=== PATIENT | female | born 1970 | race African-American/Black ===

== ENCOUNTER 2017-03-26 14:40 | Emergency (ER) | payer OTHER ==
--- NOTE | 2017-03-26 15:23 | PDOC ---
Medical Decision Making - Medical Decision Making 03/26/17 15:22 Pt brought to ED by [facility] after she had seizure while undergoing EEG across the street. Per protocol, was brought to [facility] despite patient's refusal - she states she has a lawsuit and does not want to be treated here. Upon arrival, pt refused care and began walking away. Discussed at length with patient in ambulance bay that we will evaluate and care for her as needed, but she does not want evaluation or care here despite understanding all levels of risk including increased seizures, brain/nerve damage, . Verbal AMA witnessed by [facility] crew and integrity director Clover Moura. She refused to enter the ED or sign any papers. Dr. Lantigua's office was called and Erma notified. *DC/Admit/Observation/Transfer - Discharge Dispostion Disposition: AGAINST MEDICAL ADVICE
== END 2017-03-26 15:22 | disposition left against medical advice (07) ==
LOC: JER 14:40
DX: Z53.21 Procedure and treatment not carried out due to patient leaving prior to being seen by health care provider (principal)
CPT/HCPCS: 99281-25

== ENCOUNTER 2017-08-11 12:51 | Emergency (ER) | payer OTHER ==
--- NOTE | 2017-08-11 13:12 | PDOC ---
History of Present Illness - General Chief Complaint: Seizure Stated Complaint: CHEST PAIN Time Seen by Provider: 08/11/17 13:10 - History of Present Illness Initial Comments: 08/11/17 13:11 Ms. Mckeon is a 47 yo female with a significant past medical history of seizure disorder on Kepra and Topamax, pseudocseizures, HTN, IBS, HLD, DM, and PTSD who presents to the emergency department with a 2 hour history of " fighting her aura" with chest tightness. The patient denies shortness of breath, headache and dizziness. Denies fever, chills, nausea, vomit, diarrhea and constipation. Denies dysuria, frequency, urgency and hematuria. Allergies: Dilantin Past surgical history: Denies Past History - Past Medical History Allergies/Adverse Reactions: Allergies Allergy/AdvReac Type Severity Reaction Status Date / Time phenytoin sodium AdvReac Verified 08/11/17 13:59 [From Dilantin] phenytoin sodium extended AdvReac Verified 08/11/17 13:59 [From Dilantin] Home Medications: Ambulatory Orders Alprazolam [Xanax] 2 mg PO DAILY 08/11/17 Clonazepam [Klonopin -] 0.5 mg PO BID 08/11/17 Esomeprazole Mag Trihydrate [NexIUM for SUSP] 40 mg PO DAILY 08/11/17 Levetiracetam [Keppra -] 250 mg PO BID 08/11/17 Oxycodone HCl/Acetaminophen [Endocet 5-325 Tablet] 1 each PO PRN 08/11/17 Topiramate [Topiramate ER] 200 mg PO BID 08/11/17 Anemia: No Asthma: No Cancer: No Cardiac Disorders: No CVA: No COPD: No CHF: No Dementia: No Diabetes: Yes GI Disorders: Yes (acid reflux, IBS) Disorders: No HTN: Yes Hypercholesterolemia: Yes Liver Disease: No Psychiatric Problems: (anxeity,PTSD) Seizures: Yes Thyroid Disease: No - Surgical History Abdominal Surgery: No Appendectomy: No Cardiac Surgery: No Cholecystectomy: Yes Lung Surgery: No Neurologic Surgery: No Orthopedic Surgery: No - Immunization History Immunization Up to Date: Yes - Suicide/Smoking/Psychosocial Hx Smoking Status: Yes Smoking History: Current every day smoker Have you smoked in the past 12 months: Yes Number of Cigarettes Smoked Daily: 3 'Breaking Loose' booklet given: 06/30/15 Hx Alcohol Use: No Drug/Substance Use Hx: No Substance Use Type: None Hx Substance Use Treatment: No Review of Systems - Review of Systems Comments:: 08/11/17 13:11 GENERAL/CONSTITUTIONAL: No fever or chills. No weakness. HEAD, EYES, EARS, NOSE AND THROAT: No change in vision. No ear pain or discharge. No sore throat. CARDIOVASCULAR: +Chest tightness for 2 hours, no shortness of breath RESPIRATORY: No cough, wheezing, or hemoptysis. GASTROINTESTINAL: No nausea, vomiting, diarrhea or constipation. GENITOURINARY: No dysuria, frequency, or change in urination. MUSCULOSKELETAL: No joint or muscle swelling or pain. No neck or back pain. SKIN: No rash NEUROLOGIC: +Headache with reported aura, No vertigo, loss of consciousness, or change in strength/sensation. ENDOCRINE: No increased thirst. No abnormal weight change HEMATOLOGIC/LYMPHATIC: No anemia, easy bleeding, or history of blood clots. ALLERGIC/IMMUNOLOGIC: No hives or skin allergy. *Physical Exam - Physical Exam Comments: 08/11/17 13:11 GENERAL: Awake, alert, and fully oriented, in no acute distress HEAD: No signs of trauma, normocephalic, atraumatic EYES: PERRLA, EOMI, sclera anicteric, conjunctiva clear ENT: Auricles normal inspection, hearing grossly normal, nares patent, oropharynx clear without exudates. Moist mucosa NECK: Normal ROM, supple, no lymphadenopathy, JVD, or masses LUNGS: No distress, speaks full sentences, clear to auscultation bilaterally HEART: Regular rate and rhythm, normal S1 and S2, no murmurs, rubs or gallops, peripheral pulses normal and equal bilaterally. ABDOMEN: Soft, nontender, normoactive bowel sounds. No guarding, no rebound. No masses EXTREMITIES: Normal inspection, Normal range of motion, no edema. No clubbing or cyanosis. NEUROLOGICAL: Cranial nerves II through XII grossly intact. Normal speech, normal gait, no focal sensorimotor deficits SKIN: Warm, Dry, normal turgor, no rashes or lesions noted. ED Treatment Course - LABORATORY CBC & Chemistry Diagram: 08/11/17 14:14 08/11/17 14:19 Medical Decision Making - Medical Decision Making 08/11/17 13:45 Patient observed to have rhythmic movements concerning for pseudo-seizure vs. seizure during interview, exacerbated by stress of multiple sticks while attempting to get IV line. 08/11/17 15:19 Patient reports feeling much better after 10mg of reglan and start of IV fluids. 08/11/17 16:41 Attempted to contact pts. Neurologist (Dr. Nannette Sutton) without success. 08/11/17 17:10 Attempted to contact anyone from Dr. Sutton's office or any partners without success. Dr. Blount contacted to discuss case. Advised to have pt ncrease keppra dosing from 250 to 500 BID and follow-up outpatient as needed. Will advise patient to follow-up with [facility] if any future problem contacting [facility]. Discussed all w/ pt and pt verbalized understanding. *DC/Admit/Observation/Transfer Diagnosis at time of Disposition: Pseudoseizures - Discharge Dispostion Disposition: HOME - Referrals Referrals: Nannette Sutton MD [Staff Physician] - Ruben Blount MD [Staff Physician] - - Patient Instructions Printed Discharge Instructions: Migraine -- Adult Additional Instructions: Please follow-up with your Neurologist as discussed. If any problems please reach out to Dr. Blount (information attached).
[2017-08-11 13:59] VITALS: BMI 36.1
[2017-08-11] MEDS ORDERED: SODIUM CHLORIDE 1,000 ML IV STA (14:06)
[2017-08-11] MEDS ORDERED: METOCLOPRAMIDE HCL INJECTION 10 MG/2 ML VIAL IVPUSH ONE (14:06)
--- NOTE | 2017-08-11 14:09 | PDOC ---
Attending Attestation - Resident Resident Name: Jayden Treadwell - ED Attending Attestation I have performed the following: I have examined & evaluated the patient, The case was reviewed & discussed with the resident, I agree w/resident's findings & plan, Exceptions are as noted - HPI HPI: 08/11/17 15:13 47y F hx of sz d/o, (?pseudoseizures), on keppra and topamax, htn, ibs, hl, dm, tpsd presents with sensation of aura without activ seizures, however on presentation the pt had several episodes of what was suspected to be pseudoseizures (upper extreity jerking but pt was albe to speak) vs partial seizures. The pt had an episode of twitching of her L upper lip and she had sonorous breathing. pt also endorsed mild headache and some chest tightness. pt jayna any n/v, focal ewkneass, numbnes/tingling/weakness. no tongue biting or urinary/bowel incontinence - Physicial Exam PE: 08/11/17 15:19 GENERAL: The patient is awake, alert, and fully oriented, Nontoxic - in no acute distress. HEAD: Normocephalic, atraumatic. EYES: extraocular movements intact, sclera anicteric, conjunctiva clear. ENT: Normal voice, Moist mucous membranes. NECK: Normal range of motion, supple LUNGS: Breath sounds equal, clear to auscultation bilaterally. No wheezes, no rhonchi, no rales. HEART: Regular rate and rhythm, normal S1 and S2 without murmur, rub or gallop. ABDOMEN: Soft, nontender, normoactive bowel sounds. No guarding, no rebound. EXTREMITIES: Normal range of motion, no edema. No clubbing or cyanosis. No cords, erythema, or tenderness. NEUROLOGICAL: No facial assymetry, Normal speech, moving all 4 extremities spontaneously and symmetrically PSYCH: Normal mood, normal affect. SKIN: Warm, Dry, normal turgor, - Medical Decision Making 08/11/17 15:20 seizures vs pseudoseizures. will ck labs ativan prn will dw neurology 08/11/17 17:55 resident d/w neurology requested med changes and will have pt fu as outpatient pt currently baseline, agrees with management Case discussed in detail with admitting physician including history, physical exam and ancillary studies. Admitting physician has assumed care for the patient, will follow all pending diagnostics and will complete the evaluation and treatment.
[2017-08-11 14:27] LABS: BASOPHIL 0.8 % (0-2.0); EOSINOPHIL 3.8 % (0-4.5); MCH 27.7 pg (25.7-33.7); MCHC 33.1 g/dl (32.0-36.0); MEAN CELL VOLUME 83.8 fl (80-96); MEAN PLT VOLUME 8.7 fl (7.5-11.1); NEUTROPHILS 43.8 % (42.8-82.8); PLATELET COUNT 253 K/MM3 (134-434); RDW 14.1 % (11.6-15.6); WHITE BLOOD COUNT 7.4 K/mm3 (4.0-10.0)
[2017-08-11] MEDS ORDERED: METOCLOPRAMIDE HCL INJECTION 10 MG/2 ML VIAL ONE (14:48)
[2017-08-11 14:50] LABS: ANION GAP 11 (8-16); BILIRUBIN,TOTAL 0.2 mg/dL (0.2-1.0); CO2 22 mmol/L (21-32); GLUCOSE,RANDOM 86 mg/dL (74-106); SGPT/ALT 23 U/L (12-78); TOT PROT 7.7 g/dl (6.4-8.2)
[2017-08-11 14:51] LABS: ALK PHOS 89 U/L (45-117)
[2017-08-11 14:59] LABS: SGOT/AST 16 U/L (15-37)
[2017-08-11 15:19] VITALS: TEMP 98.2
[2017-08-11 16:33] LABS: CPK 227 IU/L (26-192); TROPONIN I < 0.02 ng/ml (0.00-0.05)
[2017-08-11 17:41] VITALS: BP 142/92; PULSE 99
--- NOTE | 2017-08-12 07:05 | EKG ---
Test Reason : Blood Pressure : / mmHG Vent. Rate : 075 BPM Atrial Rate : 075 BPM P-R Int : 160 ms QRS Dur : 082 ms QT Int : 380 ms P-R-T Axes : 032 -03 041 degrees QTc Int : 424 ms NORMAL SINUS RHYTHM NORMAL ECG WHEN COMPARED WITH ECG OF 23-SEP-2016 16:06, NO SIGNIFICANT CHANGE WAS FOUND Confirmed by TUAN CAMERON MD ([id number]) on 08/12/2017 7:05:36 AM Referred By: Confirmed By:TUAN CAMERON MD
== END 2017-08-11 17:44 | disposition home or self-care (01) ==
LOC: JER 12:51
PROC: 3E033GC Introduction of Other Therapeutic Substance into Peripheral Vein, Percutaneous Approach (ICD-10-PCS; principal; 2017-08-11)
DX: R56.9 Unspecified convulsions (principal); I10 Essential (primary) hypertension; E11.9 Type 2 diabetes mellitus without complications; E78.00 Pure hypercholesterolemia, unspecified; K21.9 Gastro-esophageal reflux disease without esophagitis; F41.9 Anxiety disorder, unspecified; F43.10 Post-traumatic stress disorder, unspecified
CPT/HCPCS: 36415; 80053; 82550; 82553; 84484; 85025; 93005; 93010; 96374; 99284-25

== ENCOUNTER 2017-12-09 14:07 | Inpatient (IN) | payer OTHER ==
--- NOTE | 2017-12-09 14:37 | PDOC ---
History of Present Illness - General History Source: Patient, Family Exam Limitations: No Limitations - History of Present Illness Initial Comments: 12/09/17 16:53 The patient is a 47 year old female with a significant PMH of seizures and pseudoseizures; on keppra and topamax, HTN, HLD, pre-diabetic who presents to the emergency department with seizures today. The patient was seen by neurologist (Dr. Sutton) today and had a witnessed seizure in the office. As per EMS, the patient was given 5 of Versed IM with temporary cessation of seizures and was placed on a non-breather by EMS Her vitals were normal throughout per EMS.. The seizures are described as an aura of facial twitching initially, then became generalized and lasting for approximately 30 seconds. Upon arrival, the patient was somnolent with face twitching. During intial evaluation, the patient became more arousable and able to answer questions. The patient endsorses headache and nausea which she states is typical post-ictal. The patient states she is compliant with meds and has had no recent med changes. The patient denies palpiations, chest pain, shortness of breath, and dizziness. Denies fever, chills, vomit, diarrhea and constipation. Denies dysuria, frequency, urgency and hematuria. Allergies: NKA Past surgical history: None reported Social history: No reported alcohol, drug or cigarete use. PCP: Dr. Galarza <Jewell Fox - Last Filed: 12/09/17 16:54> <Primo Araujo - Last Filed: 12/11/17 11:34> - General Stated Complaint: Seizure Time Seen by Provider: 12/09/17 14:21 Past History <Jewell Fox - Last Filed: 12/09/17 16:54> - Past Medical History Anemia: No Asthma: No Cancer: No Cardiac Disorders: No CVA: No COPD: No CHF: No Dementia: No Diabetes: Yes GI Disorders: Yes (acid reflux, IBS) Disorders: No HTN: Yes Hypercholesterolemia: Yes Liver Disease: No Psychiatric Problems: (anxeity,PTSD) Seizures: Yes Thyroid Disease: No - Surgical History Abdominal Surgery: No Appendectomy: No Cardiac Surgery: No Cholecystectomy: Yes Lung Surgery: No Neurologic Surgery: No Orthopedic Surgery: No - Immunization History Immunization Up to Date: Yes - Suicide/Smoking/Psychosocial Hx Smoking Status: Yes Smoking History: Never smoked Have you smoked in the past 12 months: Yes Number of Cigarettes Smoked Daily: 3 'Breaking Loose' booklet given: 06/30/15 Hx Alcohol Use: No Drug/Substance Use Hx: No Substance Use Type: None Hx Substance Use Treatment: No <Primo Araujo - Last Filed: 12/11/17 11:34> - Past Medical History Allergies/Adverse Reactions: Allergies Allergy/AdvReac Type Severity Reaction Status Date / Time phenytoin sodium AdvReac Verified 08/11/17 13:59 [From Dilantin] phenytoin sodium extended AdvReac Verified 08/11/17 13:59 [From Dilantin] Home Medications: Ambulatory Orders Alprazolam [Xanax] 2 mg PO DAILY 08/11/17 Esomeprazole Mag Trihydrate [NexIUM for SUSP] 40 mg PO DAILY 08/11/17 Oxycodone HCl/Acetaminophen [Endocet 5-325 Tablet] 1 each PO PRN 08/11/17 Topiramate [Topiramate ER] 200 mg PO BID 08/11/17 clonazePAM [Klonopin -] 0.5 mg PO BID 08/11/17 levETIRAcetam [Keppra -] 250 mg PO BID 08/11/17 Review of Systems - Review of Systems Able to Perform ROS?: Yes Comments:: 12/09/17 16:54 CONSTITUTIONAL: No reported: Fever, Chills, Diaphoresis, Generalized Weakness, Malaise, Loss of Appetite HEENT: No reported: Rhinorrhea, Nasal Congestion, Throat Pain, Throat Swelling, Difficulty Swallowing, Mouth Swelling, Ear Pain, Eye Pain, Visual Changes CARDIOVASCULAR: No reported: Chest Pain, Syncope, Palpitations, Irregular Heart Rate, Lightheadedness, Peripheral Edema RESPIRATORY: No reported: Cough, Shortness of Breath, SOB with Exertion, Orthopnea, Wheezing , Stridor, Hemoptysis GASTROINTESTINAL: No reported: Abdominal pain, Abdominal Distension, Vomiting, Diarrhea, Constipation, Melena, Hematochezia Reported: (+) Nausea. GENITOURINARY: No reported: Dysuria, Frequency, Urgency, Hesitancy, Flank Pain, Genital Pain MUSCULOSKELETAL: No reported: Myalgia, Arthralgia, Joint Swelling, Back pain, Neck Pain SKIN: No reported: Rash, Itching, Pallor HEMEATOLOGIC/IMMUNOLOGIC: No reported: Easy Bleeding, Easy Bruising, Lymphadenopathy, Frequent infections ENDOCRINE: No reported: Unexplained Weight Gain, Unexplained Weight Loss, Heat Intolerance , Cold Intolerance NEUROLOGIC: No reported: Focal Weakness, Paresthesias, Vertigo, Lightheadedness, Unsteady Gait, Mental Status Changes, Incontinence Reported:(+) Seizures. (+) Headache. PSYCHIATRIC: No reported: Anxiety, Depression <Jewell Fox - Last Filed: 12/09/17 16:54> *Physical Exam - Vital Signs Last Vital Signs Temp Pulse Resp BP Pulse Ox 80 20 153/98 98 12/09/17 14:15 12/09/17 14:15 12/09/17 14:15 12/09/17 14:15 - Physical Exam Comments: 12/09/17 16:54 GENERAL: The patient is awake, alert, and fully oriented, Nontoxic - in no acute distress. HEAD: Normocephalic, atraumatic. EYES: extraocular movements intact, sclera anicteric, conjunctiva clear. ENT: Normal voice, Moist mucous membranes. NECK: Normal range of motion, supple LUNGS: Breath sounds equal, clear to auscultation bilaterally. No wheezes, no rhonchi, no rales. HEART: Regular rate and rhythm, without murmur, rub or gallop. ABDOMEN: Soft, nontender, normoactive bowel sounds. No guarding, no rebound.No CVA tenderness EXTREMITIES: Normal range of motion, no edema. No clubbing or cyanosis. No cords, erythema, or tenderness. NEUROLOGICAL: No facial assymetry, Normal speech, moving all 4 exterimties spontaenously and symetriclaly PSYCH: Normal mood, normal affect. SKIN: Warm, Dry, normal turgor, <Jewell Fox - Last Filed: 12/09/17 16:54> - Vital Signs Last Vital Signs Temp Pulse Resp BP Pulse Ox 80 20 153/98 98 12/09/17 14:15 12/09/17 14:15 12/09/17 14:15 12/09/17 14:15 <VanPrimo - Last Filed: 12/11/17 11:34> Heart Score/ECG Review - ECG Impressions Comment:: 12/09/17 18:37 Twelve-lead EKG was performed and reviewed by me. There is normal sinus rhythm with a normal rate. Rate of [address] changes suggestive of acute ischemia <Primo Araujo - Last Filed: 12/11/17 11:34> ED Treatment Course - LABORATORY CBC & Chemistry Diagram: 12/09/17 16:22 12/09/17 16:22 - Medications Given in the ED: ED Medications Discontinued Medications Generic Name Dose Route Start Last Admin Trade Name Masood PRN Reason Stop Dose Admin Acetaminophen 1,000 mg 12/09/17 14:38 12/09/17 14:39 Ofirmev Injection - IVPB 12/09/17 14:39 1,000 mg ONCE ONE Administration Lorazepam 2 mg 12/09/17 14:52 12/09/17 15:06 Ativan Injection - IVPUSH 12/09/17 14:53 2 mg ONCE ONE Administration <Jewell Fox - Last Filed: 12/09/17 16:54> - LABORATORY CBC & Chemistry Diagram: 12/11/17 10:30 12/11/17 10:30 <Primo Araujo - Last Filed: 12/11/17 11:34> Medical Decision Making - Medical Decision Making 12/09/17 15:35 Dr. Sutton (neurologist) was paged. <Jewell Fox - Last Filed: 12/09/17 16:54> - Medical Decision Making 12/09/17 14:29 47y F hx of seizures and pseudoseizures on keppra/topamax, htn, hl, dm, hx of head injury presents with witnessed sz while at neurologists office, lasting approx 30 seconds ,was given 5 versed by EMS will pt currently awake, speaking no focal neurolgoci findings will ck labs, ekg will dw neurology A portion of this note was documented by scribe services under my direction. I have reviewed the details of the note, within reason, and agree with the documentation with the following case summary and management plan written by me 12/09/17 14:52 pt with epsidoe of facial twitching heavy breathing course twitching/shaking her sat remianed at 98%on RA, HR was stable will give pt 2mg ativan 12/09/17 15:15 pt seizure like activity resolved shortly after ativan has been at baseline mental status, awake, answering questions, complining of pain in her knee (and feels that is the trigger of her seizures) 12/09/17 15:[address] santiago requests admission he will come see her in 1.5 hrs I spent ~35 minutes of Critical Care time, excluding separately billable procedures, involving high complexity decision making to assess, manipulate and support vital system function(s) to treat single or multiple vital organ system failure and/or to prevent further life threatening deterioration of the patient' s condition. 12/09/17 17:58 case discused with MONUMENT INSTALLER Kiki Cruz will observe in med surg under dr. harrison service. Case discussed in detail with admitting physician including history, physical exam and ancillary studies. Admitting physician has assumed care for the patient, will follow all pending diagnostics and will complete the evaluation and treatment. 0 <Primo Araujo - Last Filed: 12/11/17 11:34> *DC/Admit/Observation/Transfer - Attestations Scribe Attestion: 12/09/17 16:55 Documentation prepared by Jewell Fox, acting as medical assisting program director for Primo Araujo MD. <Jewell Fox - Last Filed: 12/09/17 16:54> - Discharge Dispostion Admit: Yes <Primo Araujo - Last Filed: 12/11/17 11:34> Diagnosis at time of Disposition: Seizure - Discharge Dispostion Condition at time of disposition: Stable
[2017-12-09] MEDS ORDERED: ACETAMINOPHEN 1000 MG/100 ML VIAL (NON FORMULARY) IVPB ONE (14:38)
[2017-12-09] MEDS ORDERED: ACETAMINOPHEN INJECTION 100 ML IVPB ONE (14:44)
[2017-12-09] MEDS ORDERED: LORazepam 2 MG/ML SDV VIAL ONE ×2 (14:53→20:00)
[2017-12-09 16:44] LABS: BASO % 1.1 % (0-2.0); EOS % 4.5 % (0-4.5); HEMATOCRIT 41.7 % (32.4-45.2); HEMOGLOBIN 13.9 GM/dL (10.7-15.3); LYMPH % 46.5 % (8-40); MCH 28.3 pg (25.7-33.7); MCHC 33.3 g/dl (32.0-36.0); MEAN CELL VOLUME 85.2 fl (80-96); MEAN PLT VOLUME 9.1 fl (7.5-11.1); MONO % 3.9 % (3.8-10.2); PLATELET COUNT 210 K/MM3 (134-434); RDW 14.1 % (11.6-15.6); WHITE BLOOD COUNT 6.8 K/mm3 (4.0-10.0)
[2017-12-09 17:12] LABS: ALBUMIN 3.7 g/dl (3.4-5.0); ANION GAP 7 (8-16); BLOOD UREA NITROGEN 11 mg/dL (7-18); CALCIUM 8.5 mg/dL (8.5-10.1); CHLORIDE 109 mmol/L (98-107); CO2 26 mmol/L (21-32); CREATININE 0.9 mg/dL (0.55-1.02); GLUCOSE,RANDOM 125 mg/dL (74-106); POTASSIUM 3.8 mmol/L (3.5-5.1); SGOT/AST 16 U/L (15-37); SGPT/ALT 28 U/L (12-78); SODIUM 142 mmol/L (136-145)
[2017-12-09 17:13] LABS: ALK PHOS 90 U/L (45-117); BILIRUBIN,TOTAL 0.4 mg/dL (0.2-1.0); TOT PROT 6.9 g/dl (6.4-8.2)
[2017-12-09 18:09] LABS: URINE APPEARANCE CLOUDY; URINE BILIRUBIN NEGATIVE (NEGATIVE); URINE BLOOD NEGATIVE (NEGATIVE); URINE COLOR AMBER; URINE GLUCOSE (UA) NEGATIVE (NEGATIVE); URINE KETONE NEGATIVE (NEGATIVE); URINE NITRITE NEGATIVE (NEGATIVE)
--- NOTE | 2017-12-09 18:22 | CON.NEURO ---
Consult Consult Specialty:: NEUROLOGY-IMELDA MCINTOSH Reason for Consultation:: Seizure - History of Present Illness History of Present Illness: The patient is a 47 year old female with a significant PMH of seizures and pseudoseizures, chronic lumbar pain; on keppra 750mg bid and topamax 50mg bid, HTN, HLD, fibromyalgiapre-diabetic who presents to the emergency department with seizures today. The patient was seen by neurologist (Dr. Sutton) today and had a witnessed seizure in the office. As per EMS, the patient was given 5 of Versed IM with temporary cessation of seizures and was placed on a non-breather by EMS Her vitals were normal throughout per EMS.. The seizures are described as an aura of facial twitching initially, then became generalized and lasting for approximately 30 seconds. Upon arrival, the patient was somnolent with face twitching. During intial evaluation, the patient became more arousable and able to answer questions. The patient endsorses headache and nausea which she states is typical post-ictal. The patient states she is compliant with meds and has had no recent med changes. Ms. Mckeon informs me she has had improvement of her back pain that has radiated to both knees x years(L4 distribution)(treated with Percocet 1 tab 3 x /day x 2 years and gabapentin)- a week ago began having intense left knee pain that she says riggers off seizures, she is unable to ambulate due to pain and perceives a "pop" in her knee. Today in my office had 1 GTC(not lear whether true sz. or non-electrical sz), had another one in ER. - Past Medical History ...LMP: 11/18/11 - Alcohol/Substance Use Hx Alcohol Use: No - Smoking History Smoking history: Never smoked Have you smoked in the past 12 months: Yes Aproximately how many cigarettes per day: 3 Home Medications - Allergies Allergies/Adverse Reactions: Allergies Allergy/AdvReac Type Severity Reaction Status Date / Time phenytoin sodium AdvReac Verified 08/11/17 13:59 [From Dilantin] phenytoin sodium extended AdvReac Verified 08/11/17 13:59 [From Dilantin] - Home Medications Home Medications: Ambulatory Orders Alprazolam [Xanax] 2 mg PO DAILY 08/11/17 Esomeprazole Mag Trihydrate [NexIUM for SUSP] 40 mg PO DAILY 08/11/17 Oxycodone HCl/Acetaminophen [Endocet 5-325 Tablet] 1 each PO PRN 08/11/17 Topiramate [Topiramate ER] 200 mg PO BID 08/11/17 clonazePAM [Klonopin -] 0.5 mg PO BID 08/11/17 levETIRAcetam [Keppra -] 250 mg PO BID 08/11/17 Physical Exam-Neuro Vital Signs: Vital Signs Temperature Pulse Rate 80 12/09/17 14:15 Respiratory Rate 20 12/09/17 14:15 Blood Pressure 153/98 12/09/17 14:15 O2 Sat by Pulse Oximetry (%) 98 12/09/17 14:15 Labs: CBC, BMP 12/09/17 16:22 12/09/17 16:22 - Neuro Exam DTR's: 1+ Left Achilles, 1+ Right Achilles, 2+ Left Bicep, 2+ Right Bicep, 2+ Left Tricep, 2+ Right Tricep, 2+ Left Brachioradialis, 2+ Right Brachioradialis Motor Strength: 5/5: Left Arm, Right Arm, Left Leg, Right Leg (left leg strength -limited exam due to intense knee pain) Gait: Deferred (Unable to stand secondary to knee pain) Assessment/Plan Pt. with breakthrough seizure vs non-electrical seizure. What is more prominent is knee pain?? knee pathology vs pain radiating from L4 root to knee- sometimes lumbar root pain can occur in knee only. Plan:Kindly admit patient, she is unable to ambulate Cont Keppra 750mg bid Increase Topamax to 100mg bid Cont Gabapentin at current dose Percocet 1 tab 10 qid Orthopedics consult re: knee pain Neurosurgery consult(Dr. Albrecht, I have already requested him to see patient)- re: opinion whether lumbar mechanical pain is radiating down causing localized knee pain. Thank you, Stephon Sutton MD
[2017-12-09 18:44] LABS: URINE LEUK ESTERASE 3+ (NEGATIVE); URINE PROTEIN 1+ (NEGATIVE)
--- NOTE | 2017-12-09 18:56 | HP ---
CHIEF COMPLAINT: breakthrough seizure PCP: Neurologist: Dr. Sutton HISTORY OF PRESENT ILLNESS: Patient is a 47 year old female with a significant past medical history of seizures and pseudoseizures (on Keppra 750mg BID and Topomax 50mg BID), chronic lumbar pain, hypertension, hyperlipidemia, fibromyalgia and pre-diabetes. She is also a current everyday smoker. She presents to the ED today with a witnessed breakthrough seizure. Patient was reported to be in her neurologist office today and had a witnessed seizure. She was sent to the ED. En route to the hospital she was given Versed. The seizure were initially facial twitching then became generalized and lasting for apx 30 seconds. On arrival to the ED, she also had another seizure episode and was given Ativan IV with good effect. In the ED patient was back to her baseline mentally, reporting she has a minor headache and mild nausea which she states happens after a seizure. Patient states that she has had severe knee pain for a few weeks. The left knee hurts more than the right. and she is unable to ambulate without experiencing severe pain. She also reports back pain that radiates to both knees. She states that when her knee pain becomes severe, it precipitates a seizure. She reports compliance with her home anti-seizure medications. ER course was notable for: (1) leuk ext +3 (2) lactic acid 2.3 (3) ativan 2mg push for seizure (4) left knee pain, xray pending (5) seizures x 2 Recent Travel: PAST MEDICAL HISTORY: PAST SURGICAL HISTORY: Social History: Smoking: current every day smoker Alcohol: denies Drugs: denies Family History: Allergies phenytoin sodium [From Dilantin] Adverse Reaction (Verified 08/11/17 13:59) phenytoin sodium extended [From Dilantin] Adverse Reaction (Verified 08/11/17 13 :59) HOME MEDICATIONS: Home Medications Medication Instructions Recorded Alprazolam [Xanax] 2 mg PO DAILY 08/11/17 Esomeprazole Mag Trihydrate 40 mg PO DAILY 08/11/17 [NexIUM for SUSP] Oxycodone HCl/Acetaminophen 1 each PO PRN 08/11/17 [Endocet 5-325 Tablet] Topiramate [Topiramate ER] 200 mg PO BID 08/11/17 clonazePAM [Klonopin -] 0.5 mg PO BID 08/11/17 levETIRAcetam [Keppra -] 250 mg PO BID 08/11/17 REVIEW OF SYSTEMS CONSTITUTIONAL: Absent: fever, chills, diaphoresis, generalized weakness, malaise, loss of appetite, weight change HEENT: Absent: rhinorrhea, nasal congestion, throat pain, throat swelling, difficulty swallowing, mouth swelling, ear pain, eye pain, visual changes CARDIOVASCULAR: Absent: chest pain, syncope, palpitations, irregular heart rate, lightheadedness , peripheral edema RESPIRATORY: Absent: cough, shortness of breath, dyspnea with exertion, orthopnea, wheezing, stridor, hemoptysis GASTROINTESTINAL: Absent: abdominal pain, abdominal distension, nausea, vomiting, diarrhea, constipation, melena, hematochezia GENITOURINARY: Absent: dysuria, frequency, urgency, hesitancy, hematuria, flank pain, genital pain MUSCULOSKELETAL: Absent: myalgia, arthralgia, joint swelling, back pain, neck pain SKIN: Absent: rash, itching, pallor HEMATOLOGIC/IMMUNOLOGIC: Absent: easy bleeding, easy bruising, lymphadenopathy, frequent infections ENDOCRINE: Absent: unexplained weight gain, unexplained weight loss, heat intolerance, cold intolerance PHYSICAL EXAMINATION Vital Signs - 24 hr 12/09/17 14:15 Pulse Rate 80 Respiratory 20 Rate Blood Pressure 153/98 O2 Sat by Pulse 98 Oximetry (%) GENERAL: Awake, alert, and fully oriented, in no acute distress. HEAD: Normal with no signs of trauma. EYES: Pupils equal, round and reactive to light, extraocular movements intact, sclera anicteric, conjunctiva clear. No lid lag. EARS, NOSE, THROAT: Ears normal, nares patent, oropharynx clear without exudates. Moist mucous membranes. NECK: Normal range of motion, supple without lymphadenopathy, JVD, or masses. LUNGS: Breath sounds equal, clear to auscultation bilaterally. No wheezes, and no crackles. No accessory muscle use. HEART: Regular rate and rhythm, normal S1 and S2 without murmur, rub or gallop. ABDOMEN: Soft, nontender, not distended, normoactive bowel sounds, no guarding, no rebound, no masses. No hepatomegaly or splenomegaly. MUSCULOSKELETAL: Normal range of motion at all joints. No bony deformities or tenderness. No CVA tenderness. LOWER EXTREMITIES: Bilateral knee pain and edema L>R. NEUROLOGICAL: Normal speech. Normal gait. PSYCHIATRIC: Cooperative. Good eye contact. Appropriate mood and affect. SKIN: Warm, dry, normal turgor, no rashes or lesions noted, normal capillary refill. Laboratory Results - last 24 hr 12/09/17 12/09/17 12/09/17 16:22 16:22 16:22 WBC 6.8 RBC 4.90 Hgb 13.9 Hct 41.7 MCV 85.2 MCH 28.3 MCHC 33.3 RDW 14.1 Plt Count 210 MPV 9.1 Neutrophils % 44.0 Lymphocytes % 46.5 H Monocytes % 3.9 Eosinophils % 4.5 Basophils % 1.1 Sodium 142 Potassium 3.8 Chloride 109 H Carbon Dioxide 26 Anion Gap 7 L BUN 11 Creatinine 0.9 Creat Clearance w eGFR > 60 Random Glucose 125 H Lactic Acid 2.3 H* Calcium 8.5 Total Bilirubin 0.4 D AST 16 ALT 28 Alkaline Phosphatase 90 Total Protein 6.9 Albumin 3.7 Urine Color Urine Appearance Urine pH Ur Specific [place] Urine Protein Urine Glucose (UA) Urine Ketones Urine Blood Urine Nitrite Urine Bilirubin Urine Urobilinogen Ur Leukocyte Esterase 12/09/17 17:50 WBC RBC Hgb Hct MCV MCH MCHC RDW Plt Count MPV Neutrophils % Lymphocytes % Monocytes % Eosinophils % Basophils % Sodium Potassium Chloride Carbon Dioxide Anion Gap BUN Creatinine Creat Clearance w eGFR Random Glucose Lactic Acid Calcium Total Bilirubin AST ALT Alkaline Phosphatase Total Protein Albumin Urine Color Cathy Urine Appearance Cloudy Urine pH 5.0 Ur Specific [place] 1.026 Urine Protein 1+ H Urine Glucose (UA) Negative Urine Ketones Negative Urine Blood Negative Urine Nitrite Negative Urine Bilirubin Negative Urine Urobilinogen 2.0 H Ur Leukocyte Esterase 3+ H ASSESSMENT/PLAN: Patient is a 47 year old female with a significant past medical history of seizures and pseudoseizures (on Keppra 750mg BID and Topomax 50mg BID), chronic lumbar pain, hypertension, hyperlipidemia, fibromyalgia and pre-diabetes. She is also a current everyday smoker. She presents to the ED today with a witnessed breakthrough seizure. Patient was reported to be in her neurologist office today and had a witnessed seizure. She was sent to the ED. En route to the hospital she was given Versed. The seizure were initially facial twitching then became generalized and lasting for apx 30 seconds. On arrival to the ED, she also had another seizure episode and was given Ativan IV with good effect. In the ED patient was back to her baseline mentally, reporting she has a minor headache and mild nausea which she states happens after a seizure. Patient states that she has had severe knee pain for a few weeks. The left knee hurts more than the right. and she is unable to ambulate without experiencing severe pain. She also reports back pain that radiates to both knees. She states that when her knee pain becomes severe, it precipitates a seizure. She reports compliance with her home anti-seizure medications. Neurology Breakthrough Seizure Pseudoseizures Pateint reports compliance with home meds Lactic acid elevated after seizure activity On Keppra 750mg BID Topamax increased to 100mg BID as per neurlogist Gabapentin 600mg TID Ativan IV push for any further breakthrough seizures Orthopedics Knee Pain, Left > Right Difficulty with ambulation Back pain>both knees Ortho consult Neurosurgery consult Knee xray pending Neurontin Manage pain with Percocet Physical therapy Endocrine Pre-diabetes HmgA1c in a.m. Cardiology Hypertension, chronic Monitor BP Hyperlipidemia, chronic Lipid panel in a.m. : UTI UA + Leuk est Ceftriaxone pending urine cultures F.E.N. Fluids: Gentle hydration for lactic acidosis Electrolytes: monitor Nutrition: low soium Prophylaxis: DVT: SCDs GI: deferred Disposition: full code Visit type - Emergency Visit Emergency Visit: Yes ED Registration Date: 12/09/17 Care time: The patient presented to the Emergency Department on the above date and was hospitalized for further evaluation of their emergent condition. - New Patient This patient is new to me today: Yes Date on this admission: 12/09/17 - Critical Care Critical Care patient: No
[2017-12-09] MEDS ORDERED: oxyCODONE HCL 5 MG TABLET PO PRN (19:05)
[2017-12-09 19:18] LABS: EPI CELLS MANY /HPF (FEW); URINE HYALINE CAST 54 /lpf; URINE MUCUS RARE
[2017-12-09] MEDS ORDERED: LIDOCAINE 5% TOPICAL PATCH TP ONE (20:00)
[2017-12-09] MEDS: LORazepam 2 MG/ML SDV VIAL IVPUSH PRN (20:10)
[2017-12-09] MEDS: SODIUM CHLORIDE 1,000 ML IV SCH (20:40)
[2017-12-09] MEDS: NICOTINE 21 MG/24 HOURS TOPICAL PATCH TD SCH (20:41)
[2017-12-09] MEDS ORDERED: LIDOCAINE 5% TOPICAL PATCH ONE (21:02)
[2017-12-09] MEDS: oxyCODONE HCL 5 MG TABLET PO PRN (21:12)
[2017-12-09] MEDS ORDERED: oxyCODONE HCL 5 MG TABLET ONE (21:17)
[2017-12-09] MEDS ORDERED: levETIRAcetam 250 MG TABLET (FP) PO SCH (22:00)
[2017-12-09] MEDS: TOPIRAMATE 100 MG TABLET PO SCH (22:03)
[2017-12-09] MEDS: GABAPENTIN 300 MG CAPSULE (FP) PO SCH (22:03)
[2017-12-09] MEDS: LIDOCAINE PATCH REMOVAL MC SCH (22:03)
[2017-12-09] MEDS ORDERED: levETIRAcetam 500 MG TABLET (FP) PO ONE (22:14)
[2017-12-09] MEDS ORDERED: GABAPENTIN 100 MG CAPSULE (FP) ONE (22:14)
[2017-12-09] MEDS ORDERED: TOPIRAMATE 25 MG TABLET (FP) ONE (22:15)
[2017-12-10] MEDS: oxyCODONE HCL 5 MG TABLET PO PRN ×2 (02:19→17:32)
[2017-12-10 03:33] VITALS: BMI 39.6
[2017-12-10] MEDS: GABAPENTIN 300 MG CAPSULE (FP) PO SCH ×3 (05:28→22:41)
[2017-12-10] MEDS: LORazepam 2 MG/ML SDV VIAL IVPUSH PRN ×3 (05:58→19:17)
[2017-12-10 07:37] LABS: BASO % 0.5 % (0-2.0); EOS % 4.3 % (0-4.5); HEMATOCRIT 38.8 % (32.4-45.2); HEMOGLOBIN 12.8 GM/dL (10.7-15.3); LYMPH % 52.4 % (8-40); MCH 27.9 pg (25.7-33.7); MCHC 32.9 g/dl (32.0-36.0); MEAN CELL VOLUME 84.6 fl (80-96); MEAN PLT VOLUME 8.7 fl (7.5-11.1); NEUT % 37.8 % (42.8-82.8); PLATELET COUNT 209 K/MM3 (134-434); RBC 4.59 M/mm3 (3.60-5.2); RDW 13.7 % (11.6-15.6); WHITE BLOOD COUNT 7.4 K/mm3 (4.0-10.0)
[2017-12-10 07:57] LABS: ALBUMIN 3.4 g/dl (3.4-5.0); ANION GAP 4 (8-16); BLOOD UREA NITROGEN 9 mg/dL (7-18); CALCIUM 8.1 mg/dL (8.5-10.1); CHLORIDE 110 mmol/L (98-107); CO2 28 mmol/L (21-32); CREATININE 0.8 mg/dL (0.55-1.02); GLUCOSE,RANDOM 95 mg/dL (74-106); POTASSIUM 4.2 mmol/L (3.5-5.1); SGOT/AST 16 U/L (15-37); SGPT/ALT 25 U/L (12-78); SODIUM 142 mmol/L (136-145)
[2017-12-10 08:03] LABS: ALK PHOS 87 U/L (45-117); BILIRUBIN,TOTAL 0.3 mg/dL (0.2-1.0); CHOLESTEROL 234 mg/dL (50-200); HDL CHOLESTEROL 69 mg/dL (40-60); LDL CHOLESTEROL (ONLY SJRH) 149 mg/dL (5-100); TOT PROT 6.3 g/dl (6.4-8.2); TRIGLYCERIDES 88 mg/dL (35-160)
[2017-12-10] MEDS ORDERED: MORPHINE SULFATE 10 MG/1 ML *VIAL IVPUSH ONE ×3 (08:39→11:00)
--- NOTE | 2017-12-10 08:52 | PN ---
Physical Exam: SUBJECTIVE: Patient seen and examined. Initially pt reported not sleeping well during the night, following eval of L shoulder she started to have exquisite pain and cry. Events: - Following shoulder assessment pt reported having an aura followed by a GTC seizure and right facial twitching and post ictal state - 2mg Ativan IVP given - x2 seizure followed by right facial twitching, NRB mask place, ? pseudoseizure as easily arousable when moved LLE crying with L knee pain. OBJECTIVE: Vital Signs Period Temp Pulse Resp BP Sys/Schmidt Pulse Ox Last 24 Hr 98 F-98.5 F 80-91 18-20 150-169/72-100 98-99 PE - pre seizure Neuro: alert, awake, cn 2-12intact HEENT: mild r eye ptosis Pulm: CTAB CV: s1 s2 rrr no mrg Abd: s nt nd + bs MSK: L knee tenderness or any ROM to palpation no swelling noted, R shoulder pain motor 5/5 pain with abduction Laboratory Results - last 24 hr 12/09/17 12/10/17 12/10/17 17:50 06:00 06:00 WBC 7.4 RBC 4.59 Hgb 12.8 Hct 38.8 MCV 84.6 MCH 27.9 MCHC 32.9 RDW 13.7 Plt Count 209 MPV 8.7 Neutrophils % 37.8 L Lymphocytes % 52.4 H Monocytes % 5.0 Eosinophils % 4.3 Basophils % 0.5 Sodium 142 Potassium 4.2 Chloride 110 H Carbon Dioxide 28 Anion Gap 4 L BUN 9 Creatinine 0.8 Creat Clearance w eGFR > 60 Random Glucose 95 Lactic Acid Calcium 8.1 L Magnesium 2.0 Total Bilirubin 0.3 D AST 16 ALT 25 Alkaline Phosphatase 87 Total Protein 6.3 L Albumin 3.4 Triglycerides 88 Cholesterol 234 H Total LDL Cholesterol 149 H HDL Cholesterol 69 H Urine Color [place]athy Urine Appearance Cloudy Urine pH 5.0 Ur Specific [place] 1.026 Urine Protein 1+ H Urine Glucose (UA) Negative Urine Ketones Negative Urine Blood Negative Urine Nitrite Negative Urine Bilirubin Negative Urine Urobilinogen 2.0 H Ur Leukocyte Esterase 3+ H Urine WBC (Auto) 5 Urine RBC (Auto) 4 Ur Epithelial Cells Many Hyaline Casts 54 Urine Mucus Rare Active Medications Generic Name Dose Route Start Last Admin Trade Name Freq PRN Reason Stop Dose Admin Acetaminophen 325 mg 12/09/17 19:05 Tylenol - PO Q6H PRN PAIN LEVEL 6-10 Alprazolam 2 mg 12/10/17 10:00 Xanax - PO DAILY SINDI Gabapentin 600 mg 12/09/17 22:00 12/10/17 05:28 Neurontin - PO 600 mg TID SINDI Administration Sodium Chloride 1,000 mls @ 75 mls/hr 12/09/17 19:15 12/09/17 20:40 Normal Saline - IV 75 mls/hr ASDIR SINDI Administration CEFTRIAXONE 1 G/50 ML PREMIX 50 mls @ 100 mls/hr 12/10/17 10:00 Ceftriaxone 1 Gm-D5w Bag IVPB DAILY SINDI Levetiracetam 1,000 mg 12/10/17 10:00 Keppra Injection - IVPB BID SINDI Lorazepam 2 mg 12/10/17 08:40 Ativan Injection - IVPUSH Q4H PRN seizures Miscellaneous 1 each 12/09/17 22:00 12/09/17 22:03 Lidoderm Patch Removal MC 1 each DAILY@2200 SINDI Administration Nicotine 21 mg 12/09/17 20:00 12/09/17 20:41 Nicoderm Patch - TD 21 mg DAILY SINDI Administration Oxycodone HCl 10 mg 12/09/17 19:50 12/10/17 02:19 Roxicodone - PO 10 mg Q6H PRN Administration PAIN LEVEL 6-10 Topiramate 100 mg 12/09/17 22:00 12/09/17 22:03 Topamax - PO 100 mg BID SINDI Administration Assessment: 47 year old female with a significant PMH of seizures and pseudoseizures, chronic lumbar pain, HTN, HLD, fibromyalgiapre-diabetic admitted with witnessed seizures. Plan: 1. Seizures - Increase keppra 1000mg BID IV - Topamax 100mg BID - D/w Neuro 2. L knee/ L shoulder pain - Unclear source of pain, ? L knee vs L4 root - L knee xray done, report pending - MRI lumbar spine ordered- d/w neuro and neuro surgery aware - Ortho consulted 3. PTSD - Xanax 2mg daily 4. UTI - Repeat UA - Hold abx at this time, no infectious signs/pt denies dysuria/frequency - Repeat lactic acid level - Continue IVF 5. HTN - Elevated, goal sbp <140 - Start lisinopril 10mg daily 6. HLD - Lipid panel noted - Start lipitor 40mg HS 7. DM II - Hgb a1c pending Visit type - Emergency Visit Emergency Visit: Yes ED Registration Date: 12/09/17 Care time: The patient presented to the Emergency Department on the above date and was hospitalized for further evaluation of their emergent condition. - New Patient This patient is new to me today: Yes Date on this admission: 12/10/17 - Critical Care Critical Care patient: No
--- NOTE | 2017-12-10 08:54 | PN ---
Progress Note, Physician History of Present Illness: The patient is a 47 year old female with a significant PMH of seizures and pseudoseizures, chronic lumbar pain; on keppra 750mg bid and topamax 50mg bid, HTN, HLD, fibromyalgiapre-diabetic who presents to the emergency department with seizures today. The patient was seen by neurologist (Dr. Sutton) today and had a witnessed seizure in the office. As per EMS, the patient was given 5 of Versed IM with temporary cessation of seizures and was placed on a non-breather by EMS Her vitals were normal throughout per EMS.. The seizures are described as an aura of facial twitching initially, then became generalized and lasting for approximately 30 seconds. Upon arrival, the patient was somnolent with face twitching. During intial evaluation, the patient became more arousable and able to answer questions. The patient endsorses headache and nausea which she states is typical post-ictal. The patient states she is compliant with meds and has had no recent med changes. Ms. Mckeon informs me she has had improvement of her back pain that has radiated to both knees x years(L4 distribution)(treated with Percocet 1 tab 3 x /day x 2 years and gabapentin)- a week ago began having intense left knee pain that she says riggers off seizures, she is unable to ambulate due to pain and perceives a "pop" in her knee. Today in my office had 1 GTC(not lear whether true sz. or non-electrical sz), had another one in ER. -This am pt. had 2 seizures, first one preceeded by an "aura' and GTC movementsand right facial twitching. She woke up without confusion. O/E-she is awake, alert, somnolent but easily arousable, not confused with exquisite left knee tenderness. Plan: Hospitalist assistance greatly appreciated Increase Keppra to 1000mg bid, I/V MRI l/s spine Orthopedics consult re:knee pain. - Current Medication List Current Medications: Active Medications Acetaminophen (Tylenol -) 325 mg PO Q6H PRN PRN Reason: PAIN LEVEL 6-10 Alprazolam (Xanax -) 2 mg PO DAILY SINDI Gabapentin (Neurontin -) 600 mg PO TID [facility] Last Admin: 12/10/17 05:28 Dose: 600 mg Sodium Chloride (Normal Saline -) 1,000 mls @ 75 mls/hr IV ASDIR [facility] Last Admin: 12/09/17 20:40 Dose: 75 mls/hr CEFTRIAXONE 1 G/50 ML PREMIX (Ceftriaxone 1 Gm-D5w Bag) 50 mls @ 100 mls/hr IVPB DAILY [facility] Levetiracetam (Keppra -) 750 mg PO BID [facility] Last Admin: 12/09/17 22:03 Dose: 750 mg Lorazepam (Ativan Injection -) 2 mg IVPUSH Q4H PRN PRN Reason: seizures Miscellaneous (Lidoderm Patch Removal) 1 each MC DAILY@2200 [facility] Last Admin: 12/09/17 22:03 Dose: 1 each Nicotine (Nicoderm Patch -) 21 mg TD DAILY [facility] Last Admin: 12/09/17 20:41 Dose: 21 mg Oxycodone HCl (Roxicodone -) 10 mg PO Q6H PRN PRN Reason: PAIN LEVEL 6-10 Last Admin: 12/10/17 02:19 Dose: 10 mg Topiramate (Topamax -) 100 mg PO BID [facility] Last Admin: 12/09/17 22:03 Dose: 100 mg - Objective Vital Signs: Vital Signs Temperature 98.5 F 12/10/17 07:01 Pulse Rate 88 12/10/17 07:47 Respiratory Rate 20 12/10/17 07:47 Blood Pressure 150/100 12/10/17 07:47 O2 Sat by Pulse Oximetry (%) 98 12/10/17 00:20 Labs: CBC, BMP 12/10/17 06:00 12/10/17 06:00
[2017-12-10] MEDS: levETIRAcetam 500 MG/5 ML INJECTION VIAL IVPB SCH ×2 (09:11→22:25)
[2017-12-10] MEDS ORDERED: CEFTRIAXONE 1 G/50 ML PREMIX 50 ML IVPB SCH (10:00)
[2017-12-10] MEDS ORDERED: MORPHINE SULFATE 10 MG/1 ML *VIAL IVPUSH PRN (10:36)
[2017-12-10] MEDS: TOPIRAMATE 100 MG TABLET PO SCH ×2 (10:40→22:38)
[2017-12-10] MEDS: NICOTINE 21 MG/24 HOURS TOPICAL PATCH TD SCH (10:40)
[2017-12-10] MEDS: ALPRAZolam 2 MG TABLET PO SCH (10:42)
[2017-12-10] MEDS: LISINOPRIL 10 MG TABLET (FP) PO SCH (10:49)
--- NOTE | 2017-12-10 11:05 | EKG ---
Test Reason : Blood Pressure : / mmHG Vent. Rate : 083 BPM Atrial Rate : 083 BPM P-R Int : 144 ms QRS Dur : 072 ms QT Int : 394 ms P-R-T Axes : 056 -07 029 degrees QTc Int : 462 ms POOR DATA QUALITY, INTERPRETATION MAY BE ADVERSELY AFFECTED NORMAL SINUS RHYTHM NORMAL ECG WHEN COMPARED WITH ECG OF 11-AUG-2017 13:19, NO SIGNIFICANT CHANGE WAS FOUND Confirmed by SHARITA MCINTOSH, SHEA ([id number]) on 12/10/2017 11:05:37 AM Referred By: Confirmed By:SHEA SHERIFF MD
--- NOTE | 2017-12-10 11:41 | CONSULT ---
Consult - text type - Consultation Consultation Note: NEUROSURGERY CONSULTATION Case discussed with Dr. Sutton. When I visited the patient this morning, she had just had an ictal event and received Ativan and was unable to discuss her case. Will return to see patient and review Lumbar MRI.
[2017-12-10] MEDS: SODIUM CHLORIDE 1,000 ML IV SCH ×2 (12:08→19:17)
[2017-12-10] MEDS ORDERED: PT OWN MED DRAWER 7, Y5N ONE (12:34)
[2017-12-10] MEDS: ACETAMINOPHEN 325 MG TABLET (FP) PO PRN (17:32)
[2017-12-10] MEDS: ATORVASTATIN CA 40 MG TABLET (FP) PO SCH (22:32)
[2017-12-10] MEDS: LIDOCAINE PATCH REMOVAL MC SCH (22:32)
[2017-12-11] MEDS: SODIUM CHLORIDE 1,000 ML IV SCH ×2 (02:51→19:31)
[2017-12-11] MEDS: ACETAMINOPHEN 325 MG TABLET (FP) PO PRN (03:13)
[2017-12-11] MEDS: oxyCODONE HCL 5 MG TABLET PO PRN ×3 (03:14→17:34)
[2017-12-11] MEDS: GABAPENTIN 300 MG CAPSULE (FP) PO SCH ×4 (06:28→21:11)
--- NOTE | 2017-12-11 08:59 | PN ---
Progress Note (short form) - Note Progress Note: Pt. without further seizures. Remains with left knee and left shoulder pain. Neuro exam- without focality Plan: Have requested Dr. Marinelli, orthopedics to consult re; kne/shoulder pain MRI L/S spine reviewed-DJD, left neural foraminal stenosis-await Dr. Albrecht's opinion. Cont AEDs/Percocet
[2017-12-11] MEDS: LORazepam 2 MG/ML SDV VIAL IVPUSH PRN ×2 (10:00→17:53)
[2017-12-11] MEDS ORDERED: Lacosamide 200 MG/20 ML VIAL IVPB ONE (10:10)
[2017-12-11] MEDS: levETIRAcetam 500 MG/5 ML INJECTION VIAL IVPB SCH ×2 (10:12→21:12)
--- NOTE | 2017-12-11 10:14 | PN ---
Progress Note (short form) - Note Progress Note: I came to see the pt for her shoulder and knee s/p multiple seizures. 10 am. She was in the middle of a significant seizure, in fact the code team was at her bedside, running a code. We will follow up to examine her shoulder and her knee, which at this point are much less important. Xrays of the left shoulder and knee were examined, there is no acute renetta pathology. Will follow.
--- NOTE | 2017-12-11 10:15 | RAPID ---
<Rachele Aguilar - Last Filed: 12/11/17 13:01> Physical Examination Vital Signs: Vital Signs Temperature 98.4 F 12/11/17 06:40 Pulse Rate 76 12/11/17 06:40 Respiratory Rate 20 12/11/17 06:40 Blood Pressure 145/72 12/11/17 06:40 O2 Sat by Pulse Oximetry (%) 99 12/10/17 21:00 Constitutional: Yes: Obese, Other (seizing upon entering room, rest of PE performed once seizure finished) Eyes: Yes: Conjunctiva Clear, PERRL HENT: Yes: Atraumatic, Normocephalic Neck: Yes: Supple, Trachea Midline Cardiovascular: Yes: Regular Rate and Rhythm. No: Murmur Respiratory: Yes: CTA Bilaterally. No: Accessory Muscle Use Gastrointestinal: Yes: Soft. No: Tenderness Musculoskeletal: Yes: Other (pt c/o Left shoulder and Left knee pain, no crepitus or deformity palpated). No: Muscle Pain Extremities: Yes: WNL Edema: No Neurological: Yes: Alert, Oriented, Weakness (generalized post-ictal) Labs: CBC, BMP 12/10/17 06:00 12/10/17 06:00 Rapid Response - Rapid Response Assessment: Rapid Response called this morning because pt was actively seizing. Pt had a 3 minute seizure followed by 1 minute of rest, and then another 1 minute seizure. 47F with PMH of seizures, HTN, HLD, fibromyalgia, pre-diabetic admitted for witnessed seizures and Left shoulder/knee pain. Pt c/o pain to Left shoulder and Left knee, which pt reports was present prior to admission and is unchanged in nature at the time. Pt experienced some post-ictal weakness/lethargy. VS: BP 165/78, HR 98 POC 122 morning Keppra given CBC -> wnl CMP -> unremarkable Primary Provider notified. <Millicent Magallanes - Last Filed: 12/13/17 14:56> Physical Examination Vital Signs: Patient was given 2 mg IV ativan with resolution of her seizure like activity. She was awake with no post ictal confusion after the episode. Case was discussed with primary team Pretty Melton NP. Total critical care time spent at bedside 35 min. Labs: CBC, BMP 12/11/17 10:30 12/11/17 10:30
[2017-12-11] MEDS: NICOTINE 21 MG/24 HOURS TOPICAL PATCH TD SCH ×2 (10:41→17:28)
[2017-12-11] MEDS: LISINOPRIL 10 MG TABLET (FP) PO SCH (10:41)
[2017-12-11 10:51] LABS: BASO % 0.8 % (0-2.0); EOS % 4.2 % (0-4.5); HEMOGLOBIN 12.5 GM/dL (10.7-15.3); LYMPH % 46.1 % (8-40); MCH 28.6 pg (25.7-33.7); MCHC 33.8 g/dl (32.0-36.0); MEAN CELL VOLUME 84.6 fl (80-96); MEAN PLT VOLUME 8.4 fl (7.5-11.1); MONO % 5.8 % (3.8-10.2); NEUT % 43.1 % (42.8-82.8); PLATELET COUNT 196 K/MM3 (134-434); RBC 4.37 M/mm3 (3.60-5.2); RDW 13.8 % (11.6-15.6); WHITE BLOOD COUNT 6.8 K/mm3 (4.0-10.0)
[2017-12-11] MEDS: TOPIRAMATE 100 MG TABLET PO SCH (10:55)
[2017-12-11 11:16] LABS: ALBUMIN 3.3 g/dl (3.4-5.0); ALK PHOS 74 U/L (45-117); ANION GAP 6 (8-16); BILIRUBIN,TOTAL 0.3 mg/dL (0.2-1.0); BLOOD UREA NITROGEN 12 mg/dL (7-18); CHLORIDE 111 mmol/L (98-107); CO2 24 mmol/L (21-32); CREATININE 0.8 mg/dL (0.55-1.02); GLUCOSE,RANDOM 87 mg/dL (74-106); POTASSIUM 4.1 mmol/L (3.5-5.1); SGOT/AST 13 U/L (15-37); SODIUM 141 mmol/L (136-145); TOT PROT 6.3 g/dl (6.4-8.2)
[2017-12-11] MEDS: ALPRAZolam 2 MG TABLET PO SCH (11:18)
[2017-12-11 11:23] LABS: SGPT/ALT 23 U/L (12-78)
[2017-12-11] MEDS ORDERED: PT OWN MED DRAWER 7, Y5N ONE ×2 (11:44→16:53)
[2017-12-11] MEDS ORDERED: morphine SULFATE 4 MG/ML VIAL IVPUSH ONE (12:00)
--- NOTE | 2017-12-11 12:33 | PN ---
Physical Exam: SUBJECTIVE: Patient seen and examined. Currently, complains of L shoulder and knee pain requesting pain medication. She says she was washing up and then seized. Events: - x2 seizures this am 3 mins, then 1 min OBJECTIVE: Vital Signs Period Temp Pulse Resp BP Sys/Schmidt Pulse Ox Last 24 Hr 98 F-98.8 F 76-89 18-20 132-145/72-98 96-99 PE Neuro: alert, awake, cn 2-12intact Pulm: CTAB CV: s1 s2 rrr no mrg Abd: s nt nd + bs MSK: L knee tenderness, L shoulder pain Ext: no le edema Laboratory Results - last 24 hr 12/10/17 12/11/17 12/11/17 06:00 10:00 10:30 WBC 6.8 RBC 4.37 Hgb 12.5 Hct 37.0 MCV 84.6 MCH 28.6 MCHC 33.8 RDW 13.8 Plt Count 196 MPV 8.4 Neutrophils % 43.1 Lymphocytes % 46.1 H Monocytes % 5.8 Eosinophils % 4.2 Basophils % 0.8 Sodium Potassium Chloride Carbon Dioxide Anion Gap BUN Creatinine Creat Clearance w eGFR POC Glucometer 122 Random Glucose Hemoglobin A1c % 5.9 Uric Acid Calcium Total Bilirubin AST ALT Alkaline Phosphatase Total Protein Albumin 12/11/17 12/11/17 10:30 10:30 WBC RBC Hgb Hct MCV MCH MCHC RDW Plt Count MPV Neutrophils % Lymphocytes % Monocytes % Eosinophils % Basophils % Sodium 141 Potassium 4.1 Chloride 111 H Carbon Dioxide 24 Anion Gap 6 L BUN 12 Creatinine 0.8 Creat Clearance w eGFR > 60 POC Glucometer Random Glucose 87 Hemoglobin A1c % Uric Acid 4.4 Calcium 8.0 L Total Bilirubin 0.3 AST 13 L ALT 23 Alkaline Phosphatase 74 Total Protein 6.3 L Albumin 3.3 L Active Medications Generic Name Dose Route Start Last Admin Trade Name Freq PRN Reason Stop Dose Admin Acetaminophen 325 mg 12/09/17 19:05 12/11/17 03:13 Tylenol - PO 325 mg Q6H PRN Administration PAIN LEVEL 6-10 Alprazolam 2 mg 12/10/17 10:00 12/11/17 11:18 Xanax - PO Not Given DAILY SINDI Atorvastatin Calcium 40 mg 12/10/17 22:00 12/10/17 22:32 Lipitor - PO 40 mg HS SINDI Administration Gabapentin 600 mg 12/09/17 22:00 12/11/17 06:28 Neurontin - PO 600 mg TID SINDI Administration Sodium Chloride 1,000 mls @ 75 mls/hr 12/09/17 19:15 12/11/17 02:51 Normal Saline - IV 75 mls/hr ASDIR SINDI Administration Lacosamide 100 mg 12/11/17 22:00 Vimpat - PO BID SINDI Levetiracetam 1,000 mg 12/10/17 10:00 12/11/17 10:12 Keppra Injection - IVPB 1,000 mg BID SINDI Administration Lisinopril 10 mg 12/10/17 10:00 12/11/17 10:41 Prinivil PO 10 mg DAILY SINDI Administration Lorazepam 2 mg 12/10/17 08:40 12/11/17 10:00 Ativan Injection - IVPUSH 2 mg Q4H PRN Administration seizures Miscellaneous 1 each 12/09/17 22:00 12/10/17 22:32 Lidoderm Patch Removal MC 1 each DAILY@2200 SINDI Administration Nicotine 21 mg 12/09/17 20:00 12/11/17 10:41 Nicoderm Patch - TD 21 mg DAILY SINDI Administration Oxycodone HCl 10 mg 12/09/17 19:50 12/11/17 11:36 Roxicodone - PO 10 mg Q6H PRN Administration PAIN LEVEL 6-10 Assessment: 47 year old female with a significant PMH of seizures and pseudoseizures, chronic lumbar pain, HTN, HLD, fibromyalgiapre-diabetic admitted with witnessed seizures. Plan: 1. Seizures, persistent - Stop Topamax - Start vimpat, load with 200mg IV x1 now - Keppra 1000mg BID IV - Ativan PRN - D/w Neuro 2. L knee/ L shoulder pain - MRI L spine done, awaiting neurosurg review - Ortho to return to eval pt L shoulder and knee pain 3. PTSD - Xanax 2mg daily 4. UTI - Repeat UA ordered 5. HTN - Improved - Started, and continue Lisinopril 10mg daily - Goal sbp <140 6. HLD - Lipitor 40mg HS Visit type - Emergency Visit Emergency Visit: Yes ED Registration Date: 12/09/17 Care time: The patient presented to the Emergency Department on the above date and was hospitalized for further evaluation of their emergent condition. - New Patient This patient is new to me today: No - Critical Care Critical Care patient: No
[2017-12-11] MEDS ORDERED: levETIRAcetam 500 MG/5 ML INJECTION VIAL IVPB ONE (17:54)
[2017-12-11] MEDS ORDERED: oxyCODONE HCL 5 MG TABLET PO PRN ×2 (18:15→19:30)
--- NOTE | 2017-12-11 18:20 | RAPID ---
Physical Examination Vital Signs: Vital Signs Temperature 97.9 F 12/11/17 17:33 Pulse Rate 80 12/11/17 17:33 Respiratory Rate 18 12/11/17 17:33 Blood Pressure 122/76 12/11/17 17:33 O2 Sat by Pulse Oximetry (%) 96 12/11/17 09:00 Constitutional: Yes: Well Nourished Cardiovascular: Yes: WNL Respiratory: Yes: WNL Gastrointestinal: Yes: WNL Neurological: Yes: Lethargy Labs: CBC, BMP 12/11/17 10:30 12/11/17 10:30 Rapid Response - Rapid Response Assessment: Rapid response called for pt due to seizure-like activity. Pt is a 47F with PMH of seizures, HTN, HLD, fibromyalgia, pre-diabetic admitted for witnessed seizures and left shoulder/knee pain. This is the 2nd rapid response called for this pt today. Vitals at time of this episode was BP of 185/110 (although BP cuff not fitting well), HR of 85, satting 98%. Pt given 2mg ativan, and seizure- like activity which consisted of RUE and RLE jerking stopped after 2 minutes. After episode, pt complaining of pain and wants pain meds. PE: Neuro: lethargic, responsive, cn 2-12 intact Pulm: CTAB, no rales or rhonchi CV: regular rate and rhythm, no murmurs Abd: soft, NT, ND MSK: L knee tenderness, L shoulder pain Ext: no edema in LE Dr. Sutton, neurologist, came to evaluate pt. Assessment: per neurology, episode likely non-electrical seizure Plan: -lisinopril 10 now -30mg IV toradol now -change percocet to 10mg q6h standing -continue to monitor
[2017-12-11] MEDS ORDERED: KETOROLAC TROMETHAMINE 30 MG/1 ML VIAL IVPUSH ONE (18:30)
[2017-12-11] MEDS ORDERED: LISINOPRIL 10 MG TABLET (FP) PO ONE (18:30)
[2017-12-11] MEDS: oxyCODONE HCL 5 MG TABLET PO SCH (20:06)
[2017-12-11] MEDS: LACOSAMIDE 50 MG TABLET PO SCH (21:11)
[2017-12-11] MEDS: ATORVASTATIN CA 40 MG TABLET (FP) PO SCH (21:11)
[2017-12-12] MEDS: oxyCODONE HCL 5 MG TABLET PO SCH ×5 (05:30→23:11)
[2017-12-12] MEDS: GABAPENTIN 300 MG CAPSULE (FP) PO SCH ×3 (06:39→23:10)
[2017-12-12] MEDS: LISINOPRIL 10 MG TABLET (FP) PO SCH (09:01)
[2017-12-12] MEDS: LACOSAMIDE 50 MG TABLET PO SCH ×2 (09:01→23:10)
[2017-12-12] MEDS: ACETAMINOPHEN 325 MG TABLET (FP) PO PRN (09:02)
[2017-12-12] MEDS: ALPRAZolam 2 MG TABLET PO SCH (09:02)
[2017-12-12] MEDS: NICOTINE 21 MG/24 HOURS TOPICAL PATCH TD SCH (09:20)
[2017-12-12] MEDS: levETIRAcetam 500 MG/5 ML INJECTION VIAL IVPB SCH (09:20)
[2017-12-12] MEDS: LORazepam 2 MG/ML SDV VIAL IVPUSH PRN (09:36)
[2017-12-12] MEDS ORDERED: NICOTINE 21 MG/24 HOURS TOPICAL PATCH TD SCH (10:00)
--- NOTE | 2017-12-12 11:08 | PN ---
Physical Exam: SUBJECTIVE: Patient seen and examined. She c/o pain. She overexerted herself this am and had a pseudo seizure, rapid was called. L sided facial twitching on my arrival, resolved in ~1mins, able to converse after. d/w neuro. OBJECTIVE: Vital Signs Period Temp Pulse Resp BP Sys/Schmidt Pulse Ox Last 24 Hr 97.7 F-98.5 F 76-88 18-20 121-158/76-100 96-98 PE Neuro: alert, awake, cn 2-12intact Pulm: CTAB CV: s1 s2 rrr no mrg Abd: s nt nd + bs MSK: L knee tenderness, L shoulder pain Ext: no le edema Laboratory Results - last 24 hr 12/11/17 12/11/17 12/11/17 10:30 10:30 17:54 Sodium 141 Potassium 4.1 Chloride 111 H Carbon Dioxide 24 Anion Gap 6 L BUN 12 Creatinine 0.8 Creat Clearance w eGFR > 60 POC Glucometer 101 Random Glucose 87 Uric Acid 4.4 Calcium 8.0 L Total Bilirubin 0.3 AST 13 L ALT 23 Alkaline Phosphatase 74 Total Protein 6.3 L Albumin 3.3 L Topiramate 12/12/17 12/12/17 08:22 09:39 Sodium Potassium Chloride Carbon Dioxide Anion Gap BUN Creatinine Creat Clearance w eGFR POC Glucometer 155 Random Glucose Uric Acid 4.5 Calcium Total Bilirubin AST ALT Alkaline Phosphatase Total Protein Albumin Topiramate Active Medications Generic Name Dose Route Start Last Admin Trade Name Freq PRN Reason Stop Dose Admin Acetaminophen 325 mg 12/11/17 19:45 12/12/17 09:02 Tylenol - PO 325 mg Q6H PRN Administration PAIN OR FEVER Alprazolam 2 mg 12/10/17 10:00 12/12/17 09:02 Xanax - PO 2 mg DAILY SINDI Administration Atorvastatin Calcium 40 mg 12/10/17 22:00 12/11/17 21:11 Lipitor - PO 40 mg HS SINDI Administration Gabapentin 600 mg 12/09/17 22:00 12/12/17 06:39 Neurontin - PO 600 mg TID SINDI Administration Lacosamide 100 mg 12/11/17 22:00 12/12/17 09:01 Vimpat - PO 100 mg BID SINDI Administration Levetiracetam 1,000 mg 02/16/18 22:00 Keppra - PO BID SINDI Lisinopril 10 mg 12/10/17 10:00 12/12/17 09:01 Prinivil PO 10 mg DAILY SINDI Administration Lorazepam 2 mg 12/10/17 08:40 12/12/17 09:36 Ativan Injection - IVPUSH 2 mg Q4H PRN Administration seizures Nicotine 21 mg 12/11/17 17:00 12/12/17 09:20 Nicoderm Patch - TD 21 mg DAILY SINDI Administration Oxycodone HCl 10 mg 12/11/17 20:00 12/12/17 05:30 Roxicodone - PO 10 mg Q6HPO SINDI Administration Assessment: 47 year old female with a significant PMH of seizures and pseudoseizures, chronic lumbar pain, HTN, HLD, fibromyalgiapre-diabetic admitted with witnessed seizures. Plan: 1. Seizures, persistent vs pseudoseizures - Continue vimpat 100mg BID - Change keppra to PO 1000mg BID - Ativan 2mg PRN - Pain management eval - D/w Neuro 2. L knee/ L shoulder pain - MRI L spine done, per discussion with neuro and neurosurgery unlikely l knee pain coming from L5 area, no intervention at this time - Ortho to return to eval pt L shoulder and knee pain 3. PTSD - Xanax 2mg daily 4. UTI - Repeat UA ordered 5. HTN - Improved - Started, and continue Lisinopril 10mg daily - Goal sbp <140 6. HLD - Lipitor 40mg HS Visit type - Emergency Visit Emergency Visit: Yes ED Registration Date: 12/11/17 Care time: The patient presented to the Emergency Department on the above date and was hospitalized for further evaluation of their emergent condition. - New Patient This patient is new to me today: No - Critical Care Critical Care patient: No
[2017-12-12] MEDS ORDERED: cloNIDine HCL 0.1 MG TABLET PO ONE (13:44)
--- NOTE | 2017-12-12 15:43 | PN ---
Progress Note (short form) - Note Progress Note: Pt seen and examined. She is a 47 year old female with a seizure disorder, who c /o left shoulder and left knee pain for the past 2 weeks. She has had seizures during that time period. No other traumatic event. PE Left knee and shoulder both look good: no swelling, bruising, no deformity , no signs of infection. Both have good ROM throughout, excellent strength, 5/5 with only a little pain. L RTC intact, strong No signs of RTC tear, or meniscus tear. NVI Xrays L shoulder and L knee - no signs of acute trauma, no dislocations, no fractures. Imp Left shoulder and knee pain/strains s/p seizures. No other findings. Plan P.T. for ROM and ambulation, WBAT. Nothing else to do at this time. She does not want a cortisone injection.
--- NOTE | 2017-12-12 19:32 | PN ---
Progress Note (short form) - Note Progress Note: Orthopedics consult appreciated. SPOUTING INSTALLER Geronimo's assistance greatly appreciated. Pt.reports left shoulder pain is improved, knee pain present. She had one non- electrical seizure today. Exam-decreased ROM left knee due to pain. Plan:Pain management consult in am, if does not occur i will arrange it as outpt. on Friday. Will d/c pt. in am D/C meds Percocet , 1 qid Vimpat 100mg bid Klonopin 1mg hs Keppra 1000mg bid Cane to help ambulate Pt. agrees
[2017-12-12] MEDS: levETIRAcetam 500 MG TABLET (FP) PO SCH (23:10)
[2017-12-12] MEDS: ATORVASTATIN CA 40 MG TABLET (FP) PO SCH (23:10)
[2017-12-13] MEDS: oxyCODONE HCL 5 MG TABLET PO SCH ×2 (05:59→12:19)
[2017-12-13] MEDS: GABAPENTIN 300 MG CAPSULE (FP) PO SCH ×2 (05:59→13:30)
[2017-12-13] MEDS: ACETAMINOPHEN 325 MG TABLET (FP) PO PRN (08:15)
[2017-12-13] MEDS ORDERED: levETIRAcetam 250 MG TABLET (FP) PO ONE (09:47)
[2017-12-13] MEDS ORDERED: PT OWN MED DRAWER 7, Y5N ONE (09:48)
[2017-12-13] MEDS: levETIRAcetam 500 MG TABLET (FP) PO SCH (09:49)
[2017-12-13] MEDS: LISINOPRIL 10 MG TABLET (FP) PO SCH (09:50)
[2017-12-13] MEDS: LACOSAMIDE 50 MG TABLET PO SCH (09:50)
[2017-12-13] MEDS: ALPRAZolam 2 MG TABLET PO SCH (09:50)
[2017-12-13] MEDS: NICOTINE 21 MG/24 HOURS TOPICAL PATCH TD SCH (09:51)
--- NOTE | 2017-12-13 12:15 | DS ---
Physical Exam: SUBJECTIVE: Patient seen and examined OBJECTIVE: Vital Signs Period Temp Pulse Resp BP Sys/Schmidt Pulse Ox Last 24 Hr 98.1 F-99.7 F 58-103 20-20 124-152/64-96 97-98 PHYSICAL EXAM GENERAL: The patient is awake, alert, and fully oriented, in no acute distress. HEAD: Normal with no signs of trauma. EYES: PERRL, extraocular movements intact, sclera anicteric, conjunctiva clear. ENT: Ears normal, nares patent, oropharynx clear without exudates, moist mucous membranes. NECK: Trachea midline, full range of motion, supple. LUNGS: Breath sounds equal, clear to auscultation bilaterally, no wheezes, no crackles, no accessory muscle use. HEART: Regular rate and rhythm, S1, S2 without murmur, rub or gallop. ABDOMEN: Soft, nontender, nondistended, normoactive bowel sounds, no guarding, no rebound, no hepatosplenomegaly, no masses. EXTREMITIES: 2+ pulses, warm, well-perfused, no edema. NEUROLOGICAL: Cranial nerves II through XII grossly intact. Normal speech, gait not observed. PSYCH: Normal mood, normal affect. SKIN: Warm, dry, normal turgor, no rashes or lesions noted. LABS HOSPITAL COURSE: Date of Admission:12/11/17 Date of Discharge: 12/13/17 Minutes to complete discharge: 35 Discharge Summary Reason For Visit: Seizure Current Active Problems Seizure (Acute) Condition: Improved - Instructions Diet, Activity, Other Instructions: You should follow up with Dr. Sutton within 1-2 weeks of your discharge. Return to the emergency department for any new or worsening symptoms. Referrals: Polo Snyder MD [Primary Care Provider] - Nannette Sutton MD [Staff Physician] - Disposition: HOME - Home Medications Comprehensive Discharge Medication List: Ambulatory Orders Alprazolam [Xanax] 2 mg PO DAILY 08/11/17 Esomeprazole Mag Trihydrate [Nexium Packets] 40 mg PO DAILY 08/11/17 Oxycodone HCl/Acetaminophen [Endocet 5-325 Tablet] 1 each PO PRN 08/11/17 Topiramate [Topiramate ER] 200 mg PO BID 08/11/17 clonazePAM [Klonopin -] 0.5 mg PO BID 08/11/17 levETIRAcetam [Keppra -] 250 mg PO BID 08/11/17 This patient is new to me today: Yes Date on this admission: 12/13/17 Emergency Visit: Yes ED Registration Date: 12/11/17 Care time: The patient presented to the Emergency Department on the above date and was hospitalized for further evaluation of their emergent condition. Critical Care patient: No - Discharge Referral Referred to [facility] Yes Physician Referral: Polo Hubbard MD ([facility])
[2017-12-13] MEDS ORDERED: oxyCODONE HCL 5 MG TABLET PO PRN (12:16)
[2017-12-13 12:50] VITALS: BP 131/97; PULSE 93; TEMP 98.3
== END 2017-12-13 15:06 | disposition home or self-care (01) | DRG 101 ==
LOC: JER 14:07 → JERBED 17:59 → J8W 23:32 → OBSVTOIN 12-11 14:15
PROVIDERS: ADMIT Internal Medicine; ATTEND Nurse Practitioner Acute Care
DX: G40.89 Other seizures (principal); N39.0 Urinary tract infection, site not specified; E87.2 Acidosis; I10 Essential (primary) hypertension; E78.5 Hyperlipidemia, unspecified; M79.7 Fibromyalgia; R73.03 Prediabetes; M25.512 Pain in left shoulder; M25.562 Pain in left knee; M54.5 Low back pain; F17.200 Nicotine dependence, unspecified, uncomplicated; H02.401 Unspecified ptosis of right eyelid; F43.10 Post-traumatic stress disorder, unspecified
CPT/HCPCS: 36415; 72148-TC; 73030-TC-LT-FY; 73560-TC-LT-FY; 73718-LT; 80053; 80061; 80201; 81003; 81015; 82962; 83036; 83605; 83721; 83735; 84550; 85025; 87086; 93005; 93010; 94660; 97116-GP; 97161-GP; 99283-25; G0378; J0735

== ENCOUNTER 2018-01-22 13:30 | Observation (INO) | payer OTHER ==
--- NOTE | 2018-01-22 14:18 | PDOC ---
History of Present Illness - General Chief Complaint: Blood Pressure Problem Stated Complaint: SENT BY PCP Time Seen by Provider: 01/22/18 13:56 History Source: Patient - History of Present Illness Initial Comments: 01/22/18 14:18 Patient is a 47 year old female with a significant past medical history of seizures and pseudoseizures (on Keppra 750mg BID and Topomax 50mg BID), chronic lumbar pain, hypertension, hyperlipidemia, fibromyalgia and pre-diabetes. She is also a current everyday smoker. She presents to the ED today with 2 days history of nausea, left arm tingling and pain, left leg pain. The left-sided pain started 2 months ago after she fell down while taking a shower. Patient states she has been using percocet and gabapentin for pain. The pain has worsened in the last two days. Patient was sent by Dr. Ahn for observation due to elevated blood pressure. The blood pressure in admission was 183/124, repeat BP was 153/116. Patient reports chills but denies fever. She reports nausea but denies vomiting. Patietn also reports headache located in the temporal region bilaterally. Patient stated she smelled fire and felt an aura. Patient started twitching her left upper lip and trembling while being examined in the ED. Patient went back to her baseline mental status within a minute without any postictal symptoms. Patient denies blurry vision, chest pain, shortness of breath, palpitations, abdominal pain, diarrhea, constipation, dysuria, hematuria. Patient reports left knee pain. Patient reports smoking marijuana 2 days ago. Pmhx: as per HPI Shx: cholecystectomy Fhx: Mother: DM, Heart disease, HTN, uncle with history of seizures Sohx: used to smoke 1 pack per week for 32 years, smokes marijuana (last used 2 days ago) drinks socially Allergy: phenytoin Vitals: Temp: 98.7 F, Pulse: 86, BP: 183/124, repeat BP: 153/116, O2 sat: 99% on room air, BMI: 38 Physical Exam: General: Obese, A%Ox3, in NAD Head: AT/NC ENT: Pupils were dilated and reactive to light, EOMI, no septal deviation in the nares, MMM, no lesions or exudates in the oropharynx Heart: RRR without MRG Lungs: CTA B/L, no wheezes Abdomen: obese, NT/ND, bowel sounds present, no guarding, no rebound tenderness Neuro: no focal deficit, speech normal, gait not observed, CN II-XII grossly intact MSK: Full ROM in upper and lower extremities B/L, reflexes intact Skin: Warm and dry Psych: normal mood and affect Workup: * R/O [place] * CBC, CMP, cardiac profile, BNP * zofran for nausea * IV NS 125 cc * Morphine 4mg IVPush once for pain * Chest xray 01/22/18 14:44 01/22/18 15:25 01/22/18 15:29 Past History - Past Medical History Allergies/Adverse Reactions: Allergies Allergy/AdvReac Type Severity Reaction Status Date / Time phenytoin sodium AdvReac Verified 01/22/18 13:33 [From Dilantin] phenytoin sodium extended AdvReac Verified 01/22/18 13:33 [From Dilantin] Home Medications: Ambulatory Orders Alprazolam [Xanax] 2 mg PO DAILY 08/11/17 Esomeprazole Mag Trihydrate [Nexium Packets] 40 mg PO DAILY 08/11/17 Oxycodone HCl/Acetaminophen [Endocet 5-325 Tablet] 1 each PO PRN 08/11/17 Topiramate [Topiramate ER] 200 mg PO BID 08/11/17 clonazePAM [Klonopin -] 0.5 mg PO BID 08/11/17 levETIRAcetam [Keppra -] 250 mg PO BID 08/11/17 Cane 1 each MC DAILY #1 each 12/13/17 Anemia: No Asthma: No Cancer: No Cardiac Disorders: No CVA: No COPD: No CHF: No Dementia: No Diabetes: Yes GI Disorders: Yes (acid reflux, IBS) Disorders: No HTN: Yes Hypercholesterolemia: Yes Liver Disease: No Psychiatric Problems: (anxeity,PTSD) Seizures: Yes Thyroid Disease: No - Surgical History Abdominal Surgery: No Appendectomy: No Cardiac Surgery: No Cholecystectomy: Yes Lung Surgery: No Neurologic Surgery: No Orthopedic Surgery: No - Immunization History Immunization Up to Date: Yes - Suicide/Smoking/Psychosocial Hx Smoking Status: Yes Smoking History: Current every day smoker Have you smoked in the past 12 months: Yes Number of Cigarettes Smoked Daily: 5 Information on smoking cessation initiated: No 'Breaking Loose' booklet given: 06/30/15 Hx Alcohol Use: No Drug/Substance Use Hx: No Substance Use Type: None Hx Substance Use Treatment: No *Physical Exam - Vital Signs Last Vital Signs Temp Pulse Resp BP Pulse Ox 98.7 F 86 19 183/124 99 01/22/18 13:33 01/22/18 13:33 01/22/18 13:33 01/22/18 13:33 01/22/18 13:33 Heart Score/ECG Review - ECG Intrepretation Comment:: EKG done on 01/22/18 showed normal sinus rhythm, with no specific ST or T wave changes, ventricular rate of 71, QTc 415 ms. 01/22/18 15:20 ED Treatment Course - LABORATORY CBC & Chemistry Diagram: 01/22/18 14:42 01/22/18 14:42 *DC/Admit/Observation/Transfer Diagnosis at time of Disposition: Lower back pain - Discharge Dispostion Admit: Yes - Referrals Referrals: Bailey Ahn MD [Primary Care Provider] - - Patient Instructions - Post Discharge Activity
[2018-01-22] MEDS ORDERED: ASPIRIN 81 MG CHEWABLE TABLETS PO ONE (14:40)
[2018-01-22] MEDS ORDERED: morphine CARPU-JECT 4 MG/1 ML DISP.SYRIN IVPUSH ONE (14:40)
[2018-01-22] MEDS ORDERED: ONDANSETRON 4 MG/2 ML VIAL IVPB ONE (14:43)
[2018-01-22] MEDS ORDERED: SODIUM CHLORIDE 1,000 ML IV SCH (14:45)
--- NOTE | 2018-01-22 14:52 | PDOC ---
Attending Attestation - Resident Resident Name: James Johnson - ED Attending Attestation I have performed the following: I have examined & evaluated the patient, The case was reviewed & discussed with the resident, I agree w/resident's findings & plan, Exceptions are as noted - HPI HPI: 01/22/18 14:46 47y/o F h/o HTN, seizure/pseudosz sent from Dr. Ahn office for admission for further evaluation of L arm pain in setting of elevated BP. - Physicial Exam PE: 01/22/18 14:46 BP 180 systolic at triage, now improved without meds at 150 pseudosz noted in ED lungs clear - Medical Decision Making 01/22/18 14:52 Patient seen and evaluated with the resident. I agree with the overall evaluation, assessment, and management with the following summary of visit: 47y/o F sent by Dr. Ahn for further evaluation/admission for elevated BP and Chest/LUE pain. labs ekg, cxr admit Heart Score/ECG Review #1 ECG reviewed & interpreted by me at: 15:03 General ECG Interpretation: Sinus Rhythm, Normal Rate (71), Normal Intervals ( qtc 415), No acute ischemic changes (TWI I/AVL)
[2018-01-22] MEDS ORDERED: ONDANSETRON 4 MG/2 ML VIAL ONE (14:56)
[2018-01-22] MEDS ORDERED: morphine SULFATE 4 MG/ML VIAL ONE (14:56)
[2018-01-22 14:59] LABS: HEMOGLOBIN 13.3 GM/dL (10.7-15.3)
[2018-01-22 15:10] LABS: BASO % 0.8 % (0-2.0); EOS % 3.1 % (0-4.5); HEMATOCRIT 38.3 % (32.4-45.2); LYMPH % 45.5 % (8-40); MCHC 34.8 g/dl (32.0-36.0); MEAN CELL VOLUME 83.4 fl (80-96); MEAN PLT VOLUME 9.1 fl (7.5-11.1); MONO % 5.8 % (3.8-10.2); NEUT % 44.8 % (42.8-82.8); PLATELET COUNT 189 K/MM3 (134-434); RBC 4.59 M/mm3 (3.60-5.2); RDW 13.7 % (11.6-15.6); WHITE BLOOD COUNT 6.1 K/mm3 (4.0-10.0)
[2018-01-22] MEDS ORDERED: ASPIRIN 81 MG CHEWABLE TABLETS ONE (15:15)
[2018-01-22 15:33] LABS: ALBUMIN 3.6 g/dl (3.4-5.0); ANION GAP 5 (8-16); BLOOD UREA NITROGEN 9 mg/dL (7-18); CALCIUM 8.7 mg/dL (8.5-10.1); CHLORIDE 109 mmol/L (98-107); CHOLESTEROL 238 mg/dL (50-200); CO2 27 mmol/L (21-32); CREATININE 0.8 mg/dL (0.55-1.02); GLUCOSE,RANDOM 94 mg/dL (74-106); LDL CHOLESTEROL (ONLY SJRH) 150 mg/dL (5-100); MAGNESIUM 1.9 mg/dL (1.8-2.4); SGOT/AST 14 U/L (15-37); SGPT/ALT 22 U/L (12-78); SODIUM 141 mmol/L (136-145)
[2018-01-22 15:34] LABS: ALK PHOS 76 U/L (45-117); BILIRUBIN,TOTAL 0.1 mg/dL (0.2-1.0); HDL CHOLESTEROL 76 mg/dL (40-60); N-TERMINAL BNP 48.26 pg/ml (5-125); TOT PROT 6.8 g/dl (6.4-8.2); TRIGLYCERIDES 116 mg/dL (35-160)
[2018-01-22 15:46] LABS: INR 0.85 (0.82-1.09); PROTHROMBIN TIME (PATIENT) 9.6 SEC (9.98-11.88)
--- NOTE | 2018-01-22 18:05 | HP ---
Admitting History and Physical - Primary Care Physician PCP: Bailey Ahn - Admission History of Present Illness: -47 year old female with a significant past medical history of seizures and pseudoseizures (on Keppra 750mg BID and Topomax 50mg BID), chronic lumbar pain, hypertension, hyperlipidemia, fibromyalgia and pre-diabetes. She is also a current everyday smoker. She presents to the ED today with 2 days history of nausea, left arm tingling and pain, left leg pain. The left-sided pain started 2 months ago after she fell down while taking a shower. Patient states she has been using percocet and gabapentin for pain. The pain has worsened in the last two days. Patient was sent by Dr. Ahn for observation due to elevated blood pressure. The blood pressure in admission was 183/124, repeat BP was 153/116. Patient reports chills but denies fever. She reports nausea but denies vomiting. Patietn also reports headache located in the temporal region bilaterally. Patient stated she smelled fire and felt an aura. Patient started twitching her left upper lip and trembling while being examined in the ED. Patient went back to her baseline mental status within a minute without any postictal symptoms. Patient denies blurry vision, chest pain, shortness of breath, palpitations. Patient reports smoking marijuana 2 days ago. 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 Cardiovascular: Yes: HTN, Hyperlipdemia ...LMP: 11/18/11 - Smoking History Smoking history: Current every day smoker Have you smoked in the past 12 months: Yes Aproximately how many cigarettes per day: 5 - Alcohol/Substance Use Hx Alcohol Use: No Home Medications - Allergies Allergies/Adverse Reactions: Allergies Allergy/AdvReac Type Severity Reaction Status Date / Time phenytoin sodium Allergy Verified 01/22/18 18:30 [From Dilantin] phenytoin sodium extended Allergy Verified 01/22/18 18:30 [From Dilantin] - Home Medications Home Medications: Ambulatory Orders Alprazolam [Xanax] 2 mg PO BID 08/11/17 Esomeprazole Mag Trihydrate [Nexium Packets] 40 mg PO DAILY 08/11/17 Oxycodone HCl/Acetaminophen [Endocet 5-325 Tablet] 2 each PO TID 08/11/17 clonazePAM [Klonopin -] 0.5 mg PO PRN 08/11/17 levETIRAcetam [Keppra -] 750 mg PO BID 08/11/17 Lisinopril 10 mg PO DAILY 01/22/18 Mirtazapine [Remeron -] 30 mg PO DAILY 01/22/18 Physical Examination Vital Signs: Vital Signs Temperature 98.7 F 01/22/18 13:33 Pulse Rate 80 01/22/18 14:25 Respiratory Rate 18 01/22/18 14:25 Blood Pressure 180/113 01/22/18 14:25 O2 Sat by Pulse Oximetry (%) 100 01/22/18 14:25 Constitutional: Yes: No Distress HENT: Yes: Atraumatic Neck: Yes: Supple Cardiovascular: Yes: Regular Rate and Rhythm Respiratory: Yes: CTA Bilaterally Gastrointestinal: Yes: Normal Bowel Sounds Extremities: Yes: WNL Neurological: Yes: Alert, Oriented Labs: CBC, BMP 01/22/18 14:42 01/22/18 14:42 Problem List - Problems (1) HTN (hypertension) Assessment/Plan: MONITOR BP ON MEDS CARDIOLOGY CONSULT Code(s): I10 - ESSENTIAL (PRIMARY) HYPERTENSION Qualifiers: Hypertension type: essential hypertension Qualified Code(s): I10 - Essential (primary) hypertension (2) Seizure Assessment/Plan: ON MEDS NEURO CONSULT Code(s): R56.9 - UNSPECIFIED CONVULSIONS Assessment/Plan Laboratory Tests 01/22/18 01/22/18 01/22/18 14:42 14:42 14:42 WBC 6.1 RBC 4.59 Hgb 13.3 Hct 38.3 MCV 83.4 MCH 29.0 MCHC 34.8 RDW 13.7 Plt Count 189 MPV 9.1 Neutrophils % 44.8 Lymphocytes % 45.5 H Monocytes % 5.8 Eosinophils % 3.1 Basophils % 0.8 PT with INR 9.60 L INR 0.85 L Sodium 141 Potassium 4.0 Chloride 109 H Carbon Dioxide 27 Anion Gap 5 L BUN 9 Creatinine 0.8 Creat Clearance w eGFR > 60 Random Glucose 94 Calcium 8.7 Magnesium 1.9 Total Bilirubin 0.1 L D AST 14 L ALT 22 Alkaline Phosphatase 76 Creatine Kinase 218 H Troponin I < 0.02 B-Natriuretic Peptide 48.26 Total Protein 6.8 Albumin 3.6 Triglycerides 116 Cholesterol 238 H Total LDL Cholesterol 150 H HDL Cholesterol 76 H Active Medications Generic Name Dose Route Start Last Admin Trade Name Freq PRN Reason Stop Dose Admin Amlodipine Besylate 5 mg 01/22/18 18:00 Norvasc - PO DAILY SINDI Atorvastatin Calcium 10 mg 01/22/18 22:00 Lipitor - PO HS SINDI Sodium Chloride 1,000 mls @ 125 mls/hr 01/22/18 14:45 01/22/18 15:28 Normal Saline - IV 125 mls/hr ASDIR SINDI Administration Levetiracetam 1,000 mg 01/22/18 22:00 Keppra - PO BID SINDI Lisinopril 10 mg 01/23/18 10:00 Prinivil PO DAILY SINDI
[2018-01-22] MEDS ORDERED: amLODIPine BESYLATE 5 MG TABLET (FP) ONE (18:26)
[2018-01-22] MEDS: amLODIPine BESYLATE 5 MG TABLET (FP) PO SCH (18:26)
[2018-01-22] MEDS: levETIRAcetam 500 MG TABLET (FP) PO SCH (21:18)
[2018-01-22] MEDS ORDERED: ATORVASTATIN CA 10 MG TABLET (FP) PO SCH (22:00)
[2018-01-22] MEDS ORDERED: LACOSAMIDE 50 MG TABLET PO SCH (22:00)
[2018-01-22] MEDS: NICOTINE 21 MG/24 HOURS TOPICAL PATCH TD SCH (22:34)
[2018-01-22] MEDS ORDERED: ALPRAZolam 0.25 MG TABLET PO ONE (23:15)
[2018-01-22] MEDS ORDERED: oxyCODONE HCL 5 MG TABLET PO ONE (23:15)
[2018-01-23 00:41] VITALS: BMI 40.7
--- NOTE | 2018-01-23 08:23 | CON.CARD ---
Consult Consult Specialty:: Cardiology Referred by:: Dr. 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 In ER she had BP of 180/100; was admitted and treated for HTN. She states she went to [facility] last week for HTN and then had several seizures - does not recall details of that admission. She denies chest pain, SOB, palps, edema or syncope. Although the ER documents endorse chest pain she specifically denies having any chest pain at all. Denies prior cardiac history other than chronic HTN for which she was taking Lisinopril. - History Source History Provided By: Patient, Medical Record - Past Medical History HUC OB: Yes: Seizure, Other (Herniated discs) Cardio/Vascular: Yes: HTN, Hyperlipdemia Pulmonary: No: Asthma, Bronchitis, Cancer, COPD, O2 Dependent, Pneumonia, Previously Intubated, Pulmonary Embolus, Pulmonary Fibrosis, Sleep Apnea, Other Gastrointestinal: No: Ascites, Cancer, Constipation, Crohn's Disease, Diverticulitis, Diverticulosis, Esophageal Varices, Gastritis, GERD, GI Bleed, Hemorrhoids, Hiatal Hernia, Inflamatory Bowel Disease, Irritable Bowel Disease, Pancreatitis, Peptic Ulcer Disease, Ulcerative Colitis, Other Hepatobiliary: No: Cirrhosis, Cholelithiasis, Cholecystitis, Choledocholithiasis , Hepatitis A, Hepatitis B, Hepatitis C, Other Renal/: No: Renal Failure, Renal Inusuff, BPH, Cancer, Hematuria, Hemodialysis , Neurogenic Bladder, Renal Calculi, UTI, Other Reproductive: No: Ectopic , Endometriosis, Fibroids, PID, Polycystic Ovary Syndrome, Postmenopausal, Other ...LMP: 11/18/11 ...: No Heme/Onc: No: Anemia, B12 Deficiency, Bleeding Disorder, Cancer, Current Chemotherapy, Current Radiation Therapy, Hemochromatosis, Hypercoaguable State, Myeloproliferative Synd, Sickle Cell Disease, Sickle Cell Trait, Thrombocytopenia, Other Infectious Disease: No: AIDS, C-Diff, Herpes Zoster, HIV, MRSA, STD's, Tuberculosis, VREF, Other Psych: No: Addictions, Anxiety, Bipolar, Depression, Panic, Psychosis, Schizophrenia, Other Musculoskeletal: No: Bursitis, Chronic low back pain, Hemiparesis, Hemiplegia, Osteoarthritis, Paraplegia, Other Rheumatology: No: Fibromyalgia, Gout, Lupus, Rheumatoid Arthritis, Sarcoidosis, Vasculitis, Other ENT: No: Allergic Rhinitis, Sinusitis, Other Endocrine: No: Prince's Disease, Cinthya's Disease, Diabetes Insipidus, Diabetes Mellitus, Hyperparathyroidism, Hyperthyroidism, Hypothyroidism, Osteopenia, SIADH, Other - Past Surgical History Past Surgical History: Yes: Cholecystectomy - Alcohol/Substance Use Hx Alcohol Use: No - Smoking History Smoking history: Current every day smoker Have you smoked in the past 12 months: Yes Aproximately how many cigarettes per day: 4 - Social History Usual Living Arrangement: Alone Occupation: Disabled due to seizures History of Recent Travel: No Home Medications - Allergies Allergies/Adverse Reactions: Allergies Allergy/AdvReac Type Severity Reaction Status Date / Time phenytoin sodium Allergy Verified 01/22/18 18:30 [From Dilantin] phenytoin sodium extended Allergy Verified 01/22/18 18:30 [From Dilantin] - Home Medications Home Medications: Ambulatory Orders Alprazolam [Xanax] 2 mg PO BID 08/11/17 Esomeprazole Mag Trihydrate [Nexium Packets] 40 mg PO DAILY 08/11/17 Oxycodone HCl/Acetaminophen [Endocet 5-325 Tablet] 2 each PO TID 08/11/17 clonazePAM [Klonopin -] 0.5 mg PO PRN 08/11/17 levETIRAcetam [Keppra -] 750 mg PO BID 08/11/17 Lisinopril 10 mg PO DAILY 01/22/18 Mirtazapine [Remeron -] 30 mg PO DAILY 01/22/18 Family Disease History - Family Disease History Family Disease History: CA: Mother (CABG) Review of Systems Findings/Remarks: see HPI - Review of Systems Neck: denies: No Symptoms, Decreased ROM, Lumps, Pain on Movement, Stiffness, Swollen Glands, Tenderness, Other Cardiovascular: denies: No Symptoms, Chest Pain, Edema, Palpitations, Shortness of Breath, Other Gastrointestinal: denies: No Symptoms, Abdominal Pain, Bloating, Constipation, Diarrhea, Dysphagia, Indigestion, Melena, Nausea, Rectal Bleeding, Vomiting, Vomiting Blood, Other Genitourinary: denies: No Symptoms, Burning, Discharge, Dysuria, Flank Pain, Frequency, Hematuria, Incontinence, Lesions, Menses, Pain, Testicular Mass, Testicular Pain, Testicular Swelling, Urgency, Vaginal Bleeding, Other Neurological: reports: Headache, Parasthesia (left arm) - Risk Factors Known Risk Factors: Yes: Hypertension, Smoking Vital Signs: Vital Signs Temperature 98.6 F 01/23/18 06:00 Pulse Rate 74 01/23/18 06:00 Respiratory Rate 18 01/23/18 06:00 Blood Pressure 104/45 01/23/18 06:00 O2 Sat by Pulse Oximetry (%) 96 01/23/18 01:53 Constitutional: Yes: No Distress Eyes: Yes: Conjunctiva Clear Respiratory: Yes: CTA Bilaterally Gastrointestinal: Yes: Soft, Abdomen, Obese (no bruits) Cardiovascular: Yes: Regular Rate and Rhythm JVD: No Carotid Bruit: No PMI: Non-Displaced Heart Sounds: Yes: S1, S2 (RRR, + S4, no murmurs) Edema: No Peripheral Pulses WNL: Yes Peripheral Pulses: 2+ Left Carotid, 2+ Right Carotid, 2+ Left Doralis Pedis, 2+ Right Dorsalis Pedis Neurological: Yes: Alert, Oriented ...Motor Strength: WNL - Other Data Labs, Other Data: CBC, BMP 01/22/18 14:42 01/22/18 14:42 INR, PTT INR 0.85 (0.82-1.09) L 01/22/18 14:42 Troponin, BNP 01/22/18 01/22/18 14:42 21:10 Troponin I < 0.02 < 0.02 B-Natriuretic Peptide 48.26 Troponin, BNP 01/22/18 01/22/18 14:42 21:10 Troponin I < 0.02 < 0.02 B-Natriuretic Peptide 48.26 Laboratory Tests 01/22/18 01/22/18 01/22/18 14:42 14:42 21:10 WBC 6.1 Hgb 13.3 Plt Count 189 Sodium 141 Potassium 4.0 Creatinine 0.8 Creatine Kinase 218 H 178 Troponin I < 0.02 < 0.02 Total LDL Cholesterol 150 H 01/23/18 06:49 WBC Hgb Plt Count Sodium Potassium Creatinine Creatine Kinase Pending Troponin I Pending Total LDL Cholesterol NSR 71bpm, poor R wave progression. No acute ST changes Echo: Pending Imaging - Results Chest X-ray: Report Reviewed, Image Reviewed EKG: Image Reviewed Problem List - Problems (1) HTN (hypertension) Code(s): I10 - ESSENTIAL (PRIMARY) HYPERTENSION Qualifiers: Hypertension type: essential hypertension Qualified Code(s): I10 - Essential (primary) hypertension (2) Chronic low back pain Code(s): M54.5 - LOW BACK PAIN; G89.29 - OTHER CHRONIC PAIN Qualifiers: Back pain laterality: unspecified (3) Headache Code(s): R51 - HEADACHE Qualifiers: Headache type: unspecified (4) Seizure Code(s): R56.9 - UNSPECIFIED CONVULSIONS Assessment/Plan IMP: Chronic uncontrolled HTN, s/p hypertensive urgency 01/22 Seizure disorder REC: 1. Hypertensive urgency: Chronic headaches and left arm tingling in setting of markedly uncontrolled HTN , now improved - Obtain Basic Metablic Panel to assure GFR stable with fluctuating BP -Continue current meds for now -Echo to assess LV fxn, aortic root -Head CT -Telemetry 2. Left arm tingling: -Neuro consult pending -Head CT -Doubt cardiac as enzymes negative and ECG without acute changes 3. Seizure d/o: -as per Neuro Thank you.
[2018-01-23] MEDS ORDERED: oxyCODONE HCL 5 MG TABLET ONE (08:41)
[2018-01-23] MEDS: NICOTINE 21 MG/24 HOURS TOPICAL PATCH TD SCH ×2 (08:45→09:21)
[2018-01-23] MEDS: levETIRAcetam 500 MG TABLET (FP) PO SCH ×2 (08:47→09:20)
[2018-01-23] MEDS ORDERED: levETIRAcetam 500 MG/5 ML INJECTION VIAL IVPB ONE ×2 (08:57→09:07)
[2018-01-23] MEDS ORDERED: LORazepam 2 MG/ML SDV VIAL IVPUSH PRN (09:13)
--- NOTE | 2018-01-23 09:17 | RAPID ---
Physical Examination Vital Signs: Vital Signs Temperature 98.6 F 01/23/18 06:00 Pulse Rate 74 01/23/18 06:00 Respiratory Rate 18 01/23/18 06:00 Blood Pressure 104/45 01/23/18 06:00 O2 Sat by Pulse Oximetry (%) 96 01/23/18 01:53 Findings/Remarks: Rapid response called. Per RN, patient had acute seizure. Patient stated she was having pain and not responding to verbal cues. BP wnl- 120/70 Pulse 72 HENT: Yes: Atraumatic, Normocephalic Cardiovascular: Yes: Regular Rate and Rhythm, S1, S2 Respiratory: Yes: Regular, CTA Bilaterally Gastrointestinal: Yes: Normal Bowel Sounds, Soft Musculoskeletal: Yes: Other (Left shoulder/knee pain) Neurological: Yes: Other (CN intact, A&Ox3, Sensation decreased on left ue and left le (pt states chronic for months), weakness on left ue & le (pt states chronic for months)) Labs: CBC, BMP 01/22/18 14:42 Rapid Response - Rapid Response Assessment: Plan: Keppra 1g IV given Head CT ordered Neuro and PCP notified Continue Telemetry
[2018-01-23] MEDS: LISINOPRIL 10 MG TABLET (FP) PO SCH ×2 (09:21→11:15)
[2018-01-23] MEDS: amLODIPine BESYLATE 5 MG TABLET (FP) PO SCH ×2 (09:21→11:15)
[2018-01-23 09:43] LABS: ANION GAP 6 (8-16); BLOOD UREA NITROGEN 11 mg/dL (7-18); CALCIUM 8.5 mg/dL (8.5-10.1); CHLORIDE 108 mmol/L (98-107); CO2 29 mmol/L (21-32); CREATININE 0.7 mg/dL (0.55-1.02); GLUCOSE,RANDOM 94 mg/dL (74-106); POTASSIUM 4.2 mmol/L (3.5-5.1); SODIUM 143 mmol/L (136-145)
--- NOTE | 2018-01-23 09:58 | EKG ---
Test Reason : Blood Pressure : / mmHG Vent. Rate : 071 BPM Atrial Rate : 071 BPM P-R Int : 188 ms QRS Dur : 074 ms QT Int : 382 ms P-R-T Axes : 052 -07 058 degrees QTc Int : 415 ms POOR DATA QUALITY, INTERPRETATION MAY BE ADVERSELY AFFECTED NORMAL SINUS RHYTHM POOR R WAVE PROGRESSION ABNORMAL ECG WHEN COMPARED WITH ECG OF 09-DEC-2017 16:30, NO SIGNIFICANT CHANGE WAS FOUND Confirmed by IRAIDA PATEL MD ([id number]) on 01/23/2018 9:58:26 AM Referred By: Confirmed By:IRAIDA PATEL MD
--- NOTE | 2018-01-23 10:50 | CON.NEURO ---
Consult Consult Specialty:: NEUROLOGY-IMELDA MCINTOSH - History of Present Illness History of Present Illness: -47 year old female with a significant past medical history of seizures and pseudoseizures (on Keppra 750mg BID and Topomax 50mg BID), chronic lumbar pain, hypertension, hyperlipidemia, fibromyalgia and pre-diabetes. She is also a current everyday smoker. She presents to the ED today with 2 days history of nausea, left arm tingling and pain, left leg pain. The left-sided pain started 2 months ago after she fell down while taking a shower. Patient states she has been using percocet and gabapentin for pain. The pain has worsened in the last two days. Patient was sent by Dr. Ahn for observation due to elevated blood pressure. The blood pressure in admission was 183/124, repeat BP was 153/116. Patient reports chills but denies fever. She reports nausea but denies vomiting. Patietn also reports headache located in the temporal region bilaterally. Patient stated she smelled fire and felt an aura. Patient started twitching her left upper lip and trembling while being examined in the ED. Patient went back to her baseline mental status within a minute without any postictal symptoms. Patient denies blurry vision, chest pain, shortness of breath, palpitations. Patient reports smoking marijuana 2 days ago. -C/O severe left shoulder pain x weeks with reduced ROM, had one partial sz. with secondary gen. today. - Past Medical History REGISTRATION REP: Yes: Seizure, Other (Herniated discs) Cardio/Vascular: Yes: HTN, Hyperlipdemia Pulmonary: No: Asthma, Bronchitis, Cancer, COPD, O2 Dependent, Pneumonia, Previously Intubated, Pulmonary Embolus, Pulmonary Fibrosis, Sleep Apnea, Other Gastrointestinal: No: Ascites, Cancer, Constipation, Crohn's Disease, Diverticulitis, Diverticulosis, Esophageal Varices, Gastritis, GERD, GI Bleed, Hemorrhoids, Hiatal Hernia, Inflamatory Bowel Disease, Irritable Bowel Disease, Pancreatitis, Peptic Ulcer Disease, Ulcerative Colitis, Other Hepatobiliary: No: Cirrhosis, Cholelithiasis, Cholecystitis, Choledocholithiasis , Hepatitis A, Hepatitis B, Hepatitis C, Other Renal/: No: Renal Failure, Renal Inusuff, BPH, Cancer, Hematuria, Hemodialysis , Neurogenic Bladder, Renal Calculi, UTI, Other ...LMP: 11/18/11 ...: No Infectious Disease: No: AIDS, C-Diff, Herpes Zoster, HIV, MRSA, STD's, Tuberculosis, VREF, Other Psych: No: Addictions, Anxiety, Bipolar, Depression, Panic, Psychosis, Schizophrenia, Other Musculoskeletal: No: Bursitis, Chronic low back pain, Hemiparesis, Hemiplegia, Osteoarthritis, Paraplegia, Other Rheumatology: No: Fibromyalgia, Gout, Lupus, Rheumatoid Arthritis, Sarcoidosis, Vasculitis, Other ENT: No: Allergic Rhinitis, Sinusitis, Other Endocrine: No: Prince's Disease, Dublin's Disease, Diabetes Insipidus, Diabetes Mellitus, Hyperparathyroidism, Hyperthyroidism, Hypothyroidism, Osteopenia, SIADH, Other - Past Surgical History Past Surgical History: Yes: Cholecystectomy - Alcohol/Substance Use Hx Alcohol Use: No - Smoking History Smoking history: Current every day smoker Have you smoked in the past 12 months: Yes Aproximately how many cigarettes per day: 4 - Social History Usual Living Arrangement: Alone Occupation: Disabled due to seizures History of Recent Travel: No Home Medications - Allergies Allergies/Adverse Reactions: Allergies Allergy/AdvReac Type Severity Reaction Status Date / Time phenytoin sodium Allergy Verified 01/22/18 18:30 [From Dilantin] phenytoin sodium extended Allergy Verified 01/22/18 18:30 [From Dilantin] - Home Medications Home Medications: Ambulatory Orders Alprazolam [Xanax] 2 mg PO BID 08/11/17 Esomeprazole Mag Trihydrate [Nexium Packets] 40 mg PO DAILY 08/11/17 Oxycodone HCl/Acetaminophen [Endocet 5-325 Tablet] 2 each PO TID 08/11/17 clonazePAM [Klonopin -] 0.5 mg PO PRN 08/11/17 levETIRAcetam [Keppra -] 750 mg PO BID 08/11/17 Lisinopril 10 mg PO DAILY 01/22/18 Mirtazapine [Remeron -] 30 mg PO DAILY 01/22/18 Family Disease History - Family Disease History Family Disease History: CA: Mother (CABG) Physical Exam-Neuro Vital Signs: Vital Signs Temperature 98.6 F 01/23/18 06:00 Pulse Rate 74 01/23/18 06:00 Respiratory Rate 18 01/23/18 06:00 Blood Pressure 104/45 01/23/18 06:00 O2 Sat by Pulse Oximetry (%) 96 01/23/18 01:53 Labs: CBC, BMP 01/22/18 14:42 INR, PTT INR 0.85 (0.82-1.09) L 01/22/18 14:42 - Neuro Exam Level Of Consciousness: Yes: Alert, Oriented to Person, Oriented to Place, Oriented to Time Eyes: Yes: PERRL Speech: WNL Dominant Hand: Right Mini Mental Exam: Normal Motor Strength: 5/5: Left Arm, Right Arm, Left Leg, Right Leg (Decreased ROM due to left shoulder pain left arm) Gait: Deferred Assessment/Plan Pt. has both electrical(partial sz. with secondary gen) and non-electrical seizures. she also has chronic lumbar radicular pain from spondylosdis Suggest; -Cont Keppra at 1000mg bid, Topamax 200mg bid -Percocet 5/325 q shrs(standing dose) for shoulder /back pain Orthopedics consult for shoulder pain, her left knee pain is being addressed as outpt. by pain management.
[2018-01-23] MEDS ORDERED: oxyCODONE HCL 5 MG TABLET PO PRN (11:57)
[2018-01-23 12:14] VITALS: BP 129/90; PULSE 70; TEMP 98.1
--- NOTE | 2018-01-23 16:06 | DS ---
Physical Examination Vital Signs: Vital Signs Temperature 98.1 F 01/23/18 10:00 Pulse Rate 70 01/23/18 10:00 Respiratory Rate 18 01/23/18 10:00 Blood Pressure 129/90 01/23/18 10:00 O2 Sat by Pulse Oximetry (%) 98 01/23/18 10:00 Labs: CBC, BMP 01/22/18 14:42 01/23/18 06:50 Discharge Summary Reason For Visit: BACK PAIN - Instructions Referrals: Bailey Ahn MD [Primary Care Provider] - Disposition: AGAINST MEDICAL ADVICE - Home Medications Comprehensive Discharge Medication List: Ambulatory Orders Alprazolam [Xanax] 2 mg PO BID 08/11/17 Esomeprazole Mag Trihydrate [Nexium Packets] 40 mg PO DAILY 08/11/17 Oxycodone HCl/Acetaminophen [Endocet 5-325 Tablet] 2 each PO TID 08/11/17 clonazePAM [Klonopin -] 0.5 mg PO PRN 08/11/17 levETIRAcetam [Keppra -] 750 mg PO BID 08/11/17 Lisinopril 10 mg PO DAILY 01/22/18 Mirtazapine [Remeron -] 30 mg PO DAILY 01/22/18 AMA
== END 2018-01-23 14:37 | disposition left against medical advice (07) ==
LOC: JER 13:30 → JERBED 17:00 → J4W 20:10
PROVIDERS: ADMIT Internal Medicine; ATTEND Internal Medicine
PROC: 3E033GC Introduction of Other Therapeutic Substance into Peripheral Vein, Percutaneous Approach (ICD-10-PCS; principal; 2018-01-22)
PROC: 3E0337Z Introduction of Electrolytic and Water Balance Substance into Peripheral Vein, Percutaneous Approach (ICD-10-PCS; 2018-01-22)
DX: M54.5 Low back pain (principal); I10 Essential (primary) hypertension; E78.5 Hyperlipidemia, unspecified; G40.89 Other seizures; M79.7 Fibromyalgia; R73.03 Prediabetes; F17.210 Nicotine dependence, cigarettes, uncomplicated; Z88.8 Allergy status to other drugs, medicaments and biological substances; G89.29 Other chronic pain; R51 Headache
CPT/HCPCS: 36415; 70450-TC; 71046-TC-FY; 80048; 80053; 80061; 82550; 82553; 83721; 83735; 83880; 84484; 85025; 85610; 93005; 93010; 93306-TC; 96374; 99285-25; G0378; J7030

== ENCOUNTER 2018-02-05 12:29 | Observation (INO) | payer OTHER ==
--- NOTE | 2018-02-05 12:43 | PDOC ---
History of Present Illness - General Stated Complaint: SEIZURE Time Seen by Provider: 02/05/18 12:35 - History of Present Illness Initial Comments: 02/05/18 12:59 The patient is a 47 year old female with a history of Seizures, HTN, HLD, DM who presents for evaluation following a witnessed seizure. The patient is accompanied by her partner who assists in providing the history. They report that the patient was at a clinic to have her knee tapped for fluid. After the procedure, the patient experienced 2 grand mal seizures typical of her normal seizures. She received 2 doses of 5mg Versed with each seizure breaking as well as 15mg of labetolol prior to her presentation to the ED for evaluation. They report that her presentation is typical of her normal seizures which can be brought on with pain. The patient has been compliant with her keppra that she takes for her seizures. They otherwise denies fevers, chills, SOB, chest pain, nausea, vomiting, abdominal pain, numbness, tingling, weakness, or changes with urination or bowel movements. Past History - Past Medical History Allergies/Adverse Reactions: Allergies Allergy/AdvReac Type Severity Reaction Status Date / Time phenytoin sodium Allergy Verified 02/05/18 13:33 [From Dilantin] phenytoin sodium extended Allergy Verified 02/05/18 13:33 [From Dilantin] Home Medications: Ambulatory Orders Alprazolam [Xanax] 2 mg PO BID 08/11/17 Esomeprazole Mag Trihydrate [Nexium Packets] 40 mg PO DAILY 08/11/17 Oxycodone HCl/Acetaminophen [Endocet 5-325 Tablet] 2 each PO TID 08/11/17 clonazePAM [Klonopin -] 0.5 mg PO PRN 08/11/17 levETIRAcetam [Keppra -] 750 mg PO BID 08/11/17 Lisinopril 10 mg PO DAILY 01/22/18 Mirtazapine [Remeron -] 30 mg PO DAILY 01/22/18 Anemia: No Asthma: No Cancer: No Cardiac Disorders: No CVA: No COPD: No CHF: No Dementia: No Diabetes: Yes GI Disorders: Yes (acid reflux, IBS) Disorders: No HTN: Yes Hypercholesterolemia: Yes Liver Disease: No Psychiatric Problems: (anxeity,PTSD) Seizures: Yes Thyroid Disease: No - Surgical History Abdominal Surgery: No Appendectomy: No Cardiac Surgery: No Cholecystectomy: Yes Lung Surgery: No Neurologic Surgery: No Orthopedic Surgery: No - Immunization History Immunization Up to Date: Yes - Suicide/Smoking/Psychosocial Hx Smoking Status: Yes Smoking History: Current every day smoker Have you smoked in the past 12 months: Yes Number of Cigarettes Smoked Daily: 5 'Breaking Loose' booklet given: 01/22/18 Hx Alcohol Use: No Drug/Substance Use Hx: Yes Substance Use Type: Marijuana Hx Substance Use Treatment: No Review of Systems - Review of Systems Comments:: 02/05/18 13:04 Constitutional: No fevers, chills, fatigue, malaise HEENT: No Rhinorrhea, nasal congestion, visual changes Cardiovascular: No chest pain, syncope, palpitations, lightheadedness Respiratory: No Cough, SOB, Hemoptysis, Gastrointestinal: No Abdominal pain, Nausea, Vomiting, Constipation, Diarrhea, Melena Genitourinary: No Dysuria, Frequency, Urgency, Hesitancy, Hematuria, Flank pain Musculoskeletal: No Myalgia, arthralgia Skin: No rashes, itching, bruising, pallor Neurologic: Seizure. No Headache, Dizziness, Numbness, Weakness, or Tingling Psychiatric: No Hallucinations. No SI or HI *Physical Exam - Physical Exam Comments: 02/05/18 13:05 General Appearance: Nourished. Post-Ictal. No Apparent Distress HEENT: EOMI, KADEN. No Pharyngeal Erythema, Tonsillar Exudate, Tonsillar Erythema Neck: No Cervical Lymphadenopathy Respiratory/Chest: Lungs Clear, Normal Breath Sounds. No Crackles, Rales, Rhonchi, Wheezing Cardiovascular: Regular Rhythm, Regular Rate. No Murmur, Gallops, Rubs Gastrointestinal/Abdominal: Normal Bowel Sounds, Soft. 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 ED Treatment Course - LABORATORY CBC & Chemistry Diagram: 02/05/18 14:10 02/05/18 14:10 Medical Decision Making - Medical Decision Making 02/05/18 13:05 The patient is a 47 year old female with a history of Seizures, HTN, HLD, DM who presents for evaluation following a witnessed seizure. Differential includes but is not limited to: Seizure, Pneumonia, Hypoglycemia, UTI, infectious, metabolic derangement. Given the patient's history, it appears she experienced a normal seizure. BG en rout was 108. We will obtain a cbc, cmp, ua , chest plain film to evaluate for other possible etiologies. We will also discussed the case with the patient's neurologist, Dr. Sutton. We will continue to monitor and reassess in the meantime. 02/05/18 13:16 We discussed the case with Dr. Sutton who states that the patient's presentation appears to be typical of her normal seizures and recommends loading the patient with 500mg PO keppra here in the ED and should her lab results be normal, the patient can follow up on an outpatient basis. We agree with Dr. Sutton and will load the patient with keppra here in the ED. 02/05/18 14:16 The patient experienced a third witness seizure here in the ED with notable facial twitch. Seizure was treated successfully with 2mg of ativan. We believe that the patient requires observation admission given her multiple seizures today for further monitoring. Head CT is negative for acute process. CBC, cmp are unremarkable. 02/05/18 17:04 We discussed the case with Dr. Ahn who accepted the patient for admission. *DC/Admit/Observation/Transfer Diagnosis at time of Disposition: Seizure - Discharge Dispostion Condition at time of disposition: Stable Admit: Yes - Referrals Referrals: Bailey Ahn MD [Primary Care Provider] - - Patient Instructions - Post Discharge Activity
--- NOTE | 2018-02-05 12:46 | PDOC ---
Attending Attestation - HPI HPI: 02/05/18 14:21 The patient is a 47 year old female, with a significant PMH of seizures, hypertension, hyperlipidemia, diabetes mellitus, who presents to the emergency department with, 2 witnessed seizures prior to arrival. The patient states she went to the clinic earlier today to have her knee tapped for fluid and after the procedure she had 2 seizures as witnessed by her partner present at bedside. She reports she received 2 doses of 5 mg Versed and 15 mg of labetalol for her seizures prior to arrival at the ED. As per patients partner, she reports the seizures were typical of her normal seizures. The patient reports she has been complaint with her seizure keppra medication. The patient denies chest pain, shortness of breath, headache and dizziness. Denies fever, chills, nausea, vomit, diarrhea and constipation. Denies dysuria, frequency, urgency and hematuria. Allergies: Multiple allergies. See nursing notes. Documentation prepared by Brian Dan, acting as medical staff coordinator for Remberto Meyers MD. - Physicial Exam PE: 02/05/18 15:50 Vitals: Triage vital signs reviewed General Appearance: No acute distress, well nourished, well developed Head: Atraumatic Eyes: Pupils equal reactive round, extraocular movement intact Ears: TM's normal bilaterally Nose: Nares patent bilaterally; no nasal congestion Throat: Posterior oropharynx without erythema, mucous membranes moist Neck: Supple; No nuchal rigidity Chest Wall: Nontender Cardiac: Regular rate and rhythm, no murmurs, no rubs, no gallops Lungs: Clear to auscultation bilateral, good air movement bilaterally Abdomen: Soft, nondistended, normal bowel sounds, nontender to palpation Rectal: Exam deferred Extremities: Full range of motion to all extremities, no cyanosis, clubbing, or edema Skin: Warm and dry, no rashes or lesions, no rash, no petechiae Neuro: Cranial Nerves 2-12 grossly intact, Strength intact to all extremities, Sensation intact to all extremities Psych: Normal mood, normal affect - Medical Decision Making 02/05/18 14:21 The patient is a 47 year old female, with a significant PMH of seizures, hypertension, hyperlipidemia, diabetes mellitus, who presents to the emergency department with, 2 witnessed seizures prior to arrival. Plan: Labs, Chest X-Ray, EKG, Head CT without contrast. <Brian Dan Filed: 02/05/18 15:50> - Resident Resident Name: Jann Champion - ED Attending Attestation I have performed the following: I have examined & evaluated the patient, The case was reviewed & discussed with the resident, I agree w/resident's findings & plan, Exceptions are as noted - Medical Decision Making Patient had a third seizure here in the emergency department. Case discussed with neurology We will observe in hospital given multiple seizures CAT scan completed Patient to be admitted to for further evaluation <Remberto Meyers - Last Filed: 02/05/18 16:30>
[2018-02-05] MEDS ORDERED: levETIRAcetam 500 MG TABLET (FP) PO ONE ×2 (13:17→13:25)
[2018-02-05] MEDS ORDERED: ACETAMINOPHEN 325 MG TABLET (FP) PO ONE (13:28)
[2018-02-05] MEDS ORDERED: ACETAMINOPHEN 325 MG TABLET (FP) ONE (13:38)
[2018-02-05] MEDS ORDERED: KETOROLAC TROMETHAMINE 60 MG/2 ML VIAL IM ONE (13:48)
[2018-02-05] MEDS ORDERED: KETOROLAC TROMETHAMINE 30 MG/1 ML VIAL IVPUSH ONE (14:13)
[2018-02-05] MEDS ORDERED: SODIUM CHLORIDE 0.9% 1000 ML INFUS.BAG IV ONE (14:13)
[2018-02-05 14:31] LABS: BASO % 0.6 % (0-2.0); EOS % 1.8 % (0-4.5); HEMATOCRIT 40.6 % (32.4-45.2); HEMOGLOBIN 13.6 GM/dL (10.7-15.3); LYMPH % 37.4 % (8-40); MCH 28.2 pg (25.7-33.7); MCHC 33.5 g/dl (32.0-36.0); MEAN CELL VOLUME 84.1 fl (80-96); MEAN PLT VOLUME 8.6 fl (7.5-11.1); MONO % 5.1 % (3.8-10.2); NEUT % 55.1 % (42.8-82.8); PLATELET COUNT 221 K/MM3 (134-434); RBC 4.83 M/mm3 (3.60-5.2); RDW 13.9 % (11.6-15.6); WHITE BLOOD COUNT 5.7 K/mm3 (4.0-10.0)
[2018-02-05] MEDS ORDERED: KETOROLAC TROMETHAMINE 30 MG/1 ML VIAL ONE (14:36)
[2018-02-05 14:55] LABS: ALBUMIN 3.7 g/dl (3.4-5.0); ANION GAP 7 (8-16); BLOOD UREA NITROGEN 10 mg/dL (7-18); CALCIUM 9.2 mg/dL (8.5-10.1); CHLORIDE 107 mmol/L (98-107); CO2 27 mmol/L (21-32); GLUCOSE,RANDOM 108 mg/dL (74-106); POTASSIUM 4.2 mmol/L (3.5-5.1); SODIUM 141 mmol/L (136-145)
[2018-02-05 15:00] LABS: BILIRUBIN,TOTAL 0.2 mg/dL (0.2-1.0); CREATININE 0.8 mg/dL (0.55-1.02); SGOT/AST 15 U/L (15-37); SGPT/ALT 24 U/L (12-78); TOT PROT 6.9 g/dl (6.4-8.2)
[2018-02-05 15:01] LABS: ALK PHOS 76 U/L (45-117)
[2018-02-05] MEDS ORDERED: ACETAMINOPHEN 1000 MG/100 ML VIAL (NON FORMULARY) IVPB ONE (15:55)
[2018-02-05] MEDS ORDERED: ACETAMINOPHEN INJECTION 100 ML IVPB ONE (15:57)
[2018-02-05] MEDS ORDERED: morphine CARPU-JECT 4 MG/1 ML DISP.SYRIN IVPUSH ONE ×2 (16:36→18:59)
[2018-02-05] MEDS ORDERED: morphine SULFATE 4 MG/ML VIAL ONE ×2 (16:38→19:14)
--- NOTE | 2018-02-05 18:12 | HP ---
Admitting History and Physical - Primary Care Physician PCP: Bailey Ahn - Admission History of Present Illness: 47 year old female, with a significant PMH of seizures, hypertension, hyperlipidemia, diabetes mellitus, who presents to the emergency department with , 2 witnessed seizures prior to arrival. The patient states she went to the clinic earlier today to have her knee tapped for fluid and after the procedure she had 2 seizures as witnessed by her partner present at bedside. She reports she received 2 doses of 5 mg Versed and 15 mg of labetalol for her seizures prior to arrival at the ED. As per patients partner, she reports the seizures were typical of her normal seizures. The patient reports she has been complaint with her seizure keppra medication. The patient denies chest pain, shortness of breath, headache and dizziness. Denies fever, chills, nausea, vomit, diarrhea and constipation. Denies dysuria, frequency, urgency and hematuria. 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 Cardiovascular: Yes: HTN, Hyperlipdemia ...LMP: 11/18/11 - Past Surgical History Past Surgical History: Yes: Cholecystectomy - Smoking History Smoking history: Current every day smoker Have you smoked in the past 12 months: Yes Aproximately how many cigarettes per day: 5 - Alcohol/Substance Use Hx Alcohol Use: No - Social History Occupation: Disabled due to seizures History of Recent Travel: No Home Medications - Allergies Allergies/Adverse Reactions: Allergies Allergy/AdvReac Type Severity Reaction Status Date / Time phenytoin sodium Allergy Verified 02/05/18 13:33 [From Dilantin] phenytoin sodium extended Allergy Verified 02/05/18 13:33 [From Dilantin] - Home Medications Home Medications: Ambulatory Orders Alprazolam [Xanax] 2 mg PO BID 08/11/17 Esomeprazole Mag Trihydrate [Nexium Packets] 40 mg PO DAILY 08/11/17 Oxycodone HCl/Acetaminophen [Endocet 5-325 Tablet] 2 each PO TID 08/11/17 clonazePAM [Klonopin -] 0.5 mg PO PRN 08/11/17 levETIRAcetam [Keppra -] 750 mg PO BID 08/11/17 Lisinopril 10 mg PO DAILY 01/22/18 Mirtazapine [Remeron -] 30 mg PO DAILY 01/22/18 Family Disease History - Family Disease History Family Disease History: CA: Mother (CABG) Physical Examination Vital Signs: Vital Signs Temperature 97.4 F L 02/05/18 12:29 Pulse Rate 77 02/05/18 12:29 Respiratory Rate 18 02/05/18 12:29 Blood Pressure 90/77 02/05/18 12:29 O2 Sat by Pulse Oximetry (%) 100 02/05/18 12:29 Constitutional: Yes: No Distress HENT: Yes: Atraumatic Neck: Yes: Supple Cardiovascular: Yes: Regular Rate and Rhythm Respiratory: Yes: CTA Bilaterally Gastrointestinal: Yes: Normal Bowel Sounds Extremities: Yes: WNL Neurological: Yes: Alert, Oriented Labs: CBC, BMP 02/05/18 14:10 02/05/18 14:10 Problem List - Problems (1) Seizure Code(s): R56.9 - UNSPECIFIED CONVULSIONS (2) Chronic low back pain Code(s): M54.5 - LOW BACK PAIN; G89.29 - OTHER CHRONIC PAIN (3) HTN (hypertension) Code(s): I10 - ESSENTIAL (PRIMARY) HYPERTENSION Qualifiers: Assessment/Plan Laboratory Tests 02/05/18 02/05/18 14:10 14:10 WBC 5.7 RBC 4.83 Hgb 13.6 Hct 40.6 MCV 84.1 MCH 28.2 MCHC 33.5 RDW 13.9 Plt Count 221 MPV 8.6 Neutrophils % 55.1 D Lymphocytes % 37.4 Monocytes % 5.1 Eosinophils % 1.8 Basophils % 0.6 Sodium 141 Potassium 4.2 Chloride 107 Carbon Dioxide 27 Anion Gap 7 L BUN 10 Creatinine 0.8 Creat Clearance w eGFR > 60 Random Glucose 108 H Calcium 9.2 Total Bilirubin 0.2 D AST 15 ALT 24 Alkaline Phosphatase 76 Total Protein 6.9 Albumin 3.7
[2018-02-05] MEDS ORDERED: ACETAMINOPHEN 325 MG TABLET (FP) PO PRN (18:20)
[2018-02-05] MEDS ORDERED: MIRTAZAPINE 30 MG TABLET (FP) PO SCH (22:00)
[2018-02-05] MEDS ORDERED: levETIRAcetam 250 MG TABLET (FP) PO SCH (22:00)
[2018-02-05] MEDS: oxyCODONE HCL 5 MG TABLET PO PRN (22:01)
[2018-02-05] MEDS ORDERED: oxyCODONE HCL 5 MG TABLET ONE (22:02)
[2018-02-05] MEDS ORDERED: HEPARIN NA (PORCINE) 5,000 UNITS/ML 1ML VIAL ONE (22:06)
[2018-02-05] MEDS ORDERED: ALPRAZolam 2 MG TABLET ONE (22:06)
[2018-02-05] MEDS: ALPRAZolam 2 MG TABLET PO SCH (22:10)
[2018-02-05] MEDS: HEPARIN NA (PORCINE) 5,000 UNITS/ML 1ML VIAL SQ SCH (22:10)
[2018-02-05 23:57] LABS: URINE APPEARANCE CLOUDY; URINE BILIRUBIN NEGATIVE (<2.0 mg/dL); URINE BLOOD NEGATIVE (NEGATIVE); URINE COLOR DKYELLOW; URINE GLUCOSE (UA) NEGATIVE (NEGATIVE); URINE KETONE TRACE (NEGATIVE); URINE LEUK ESTERASE TRACE (NEGATIVE); URINE NITRITE NEGATIVE (NEGATIVE); URINE PROTEIN 1+ (NEGATIVE); URINE UROBILINOGEN NEGATIVE mg/dL (0.2-1.0)
[2018-02-05 23:59] LABS: EPI CELLS MODERATE /HPF (FEW); URINE BACTERIA MANY /hpf (NONE SEEN); URINE HYALINE CAST 7 /lpf; URINE MUCUS RARE
[2018-02-06 07:03] VITALS: BMI 40.8
--- NOTE | 2018-02-06 08:33 | CON.NEURO ---
Consult - History of Present Illness History of Present Illness: 47 year old female, with a significant PMH of seizures, hypertension, hyperlipidemia, diabetes mellitus, who presents to the emergency department with , 2 witnessed seizures prior to arrival. The patient states she went to the clinic earlier today to have her knee tapped for fluid and after the procedure she had 2 seizures as witnessed by her partner present at bedside. She reports she received 2 doses of 5 mg Versed and 15 mg of labetalol for her seizures prior to arrival at the ED. As per patients partner, she reports the seizures were typical of her normal seizures. The patient reports she has been complaint with her seizure keppra medication. on keppra 750 BID unclear when she had her last sz prior to this. The patient denies chest pain, shortness of breath, headache and dizziness. Denies fever, chills, nausea, vomit, diarrhea and constipation. Denies dysuria, frequency, urgency and hematuria. c/o left shoudler pain CT HD IMPRESSION: Mild volume loss without evidence of acute intracranial pathology. Mild ethmoid chronic sinusitis. 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 Cardio/Vascular: Yes: HTN, Hyperlipdemia ...LMP: 11/18/11 ...: No - Past Surgical History Past Surgical History: Yes: Cholecystectomy - Alcohol/Substance Use Hx Alcohol Use: No - Smoking History Smoking history: Current every day smoker Have you smoked in the past 12 months: Yes Aproximately how many cigarettes per day: 5 - Social History Usual Living Arrangement: Alone Occupation: Disabled due to seizures History of Recent Travel: No Home Medications - Allergies Allergies/Adverse Reactions: Allergies Allergy/AdvReac Type Severity Reaction Status Date / Time phenytoin sodium Allergy Verified 02/05/18 13:33 [From Dilantin] phenytoin sodium extended Allergy Verified 02/05/18 13:33 [From Dilantin] - Home Medications Home Medications: Ambulatory Orders Alprazolam [Xanax] 2 mg PO BID 08/11/17 Esomeprazole Mag Trihydrate [Nexium Packets] 40 mg PO DAILY 08/11/17 Oxycodone HCl/Acetaminophen [Endocet 5-325 Tablet] 2 each PO TID 08/11/17 clonazePAM [Klonopin -] 0.5 mg PO PRN 08/11/17 levETIRAcetam [Keppra -] 750 mg PO BID 08/11/17 Lisinopril 10 mg PO DAILY 01/22/18 Mirtazapine [Remeron -] 30 mg PO DAILY 01/22/18 Family Disease History - Family Disease History Family Disease History: CA: Mother (CABG) Physical Exam-Neuro Vital Signs: Vital Signs Temperature 97.9 F 02/06/18 06:00 Pulse Rate 90 02/06/18 06:00 Respiratory Rate 20 02/06/18 06:00 Blood Pressure 135/76 02/06/18 06:00 O2 Sat by Pulse Oximetry (%) 94 L 02/06/18 00:22 Labs: CBC, BMP 02/05/18 14:10 02/05/18 14:10 - Neuro Exam Level Of Consciousness: Yes: Alert (nonfocal neuro exam, limited ROM left should , rotator cuff appears intact, no focal weakness,) Imaging - Results Cat Scan: Report Reviewed, Image Reviewed Problem List - Problems (1) Shoulder pain, left Code(s): M25.512 - PAIN IN LEFT SHOULDER (2) Seizure Code(s): R56.9 - UNSPECIFIED CONVULSIONS Assessment/Plan 47 year old female, with a significant PMH of seizures, hypertension, hyperlipidemia, diabetes mellitus, who presents to the emergency department with , 2 witnessed seizures prior to arrival. The patient states she went to the clinic earlier today to have her knee tapped for fluid and after the procedure she had 2 seizures as witnessed by her partner present at bedside. She reports she received 2 doses of 5 mg Versed and 15 mg of labetalol for her seizures prior to arrival at the ED. As per patients partner, she reports the seizures were typical of her normal seizures. The patient reports she has been complaint with her seizure keppra medication. on keppra [address] HD IMPRESSION: Mild volume loss without evidence of acute intracranial pathology. Mild ethmoid chronic sinusitis. PLAN : breakthrough seizure inc keppra 1000BID check tox screen will get outpt EEG Juan Francisco Osman and ortho consult Dr Carter
--- NOTE | 2018-02-06 09:23 | EKG ---
Test Reason : Blood Pressure : / mmHG Vent. Rate : 082 BPM Atrial Rate : 082 BPM P-R Int : 182 ms QRS Dur : 086 ms QT Int : 366 ms P-R-T Axes : 056 004 056 degrees QTc Int : 427 ms NORMAL SINUS RHYTHM NONSPECIFIC ST ABNORMALITY WHEN COMPARED WITH ECG OF 22-JAN-2018 15:03, NO SIGNIFICANT CHANGE WAS FOUND Confirmed by IRAIDA PATEL MD ([id number]) on 02/06/2018 9:22:58 AM Referred By: Confirmed By:IRAIDA PATEL MD
[2018-02-06] MEDS: levETIRAcetam 500 MG TABLET (FP) PO SCH ×2 (09:29→21:29)
[2018-02-06] MEDS: HEPARIN NA (PORCINE) 5,000 UNITS/ML 1ML VIAL SQ SCH ×2 (09:29→21:29)
[2018-02-06] MEDS: LISINOPRIL 10 MG TABLET (FP) PO SCH (09:29)
[2018-02-06] MEDS: ALPRAZolam 2 MG TABLET PO SCH ×2 (09:30→21:29)
[2018-02-06] MEDS: oxyCODONE HCL 5 MG TABLET PO PRN ×3 (10:25→23:11)
--- NOTE | 2018-02-06 14:53 | PN ---
Progress Note, Physician - Current Medication List Current Medications: Active Medications Acetaminophen (Tylenol -) 650 mg PO Q6H PRN PRN Reason: PAIN 4-10 Alprazolam (Xanax -) 2 mg PO BID [facility] Last Admin: 02/06/18 09:30 Dose: 2 mg Heparin Sodium (Porcine) (Heparin -) 5,000 unit SQ BID [facility] Last Admin: 02/06/18 09:29 Dose: 5,000 unit Levetiracetam (Keppra -) 1,000 mg PO BID [facility] Last Admin: 02/06/18 09:29 Dose: 1,000 mg Lisinopril (Prinivil) 10 mg PO DAILY [facility] Last Admin: 02/06/18 09:29 Dose: 10 mg Mirtazapine (Remeron -) 30 mg PO [facility] Oxycodone HCl (Roxicodone -) 10 mg PO Q6H PRN PRN Reason: PAIN 4-10 Last Admin: 02/06/18 10:25 Dose: 10 mg - Objective Vital Signs: Vital Signs Temperature 98 F 02/06/18 09:00 Pulse Rate 88 02/06/18 09:00 Respiratory Rate 18 02/06/18 09:00 Blood Pressure 130/70 02/06/18 09:00 O2 Sat by Pulse Oximetry (%) 94 L 02/06/18 00:22 Constitutional: Yes: No Distress HENT: Yes: Atraumatic Neck: Yes: Supple Cardiovascular: Yes: Regular Rate and Rhythm Respiratory: Yes: CTA Bilaterally Gastrointestinal: Yes: Normal Bowel Sounds Extremities: Yes: WNL Neurological: Yes: Alert, Oriented Labs: CBC, BMP 02/05/18 14:10 02/05/18 14:10 Problem List - Problems (1) Seizure Code(s): R56.9 - UNSPECIFIED CONVULSIONS (2) Chronic low back pain Code(s): M54.5 - LOW BACK PAIN; G89.29 - OTHER CHRONIC PAIN (3) HTN (hypertension) Code(s): I10 - ESSENTIAL (PRIMARY) HYPERTENSION Qualifiers:
--- NOTE | 2018-02-06 16:59 | CONSULT ---
Consult - text type - Consultation Consultation Note: FULL CONSULT DICTATED IMP: LEFT SHOULDER PAIN S/P SEIZURE PLAN: NSAIDS, REST, PT AND F/U AN OUTPATIENT
--- NOTE | 2018-02-06 19:41 | CONS ---
ORTHOPEDIC CONSULTATION/[facility] DATE OF CONSULTATION: 02/06/2018 Patient is a 47-year-old black female admitted to the hospital for presumptive seizure. Patient has a long history of seizures and had a seizure yesterday. Currently, she has medically stabilized and is actually being discharged today, but post seizure, patient has been complaining of pain in her left shoulder and would like orthopedic consultation prior to being discharged. Patient denies any prior history of shoulder issues even during previous seizures. Patient states that she had the seizure while in bed and did not fall during or after the seizure. Patient denies any numbness or tingling down the arm, just pain when she moves it. PHYSICAL EXAMINATION: Neurologic: Cranial nerves 2-12 are grossly intact. Neck: Supple C spine. Musculoskeletal: She has a nontender clavicle, AC joint, acromion, bicipital groove. She has significant pain with forward flexion, but can get it up to 170 degrees. Has pain with thumb-down adduction but does have 5/5 strength. She has good strength and external rotation. She can externally rotate it about 50 degrees which is equal to her contralateral side. Her main deficit is on internal rotation, can only get to the lower lumbar region and has significant pain. Full range of motion of elbow, wrist, and fingers. Intact ulnar, medial, and radial sensation and motor, 2+ pulses, brisk capillary refill. X-rays, which I evaluated, taken at [facility], show no fracture, dislocation, lytic or blastic lesions. IMPRESSION: Left shoulder pain status post seizure. No obvious dislocation and rotator cuff appears to be strong. I believe she just strained her shoulder during the seizures. I recommend rest, nonsteroidals, and the patient should follow up and see me in the office in 7-10 days if her symptoms do not improve. We can consider MRI to rule out other pathology inside the left shoulder. IAN SHORT M.D. [id number]
[2018-02-06] MEDS ORDERED: MIRTAZAPINE 15 MG TABLET (FP) PO SCH (22:00)
[2018-02-06 23:02] VITALS: BP 133/88; PULSE 73; TEMP 98.1
[2018-02-07] MEDS: levETIRAcetam 500 MG TABLET (FP) PO SCH (11:10)
[2018-02-07] MEDS: ALPRAZolam 2 MG TABLET PO SCH (11:10)
[2018-02-07] MEDS: LISINOPRIL 10 MG TABLET (FP) PO SCH (11:11)
[2018-02-07] MEDS: HEPARIN NA (PORCINE) 5,000 UNITS/ML 1ML VIAL SQ SCH (11:11)
== END 2018-02-07 11:42 | disposition home or self-care (01) ==
LOC: JER 12:29 → JERBED 15:56 → J4W 02-06 00:07 → J5S 02-06 21:49
PROVIDERS: ADMIT Internal Medicine; ATTEND Internal Medicine
PROC: 3E0333Z Introduction of Anti-inflammatory into Peripheral Vein, Percutaneous Approach (ICD-10-PCS; principal; 2018-02-05)
PROC: 3E033NZ Introduction of Analgesics, Hypnotics, Sedatives into Peripheral Vein, Percutaneous Approach (ICD-10-PCS; 2018-02-05)
PROC: 3E033GC Introduction of Other Therapeutic Substance into Peripheral Vein, Percutaneous Approach (ICD-10-PCS; 2018-02-05)
PROC: 3E0337Z Introduction of Electrolytic and Water Balance Substance into Peripheral Vein, Percutaneous Approach (ICD-10-PCS; 2018-02-05)
DX: G40.89 Other seizures (principal); I10 Essential (primary) hypertension; E78.5 Hyperlipidemia, unspecified; E11.9 Type 2 diabetes mellitus without complications; K21.9 Gastro-esophageal reflux disease without esophagitis; K58.9 Irritable bowel syndrome, unspecified; F41.9 Anxiety disorder, unspecified; F43.10 Post-traumatic stress disorder, unspecified; F17.210 Nicotine dependence, cigarettes, uncomplicated; M54.5 Low back pain; G89.29 Other chronic pain; M25.512 Pain in left shoulder; Z88.8 Allergy status to other drugs, medicaments and biological substances; Z79.899 Other long term (current) drug therapy
CPT/HCPCS: 36415; 70450-TC; 71045-TC-FY; 73030-TC-LT-FY; 80053; 81003; 81015; 85025; 93005; 93010; 99283-25; G0378; J0131; J1644; J7030

== ENCOUNTER 2018-02-10 14:13 | Emergency (ER) | payer OTHER ==
[2018-02-10 14:27] VITALS: BP 164/86; PULSE 86; TEMP 99.1; BMI 103.6
--- NOTE | 2018-02-10 15:50 | PDOC ---
Attending Attestation - Resident Resident Name: YadiraBrody - ED Attending Attestation I have performed the following: I have examined & evaluated the patient, The case was reviewed & discussed with the resident, I agree w/resident's findings & plan - HPI HPI: 02/10/18 15:51 47y/o F h/o seizures and pseudoseizures presents from home after VNS witnessed a seizure. Brought in by EMS, had facial seizure in the ED but is now ambulatory at time of this note - Physicial Exam PE: 02/10/18 16:21 Vital signs within normal limits Alert and oriented, left arm in sling from recently diagnosed soft tissue injury Neurologically nonfocal - Medical Decision Making 02/10/18 16:22 Patient seen and evaluated with the resident. I agree with the overall evaluation, assessment, and management with the following summary of visit: 47-year-old female well known to this institution with history of seizure and pseudoseizure presents with witnessed seizure, had another episode in the ED. I' ve seen this patient several times in the past, her seizure in the ED was typical of her pseudoseizures which included facial twitching and no postictal state. She was answering questions appropriately 1-2 minutes after her seizure, she is now ambulating steadily. No evidence of acute infectious or dehydration process. We'll check electrolytes, give IV fluids Reassess and dispo accordingly 02/10/18 16:49 labs normal, ambulating comfortably and feels well. agrees with d/c plan and f/u with Dr. Sutton. Heart Score/ECG Review #1 ECG reviewed & interpreted by me at: 14:52 General ECG Interpretation: Sinus Rhythm, Normal Rate (83), Normal Intervals ( qtc 425), No acute ischemic changes
[2018-02-10] MEDS ORDERED: morphine CARPU-JECT 8 MG/1 ML DISP.SYRIN IVPUSH ONE (16:05)
[2018-02-10 16:17] LABS: BASO % 1.1 % (0-2.0); EOS % 2.3 % (0-4.5); HEMATOCRIT 40.2 % (32.4-45.2); HEMOGLOBIN 13.9 GM/dL (10.7-15.3); LYMPH % 43.4 % (8-40); MCHC 34.6 g/dl (32.0-36.0); MEAN CELL VOLUME 83.9 fl (80-96); MEAN PLT VOLUME 9.2 fl (7.5-11.1); MONO % 4.5 % (3.8-10.2); NEUT % 48.7 % (42.8-82.8); PLATELET COUNT 226 K/MM3 (134-434); RBC 4.79 M/mm3 (3.60-5.2); RDW 14.1 % (11.6-15.6); WHITE BLOOD COUNT 8.4 K/mm3 (4.0-10.0)
[2018-02-10] MEDS ORDERED: morphine SULFATE 4 MG/ML VIAL ONE (16:31)
--- NOTE | 2018-02-10 16:42 | PDOC ---
History of Present Illness - General Chief Complaint: Seizure Stated Complaint: SEIZURE Time Seen by Provider: 02/10/18 14:58 History Source: Patient - History of Present Illness Initial Comments: 02/10/18 16:37 47F with pmh of seizures and pseudoseizures BIBEMS after seizure was witnessed. HAs facial seizure in the ED but is now ambulatory at time of this note. Complaining of left arm pain from previous visit on 02/05 where she was also seen for breakthrough seizures. Past History - Past Medical History Allergies/Adverse Reactions: Allergies Allergy/AdvReac Type Severity Reaction Status Date / Time phenytoin sodium Allergy Verified 02/10/18 14:42 [From Dilantin] phenytoin sodium extended Allergy Verified 02/10/18 14:42 [From Dilantin] Home Medications: Ambulatory Orders Alprazolam [Xanax] 2 mg PO BID 08/11/17 Esomeprazole Mag Trihydrate [Nexium Packets] 40 mg PO DAILY 08/11/17 Oxycodone HCl/Acetaminophen [Endocet 5-325 Tablet] 2 each PO TID 08/11/17 clonazePAM [Klonopin -] 0.5 mg PO PRN 08/11/17 Lisinopril 10 mg PO DAILY 01/22/18 Mirtazapine [Remeron -] 30 mg PO DAILY 01/22/18 levETIRAcetam [Keppra -] 1,000 mg PO BID #60 tablet 02/06/18 Anemia: No Asthma: No Cancer: No Cardiac Disorders: No CVA: No COPD: No CHF: No Dementia: No Diabetes: Yes GI Disorders: Yes (acid reflux, IBS) Disorders: No HTN: Yes Hypercholesterolemia: Yes Liver Disease: No Psychiatric Problems: (anxeity,PTSD) Seizures: Yes (pseudoseizures) Thyroid Disease: No - Surgical History Abdominal Surgery: No Appendectomy: No Cardiac Surgery: No Cholecystectomy: Yes Lung Surgery: No Neurologic Surgery: No Orthopedic Surgery: No - Immunization History Immunization Up to Date: Yes - Suicide/Smoking/Psychosocial Hx Smoking Status: Yes Smoking History: Current every day smoker Have you smoked in the past 12 months: Yes Number of Cigarettes Smoked Daily: 20 Information on smoking cessation initiated: No 'Breaking Loose' booklet given: 02/06/18 Hx Alcohol Use: No Drug/Substance Use Hx: No Substance Use Type: None Hx Substance Use Treatment: No Review of Systems - Review of Systems Able to Perform ROS?: No (apparently postictal) *Physical Exam - Vital Signs Last Vital Signs Temp Pulse Resp BP Pulse Ox 99.1 F 86 16 164/86 100 02/10/18 14:13 02/10/18 14:13 02/10/18 14:13 02/10/18 14:13 02/10/18 14:13 - Physical Exam General Appearance: Yes: Obese HEENT: positive: EOMI, KADEN, Normal ENT Inspection Respiratory/Chest: positive: Lungs Clear, Normal Breath Sounds. negative: Chest Tender, Respiratory Distress Cardiovascular: positive: Regular Rhythm, Regular Rate, S1, S2 Gastrointestinal/Abdominal: positive: Normal Bowel Sounds, Flat, Soft. negative : Tender Neurologic: positive: Alert, Confused. negative: EOM Palsy, Facial Droop, Disoriented ED Treatment Course - LABORATORY CBC & Chemistry Diagram: 02/10/18 16:07 02/10/18 16:07 - ADDITIONAL ORDERS Additional order review: 02/10/18 16:07 RBC 4.79 MCV 83.9 MCHC 34.6 RDW 14.1 MPV 9.2 Neutrophils % 48.7 Lymphocytes % 43.4 H Monocytes % 4.5 Eosinophils % 2.3 Basophils % 1.1 - Medications Given in the ED: ED Medications Discontinued Medications Generic Name Dose Route Start Last Admin Trade Name Masood PRN Reason Stop Dose Admin Morphine Sulfate 2 mg 02/10/18 16:05 02/10/18 16:33 Morphine Sulfate IVPUSH 02/10/18 16:06 2 mg ONCE ONE Administration Medical Decision Making - Medical Decision Making 02/10/18 16:42 Will draw labs, keppra level give pain meds for arm and reassess 02/10/18 16:43 02/10/18 16:48 Now speaking and ambulating. Probable pseudoseizure. Will discharge *DC/Admit/Observation/Transfer Diagnosis at time of Disposition: Pseudoseizures - Discharge Dispostion Disposition: HOME Condition at time of disposition: Fair Admit: No - Referrals Referrals: Bailey Ahn MD [Primary Care Provider] - - Patient Instructions Printed Discharge Instructions: DI for Psychogenic Nonepileptic Seizures Additional Instructions: Come back to the ER for any new, worsening or concerning symptom. - Post Discharge Activity
[2018-02-10 16:43] LABS: ALBUMIN 3.8 g/dl (3.4-5.0); ANION GAP 6 (8-16); BILIRUBIN,TOTAL 0.2 mg/dL (0.2-1.0); BLOOD UREA NITROGEN 10 mg/dL (7-18); CHLORIDE 103 mmol/L (98-107); CO2 31 mmol/L (21-32); CREATININE 0.8 mg/dL (0.55-1.02); GLUCOSE,RANDOM 88 mg/dL (74-106); POTASSIUM 4.1 mmol/L (3.5-5.1); SGOT/AST 12 U/L (15-37); SGPT/ALT 26 U/L (12-78); SODIUM 140 mmol/L (136-145); TOT PROT 7.1 g/dl (6.4-8.2)
[2018-02-10 16:44] LABS: ALK PHOS 80 U/L (45-117)
--- NOTE | 2018-02-11 11:44 | EKG ---
Test Reason : Blood Pressure : / mmHG Vent. Rate : 083 BPM Atrial Rate : 083 BPM P-R Int : 174 ms QRS Dur : 068 ms QT Int : 362 ms P-R-T Axes : 057 017 039 degrees QTc Int : 425 ms NORMAL SINUS RHYTHM CANNOT RULE OUT ANTERIOR INFARCT , AGE UNDETERMINED ABNORMAL ECG WHEN COMPARED WITH ECG OF 10-FEB-2018 14:49, PREVIOUS ECG HAS UNDETERMINED RHYTHM, NEEDS REVIEW Confirmed by SHARITA MCINTOSH, SHEA ([id number]) on 02/11/2018 11:43:53 AM Referred By: Confirmed By:SHEA SHERIFF MD
== END 2018-02-10 17:28 | disposition home or self-care (01) ==
LOC: JER 14:13
PROC: 3E033NZ Introduction of Analgesics, Hypnotics, Sedatives into Peripheral Vein, Percutaneous Approach (ICD-10-PCS; principal; 2018-02-10)
DX: G40.909 Epilepsy, unspecified, not intractable, without status epilepticus (principal); I10 Essential (primary) hypertension; K21.9 Gastro-esophageal reflux disease without esophagitis; F41.9 Anxiety disorder, unspecified; F43.10 Post-traumatic stress disorder, unspecified; E11.9 Type 2 diabetes mellitus without complications; F17.210 Nicotine dependence, cigarettes, uncomplicated
CPT/HCPCS: 36415; 80053; 85025; 93005; 93010; 96374; 99283-25

== ENCOUNTER 2018-04-10 18:48 | Observation (INO) | payer OTHER ==
[2018-04-10 20:05] VITALS: BP 146/92; PULSE 70; TEMP 99; BMI 36.9
[2018-04-10] MEDS ORDERED: diazePAM CARPU-JECT 10 MG/2 ML DISP.SYRIN IVPUSH ONE (20:09)
[2018-04-10] MEDS ORDERED: SODIUM CHLORIDE 1,000 ML IV STA (20:18)
--- NOTE | 2018-04-10 20:23 | PDOC ---
History of Present Illness - General History Source: Patient Exam Limitations: No Limitations - History of Present Illness Initial Comments: 04/10/18 22:42 The patient is a 48 year old female with a significant PMH of hypertension, hyperlipidemia, diabetes, and seizures who presents to the emergency department via EMS with status epilepticus. Per family, pt began to have her typical seizures around 11am and has not returned to baseline since. Pt complained of headache prior to onset of seizures, which is unusual for her. After 2mg Ativan in the ER, pt is now back at baseline mental status. The patient denies any other symptoms, no recent medication changes. She denies any chest pain, shortness of breath, headache and dizziness. She denies any fever, chills, nausea, vomit, diarrhea, constipation or urinary symptoms. The patient denies any other complaints. Neurologist: Dr. Sutton <Jone Wong - Last Filed: 04/10/18 22:41> <Sally Alex - Last Filed: 04/11/18 01:06> - General Chief Complaint: Seizure Stated Complaint: SEIZURE Past History <Jone Wong - Last Filed: 04/10/18 22:41> - Past Medical History Anemia: No Asthma: No Cancer: No Cardiac Disorders: No CVA: No COPD: No CHF: No Dementia: No Diabetes: Yes GI Disorders: Yes (acid reflux, IBS) Disorders: No HTN: Yes Hypercholesterolemia: Yes Liver Disease: No Psychiatric Problems: (anxeity,PTSD) Seizures: Yes (pseudoseizures) Thyroid Disease: No - Surgical History Abdominal Surgery: No Appendectomy: No Cardiac Surgery: No Cholecystectomy: Yes Lung Surgery: No Neurologic Surgery: No Orthopedic Surgery: No - Immunization History Immunization Up to Date: Yes - Suicide/Smoking/Psychosocial Hx Smoking Status: Yes Smoking History: Current every day smoker Have you smoked in the past 12 months: Yes Number of Cigarettes Smoked Daily: 20 Information on smoking cessation initiated: No 'Breaking Loose' booklet given: 02/06/18 Hx Alcohol Use: No Drug/Substance Use Hx: Yes (marijuana) Substance Use Type: None Hx Substance Use Treatment: No <Sally Alex - Last Filed: 04/11/18 01:06> - Past Medical History Allergies/Adverse Reactions: Allergies Allergy/AdvReac Type Severity Reaction Status Date / Time phenytoin sodium Allergy Verified 02/10/18 14:42 [From Dilantin] phenytoin sodium extended Allergy Verified 02/10/18 14:42 [From Dilantin] Home Medications: Ambulatory Orders clonazePAM [Klonopin -] 0.5 mg PO PRN 08/11/17 Lisinopril 10 mg PO DAILY 01/22/18 Amlodipine Besylate 5 mg PO DAILY 04/10/18 Hydrochlorothiazide [Hctz -] 25 mg PO DAILY 04/10/18 levETIRAcetam [Keppra -] 750 mg PO BID 04/10/18 Review of Systems - Review of Systems Able to Perform ROS?: Yes Comments:: 04/10/18 22:42 See HPI. All other systems reviewed and unremarkable <Jone Wong - Last Filed: 04/10/18 22:41> *Physical Exam - Vital Signs Last Vital Signs Temp Pulse Resp BP Pulse Ox 99 F 70 19 146/92 100 04/10/18 19:00 04/10/18 19:00 04/10/18 19:00 04/10/18 19:00 04/10/18 19:00 - Physical Exam Comments: 04/10/18 22:45 General Physical Exam: NAD EOMI, KADEN MMM, OP WNL NCAT, no midline cervical tenderness RRR, nl s1/s2, no m/r/g CTABL, no w/r/r Soft, NTND No edema, WWP, no rash does not follow commands, intermittent twitching of L side of face without other clonic movements, intermittnet agitation between seizures. A&O x 3 after ativan administration, mood/affect WNL. <Jone Wong - Last Filed: 04/10/18 22:41> - Vital Signs Last Vital Signs Temp Pulse Resp BP Pulse Ox 99 F 70 19 146/92 100 04/10/18 19:00 04/10/18 19:00 04/10/18 19:00 04/10/18 19:00 04/10/18 19:00 <Sally Alex - Last Filed: 04/11/18 01:06> ED Treatment Course - LABORATORY CBC & Chemistry Diagram: 04/10/18 20:47 04/10/18 20:55 - ADDITIONAL ORDERS Additional order review: Laboratory Results 04/10/18 04/10/18 20:55 20:47 PT with INR 10.70 INR 0.95 PTT (Actin FS) 27.0 Sodium 143 Potassium 4.2 Chloride 110 H Carbon Dioxide 28 Anion Gap 5 L BUN 10 Creatinine 0.8 Creat Clearance w eGFR > 60 Random Glucose 89 Calcium 8.5 04/10/18 20:47 RBC 4.54 MCV 84.0 MCHC 33.7 RDW 14.0 MPV 8.9 Neutrophils % 39.6 L Lymphocytes % 50.3 H Monocytes % 6.3 Eosinophils % 3.2 Basophils % 0.6 - Medications Given in the ED: ED Medications Discontinued Medications Generic Name Dose Route Start Last Admin Trade Name Freq PRN Reason Stop Dose Admin Acetaminophen 975 mg 04/10/18 21:39 04/10/18 21:55 Tylenol - PO 04/10/18 21:40 975 mg ONCE ONE Administration Diazepam 10 mg 04/10/18 20:09 04/10/18 20:29 Valium Injection - IVPUSH 04/10/18 20:10 Not Given ONCE ONE Sodium Chloride 1,000 mls @ 1,000 mls/hr 04/10/18 20:18 04/10/18 20:28 Normal Saline - IV 04/10/18 21:17 1,000 mls/hr ASDIR STA Administration Levetiracetam 1,500 mg 04/10/18 20:46 04/10/18 21:20 Keppra Injection - IVPB 04/10/18 20:47 1,500 mg ONCE ONE Administration Lorazepam 2 mg 04/10/18 20:19 04/10/18 20:28 Ativan Injection - IVPUSH 04/10/18 20:20 2 mg ONCE ONE Administration Metoclopramide HCl 10 mg 04/10/18 21:39 04/10/18 21:55 Reglan Injection - IVPUSH 04/10/18 21:40 10 mg ONCE ONE Administration <Jone Wong - Last Filed: 04/10/18 22:41> - LABORATORY CBC & Chemistry Diagram: 04/10/18 20:47 04/10/18 20:55 - RADIOLOGY Radiology Studies Ordered: Category Date Time Status HEAD CT WITHOUT CONTRAST [CT] Stat CT Scan 04/10/18 20:17 Ordered CHEST X-RAY PORTABLE* [RAD] Stat Radiology 04/10/18 20:09 Ordered 04/11/18 00:36 HCT negative for acute intracranial pathology. - Consult/PCP Case discussed with personal care physician: Nannette Sutton (Covering physician for Dr. Sutton) <Sally Alex - Last Filed: 04/11/18 01:06> Medical Decision Making - Critical Care Time Total Critical Care Time (minutes): 60 Critical Care Statement: The care of this patient involved high complexity decision making to prevent further life threatening deterioration of the patient 's condition and/or to evaluate & treat vital organ system(s) failure or risk of failure. - Medical Decision Making 04/10/18 20:21 48yoF hx of seizure d/o 2/2 TBI presnets w/ status epilepticus per partner. Pt woke well this morning, c/o headache around 11am and began having her typical seizures -- L side of face twitching and unconsciousness. In ER, pt is rapidly cycling through these same seizures. Per partner, pt has not returned to baseline mental status since 11am. - labs - ekg - cxr - HCT - cardiac moniotr - ativan - d/w pt's neurologist. 04/10/18 21:26 Pt back to fully aware and A&O x 3 after 2mg Ativan IV. plan for admit and keppra load. <Sally Alex - Last Filed: 04/11/18 01:06> *DC/Admit/Observation/Transfer - Attestations Scribe Attestion: 04/10/18 22:45 Documentation prepared by Jone Wong, acting as medical research assistant for Sally Alex MD. <Jone Wnog - Last Filed: 04/10/18 22:41> - Discharge Dispostion Decision to Admit order: Yes <Sally Alex - Last Filed: 04/11/18 01:06> Diagnosis at time of Disposition: Seizure - Discharge Dispostion Condition at time of disposition: Stable
[2018-04-10] MEDS ORDERED: LORazepam 2 MG/ML SDV VIAL ONE (20:25)
[2018-04-10] MEDS ORDERED: levETIRAcetam 500 MG/5 ML INJECTION VIAL IVPB ONE ×2 (20:46→21:11)
[2018-04-10 21:19] LABS: BASO % 0.6 % (0-2.0); EOS % 3.2 % (0-4.5); HEMATOCRIT 38.2 % (32.4-45.2); HEMOGLOBIN 12.8 GM/dL (10.7-15.3); LYMPH % 50.3 % (8-40); MCH 28.3 pg (25.7-33.7); MCHC 33.7 g/dl (32.0-36.0); MEAN PLT VOLUME 8.9 fl (7.5-11.1); MONO % 6.3 % (3.8-10.2); NEUT % 39.6 % (42.8-82.8); PLATELET COUNT 223 K/MM3 (134-434); RBC 4.54 M/mm3 (3.60-5.2)
[2018-04-10 21:39] LABS: INR 0.95 (0.82-1.09); PROTHROMBIN TIME (PATIENT) 10.7 SEC (9.7-13.0)
[2018-04-10] MEDS ORDERED: METOCLOPRAMIDE HCL INJECTION 10 MG/2 ML VIAL IVPUSH ONE (21:39)
[2018-04-10] MEDS ORDERED: ACETAMINOPHEN 500 MG TABLET (FP) PO ONE (21:39)
[2018-04-10] MEDS ORDERED: METOCLOPRAMIDE HCL INJECTION 10 MG/2 ML VIAL ONE (21:41)
[2018-04-10] MEDS ORDERED: ACETAMINOPHEN 325 MG TABLET (FP) ONE (21:43)
[2018-04-10 21:59] LABS: ANION GAP 5 (8-16); BLOOD UREA NITROGEN 10 mg/dL (7-18); CALCIUM 8.5 mg/dL (8.5-10.1); CHLORIDE 110 mmol/L (98-107); CO2 28 mmol/L (21-32); CREATININE 0.8 mg/dL (0.55-1.02); GLUCOSE,RANDOM 89 mg/dL (74-106); POTASSIUM 4.2 mmol/L (3.5-5.1); SODIUM 143 mmol/L (136-145)
[2018-04-10] MEDS ORDERED: morphine CARPU-JECT 4 MG/1 ML DISP.SYRIN IVPUSH ONE (22:30)
[2018-04-10] MEDS ORDERED: morphine SULFATE 4 MG/ML VIAL ONE (22:38)
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
[2018-04-11] MEDS ORDERED: HEPARIN NA (PORCINE) 5,000 UNITS/ML 1ML VIAL SQ SCH (06:00)
--- NOTE | 2018-04-11 06:48 | PN ---
Teaching Attending Note Name of Resident: Karen Bass ATTENDING PHYSICIAN STATEMENT I saw and evaluated the patient. I reviewed the resident's note and discussed the case with the resident. I agree with the resident's findings and plan as documented. SUBJECTIVE: 48F with episode of seizure OBJECTIVE: CTH negative for acute patholgoy ASSESSMENT AND PLAN: 48F with seizure, planned for Neurology evl and load with Keppra howver patient left AMA
[2018-04-11] MEDS ORDERED: levETIRAcetam 500 MG/5 ML INJECTION VIAL IVPB ONE (10:00)
== END 2018-04-11 02:27 | disposition left against medical advice (07) ==
LOC: JER 18:48 → INTOOBSV 04-11 01:06 → UNDOADMOB 04-11 01:06 → JERBED 04-11 01:06 → UNDOADMIN 04-11 01:10 → JERBED 04-11 01:10
PROVIDERS: ADMIT Internal Medicine; ATTEND Internal Medicine
PROC: 3E033GC Introduction of Other Therapeutic Substance into Peripheral Vein, Percutaneous Approach (ICD-10-PCS; principal; 2018-04-11)
PROC: 3E033NZ Introduction of Analgesics, Hypnotics, Sedatives into Peripheral Vein, Percutaneous Approach (ICD-10-PCS; 2018-04-11)
DX: G40.901 Epilepsy, unspecified, not intractable, with status epilepticus (principal); I10 Essential (primary) hypertension; E78.5 Hyperlipidemia, unspecified; E11.9 Type 2 diabetes mellitus without complications; K21.9 Gastro-esophageal reflux disease without esophagitis; K58.9 Irritable bowel syndrome, unspecified; F17.210 Nicotine dependence, cigarettes, uncomplicated; M54.5 Low back pain; M79.7 Fibromyalgia; Z88.8 Allergy status to other drugs, medicaments and biological substances
CPT/HCPCS: 36415; 70450-TC; 71045-TC-FY; 80048; 85025; 85610; 85730; 96365; 96372; 96375; 99281-25; G0378; J7030

== ENCOUNTER 2018-06-01 15:51 | Emergency (ER) | payer OTHER ==
[2018-06-01 16:14] VITALS: BP 177/102; PULSE 80; TEMP 98; BMI 42.0
--- NOTE | 2018-06-01 16:59 | PDOC ---
History of Present Illness - General Chief Complaint: Seizure Stated Complaint: SEIZURE Time Seen by Provider: 06/01/18 16:10 History Source: Patient Exam Limitations: No Limitations - History of Present Illness Initial Comments: 06/01/18 16:43 Ms. Mckeon is a 48 yo F with a hx of seizures, HTN, HLD, and prediabetes who presents today with seizures. Per her girlfriend, she had 3x seizures today since 2:00pm when she had an aura at her [place] [employer] [facility] appointment. 1st seizure lasted 2 minutes, 2nd seizure 4 minutes, and 3rd in the ambulance en route which lasted 30 seconds s/p 5mg versed IM. The patient has loss of consciousness, but denies head trauma. She was sitting prior to the syncopal events for the first two. There was tonic clonic movements witnessed for all three. Her next appointment with her neurologist is liane with Dr. Sutton. She was recently admitted last week for a day for seizures. Her last seizure was May 28 and she has had "too many to count" Endorses having urination on self due to the event and headache. Denies the following: fever, SOB, diarrhea, dysuria, nausea, vomiting. 06/01/18 17:12 06/01/18 17:20 06/01/18 19:19 Past History - Past Medical History Allergies/Adverse Reactions: Allergies Allergy/AdvReac Type Severity Reaction Status Date / Time phenytoin sodium Allergy Verified 06/01/18 16:07 [From Dilantin] phenytoin sodium extended Allergy Verified 06/01/18 16:07 [From Dilantin] Home Medications: Ambulatory Orders clonazePAM [Klonopin -] 0.5 mg PO PRN 08/11/17 Lisinopril 10 mg PO DAILY 01/22/18 Amlodipine Besylate 5 mg PO DAILY 04/10/18 Hydrochlorothiazide [Hctz -] 25 mg PO DAILY 04/10/18 levETIRAcetam [Keppra -] 750 mg PO BID 04/10/18 Anemia: No Asthma: No Cancer: No Cardiac Disorders: No CVA: No COPD: No CHF: No DVT: No Dementia: No Diabetes: Yes GI Disorders: Yes (acid reflux, IBS) Disorders: No HTN: Yes Hypercholesterolemia: Yes Liver Disease: No Psychiatric Problems: (anxeity,PTSD) Seizures: Yes (pseudoseizures) Thyroid Disease: No - Surgical History Abdominal Surgery: No Appendectomy: No Cardiac Surgery: No Cholecystectomy: Yes Lung Surgery: No Neurologic Surgery: No Orthopedic Surgery: No - Immunization History Immunization Up to Date: Yes - Suicide/Smoking/Psychosocial Hx Smoking Status: Yes Smoking History: Never smoked Have you smoked in the past 12 months: Yes Number of Cigarettes Smoked Daily: 20 Information on smoking cessation initiated: No 'Breaking Loose' booklet given: 02/06/18 Hx Alcohol Use: No Drug/Substance Use Hx: No Substance Use Type: None Hx Substance Use Treatment: No Review of Systems - Review of Systems Constitutional: No: Chills, Diaphoresis, Fever HEENTM: No: Recent change in vision, Nose Pain, Throat Pain Respiratory: No: Shortness of Breath Cardiac (ROS): No: Chest Pain, Palpitations ABD/GI: No: Constipated, Diarrhea, Nausea, Rectal Bleeding, Vomiting, Tarry Stools : No: Burning, Dysuria, Hematuria Musculoskeletal: Yes: Back Pain Integumentary: No: Rash Neurological: Yes: Headache, Weakness. No: Numbness, Paresthesia Psychiatric: No: Stressors, Change in Appetite Endocrine: No: Unexplained Weight Gain *Physical Exam - Vital Signs Last Vital Signs Temp Pulse Resp BP Pulse Ox 98 F 80 16 177/102 100 06/01/18 15:55 06/01/18 15:55 06/01/18 15:55 06/01/18 15:55 06/01/18 15:55 - Physical Exam General Appearance: Yes: Nourished, Appropriately Dressed HEENT: positive: EOMI, KADEN, Normal Voice Respiratory/Chest: positive: Lungs Clear, Normal Breath Sounds Cardiovascular: positive: Regular Rhythm, Regular Rate, S1, S2, Systolic Murmur Vascular Pulses: Dorsalis-Pedis (R): 3+, Doralis-Pedis (L): 3+ Gastrointestinal/Abdominal: positive: Normal Bowel Sounds. negative: Tender Musculoskeletal: negative: CVA Tenderness Extremity: positive: Normal Capillary Refill, Normal Inspection Integumentary: positive: Normal Color, Dry, Warm Neurologic: positive: manager mail II-XII NML intact, Alert, Depressed Affect. negative : Motor Strength 5/5 (5/5 motor strength in RUE and RLE. 3/5 strength on LUE and LLE. ) ED Treatment Course - LABORATORY CBC & Chemistry Diagram: 06/01/18 17:27 06/01/18 17:27 Medical Decision Making - Medical Decision Making 06/01/18 18:46 Ms. Mckeon is a 48 yo F with a hx of pseudoseizures, seizures, HLD, HTN, and pre-diabetes who presents to the ED s/p seizure event with loss of consciousness and urinary incontinence. Pt was conversive approximately 20 minutes post ictal and was able to give a hx. Given the patients hx, presenting symptoms, and physical exam ddx is seizures 2/2 infectious vs epilepsy. Initial vitals: Initial Vital Signs Temp Pulse Resp BP Pulse Ox 98 F 80 16 177/102 100 06/01/18 15:55 06/01/18 15:55 06/01/18 15:55 06/01/18 15:55 06/01/18 15:55 Work up: Laboratory Results - last 24 hr 06/01/18 06/01/18 06/01/18 17:27 17:27 18:00 WBC 7.2 RBC 4.72 Hgb 13.4 Hct 39.4 MCV 83.5 MCH 28.3 MCHC 33.9 RDW 13.7 Plt Count 211 MPV 9.0 Absolute Neuts (auto) 3.4 Neutrophils % 47.6 D Lymphocytes % 42.0 H Monocytes % 6.1 Eosinophils % 3.2 Basophils % 1.1 Nucleated RBC % 0 Sodium 142 Potassium 3.9 Chloride 107 Carbon Dioxide 29 Anion Gap 6 L BUN 14 Creatinine 0.9 Creat Clearance w eGFR > 60 Random Glucose 92 Calcium 9.3 Total Bilirubin 0.3 AST 17 ALT 27 Alkaline Phosphatase 71 Creatine Kinase 246 H Creatine Kinase Index 0.6 CK-MB (CK-2) 1.67 Troponin I < 0.02 Total Protein 7.0 Albumin 3.8 Urine Color Yellow Urine Appearance Clear Urine pH 6.0 Ur Specific [place] 1.021 Urine Protein Negative Urine Glucose (UA) Negative Urine Ketones Negative Urine Blood Negative Urine Nitrite Negative Urine Bilirubin Negative Urine Urobilinogen Negative Ur Leukocyte Esterase Trace Urine WBC (Auto) 6 Urine RBC (Auto) 5 Ur Epithelial Cells Rare Urine Bacteria Rare Urine Mucus Rare Urine HCG, Qual Negative Awaiting CT head. Given 1 gram of acetaminophen for pain control. Given 2 mg Ativan IM for seizure control. Given 10/325 mg percocet for pain control at 7: 20 pm. Signing off patient to Dr. Guerrero. 06/01/18 19:19 *DC/Admit/Observation/Transfer Diagnosis at time of Disposition: Seizures - Discharge Dispostion Disposition: HOME Condition at time of disposition: Stable - Referrals Referrals: Bailey Ahn MD [Primary Care Provider] - - Patient Instructions Printed Discharge Instructions: DI for Seizure Disorder -- Adult Additional Instructions: You were seen in the ED for seizures. In the ED you were evaluated with labwork and imaging. You results were unremarkable and there does not appear a need for immediate hospitalization. You are advised to follow up with your primary care physician and neurologist within 1 week. Return to the ED immediately if you experience fevers, loss of consciousness, continued seizures, nausea, vomiting or headache. - Post Discharge Activity
[2018-06-01] MEDS ORDERED: LORazepam 2 MG/ML SDV VIAL ONE (17:31)
[2018-06-01] MEDS ORDERED: ACETAMINOPHEN 1000 MG/100 ML VIAL (NON FORMULARY) IVPB ONE (17:41)
[2018-06-01] MEDS ORDERED: ACETAMINOPHEN INJECTION 100 ML IVPB ONE (17:42)
--- NOTE | 2018-06-01 17:53 | PDOC ---
Attending Attestation - Resident Resident Name: LarryChino - ED Attending Attestation I have performed the following: I have examined & evaluated the patient, The case was reviewed & discussed with the resident, I agree w/resident's findings & plan, Exceptions are as noted - HPI HPI: 06/01/18 17:53 48 year old female with past medical history of HTN, epilepsy on keppra ( reportedly adherent to her medications), pseudoseizure presents with seizure like activity. The patient woke up and in her usual state of health. Was at [place] [facility] office, when she had 3 witnessed seizure-like episodes by the girlfriend. The girlfriend is at the bedside. The patient reports that she had left sided numbness and weakness after the seizure. Reports adherence to her medication. One seizure like activity was witnessed by me, appeared to have components like pseudoseizures. Pt was given ativan. Denies recent illnesses, fevers, chills, cough, vomiting, diarrhea. - Physicial Exam PE: 06/01/18 18:17 GENERAL: Awake, alert, and fully oriented, tearful. HEAD: No signs of trauma EYES: EOMI, sclera anicteric, conjunctiva clear ENT: Auricles normal inspection, hearing grossly normal, nares patent Moist mucosa NECK: Normal ROM, supple LUNGS: Breath sounds equal, clear to auscultation bilaterally. No wheezes, and no crackles HEART: Regular rate and rhythm, normal S1 and S2, no murmurs, rubs or gallops ABDOMEN: Soft, nontender, No guarding, no rebound. No masses EXTREMITIES: Normal range of motion, no edema. No clubbing or cyanosis. No cords, erythema, or tenderness NEUROLOGICAL: Cranial nerves II through XII grossly intact. Normal speech. SKIN: Warm, Dry, normal turgor, no rashes or lesions noted. - Medical Decision Making 06/01/18 18:18 Vital Signs Temp Pulse Resp BP Pulse Ox 98 F 80 16 177/102 100 06/01/18 15:55 06/01/18 15:55 06/01/18 15:55 06/01/18 15:55 06/01/18 15:55 Differential includes seizure vs. pseudoseizure. Pt did endorse some left sided numbness like symptoms, will obtain a head CT. Though this is likely Douglas's paralysis if it is indeed seizure. Labs including keppra level. Pt does report history of chronic right knee pain. States that the chronic right knee pain stresses her pain and causes her to seizure. Will give pain medications like tylenol to help with the pain. Reassess. 06/01/18 19:17 Pt signed out to oncoming night attending Dr. Posada for further management and disposition.
[2018-06-01 18:15] LABS: BASO % 1.1 % (0-2.0); EOS % 3.2 % (0-4.5); HEMATOCRIT 39.4 % (32.4-45.2); HEMOGLOBIN 13.4 GM/dL (10.7-15.3); MCH 28.3 pg (25.7-33.7); MCHC 33.9 g/dl (32.0-36.0); MEAN CELL VOLUME 83.5 fl (80-96); MONO % 6.1 % (3.8-10.2); NEUT % 47.6 % (42.8-82.8); PLATELET COUNT 211 K/MM3 (134-434); RBC 4.72 M/mm3 (3.60-5.2); RDW 13.7 % (11.6-15.6); WHITE BLOOD COUNT 7.2 K/mm3 (4.0-10.0)
[2018-06-01 18:29] LABS: ALBUMIN 3.8 g/dl (3.4-5.0); ANION GAP 6 (8-16); BILIRUBIN,TOTAL 0.3 mg/dL (0.2-1.0); BLOOD UREA NITROGEN 14 mg/dL (7-18); CALCIUM 9.3 mg/dL (8.5-10.1); CHLORIDE 107 mmol/L (98-107); CO2 29 mmol/L (21-32); CREATININE 0.9 mg/dL (0.55-1.02); GLUCOSE,RANDOM 92 mg/dL (74-106); POTASSIUM 3.9 mmol/L (3.5-5.1); SGOT/AST 17 U/L (15-37); SGPT/ALT 27 U/L (12-78); SODIUM 142 mmol/L (136-145)
[2018-06-01 18:31] LABS: URINE APPEARANCE CLEAR; URINE BILIRUBIN NEGATIVE (<2.0 mg/dL); URINE COLOR YELLOW; URINE GLUCOSE (UA) NEGATIVE (NEGATIVE); URINE KETONE NEGATIVE (NEGATIVE); URINE LEUK ESTERASE TRACE (NEGATIVE); URINE NITRITE NEGATIVE (NEGATIVE); URINE PROTEIN NEGATIVE (NEGATIVE); URINE UROBILINOGEN NEGATIVE mg/dL (0.2-1.0)
[2018-06-01 18:31] LABS: ALK PHOS 71 U/L (45-117)
[2018-06-01 18:34] LABS: HCG,QUALITATIVE URINE NEGATIVE
[2018-06-01 18:37] LABS: EPI CELLS RARE /HPF (FEW); URINE BACTERIA RARE /hpf (NONE SEEN); URINE MUCUS RARE
--- NOTE | 2018-06-01 19:39 | PDOC ---
*Physical Exam - Vital Signs Last Vital Signs Temp Pulse Resp BP Pulse Ox 98 F 80 16 177/102 100 06/01/18 15:55 06/01/18 15:55 06/01/18 15:55 06/01/18 15:55 06/01/18 15:55 ED Treatment Course - LABORATORY CBC & Chemistry Diagram: 06/01/18 17:27 06/01/18 17:27 - ADDITIONAL ORDERS Additional order review: Laboratory Results 06/01/18 06/01/18 18:00 17:27 Sodium 142 Potassium 3.9 Chloride 107 Carbon Dioxide 29 Anion Gap 6 L BUN 14 Creatinine 0.9 Creat Clearance w eGFR > 60 Random Glucose 92 Calcium 9.3 Total Bilirubin 0.3 AST 17 ALT 27 Alkaline Phosphatase 71 Creatine Kinase 246 H Creatine Kinase Index 0.6 CK-MB (CK-2) 1.67 Troponin I < 0.02 Total Protein 7.0 Albumin 3.8 Urine Color Yellow Urine Appearance Clear Urine pH 6.0 Ur Specific [place] 1.021 Urine Protein Negative Urine Glucose (UA) Negative Urine Ketones Negative Urine Blood Negative Urine Nitrite Negative Urine Bilirubin Negative Urine Urobilinogen Negative Ur Leukocyte Esterase Trace Urine WBC (Auto) 6 Urine RBC (Auto) 5 Ur Epithelial Cells Rare Urine Bacteria Rare Urine Mucus Rare Urine HCG, Qual Negative 06/01/18 17:27 RBC 4.72 MCV 83.5 MCHC 33.9 RDW 13.7 MPV 9.0 Neutrophils % 47.6 D Lymphocytes % 42.0 H Monocytes % 6.1 Eosinophils % 3.2 Basophils % 1.1 - Medications Given in the ED: ED Medications Discontinued Medications Generic Name Dose Route Start Last Admin Trade Name Masood PRN Reason Stop Dose Admin Acetaminophen 1,000 mg 06/01/18 17:41 06/01/18 18:00 Ofirmev Injection - IVPB 06/01/18 17:42 1,000 mg ONCE ONE Administration Lorazepam 2 mg 06/01/18 19:15 06/01/18 17:40 Ativan Injection - IM 06/01/18 19:16 2 mg ONCE ONE Administration Medical Decision Making - Medical Decision Making Patient labwork and imaging unremarkable. Patient reported that she has an appointment with neurology tomorrow. Patient stable for discharge, given follow up instructions and strict return precautions. *DC/Admit/Observation/Transfer Diagnosis at time of Disposition: Seizures - Discharge Dispostion Disposition: HOME Condition at time of disposition: Stable Decision to Admit order: No - Referrals Referrals: Bailey Ahn MD [Primary Care Provider] - - Patient Instructions Printed Discharge Instructions: DI for Seizure Disorder -- Adult Additional Instructions: You were seen in the ED for seizures. In the ED you were evaluated with labwork and imaging. You results were unremarkable and there does not appear a need for immediate hospitalization. You are advised to follow up with your primary care physician and neurologist within 1 week. Return to the ED immediately if you experience fevers, loss of consciousness, continued seizures, nausea, vomiting or headache. - Post Discharge Activity
--- NOTE | 2018-06-02 16:26 | EKG ---
Test Reason : Blood Pressure : / mmHG Vent. Rate : 071 BPM Atrial Rate : 071 BPM P-R Int : 190 ms QRS Dur : 080 ms QT Int : 390 ms P-R-T Axes : 054 004 043 degrees QTc Int : 423 ms NORMAL SINUS RHYTHM NONSPECIFIC T WAVE ABNORMALITY ABNORMAL ECG WHEN COMPARED WITH ECG OF 10-FEB-2018 14:52, NO SIGNIFICANT CHANGE WAS FOUND Confirmed by Silvino Posada MD ([id number]) on 06/02/2018 4:26:37 PM Referred By: Confirmed By:Silvino Posada MD
== END 2018-06-01 22:27 | disposition home or self-care (01) ==
LOC: JER 15:51
PROC: 3E023NZ Introduction of Analgesics, Hypnotics, Sedatives into Muscle, Percutaneous Approach (ICD-10-PCS; principal; 2018-06-01)
PROC: 3E033NZ Introduction of Analgesics, Hypnotics, Sedatives into Peripheral Vein, Percutaneous Approach (ICD-10-PCS; 2018-06-01)
DX: R05 Cough (principal)
CPT/HCPCS: 36415; 70450-TC; 71045-TC-FY; 80053; 81003; 81015; 82550; 82553; 84484; 84703; 85025; 93005; 93010; 99282-25; J0131

== ENCOUNTER 2018-06-18 15:37 | Inpatient (IN) | payer OTHER ==
[2018-06-18] MEDS ORDERED: LORazepam 2 MG/ML SDV VIAL ONE (16:23)
[2018-06-18 16:47] LABS: BASO % 0.4 % (0-2.0); EOS % 4.6 % (0-4.5); HEMATOCRIT 38.7 % (32.4-45.2); HEMOGLOBIN 13.1 GM/dL (10.7-15.3); LYMPH % 52.2 % (8-40); MCH 28.4 pg (25.7-33.7); MEAN CELL VOLUME 83.6 fl (80-96); MEAN PLT VOLUME 9.2 fl (7.5-11.1); MONO % 5.5 % (3.8-10.2); NEUT % 37.3 % (42.8-82.8); PLATELET COUNT 208 K/MM3 (134-434); RBC 4.63 M/mm3 (3.60-5.2); RDW 13.8 % (11.6-15.6); WHITE BLOOD COUNT 5.7 K/mm3 (4.0-10.0)
--- NOTE | 2018-06-18 16:53 | PDOC ---
History of Present Illness - General Chief Complaint: Seizure Stated Complaint: Seizure Time Seen by Provider: 06/18/18 15:56 History Source: Patient, EMS, Significant Other - History of Present Illness Initial Comments: 06/18/18 16:53 48 year old female LAYNE, with a history of seizures(on (Keppra vimpat, klonopin), HTN, HLD, and arthritis, who presents to the emergency department for evaluation of witnessed seizure. As per friend at bedside, the patient had an acute seizure started with left facial twitching and transitioning into a generalized convulsion, denies tongue biting or self urination. As per friend at bedside, the patient had a seizure 3 days ago and has had an increase in frequency and strength of seizure episodes. The patient reports a 1 week history of nausea without vomiting and chest pain today. Pt report severe right knee pain secondary to fluid build up which she has been taking Percocet for. Patient states she has an appointment for ?left knee surgery on 06/23/18. She currently follows with Dr. Sutton for her seizures. Allergies: Phenytoin sodium. Phenytoin sodium extended. Social History: No reported alcohol, cigarette, or drug use. Surgical History: Cholecystectomy. PCP: Dr. Ahn Neurologist: Dr. Sutton 06/18/18 18:02 Past History - Past Medical History Allergies/Adverse Reactions: Allergies Allergy/AdvReac Type Severity Reaction Status Date / Time phenytoin sodium Allergy Verified 06/18/18 15:51 [From Dilantin] phenytoin sodium extended Allergy Verified 06/18/18 15:51 [From Dilantin] Home Medications: Ambulatory Orders clonazePAM [Klonopin -] 0.5 mg PO PRN 08/11/17 Lisinopril 10 mg PO DAILY 01/22/18 Amlodipine Besylate 5 mg PO DAILY 04/10/18 Hydrochlorothiazide [Hctz -] 25 mg PO DAILY 04/10/18 levETIRAcetam [Keppra -] 750 mg PO BID 04/10/18 Anemia: No Asthma: No Cancer: No Cardiac Disorders: No CVA: No COPD: No CHF: No DVT: No Dementia: No Diabetes: Yes GI Disorders: Yes (acid reflux, IBS) Disorders: No HTN: Yes Hypercholesterolemia: Yes Liver Disease: No Psychiatric Problems: (anxeity,PTSD) Seizures: Yes (pseudoseizures) Thyroid Disease: No - Surgical History Abdominal Surgery: No Appendectomy: No Cardiac Surgery: No Cholecystectomy: Yes Lung Surgery: No Neurologic Surgery: No Orthopedic Surgery: No - Immunization History Immunization Up to Date: Yes - Suicide/Smoking/Psychosocial Hx Smoking Status: Yes Smoking History: Unknown if ever smoked Have you smoked in the past 12 months: Yes Number of Cigarettes Smoked Daily: 20 Information on smoking cessation initiated: No 'Breaking Loose' booklet given: 02/06/18 Hx Alcohol Use: No Drug/Substance Use Hx: No Substance Use Type: None Hx Substance Use Treatment: No Review of Systems - Review of Systems Comments:: 06/18/18 18:02 GENERAL/CONSTITUTIONAL: No fever or chills. No weakness. no sweats. HEAD, EYES, EARS, NOSE AND THROAT: No change in vision or hearing. No ear pain or discharge. No sore throat or mouth pain. No difficulty swallowing. No congestion. CARDIOVASCULAR: (+)chest pain. No palpitations, syncope or edema. RESPIRATORY: No SOB, cough, wheezing, or hemoptysis. GASTROINTESTINAL (+)nausea. No vomiting. No diarrhea or constipation. No bloody stools. GENITOURINARY: No hematuria, dysuria, frequency, urgency or other changes. MUSCULOSKELETAL: No muscle swelling or pain. No neck or back pain. +chronic knee pains. SKIN: No rash or changes in skin color or lesions. NEUROLOGIC: (+)Seizure. (+)Headache. No vertigo, loss of consciousness, or change in strength/sensation. No gait instability. HEMATOLOGIC/LYMPHATIC: No anemia, easy bruising/bleeding, or history of blood clots. ALLERGIC/IMMUNOLOGIC: No allergies All other systems reviewed and negative, or as documented in HPI. *Physical Exam - Vital Signs Last Vital Signs Temp Pulse Resp BP Pulse Ox 97.8 F 78 18 190/100 06/18/18 15:48 06/18/18 15:48 06/18/18 15:48 06/18/18 15:48 - Physical Exam Comments: 06/18/18 18:03 General: (+)Mild distress 2/2 pain. alert HEENT: NCAT, PERRL, EOMI, clear conjunctiva, anicteric, moist mucus membranes, clear oropharynx, no oral lesions.. Neck: neck supple, FROM Resp: (+)Breathing spontaneously. CTAB. no respiratory distress CVS: RRR, 2+ peripheral pulses throughout, no peripheral edema Abdomen: soft, NTND, no peritoneal signs. obese abdomen Back: nontender, normal inspection and ROM MSK: no edema, ARECHIGA x4, ROM intact. No clubbing or cyanosis. normal bulk and tone. Neuro: (+)Facial twitching on Left lower lid and cheek. downward gaze, no nystagmus. no focal neurologic deficits. SILT, 5/5 distal and prox strength in all extrem. moaning in pain Skin: warm and well perfused, cap refill <2 sec, normal color 06/18/18 18:04 ED Treatment Course - LABORATORY CBC & Chemistry Diagram: 06/18/18 16:28 06/18/18 16:28 - ADDITIONAL ORDERS Additional order review: 06/18/18 16:28 RBC 4.63 MCV 83.6 MCHC 34.0 RDW 13.8 MPV 9.2 Neutrophils % 37.3 L D Lymphocytes % 52.2 H D Monocytes % 5.5 Eosinophils % 4.6 H Basophils % 0.4 - RADIOLOGY Radiology Studies Ordered: Category Date Time Status HEAD CT WITHOUT CONTRAST [CT] Stat CT Scan 06/18/18 16:22 Ordered CHEST X-RAY PORTABLE* [RAD] Stat Radiology 06/18/18 16:22 Ordered - Medications Given in the ED: ED Medications Discontinued Medications Generic Name Dose Route Start Last Admin Trade Name Freq PRN Reason Stop Dose Admin Lorazepam 2 mg 06/18/18 16:24 06/18/18 16:26 Ativan Injection - IVPUSH 06/18/18 16:25 2 mg ONCE ONE Administration Medical Decision Making - Medical Decision Making 06/18/18 16:53 A portion of this note was documented by scribe services under my direction. I have reviewed the details of the note, within reason, and agree with the documentation with the following case summary and management plan written by me. 48 YOF hx of seizures, pseudoseizures, HTN, HLD, and prediabetes presenting with multiple seizures today, currently on keppra and vimpat. s/p 4 seizures today of tonic clonic motions, preceded by aura and facial twitching. s/p versed by EMS. last seizure 3 days ago. +trigger of bilateral knee pains, but no acute trauma or falls or signs of infection. followed by neurologist Dr. Phillips, awaiting admit to [facility] for video EEG next week. vital signs wnl, mild hypertension but known history of HTN and trigger for her ?seizure activity today. She had facial twitching to left side of face followed by seizure activity. given ativan, possible seizure, or pseudo seizure, unsure but responded to ativan. hold off on loading dose of keppra, per neurologist. will see as inpatient. EKG normal sinus rhythm, no interval abnormalities, narrow QRS, ST and T wave segments and morphology normal. Nonspecific T wave abnormalities; troponin negative. CK mildly elevated, but not significantly deranged. labs wnl. CT head pending, Utox. small dose pain medications, more awake now. pt states the pain in her knees trigger her seizures, which are increasing in frequency. on reeval at 530pm, back at baseline . Admit to Dr. Ahn for further monitoring and care, neuro checks and seizure management 06/18/18 18:09 *DC/Admit/Observation/Transfer Diagnosis at time of Disposition: Seizure-like activity - Discharge Dispostion Decision to Admit order: Yes - Referrals Referrals: Bailey Ahn MD [Primary Care Provider] - - Patient Instructions - Post Discharge Activity
[2018-06-18 16:58] LABS: INR 0.98 (0.83-1.09); PROTHROMBIN TIME (PATIENT) 11.1 SEC (9.7-13.0)
[2018-06-18 17:08] LABS: ALBUMIN 3.8 g/dl (3.4-5.0); ANION GAP 5 MMOL/L (8-16); BILIRUBIN,TOTAL 0.2 mg/dL (0.2-1.0); BLOOD UREA NITROGEN 12 mg/dL (7-18); CALCIUM 8.5 mg/dL (8.5-10.1); CHLORIDE 108 mmol/L (98-107); CO2 29 mmol/L (21-32); CREATININE 0.8 mg/dL (0.55-1.02); GLUCOSE,RANDOM 89 mg/dL (74-106); POTASSIUM 3.9 mmol/L (3.5-5.1); SGOT/AST 18 U/L (15-37); SGPT/ALT 22 U/L (12-78); SODIUM 142 mmol/L (136-145); TOT PROT 6.7 g/dl (6.4-8.2)
[2018-06-18 17:11] LABS: ALK PHOS 71 U/L (45-117)
[2018-06-18 17:37] LABS: URINE APPEARANCE CLEAR; URINE BILIRUBIN NEGATIVE (<2.0 mg/dL); URINE COLOR YELLOW; URINE GLUCOSE (UA) NEGATIVE (NEGATIVE); URINE KETONE NEGATIVE (NEGATIVE); URINE LEUK ESTERASE NEGATIVE (NEGATIVE); URINE NITRITE NEGATIVE (NEGATIVE); URINE PROTEIN NEGATIVE (NEGATIVE); URINE UROBILINOGEN NEGATIVE mg/dL (0.2-1.0)
[2018-06-18 17:40] LABS: HCG,QUALITATIVE URINE Negative
[2018-06-18] MEDS ORDERED: oxyCODONE HCL 5 MG TABLET PO ONE ×2 (18:03→22:45)
[2018-06-18] MEDS ORDERED: oxyCODONE HCL 5 MG TABLET ONE (18:07)
[2018-06-18 18:20] LABS: URINE AMPHETAMINES NEGATIVE ng/ml (CUTOFF=500); URINE BARBITURATES NEGATIVE ng/ml (CUTOFF=200); URINE BENZODIAZEPINES POSITIVE ng/ml (CUTOFF=200)
[2018-06-18 18:21] LABS: COCAINE, UR NEGATIVE ng/ml (CUTOFF=300); METHADONE, UR NEGATIVE ng/ml (CUTOFF=300); OPIATES, URI NEGATIVE ng/ml (CUTOFF=300); PHENCYCLIDINE,URINE NEGATIVE ng/ml (CUTOFF=25)
[2018-06-18] MEDS ORDERED: ACETAMINOPHEN 1000 MG/100 ML VIAL (NON FORMULARY) IVPB ONE (19:17)
--- NOTE | 2018-06-18 22:44 | HP ---
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 Cardiovascular: Yes: HTN, Hyperlipdemia ...LMP: 11/18/11 - Past Surgical History Past Surgical History: Yes: Cholecystectomy - Smoking History Smoking history: Unknown if ever smoked Have you smoked in the past 12 months: Yes Aproximately how many cigarettes per day: 20 - Alcohol/Substance Use Hx Alcohol Use: No - Social History Occupation: Disabled due to seizures History of Recent Travel: No Home Medications - Allergies Allergies/Adverse Reactions: Allergies Allergy/AdvReac Type Severity Reaction Status Date / Time phenytoin sodium Allergy Verified 06/18/18 15:51 [From Dilantin] phenytoin sodium extended Allergy Verified 06/18/18 15:51 [From Dilantin] - Home Medications Home Medications: Ambulatory Orders clonazePAM [Klonopin -] 0.5 mg PO PRN 08/11/17 Lisinopril 10 mg PO DAILY 01/22/18 Amlodipine Besylate 5 mg PO DAILY 04/10/18 Hydrochlorothiazide [Hctz -] 25 mg PO DAILY 04/10/18 levETIRAcetam [Keppra -] 750 mg PO BID 04/10/18 Family Disease History - Family Disease History Family Disease History: CA: Mother (CABG) Physical Examination Vital Signs: Vital Signs Temperature 98.3 F 06/18/18 20:21 Pulse Rate 87 06/18/18 20:21 Respiratory Rate 20 06/18/18 20:21 Blood Pressure 132/80 06/18/18 20:21 O2 Sat by Pulse Oximetry (%) 98 06/18/18 20:21 Labs: CBC, BMP 06/18/18 16:28 06/18/18 16:28
[2018-06-18] MEDS ORDERED: oxyCODONE HCL 5 MG TABLET PO PRN (22:48)
[2018-06-18 23:44] VITALS: BMI 38.7
[2018-06-19 07:02] VITALS: BP 152/96; PULSE 69; TEMP 97.7
[2018-06-19] MEDS ORDERED: oxyCODONE HCL 5 MG TABLET PO STA (08:55)
--- NOTE | 2018-06-19 09:05 | CON.NEURO ---
Consult Consult Specialty:: NEUROLOGY-IMELDA MCINTOSH - History of Present Illness History of Present Illness: 48 year old female LAYNE, with a history of seizures(on (Keppra vimpat, klonopin), HTN, HLD, and arthritis, who presents to the emergency department for evaluation of witnessed seizure. As per friend at bedside, the patient had an acute seizure started with left facial twitching and transitioning into a generalized convulsion, denies tongue biting or self urination. As per friend at bedside, the patient had a seizure 3 days ago and has had an increase in frequency and strength of seizure episodes. The patient reports a 1 week history of nausea without vomiting and chest pain today. Pt report severe right knee pain secondary to fluid build up which she has been taking Percocet for. Patient states she has an appointment for ?left knee surgery on 06/23/18. She currently follows with Dr. Sutton for her seizures. Allergies: Phenytoin sodium. Phenytoin sodium extended. Social History: No reported alcohol, cigarette, or drug use. Surgical History: Cholecystectomy. PCP: Dr. Ahn No further seizures since admission, reports she feels better, she is scheduled for admission on 06/23/18 to [facility] unit. 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 Cardio/Vascular: Yes: HTN, Hyperlipdemia ...LMP: 11/18/11 ...: No - Past Surgical History Past Surgical History: Yes: Cholecystectomy - Alcohol/Substance Use Hx Alcohol Use: No - Smoking History Smoking history: Unknown if ever smoked Have you smoked in the past 12 months: Yes Aproximately how many cigarettes per day: 20 - Social History Usual Living Arrangement: Alone Occupation: Disabled due to seizures History of Recent Travel: No Home Medications - Allergies Allergies/Adverse Reactions: Allergies Allergy/AdvReac Type Severity Reaction Status Date / Time phenytoin sodium Allergy Verified 06/18/18 15:51 [From Dilantin] phenytoin sodium extended Allergy Verified 06/18/18 15:51 [From Dilantin] - Home Medications Home Medications: Ambulatory Orders clonazePAM [Klonopin -] 0.5 mg PO PRN 08/11/17 Lisinopril 10 mg PO DAILY 01/22/18 Amlodipine Besylate 5 mg PO DAILY 04/10/18 Hydrochlorothiazide [Hctz -] 25 mg PO DAILY 04/10/18 levETIRAcetam [Keppra -] 750 mg PO BID 04/10/18 Alprazolam [Xanax] 2 mg PO BID 06/18/18 Oxycodone HCl/Acetaminophen [Percocet 10-325 mg Tablet] 10 mg PO PRN PRN Family Disease History - Family Disease History Family Disease History: CA: Mother (CABG) Physical Exam-Neuro Vital Signs: Vital Signs Temperature 97.7 F 06/19/18 07:01 Pulse Rate 69 06/19/18 07:01 Respiratory Rate 20 06/19/18 07:01 Blood Pressure 152/96 06/19/18 07:01 O2 Sat by Pulse Oximetry (%) 96 06/19/18 00:58 Labs: CBC, BMP 06/18/18 16:28 06/18/18 16:28 INR, PTT INR 0.98 (0.83-1.09) 06/18/18 16:28 - Neuro Exam Level Of Consciousness: Yes: Alert, Oriented to Person, Oriented to Place, Oriented to Time Eyes: Yes: KADEN Speech: WNL DTR's: 1+ Right Brachioradialis, 1+ Left Achilles, 1+ Right Achilles, 2+ Left Bicep, 2+ Right Bicep, 2+ Left Tricep, 2+ Right Tricep, 2+ Left Brachioradialis Motor Strength: 5/5: Left Arm, Right Arm, Left Leg, Right Leg Gait: Other (Antalgic-knee pain) Imaging - Results Cat Scan: Report Reviewed (Without acute abn.) Assessment/Plan Pt. admitted with flurry of seizures, difficult to tell whether seizures or non- electrical events. Pt. is now stable, can be d/soraya today on Keppra 750mg bid and Vimpat 100mg bid( she had been on it as outpt. Thank you, Stephon Sutton MD
[2018-06-19] MEDS: LISINOPRIL 10 MG TABLET (FP) PO SCH ×2 (09:45→09:48)
[2018-06-19] MEDS: HYDROCHLOROTHIAZIDE 25 MG TABLET (FP) PO SCH ×2 (09:47→09:49)
[2018-06-19] MEDS: amLODIPine BESYLATE 5 MG TABLET (FP) PO SCH ×2 (09:47→09:53)
[2018-06-19] MEDS ORDERED: levETIRAcetam 500 MG TABLET (FP) PO SCH (10:00)
--- NOTE | 2018-06-19 12:05 | EKG ---
Test Reason : Blood Pressure : / mmHG Vent. Rate : 074 BPM Atrial Rate : 074 BPM P-R Int : 184 ms QRS Dur : 084 ms QT Int : 406 ms P-R-T Axes : 054 001 045 degrees QTc Int : 450 ms NORMAL SINUS RHYTHM NORMAL ECG WHEN COMPARED WITH ECG OF 01-JUN-2018 19:15, NO SIGNIFICANT CHANGE WAS FOUND Confirmed by ANTONIO PHELAN MD ([id number]) on 06/19/2018 12:05:19 PM Referred By: Confirmed By:ANTONIO PHELAN MD
[2018-06-19] MEDS ORDERED: oxyCODONE HCL 5 MG TABLET PO ONE (14:00)
--- NOTE | 2018-06-19 17:55 | DS ---
Physical Examination Vital Signs: Vital Signs Temperature 97.7 F 06/19/18 07:01 Pulse Rate 69 06/19/18 07:01 Respiratory Rate 20 06/19/18 09:00 Blood Pressure 152/96 06/19/18 07:01 O2 Sat by Pulse Oximetry (%) 96 06/19/18 00:58 Labs: CBC, BMP 06/18/18 16:28 06/18/18 16:28 Discharge Summary Reason For Visit: Seizure Condition: Stable - Instructions Referrals: Bailey Ahn MD [Primary Care Provider] - Disposition: OTHER HEALTHCARE NOT DEFINED - Home Medications Comprehensive Discharge Medication List: Ambulatory Orders clonazePAM [Klonopin -] 0.5 mg PO PRN 08/11/17 Lisinopril 10 mg PO DAILY 01/22/18 Amlodipine Besylate 5 mg PO DAILY 04/10/18 Hydrochlorothiazide [Hctz -] 25 mg PO DAILY 04/10/18 levETIRAcetam [Keppra -] 750 mg PO BID 04/10/18 Alprazolam [Xanax] 2 mg PO BID 06/18/18 Oxycodone HCl/Acetaminophen [Percocet 10-325 mg Tablet] 10 mg PO PRN PRN AMA
== END 2018-06-19 11:00 | disposition left against medical advice (07) | DRG 101 ==
LOC: JER 15:37 → JERBED 16:58 → J8W 21:15
PROVIDERS: ADMIT Internal Medicine; ATTEND Internal Medicine
DX: R56.9 Unspecified convulsions (principal); I10 Essential (primary) hypertension; M19.90 Unspecified osteoarthritis, unspecified site; E78.5 Hyperlipidemia, unspecified; K21.9 Gastro-esophageal reflux disease without esophagitis; K58.9 Irritable bowel syndrome, unspecified; F43.10 Post-traumatic stress disorder, unspecified; F41.9 Anxiety disorder, unspecified
CPT/HCPCS: 36415; 70450-TC; 71045-TC-FY; 80053; 80307; 81003; 82550; 82553; 84484; 84702; 84703; 85025; 85610; 86850; 86900; 86901; 93005; 93010; 99284-25; J0131

== ENCOUNTER 2018-06-20 12:16 | Emergency (ER) | payer OTHER ==
--- NOTE | 2018-06-20 12:24 | PDOC ---
History of Present Illness - General Chief Complaint: Seizure Stated Complaint: SEIZURE Time Seen by Provider: 06/20/18 12:18 History Source: Patient, EMS - History of Present Illness Initial Comments: 06/20/18 12:24 48 year old female with a PMH of seizure disorder (on Keppra, Vimpat, Klonopin) , HTN, HLD was BIBEMS following a witnessed seizure @ home. Patient's partner @ bedside. Notes she and patient were discussing a stressful topic and patient' s upper body started twitching. No tongue biting, loss of bladder control. Seizure lasted 2-3 minutes and was followed by more 2 minute seizure episodes for the next 30 minutes. At presentation patient drowsy but arousable. In addition to seizure c/o L knee pain - currently being evaluated by orthopedic surgery. States she is adherent to her seizure medication regimen and she last took all of her medications this morning prior to presentation. Patient denies chest pain, shortness of breath, abdominal pain, diarrhea/ constipation, nausea/vomiting. Allergy: Dilantin Social: denies toxic habits Surgical: cholecystectomy PMD: Dr. Ahn Neurologist: Dr. Sutton As per EMR patient was evaluated in our ED on 06/18/18 for seizure. Patient admitted to the hospital and Vimpat added to her medication regimen. Past History - Past Medical History Allergies/Adverse Reactions: Allergies Allergy/AdvReac Type Severity Reaction Status Date / Time phenytoin sodium extended Allergy Verified 06/20/18 12:42 [From Dilantin] Home Medications: Ambulatory Orders clonazePAM [Klonopin -] 0.5 mg PO PRN 08/11/17 Lisinopril 10 mg PO DAILY 01/22/18 Amlodipine Besylate 5 mg PO DAILY 04/10/18 Hydrochlorothiazide [Hctz -] 25 mg PO DAILY 04/10/18 levETIRAcetam [Keppra -] 750 mg PO BID 04/10/18 Alprazolam [Xanax] 2 mg PO BID 06/18/18 Oxycodone HCl/Acetaminophen [Percocet 10-325 mg Tablet] 10 mg PO PRN PRN Anemia: No Asthma: Yes (Bronchial asthma) Cancer: No Cardiac Disorders: No CVA: No COPD: No CHF: No DVT: No Dementia: No Diabetes: Yes (prediabetes) GI Disorders: Yes (acid reflux, IBS) Disorders: No HTN: Yes Hypercholesterolemia: Yes Liver Disease: No Psychiatric Problems: (anxeity,PTSD) Seizures: Yes (pseudoseizures) Thyroid Disease: No - Surgical History Abdominal Surgery: No Appendectomy: No Cardiac Surgery: No Cholecystectomy: Yes Lung Surgery: No Neurologic Surgery: No Orthopedic Surgery: No - Immunization History Immunization Up to Date: Yes - Suicide/Smoking/Psychosocial Hx Smoking Status: Yes Smoking History: Unknown if ever smoked Have you smoked in the past 12 months: Yes Number of Cigarettes Smoked Daily: 20 'Breaking Loose' booklet given: 06/18/18 Hx Alcohol Use: No Drug/Substance Use Hx: Yes Substance Use Type: Marijuana Hx Substance Use Treatment: No Review of Systems - Review of Systems Able to Perform ROS?: Yes Constitutional: No: Chills, Fever HEENTM: No: Blurred Vision, Double Vision Respiratory: No: Shortness of Breath, Stridor, Wheezing, Hemoptysis Cardiac (ROS): No: Chest Pain, Lightheadedness, Palpitations, Syncope ABD/GI: No: Constipated, Diarrhea, Nausea, Vomiting Neurological: Yes: Headache, Seizure. No: Numbness, Tingling *Physical Exam - Physical Exam General Appearance: Yes: Nourished, Appropriately Dressed HEENT: positive: EOMI, KADEN, Other (no visible oral laceration) Neck: positive: Trachea midline, Supple Respiratory/Chest: positive: Lungs Clear, Normal Breath Sounds Cardiovascular: positive: S1, S2. negative: JVD Vascular Pulses: Dorsalis-Pedis (R): 2+, Doralis-Pedis (L): 2+ Gastrointestinal/Abdominal: positive: Normal Bowel Sounds, Soft. negative: Distended, Guarding, Tenderness, Hernia, Mass Extremity: positive: Normal Capillary Refill, Normal Inspection, Other (R sided patellar TTP, mild patellar edema) Integumentary: positive: Normal Color, Dry, Warm Neurologic: positive: Fully Oriented, Alert, Responsive. negative: Facial Droop , Sensory Deficit, Confused, Disoriented ED Treatment Course - LABORATORY CBC & Chemistry Diagram: 06/20/18 12:35 06/20/18 12:35 Medical Decision Making - Medical Decision Making 06/20/18 13:41 Patient is a 48 year old female who presents s/p seizure. Mildy hypertensive ( 160's/90's) @ presentation, other VS unremarkable. Post ictal, however arousable , A&O x3. Case d/w Dr. Sutton, patient's neurologist, states patient has h/o electrical and non-electrical (formerly pseudo) seizures. Recommends patient continue on Keppra, Vimpat. Requests patient be discharged home and f/u with previously scheduled neurological evaluation @ [facility] on 06/23. 06/20/18 15:26 Patient more alert, verbal, tolerating PO intake 06/20/18 15:39 Patient's symptoms resolved s/p Toradol. Will discharge home with return precautions. ' Case d/w with patient and patient's partner, extensive counseling on importance of adherence to medication regimen and neurological follow-up as previously scheduled. Clinical Impression: S/p seizure *DC/Admit/Observation/Transfer Diagnosis at time of Disposition: Status post seizure - Discharge Dispostion Disposition: HOME Condition at time of disposition: Good Decision to Admit order: No - Referrals Referrals: Bailey Ahn MD [Primary Care Provider] - - Patient Instructions Printed Discharge Instructions: DI for Seizure Disorder -- Adult Additional Instructions: Please continue to take your seizure medication as directed. It is very important to attend your previously scheduled neurological evaluation at [facility] on June 23. Continue your pain control as prescribed by your doctor. Return to the Emergency Department for any new/worsening/concerning symptoms. - Post Discharge Activity
[2018-06-20 12:43] VITALS: TEMP 98.6; BMI 41.3
[2018-06-20 13:54] LABS: BASO % 1.4 % (0-2.0); EOS % 3.7 % (0-4.5); HEMATOCRIT 40.9 % (32.4-45.2); LYMPH % 50.3 % (8-40); MCHC 34.1 g/dl (32.0-36.0); MEAN CELL VOLUME 82.2 fl (80-96); MEAN PLT VOLUME 8.8 fl (7.5-11.1); MONO % 5.8 % (3.8-10.2); NEUT % 38.8 % (42.8-82.8); PLATELET COUNT 210 K/MM3 (134-434); RBC 4.98 M/mm3 (3.60-5.2); WHITE BLOOD COUNT 5.8 K/mm3 (4.0-10.0)
[2018-06-20 14:17] LABS: ALBUMIN 3.8 g/dl (3.4-5.0); ALK PHOS 75 U/L (45-117); ANION GAP 7 MMOL/L (8-16); BILIRUBIN,TOTAL 0.3 mg/dL (0.2-1.0); BLOOD UREA NITROGEN 10 mg/dL (7-18); CHLORIDE 105 mmol/L (98-107); CO2 29 mmol/L (21-32); CREATININE 0.8 mg/dL (0.55-1.02); GLUCOSE,RANDOM 90 mg/dL (74-106); POTASSIUM 3.8 mmol/L (3.5-5.1); SGOT/AST 18 U/L (15-37); SGPT/ALT 27 U/L (12-78); SODIUM 141 mmol/L (136-145)
[2018-06-20] MEDS ORDERED: KETOROLAC TROMETHAMINE 30 MG/1 ML VIAL IVPUSH ONE (14:25)
[2018-06-20] MEDS ORDERED: KETOROLAC TROMETHAMINE 30 MG/1 ML VIAL ONE (14:42)
--- NOTE | 2018-06-20 15:25 | PDOC ---
Attending Attestation - Resident Resident Name: Sheila Rascon - ED Attending Attestation I have performed the following: I have examined & evaluated the patient, The case was reviewed & discussed with the resident, I agree w/resident's findings & plan, Exceptions are as noted - Medical Decision Making 06/20/18 15:23 pt with ho psuedo vs. siezures here with c/o seizure. was seen yeseterday for same. increased stress, no f/c complaint with keppra. scheduled for inpatient eval with nuerologist this week. plan r/o electrolyte abnormality, ua reassess. will d/w nuerologist. <AzraShasha - Last Filed: 06/20/18 15:23> - HPI HPI: 06/20/18 15:37 The patient is a 48 year old female BIBEMS, with a history of seizures(on ( Keppra vimpat, klonopin), HTN, and HLD who presents to the emergency department for evaluation of witnessed seizure. As per friend at bedside, the patient had an acute seizure after having a stressful conversation. Denies tongue biting or self urination. Patient was in the ED on 06/18 for a witnessed seizure. She reports moderate lower extremity pain. EMS administered 5 IM Midazolam en route. Denies chest pain, SOB, fever, and chills. PCP: Dr. Ahn Neurologist: Dr. Sutton - Physicial Exam PE: GENERAL: Awake, alert, and fully oriented, in no acute distress HEAD: No signs of trauma EYES: PERRLA, EOMI, sclera anicteric, conjunctiva clear ENT: Auricles normal inspection, hearing grossly normal, nares patent. Moist mucosa NECK: Normal ROM, supple, no lymphadenopathy, JVD, or masses LUNGS: Breath sounds equal, clear to auscultation bilaterally. No wheezes, and no crackles HEART: Regular rate and rhythm, normal S1 and S2, no murmurs, rubs or gallops ABDOMEN: Soft, nontender, normoactive bowel sounds. No guarding, no rebound. No masses EXTREMITIES: (+)Right knee: mild tenderness to palpation, no erythema or warmth. Normal range of motion. DP/PT pulses 2+ and symmetric. Warm and well perfused. NEUROLOGICAL: Moves all extremities. Normal speech, normal gait SKIN: Warm, Dry, normal turgor, no rashes or lesions noted. <Benny White - Last Filed: 06/20/18 15:40> Attestations - Attestations Documentation prepared by Benny White, acting as medical office secretary for Shasha Oquendo MD. <Benny White - Last Filed: 06/20/18 15:40>
[2018-06-20 15:33] VITALS: BP 137/76; PULSE 56
--- NOTE | 2018-06-20 18:48 | EKG ---
Test Reason : Blood Pressure : / mmHG Vent. Rate : 076 BPM Atrial Rate : 076 BPM P-R Int : 180 ms QRS Dur : 074 ms QT Int : 402 ms P-R-T Axes : 061 000 037 degrees QTc Int : 452 ms NORMAL SINUS RHYTHM NORMAL ECG WHEN COMPARED WITH ECG OF 18-JUN-2018 16:01, NO SIGNIFICANT CHANGE WAS FOUND Confirmed by AUNG BHATIA MD ([id number]) on 06/20/2018 6:48:30 PM Referred By: Confirmed By:AUNG BHATIA MD
== END 2018-06-20 15:46 | disposition home or self-care (01) ==
LOC: JER 12:16
PROC: 3E0333Z Introduction of Anti-inflammatory into Peripheral Vein, Percutaneous Approach (ICD-10-PCS; principal; 2018-06-20)
DX: G40.909 Epilepsy, unspecified, not intractable, without status epilepticus (principal); I10 Essential (primary) hypertension; E78.5 Hyperlipidemia, unspecified; E78.00 Pure hypercholesterolemia, unspecified; F41.9 Anxiety disorder, unspecified; F43.10 Post-traumatic stress disorder, unspecified; Z87.09 Personal history of other diseases of the respiratory system; Z87.19 Personal history of other diseases of the digestive system
CPT/HCPCS: 36415; 71045-TC-FY; 80053; 85025; 93005; 93010; 96374; 99284-25

== ENCOUNTER 2018-07-23 14:03 | Emergency (ER) | payer OTHER ==
[2018-07-23] MEDS ORDERED: LORazepam 2 MG/ML SDV VIAL ONE (14:09)
--- NOTE | 2018-07-23 14:20 | PDOC ---
Attending Attestation - Resident Resident Name: Sri Rothman - ED Attending Attestation I have performed the following: I have examined & evaluated the patient, The case was reviewed & discussed with the resident, I agree w/resident's findings & plan, Exceptions are as noted - HPI HPI: 07/23/18 16:43 47y F hz of seizure d/o (possibly pseudoseizures, was taken off meds at [facility] 2- 3 weeks ago for neg video EEG), htn, IBS, HL, DM, PTSD presents with seizure like activity. Per family pt was doing well this morning until around noon and pt had her typical seizures (facial twitching) followed by sonours breathing. She has been ahving multiple episodes of this today, and family finally called EMS. Upon arrival EMS noted pt had continued activity and gave th ept 5mg versed without signiciant improvement. Upon arrival, pt was not seizing but had witnessed activity in the ED. Pt was given 2mg of ativan and still on occasionaly seizure like activity for several minutes at at [facility]ris. per EMS, the pts vitals incuding HR and sat was normal upon arrival and throught entire transfer. pt endorses mild frontal headache no recent fevers, cough, cp, abd pain, vomiting, vision changes. PE: GENERAL: The patient is awake, alert, and fully oriented, Nontoxic - in no acute distress. HEAD: Normocephalic, atraumatic. EYES: extraocular movements intact, sclera anicteric, conjunctiva clear. ENT: Normal voice, Moist mucous membranes. NECK: Normal range of motion, supple LUNGS: Breath sounds equal, clear to auscultation bilaterally. No wheezes, no rhonchi, no rales. HEART: Regular rate and rhythm, normal S1 and S2 without murmur, rub or gallop. ABDOMEN: Soft, nontender, normoactive bowel sounds. No guarding, no rebound. No CVA tenderness EXTREMITIES: Normal range of motion, NEUROLOGICAL: No facial assymetry, Normal speech, moving all 4 extremities spontaneously and symmetrically, sensation intact throughout. PSYCH: Normal mood, normal affect. SKIN: Warm, Dry, normal turgor, 07/23/18 16:47 - Physicial Exam PE: 07/26/18 15:21 see above - Critical Care Time Total Critical Care Time: 45 Critical Care Statement: The care of this patient involved high complexity decision making to prevent further life threatening deterioration of the patient 's condition and/or to evaluate & treat vital organ system(s) failure or risk of failure. - Medical Decision Making 07/23/18 16:47 will ck labs to r/o metabolic dernagement, occult infection ct head to r/o organic cause will dw dr. madison 07/23/18 20:[address] are negative was preparing to dc the pt earlier when she had another seizure lke episode that resolved spontaneously. after deciding on admission, pt decided to leavea AMA. discussed risks of depating with the pt and they agree. will fu with neuro as outpatient. Heart Score/ECG Review - ECG Impressions Comment:: 07/23/18 16:47 Twelve-lead EKG was performed and reviewed by me. There is normal sinus rhythm with a normal rate. Rate of 72 The axis is normal. The intervals are normal. There is normal R wave progression There are no ST or T wave abnormalities. Impression: Normal twelve-lead EKG
[2018-07-23 14:22] VITALS: BP 174/89; PULSE 80; BMI 39.1
--- NOTE | 2018-07-23 14:45 | PDOC ---
History of Present Illness - General Chief Complaint: Seizure Stated Complaint: SEIZURE Time Seen by Provider: 07/23/18 14:09 History Source: EMS, Family Exam Limitations: No Limitations - History of Present Illness Initial Comments: 07/23/18 14:32 This is a 48 YOF with h/o seizure disorder (well known to [facility] ED for same), HTN , and HLD who was BIBEMS in apparent status epilepticus despite en route treatment with a total of 5 mg Versed IV push. She has been satting above 95% for the duration of EMS care per their report. The patient herself is unable to give any relevant history given that she is having a reported seizure. The family member is present at bedside to give additional history. She states she witnessed the patient sitting on the couch watching TV, turned away for a few minutes, then returned to find her apparently seizing. The patient was reportedly seizing off and on at home, never returning to baseline between episodes, for 45 minutes. She was reportedly seizing when EMS arrived on scene, as well as multiple times in the ambulance, again never returning to baseline. She notes that the patient was admitted to [facility] for one week recently for the same thing, discharged about 2 weeks ago, and followed up with her neurologist Dr. Sutton after discharge. The patient was reportedly discontinued off her normal Keppra during her [facility] admission, which she did not want to do because she feels this is the only thing that controls these episodes. The inpatient team reportedly decided to DC the Keppra because they did EEGs on the patient and found no e/o actual seizure activity on these studies during the episodes. The family member reports that they called the episodes psychogenic. Past History - Past Medical History Allergies/Adverse Reactions: Allergies Allergy/AdvReac Type Severity Reaction Status Date / Time phenytoin sodium extended Allergy Verified 06/20/18 12:42 [From Dilantin] Home Medications: Ambulatory Orders clonazePAM [Klonopin -] 0.5 mg PO PRN 08/11/17 Lisinopril 10 mg PO DAILY 01/22/18 Amlodipine Besylate 5 mg PO DAILY 04/10/18 Hydrochlorothiazide [Hctz -] 25 mg PO DAILY 04/10/18 levETIRAcetam [Keppra -] 750 mg PO BID 04/10/18 Alprazolam [Xanax] 2 mg PO BID 06/18/18 Oxycodone HCl/Acetaminophen [Percocet 10-325 mg Tablet] 10 mg PO PRN PRN Anemia: No Asthma: Yes (Bronchial asthma) Cancer: No Cardiac Disorders: No CVA: No COPD: No CHF: No DVT: No Dementia: No Diabetes: Yes (prediabetes) GI Disorders: Yes (acid reflux, IBS) Disorders: No HTN: Yes Hypercholesterolemia: Yes Liver Disease: No Psychiatric Problems: (anxeity,PTSD) Seizures: Yes (pseudoseizures) Thyroid Disease: No - Surgical History Abdominal Surgery: No Appendectomy: No Cardiac Surgery: No Cholecystectomy: Yes Lung Surgery: No Neurologic Surgery: No Orthopedic Surgery: No - Immunization History Immunization Up to Date: Yes - Suicide/Smoking/Psychosocial Hx Smoking Status: Yes Smoking History: Unknown if ever smoked Have you smoked in the past 12 months: Yes Number of Cigarettes Smoked Daily: 20 Information on smoking cessation initiated: No 'Breaking Loose' booklet given: 06/18/18 Hx Alcohol Use: No Drug/Substance Use Hx: No Substance Use Type: Marijuana Hx Substance Use Treatment: No Review of Systems - Review of Systems Able to Perform ROS?: No (altered) *Physical Exam - Vital Signs Last Vital Signs Temp Pulse Resp BP Pulse Ox 80 18 174/89 H 96 07/23/18 14:18 07/23/18 14:18 07/23/18 14:18 07/23/18 14:18 Heart Score/ECG Review #1 07/23/18 15:07 NSR rate 72 with normal axis and intervals, no ischemic ST-T changes, poor baseline/artifact noted ED Treatment Course - LABORATORY CBC & Chemistry Diagram: 07/23/18 16:08 07/23/18 16:08 - RADIOLOGY Radiology Studies Ordered: Category Date Time Status HEAD CT WITHOUT CONTRAST [CT] Stat CT Scan 07/23/18 14:28 Ordered - Medications Given in the ED: ED Medications Discontinued Medications Generic Name Dose Route Start Last Admin Trade Name Freq PRN Reason Stop Dose Admin Lorazepam 2 mg 07/23/18 14:26 07/23/18 14:27 Ativan Injection - IVPUSH 07/23/18 14:27 2 mg ONCE ONE Administration Medical Decision Making - Medical Decision Making 07/23/18 14:56 Adult Pt p/w apparent seizure. Initial Vital Signs Pulse Resp BP Pulse Ox 80 18 174/89 H 96 07/23/18 14:18 07/23/18 14:18 07/23/18 14:18 07/23/18 14:18 Exam: As noted in Physical Exam section. DDX IBNLT: seizure (myoclonic, tonic-clonic/grand mal, atonic, absence/petit mal ) vs. syncope, status epilepticus (sz lasting 5-10 minutes, or repeated sz without regaining consciousness inbetween), VS abnormalities (e.g. fever), structural (e.g. epilepsy, CVA/TIA), infectious (e.g. UTI, PNA, meningitis), trauma, toxic-metabolic (e.g. medications, medication withdrawal, street drugs, street drug withdrawal, EtOH, EtOH withdrawal, electrolytes, thyroid), brain lesion (e.g. tumor), stroke, TTP (HUS with AMS, fever, poss seizure), idiopathic , psychiatric (e.g. pseudoseizure), etc. W/U ordered: CBCD CMP Cardiac panel UA UCx EKG CXR Head CT TX ordered: IVF EKG: Reviewed; results as noted in ECG Review section. Head CT: Labs: Reassessment: 07/23/18 17:[address] Garcia. He will call Dr. Sutton and see if there is a strong preference for any intervention. 07/23/18 19:[address] Vazquez when the patient had a repeat episode of left facial twitching during discharge discussion. With this repeat episode, we cannot recommend discharge home as safe management. I spoke with Dr. Vazquez and placed decision to admit order. Dr. Vazquez came to see the patient in the ED, no patient is refusing admission. States she wants to go home, does not want to stay at [facility], understands the risks. She will sign out AMA. 07/23/18 19:10 Patient completes AMA paperwork and is still given discharge instructions. *DC/Admit/Observation/Transfer Diagnosis at time of Disposition: Muscle twitching Knee pain, bilateral Qualifiers: Chronicity: unspecified Qualified Code(s): M25.561 - Pain in right knee - Discharge Dispostion Condition at time of disposition: Guarded Decision to Admit order: Yes - Referrals Referrals: Bailey Vazquez MD [Primary Care Provider] - - Patient Instructions Additional Instructions: YOU WERE SEEN IN THE ER FOR FACE MUSCLE TWITCHING, HEADACHE, AND KNEE PAIN. WE DID AN EXAM, LABS, IMAGING STUDIES, AND AN ELECTROCARDIOGRAM, AND WE DID NOT FIND ANY NEW CONCERNING ABNORMALITIES. AFTER OUR ASSESSMENT, WE RECOMMENDED ADMISSION TO THE HOSPITAL BECAUSE YOU KEPT HAVING REPEATED EPISODES OF THIS FACIAL MUSCLE TWITCHING WHICH YOU STATE IS THE SAME YOUR NORMAL SEIZURES. YOU DID NOT WANT ADMISSION TO THE HOSPITAL AND SIGNED OUT AGAINST MEDICAL ADVICE. PLEASE CONTINUE TO TAKE YOUR SEIZURE MEDICATIONS PRESCRIBED BECAUSE IF YOU DO NOT, YOU ARE AT HIGHER RISK FOR HAVING SEIZURES WHICH CAN PUT YOU IN DANGER OF SERIOUS ACCIDENTS AND OTHER COMPLICATIONS. AVOID TRIGGERS THAT MAY CAUSE OR WORSEN YOUR SEIZURES SUCH ALCOHOL, DRUGS, DEHYDRATION, FASTING, LACK OF SLEEP, OR INTENSELY STRESSFUL SITUATIONS. PLEASE FOLLOW UP WITH YOUR REGULAR PCP DOCTOR, NEUROLOGIST, OR THE DOCTOR WHO FOLLOWS YOU FOR YOUR SEIZURE DISORDER, IN 1-3 DAYS. CALL THEIR CLINIC, TELL THEM YOU WERE SEEN IN THE ER, AND TELL THEM YOU NEED A FOLLOW-UP. IF YOU HAVE ANY NEW OR WORSENING SYMPTOMS, PLEASE COME BACK TO THE ER AT ANY TIME (24 HOURS A DAY). IF YOU ARE HAVING SEVERE OR LIFE THREATENING SYMPTOMS, OR SYMPTOMS THAT MAKE IT UNSAFE TO DRIVE OR HAVE SOMEONE DRIVE YOU, PLEASE CALL 911. FOLLOW UP WITH DR. VAZQUEZ AND DR. SUTTON SOON POSSIBLE. COME BACK TO THE ER IF YOU CHANGE YOUR MIND ABOUT ADMISSION. - Post Discharge Activity
[2018-07-23 16:21] LABS: BASO % 1.5 % (0-2.0); EOS % 6.2 % (0-4.5); HEMATOCRIT 37.6 % (32.4-45.2); HEMOGLOBIN 12.6 GM/dL (10.7-15.3); LYMPH % 48.1 % (8-40); MCH 27.8 pg (25.7-33.7); MCHC 33.5 g/dl (32.0-36.0); MEAN CELL VOLUME 83.1 fl (80-96); MEAN PLT VOLUME 9.1 fl (7.5-11.1); MONO % 4.2 % (3.8-10.2); PLATELET COUNT 200 K/MM3 (134-434); RBC 4.53 M/mm3 (3.60-5.2); RDW 14.1 % (11.6-15.6); WHITE BLOOD COUNT 6.3 K/mm3 (4.0-10.0)
[2018-07-23 17:14] LABS: ALBUMIN 3.3 g/dl (3.4-5.0); ALK PHOS 72 U/L (45-117); ANION GAP 6 MMOL/L (8-16); BILIRUBIN,TOTAL 0.3 mg/dL (0.2-1); BLOOD UREA NITROGEN 11 mg/dL (7-18); CALCIUM 8.4 mg/dL (8.5-10.1); CHLORIDE 108 mmol/L (98-107); CO2 27 mmol/L (21-32); CREATININE 0.8 mg/dL (0.55-1.3); GLUCOSE,RANDOM 95 mg/dL (74-106); PHOSPHOROUS 3.7 mg/dL (2.5-4.9); POTASSIUM 4.2 mmol/L (3.5-5.1); SGOT/AST 22 U/L (15-37); SGPT/ALT 23 U/L (13-61); SODIUM 141 mmol/L (136-145); TOT PROT 6.4 g/dl (6.4-8.2)
--- NOTE | 2018-07-23 19:22 | PDOC ---
*Physical Exam - Vital Signs Last Vital Signs Temp Pulse Resp BP Pulse Ox 80 18 174/89 H 96 07/23/18 14:18 07/23/18 14:18 07/23/18 14:18 07/23/18 14:18 - Physical Exam General Appearance: Yes: Nourished, Appropriately Dressed HEENT: positive: EOMI, KADEN, Normal Voice, Hearing Grossly Normal Neck: positive: Trachea midline, Supple Respiratory/Chest: positive: Lungs Clear, Normal Breath Sounds. negative: Labored Respiration, Rapid RR Cardiovascular: positive: S1, S2 Gastrointestinal/Abdominal: positive: Normal Bowel Sounds, Soft Extremity: positive: Normal Capillary Refill, Normal Inspection Integumentary: positive: Normal Color, Dry, Warm Neurologic: positive: Fully Oriented, Alert ED Treatment Course - LABORATORY CBC & Chemistry Diagram: 07/23/18 16:08 07/23/18 16:08 - ADDITIONAL ORDERS Additional order review: Laboratory Results 07/23/18 16:08 Sodium 141 Potassium 4.2 Chloride 108 H Carbon Dioxide 27 Anion Gap 6 L BUN 11 Creatinine 0.8 Creat Clearance w eGFR > 60 Random Glucose 95 Calcium 8.4 L Phosphorus 3.7 Magnesium 2.0 Total Bilirubin 0.3 AST 22 ALT 23 Alkaline Phosphatase 72 Creatine Kinase 286 H Creatine Kinase Index 0.7 CK-MB (CK-2) 2.1 Troponin I < 0.02 Total Protein 6.4 Albumin 3.3 L 07/23/18 16:08 RBC 4.53 MCV 83.1 MCHC 33.5 RDW 14.1 MPV 9.1 Neutrophils % 40.0 L Lymphocytes % 48.1 H Monocytes % 4.2 Eosinophils % 6.2 H Basophils % 1.5 - Medications Given in the ED: ED Medications Discontinued Medications Generic Name Dose Route Start Last Admin Trade Name Freq PRN Reason Stop Dose Admin Lorazepam 2 mg 07/23/18 14:26 07/23/18 14:27 Ativan Injection - IVPUSH 07/23/18 14:27 2 mg ONCE ONE Administration Oxycodone/Acetaminophen 1 combo 07/23/18 16:50 07/23/18 16:56 Percocet 5/325 - PO 07/23/18 16:51 1 combo ONCE ONE Administration Medical Decision Making - Medical Decision Making 07/23/18 19:22 Patient signed out by Dr. Rothman (Resident) under the care of Dr. Araujo (Attending ). 48 year old female presents to ED w/seizure (possibly pseudoseizure as patient reported to be alert and talking during seizure episodes). S/p Versed (5 mg) in the field and Ativan (2 mg) in our ED. Patient c/o she was not given any medication for her witnessed seizure in the ED. Requests AMA. Will page patient's neurologist for continuation of care. 07/23/18 20:30 Unable to reach patient's neurologist, Dr. Sutton, will AMA patient with full explaination of risks including repeat seizures with neurologic sequelae. Patient states she will call her neurologist in the morning for evaluation. 07/23/18 20:33 Patient discharged AMA with return precautions. *DC/Admit/Observation/Transfer Diagnosis at time of Disposition: Muscle twitching Knee pain, bilateral Qualifiers: Chronicity: unspecified Qualified Code(s): M25.561 - Pain in right knee - Discharge Dispostion Condition at time of disposition: Guarded - Prescriptions Prescriptions: Ibuprofen 800 mg PO DAILY PRN #4 tablet PRN Reason: Headache - Referrals Referrals: Bailey Vazquez MD [Primary Care Provider] - - Patient Instructions Additional Instructions: YOU WERE SEEN IN THE ER FOR FACE MUSCLE TWITCHING, HEADACHE, AND KNEE PAIN. WE DID AN EXAM, LABS, IMAGING STUDIES, AND AN ELECTROCARDIOGRAM, AND WE DID NOT FIND ANY NEW CONCERNING ABNORMALITIES. AFTER OUR ASSESSMENT, WE RECOMMENDED ADMISSION TO THE HOSPITAL BECAUSE YOU KEPT HAVING REPEATED EPISODES OF THIS FACIAL MUSCLE TWITCHING WHICH YOU STATE IS THE SAME YOUR NORMAL SEIZURES. YOU DID NOT WANT ADMISSION TO THE HOSPITAL AND SIGNED OUT AGAINST MEDICAL ADVICE. PLEASE CONTINUE TO TAKE YOUR SEIZURE MEDICATIONS PRESCRIBED BECAUSE IF YOU DO NOT, YOU ARE AT HIGHER RISK FOR HAVING SEIZURES WHICH CAN PUT YOU IN DANGER OF SERIOUS ACCIDENTS AND OTHER COMPLICATIONS. AVOID TRIGGERS THAT MAY CAUSE OR WORSEN YOUR SEIZURES SUCH ALCOHOL, DRUGS, DEHYDRATION, FASTING, LACK OF SLEEP, OR INTENSELY STRESSFUL SITUATIONS. PLEASE FOLLOW UP WITH YOUR REGULAR PCP DOCTOR, NEUROLOGIST, OR THE DOCTOR WHO FOLLOWS YOU FOR YOUR SEIZURE DISORDER, IN 1-3 DAYS. CALL THEIR CLINIC, TELL THEM YOU WERE SEEN IN THE ER, AND TELL THEM YOU NEED A FOLLOW-UP. IF YOU HAVE ANY NEW OR WORSENING SYMPTOMS, PLEASE COME BACK TO THE ER AT ANY TIME (24 HOURS A DAY). IF YOU ARE HAVING SEVERE OR LIFE THREATENING SYMPTOMS, OR SYMPTOMS THAT MAKE IT UNSAFE TO DRIVE OR HAVE SOMEONE DRIVE YOU, PLEASE CALL 911. FOLLOW UP WITH DR. VAZQUEZ AND DR. SUTTON SOON POSSIBLE. COME BACK TO THE ER IF YOU CHANGE YOUR MIND ABOUT ADMISSION. - Post Discharge Activity
--- NOTE | 2018-07-24 11:27 | EKG ---
Test Reason : Blood Pressure : / mmHG Vent. Rate : 072 BPM Atrial Rate : 072 BPM P-R Int : 194 ms QRS Dur : 070 ms QT Int : 394 ms P-R-T Axes : 059 001 053 degrees QTc Int : 431 ms POOR DATA QUALITY, INTERPRETATION MAY BE ADVERSELY AFFECTED NORMAL SINUS RHYTHM NORMAL ECG WHEN COMPARED WITH ECG OF 20-JUN-2018 13:31, NO SIGNIFICANT CHANGE WAS FOUND Confirmed by SHARITA MCINTOSH, SHEA ([id number]) on 07/24/2018 11:27:01 AM Referred By: Confirmed By:SHEA SHERIFF MD
== END 2018-07-23 20:12 | disposition left against medical advice (07) ==
LOC: JER 14:03
PROC: 3E033NZ Introduction of Analgesics, Hypnotics, Sedatives into Peripheral Vein, Percutaneous Approach (ICD-10-PCS; principal; 2018-07-23)
DX: R25.3 Fasciculation (principal); M25.561 Pain in right knee; M25.562 Pain in left knee; F43.10 Post-traumatic stress disorder, unspecified; K58.9 Irritable bowel syndrome, unspecified; R73.03 Prediabetes; K21.9 Gastro-esophageal reflux disease without esophagitis; F41.9 Anxiety disorder, unspecified
CPT/HCPCS: 36415; 70450-TC; 80053; 82550; 82553; 83735; 84100; 84484; 85025; 93005; 93010; 99281-25

== ENCOUNTER 2018-08-11 09:37 | Emergency (ER) | payer OTHER ==
[2018-08-11 09:41] VITALS: BP 124/71; PULSE 100; TEMP 98.2; BMI 43.8
[2018-08-11] MEDS ORDERED: LORazepam 2 MG/ML SDV VIAL ONE (10:25)
--- NOTE | 2018-08-11 10:30 | PDOC ---
History of Present Illness <Lynne Tomas - Last Filed: 08/11/18 13:05> - General History Source: Patient, Spouse Exam Limitations: No Limitations - History of Present Illness Initial Comments: 08/11/18 10:30 48-year-old female presents to ED status post witnessed seizure 4 as per patient's partner. As per patient's partner they were having a verbal dispute when patient began to have lip twitching which is normally a precursor to a seizure and so stood by the patient's side and assisted her to the couch when she began to have upper body twitching without lip biting, tongue biting, foaming at the mouth, incontinence, or head injury. As per the partner patient had 3 additional seizures lasting about 1 minute but the last one seemed to go beyond 5 minutes and so she called EMS. As per the partner when EMS arrived patient continued have generalized upper body twitching and so was given 2 mg of Versed IM. Patient upon ED arrival was alert coherent and able to give a good history. Patient was recently taken off of her Keppra upon a month and half ago from a [facility] ED provider. Patient was seen by her neurologist earlier this month was placed on Topamax and continues with Klonopin and Xanax. Patient also states has a medical card for marijuana usage. Patient's only complaint presently is generalized head pressure which she states normally follows her seizures. Patient denies dizziness or visual disturbances. Timing/Duration: resolved prior to arrival Severity: moderate Associated Symptoms: reports: headaches, seizure <Elisa Caldwell - Last Filed: 08/11/18 13:13> <Primo Araujo - Last Filed: 08/18/18 07:21> - General Chief Complaint: Seizure Stated Complaint: Seizure Time Seen by Provider: 08/11/18 09:41 Past History <Lynne Tomas - Last Filed: 08/11/18 13:05> - Travel Traveled outside of the country in the last 30 days: No - Past Medical History Anemia: No Asthma: Yes (Bronchial asthma) Cancer: No Cardiac Disorders: No CVA: No COPD: No CHF: No DVT: No Dementia: No Diabetes: Yes (prediabetes) GI Disorders: Yes (acid reflux, IBS) Disorders: No HTN: Yes Hypercholesterolemia: Yes Liver Disease: No Psychiatric Problems: (anxeity,PTSD) Seizures: Yes (pseudoseizures) Thyroid Disease: No - Surgical History Abdominal Surgery: No Appendectomy: No Cardiac Surgery: No Cholecystectomy: Yes Lung Surgery: No Neurologic Surgery: No Orthopedic Surgery: No - Immunization History Immunization Up to Date: Yes - Suicide/Smoking/Psychosocial Hx Smoking Status: Yes Smoking History: Unknown if ever smoked Have you smoked in the past 12 months: Yes Number of Cigarettes Smoked Daily: 20 'Breaking Loose' booklet given: 06/18/18 Hx Alcohol Use: No Drug/Substance Use Hx: No Substance Use Type: Marijuana Hx Substance Use Treatment: No Patient Lives Alone: No Lives with/in: spouse/SO <Elisa Caldwell - Last Filed: 08/11/18 13:13> <Primo Araujo - Last Filed: 08/18/18 07:21> - Past Medical History Allergies/Adverse Reactions: Allergies Allergy/AdvReac Type Severity Reaction Status Date / Time phenytoin sodium extended Allergy Verified 08/11/18 09:40 [From Dilantin] Home Medications: Ambulatory Orders Alprazolam [Xanax] 2 mg PO BID 06/18/18 Oxycodone HCl/Acetaminophen [Percocet 10-325 mg Tablet] 10 mg PO PRN PRN Gabapentin 600 mg PO HS 08/11/18 Topiramate [Topamax] 100 mg PO BID 08/11/18 Review of Systems - Review of Systems Able to Perform ROS?: Yes Constitutional: No: Symptoms Reported HEENTM: No: Symptoms Reported Respiratory: No: Symptoms reported Cardiac (ROS): No: Symptoms Reported ABD/GI: No: Symptoms Reported : No: Symptoms Reported Musculoskeletal: No: Symptoms Reported Integumentary: No: Symptoms Reported Neurological: Yes: Headache, Seizure. No: Weakness <Elisa Caldwell - Last Filed: 08/11/18 13:13> *Physical Exam - Vital Signs Last Vital Signs Temp Pulse Resp BP Pulse Ox 98.2 F 100 H 18 124/71 98 08/11/18 09:40 08/11/18 09:40 08/11/18 09:40 08/11/18 09:40 08/11/18 09:40 <Lynne Tomas - Last Filed: 08/11/18 13:05> - Vital Signs Last Vital Signs Temp Pulse Resp BP Pulse Ox 98.2 F 100 H 18 124/71 98 08/11/18 09:40 08/11/18 09:40 08/11/18 09:40 08/11/18 09:40 08/11/18 09:40 - Physical Exam General Appearance: Yes: Nourished, Appropriately Dressed. No: Apparent Distress HEENT: positive: EOMI, KADEN, TMs Normal, Pharynx Normal. negative: Pale Conjunctivae Neck: positive: Supple. negative: Decreased range of motion, Tender midline Respiratory/Chest: positive: Lungs Clear, Normal Breath Sounds. negative: Chest Tender, Respiratory Distress, Accessory Muscle Use Cardiovascular: positive: Regular Rhythm, Regular Rate (90 on monitor). negative: Murmur Gastrointestinal/Abdominal: positive: Normal Bowel Sounds, Soft. negative: Tenderness Integumentary: positive: Normal Color, Warm, Moist Neurologic: positive: Normal Mood/Affect, Motor Strength 5/5 (moving all extremeties actively) <Elisa Caldwell - Last Filed: 08/11/18 13:13> - Vital Signs Last Vital Signs Temp Pulse Resp BP Pulse Ox 98.2 F 100 H 18 124/71 98 08/11/18 09:40 08/11/18 09:40 08/11/18 09:40 08/11/18 09:40 08/11/18 09:40 <Primo Araujo - Last Filed: 08/18/18 07:21> ED Treatment Course - LABORATORY CBC & Chemistry Diagram: 08/11/18 10:30 08/11/18 10:30 - ADDITIONAL ORDERS Additional order review: Laboratory Results 08/11/18 08/11/18 12:30 10:30 Sodium 144 Potassium 3.9 Chloride 114 H Carbon Dioxide 23 Anion Gap 7 L BUN 12 Creatinine 1.0 Creat Clearance w eGFR 58.69 Random Glucose 84 Calcium 8.7 Total Bilirubin 0.2 AST 18 ALT 27 Alkaline Phosphatase 82 Creatine Kinase 252 H Creatine Kinase Index 1.3 CK-MB (CK-2) 3.3 Troponin I < 0.02 Total Protein 7.1 Albumin 3.6 Urine Color Yellow Urine Appearance Slcloudy Urine pH 5.0 Ur Specific Helm 1.021 Urine Protein 1+ H Urine Glucose (UA) Negative Urine Ketones Negative Urine Blood Negative Urine Nitrite Negative Urine Bilirubin Negative Urine Urobilinogen Negative Ur Leukocyte Esterase Negative 08/11/18 10:30 RBC 4.78 MCV 81.5 MCHC 34.7 RDW 14.8 MPV 8.8 Neutrophils % 48.5 D Lymphocytes % 40.4 H Monocytes % 6.0 Eosinophils % 4.1 Basophils % 1.0 - Medications Given in the ED: ED Medications Discontinued Medications Generic Name Dose Route Start Last Admin Trade Name Freq PRN Reason Stop Dose Admin Lorazepam 1 mg 08/11/18 10:19 08/11/18 10:29 Ativan Injection - IVPUSH 08/11/18 10:20 1 mg ONCE ONE Administration <Lynne Tomas - Last Filed: 08/11/18 13:05> - LABORATORY CBC & Chemistry Diagram: 08/11/18 10:30 08/11/18 10:30 <Elisa Caldwell - Last Filed: 08/11/18 13:13> - LABORATORY CBC & Chemistry Diagram: 08/11/18 10:30 08/11/18 10:30 - ADDITIONAL ORDERS Additional order review: 08/11/18 12:30 Urine Culture - Final Urine - Urine Clean Catch 08/11/18 10:30 RBC 4.78 MCV 81.5 MCHC 34.7 RDW 14.8 MPV 8.8 Neutrophils % 48.5 D Lymphocytes % 40.4 H Monocytes % 6.0 Eosinophils % 4.1 Basophils % 1.0 - Medications Given in the ED: ED Medications Discontinued Medications Generic Name Dose Route Start Last Admin Trade Name Freq PRN Reason Stop Dose Admin Ketorolac Tromethamine 30 mg 08/11/18 13:27 08/11/18 13:38 Toradol Injection - IVPUSH 08/11/18 13:28 30 mg ONCE ONE Administration Lorazepam 1 mg 08/11/18 10:19 08/11/18 10:29 Ativan Injection - IVPUSH 08/11/18 10:20 1 mg ONCE ONE Administration <Primo Araujo - Last Filed: 08/18/18 07:21> Medical Decision Making - Medical Decision Making 08/11/18 13:05 Dr. Sutton was paged and notified via phone service. <Lynne Tomas - Last Filed: 08/11/18 13:05> - Medical Decision Making 08/11/18 11:00 Patient with history of seizures/pseudoseizures followed by Dr. Sutton, currently on Topamax Klonopin and Xanax. Keppra stopped 2 months ago by [facility] ED provider. Patient upon exam alert oriented and coherent without complaints except for generalized headache. Patient with one witnessed upper body tremulous activity with lip twitching lasting approximately 1 minute and self resolved without postictal symptoms. Patient currently on monitor. Patient ordered for labs, urine, EKG along with 1 mg of Ativan IV push. 08/11/18 13:13 Laboratory Tests 08/11/18 08/11/18 08/11/18 10:30 10:30 12:30 WBC 7.2 Hgb 13.5 Hct 38.9 Plt Count 231 Neutrophils % 48.5 D Lymphocytes % 40.4 H Sodium 144 Potassium 3.9 Chloride 114 H Carbon Dioxide 23 Anion Gap 7 L BUN 12 Creatinine 1.0 Random Glucose 84 Creatine Kinase 252 H Troponin I < 0.02 Urine Protein 1+ H Urine Nitrite Negative Urine Urobilinogen Negative Urine WBC (Auto) Pending Urine RBC (Auto) Pending Patient maintain symptomatic. Patient is ambulatory in the emergency room. Patient ate a lunch tray. Case discussed patient's neurologist Dr. Phillips, who states patient was recently admitted to [facility] epilepsy unit and was found to have no diagnosed with pseudoseizures. Patient's seizure activity produced no electric activity, consistent with seizure disorder. He states patient is currently on Topamax for weight loss and headache and not for seizure <Elisa Caldwell - Last Filed: 08/11/18 13:13> - Medical Decision Making The patient was seen and evaluated in conjunction with BARON Caldwell under my direct supervision, ancillary studies were reviewed. I independently interviewed and evaluated the patient and I agree with the plan as outlined by BARON Caldwell. <Primo Araujo - Last Filed: 08/18/18 07:21> *DC/Admit/Observation/Transfer <Lynne Tomas - Last Filed: 08/11/18 13:05> <Elisa Caldwell - Last Filed: 08/11/18 13:13> <Primo Araujo - Last Filed: 08/18/18 07:21> Diagnosis at time of Disposition: Pseudoseizures - Discharge Dispostion Disposition: HOME Condition at time of disposition: Good - Referrals Referrals: Bailey Ahn MD [Primary Care Provider] - - Patient Instructions Printed Discharge Instructions: How to Prevent Falls Additional Instructions: Please continue to provide a safe environment for yourself and take medication as prescribed by your neurologist and primary care doctor.
[2018-08-11 10:44] LABS: EOS % 4.1 % (0-4.5); HEMATOCRIT 38.9 % (32.4-45.2); HEMOGLOBIN 13.5 GM/dL (10.7-15.3); LYMPH % 40.4 % (8-40); MCH 28.3 pg (25.7-33.7); MCHC 34.7 g/dl (32.0-36.0); MEAN CELL VOLUME 81.5 fl (80-96); MEAN PLT VOLUME 8.8 fl (7.5-11.1); NEUT % 48.5 % (42.8-82.8); PLATELET COUNT 231 K/MM3 (134-434); RBC 4.78 M/mm3 (3.60-5.2); RDW 14.8 % (11.6-15.6); WHITE BLOOD COUNT 7.2 K/mm3 (4.0-10.0)
[2018-08-11 11:12] LABS: ALBUMIN 3.6 g/dl (3.4-5.0); ALK PHOS 82 U/L (45-117); ANION GAP 7 MMOL/L (8-16); BILIRUBIN,TOTAL 0.2 mg/dL (0.2-1); BLOOD UREA NITROGEN 12 mg/dL (7-18); CALCIUM 8.7 mg/dL (8.5-10.1); CHLORIDE 114 mmol/L (98-107); CO2 23 mmol/L (21-32); GLUCOSE,RANDOM 84 mg/dL (74-106); POTASSIUM 3.9 mmol/L (3.5-5.1); SGOT/AST 18 U/L (15-37); SGPT/ALT 27 U/L (13-61); SODIUM 144 mmol/L (136-145); TOT PROT 7.1 g/dl (6.4-8.2)
[2018-08-11 12:45] LABS: URINE APPEARANCE SLCLOUDY; URINE BILIRUBIN NEGATIVE (<2.0 mg/dL); URINE COLOR YELLOW; URINE GLUCOSE (UA) NEGATIVE (NEGATIVE); URINE KETONE NEGATIVE (NEGATIVE); URINE LEUK ESTERASE NEGATIVE (NEGATIVE); URINE NITRITE NEGATIVE (NEGATIVE); URINE PROTEIN 1+ (NEGATIVE); URINE UROBILINOGEN NEGATIVE mg/dL (0.2-1.0)
[2018-08-11 13:07] LABS: EPI CELLS FEW /HPF (FEW); URINE HYALINE CAST 30 /lpf; URINE MUCUS MODERATE
[2018-08-11] MEDS ORDERED: KETOROLAC TROMETHAMINE 30 MG/1 ML VIAL IVPUSH ONE (13:27)
[2018-08-11] MEDS ORDERED: KETOROLAC TROMETHAMINE 30 MG/1 ML VIAL ONE (13:31)
--- NOTE | 2018-08-11 17:03 | EKG ---
Test Reason : Blood Pressure : / mmHG Vent. Rate : 086 BPM Atrial Rate : 086 BPM P-R Int : 166 ms QRS Dur : 070 ms QT Int : 362 ms P-R-T Axes : 059 005 038 degrees QTc Int : 433 ms NORMAL SINUS RHYTHM NORMAL ECG WHEN COMPARED WITH ECG OF 23-JUL-2018 15:07, NO SIGNIFICANT CHANGE WAS FOUND Confirmed by MD TEMITOPE, HANK ([id number]) on 08/11/2018 5:03:12 PM Referred By: Confirmed By:HANK LINN MD
== END 2018-08-11 13:38 | disposition home or self-care (01) ==
LOC: JER 09:37
PROC: 3E033NZ Introduction of Analgesics, Hypnotics, Sedatives into Peripheral Vein, Percutaneous Approach (ICD-10-PCS; principal; 2018-08-11)
PROC: 3E0333Z Introduction of Anti-inflammatory into Peripheral Vein, Percutaneous Approach (ICD-10-PCS; 2018-08-11)
DX: F44.5 Conversion disorder with seizures or convulsions (principal); I10 Essential (primary) hypertension; E78.00 Pure hypercholesterolemia, unspecified; R73.03 Prediabetes; F43.10 Post-traumatic stress disorder, unspecified; F41.9 Anxiety disorder, unspecified; J45.909 Unspecified asthma, uncomplicated
CPT/HCPCS: 36415; 80053; 81003; 81015; 82550; 82553; 84484; 85025; 87086; 93005; 93010; 96374; 96375; 99283-25

== ENCOUNTER 2018-10-08 14:12 | Emergency (ER) | payer OTHER ==
[2018-10-08 14:41] VITALS: TEMP 97.8; BMI 38.4
--- NOTE | 2018-10-08 15:42 | PDOC ---
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 Most recently at approximately @ 1415. The patient reports that she has been compliant with her antiepileptics ( topomax and klonopin). She states that she was at home earlier when a friend witnessed her seizure and stated that she had an approximate 5min postictal state where she stared off into the distance (which is her typical postictal state). Patient reports that increased stress and decreased sleep. She endorses both recently 2/2 family issues. Denies fevers/chills, recent illness, SIERRA, vision changes, chest pain, SOB, abdominal pain, N/V/C/D, dysuria, hematuria, changes in sensation 10/08/18 16:02 <Ed Pompa - Last Filed: 10/08/18 18:12> <Kirsten Goldsmith - Last Filed: 10/08/18 19:40> - General Chief Complaint: Seizure Stated Complaint: SEIZURE Past History - Past Medical History Anemia: No Asthma: Yes (Bronchial asthma) Cancer: No Cardiac Disorders: No CVA: No COPD: No CHF: No DVT: No Dementia: No Diabetes: Yes (prediabetes) GI Disorders: Yes (acid reflux, IBS) Disorders: No HTN: Yes Hypercholesterolemia: Yes Liver Disease: No Psychiatric Problems: (anxeity,PTSD) Seizures: Yes (pseudoseizures) Thyroid Disease: No - Surgical History Abdominal Surgery: No Appendectomy: No Cardiac Surgery: No Cholecystectomy: Yes Lung Surgery: No Neurologic Surgery: No Orthopedic Surgery: No - Immunization History Immunization Up to Date: Yes - Suicide/Smoking/Psychosocial Hx Smoking Status: Yes Smoking History: Current every day smoker Have you smoked in the past 12 months: Yes Number of Cigarettes Smoked Daily: 3 Information on smoking cessation initiated: No 'Breaking Loose' booklet given: 06/18/18 Hx Alcohol Use: No Drug/Substance Use Hx: Yes (marijuana) Substance Use Type: Marijuana Hx Substance Use Treatment: No <Ed Pompa - Last Filed: 10/08/18 18:12> <Kirsten Goldsmith - Last Filed: 10/08/18 19:40> - Past Medical History Allergies/Adverse Reactions: Allergies Allergy/AdvReac Type Severity Reaction Status Date / Time phenytoin sodium extended Allergy Verified 08/11/18 09:40 [From Dilantin] Home Medications: Ambulatory Orders Alprazolam [Xanax] 2 mg PO BID 06/18/18 Oxycodone HCl/Acetaminophen [Percocet 10-325 mg Tablet] 10 mg PO PRN PRN Gabapentin 600 mg PO HS 08/11/18 Topiramate [Topamax] 100 mg PO BID 08/11/18 Albuterol 0.083% Nebulizer Kathleen [Ventolin 0.083% Nebulizer Soln -] 1 amp NEB QID PRN #1 amp 10/08/18 Guaifenesin [Robitussin] 200 mg PO Q4H PRN #1 bottle 10/08/18 Review of Systems - Review of Systems Able to Perform ROS?: Yes Comments:: GENERAL/CONSTITUTIONAL: No fever or chills. No weakness HEAD, EYES, EARS, NOSE AND THROAT: No change in vision. No ear pain or discharge. No sore throat CARDIOVASCULAR: No chest pain or shortness of breath RESPIRATORY: Denies cough, hemoptysis GASTROINTESTINAL: No nausea, vomiting, diarrhea or constipation GENITOURINARY: No dysuria, frequency, or change in urination MUSCULOSKELETAL: No joint or muscle swelling or pain. No neck or back pain SKIN: No rash NEUROLOGIC: No headache, vertigo, or change in strength/sensation ENDOCRINE: No increased thirst. No abnormal weight change HEMATOLOGIC/LYMPHATIC: No anemia, easy bleeding, or history of blood clots ALLERGIC/IMMUNOLOGIC: No hives or skin allergy 10/08/18 15:41 Is the patient limited Sinhala proficient: No <Ed Pompa - Last Filed: 10/08/18 18:12> *Physical Exam - Vital Signs Last Vital Signs Temp Pulse Resp BP Pulse Ox 97.8 F 87 19 132/82 97 10/08/18 14:32 10/08/18 14:32 10/08/18 14:32 10/08/18 14:32 10/08/18 14:32 - Physical Exam Comments: GENERAL: Awake, alert, and fully oriented, in no acute distress HEAD: No signs of trauma, normocephalic, atraumatic EYES: PERRLA, EOMI, sclera anicteric, conjunctiva clear ENT: Hearing grossly normal, nares patent, oropharynx clear without exudates. Moist mucosa LUNGS: No distress, speaks full sentences, clear to auscultation bilaterally HEART: Regular rate and rhythm, normal S1 and S2, no murmurs appreciated, peripheral pulses normal and equal bilaterally ABDOMEN: Soft, nontender, normoactive bowel sounds. No guarding, no rebound EXTREMITIES : Normal inspection, Normal range of motion, no edema. No clubbing or cyanosis NEUROLOGICAL: Cranial nerves II through XII grossly intact. Normal speech, normal gait, no focal sensorimotor deficits SKIN: Warm, Dry, normal turgor, no rashes or lesions noted 10/08/18 15:42 <Ed Pompa - Last Filed: 10/08/18 18:12> - Vital Signs Last Vital Signs Temp Pulse Resp BP Pulse Ox 97.8 F 80 16 107/73 96 10/08/18 14:32 10/08/18 17:26 10/08/18 17:26 10/08/18 17:26 10/08/18 17:26 <Kirsten Goldsmith - Last Filed: 10/08/18 19:40> Moderate Sedation - Procedure Monitoring Vital Signs: Procedure Monitoring Vital Signs Temperature 97.8 F 10/08/18 14:32 Pulse Rate 87 10/08/18 14:32 Respiratory Rate 19 10/08/18 14:32 Blood Pressure 132/82 10/08/18 14:32 O2 Sat by Pulse Oximetry (%) 97 10/08/18 14:32 <Ed Pompa - Last Filed: 10/08/18 18:12> - Procedure Monitoring Vital Signs: Procedure Monitoring Vital Signs Temperature 97.8 F 10/08/18 14:32 Pulse Rate 80 10/08/18 17:26 Respiratory Rate 16 10/08/18 17:26 Blood Pressure 107/73 10/08/18 17:26 O2 Sat by Pulse Oximetry (%) 96 10/08/18 17:26 <Kirsten Goldsmith - Last Filed: 10/08/18 19:40> ED Treatment Course - LABORATORY CBC & Chemistry Diagram: 10/08/18 16:00 10/08/18 16:00 - Medications Given in the ED: ED Medications Discontinued Medications Generic Name Dose Route Start Last Admin Trade Name Freq PRN Reason Stop Dose Admin Lorazepam 2 mg 10/08/18 15:15 10/08/18 15:20 Ativan Injection - IVPUSH 10/08/18 15:16 2 mg ONCE ONE Administration <ShamarEd brandt - Last Filed: 10/08/18 18:12> - LABORATORY CBC & Chemistry Diagram: 10/08/18 16:00 10/08/18 16:00 - ADDITIONAL ORDERS Additional order review: Laboratory Results 10/08/18 10/08/18 16:00 16:00 Sodium 141 Potassium 3.2 L Chloride 106 Carbon Dioxide 23 Anion Gap 12 BUN 12 Creatinine 1.0 Creat Clearance w eGFR 58.69 Random Glucose 97 Lactic Acid 1.6 Calcium 8.7 Total Bilirubin 0.3 AST 21 ALT 29 Alkaline Phosphatase 80 Total Protein 7.0 Albumin 3.8 10/08/18 16:00 RBC 4.51 MCV 82.9 MCHC 35.4 RDW 14.4 MPV 9.1 - Medications Given in the ED: ED Medications Discontinued Medications Generic Name Dose Route Start Last Admin Trade Name Freq PRN Reason Stop Dose Admin Acetaminophen 1,000 mg 10/08/18 16:05 10/08/18 16:11 Ofirmev Injection - IVPB 10/08/18 16:06 1,000 mg ONCE ONE Administration Ketorolac Tromethamine 30 mg 10/08/18 16:16 10/08/18 16:23 Toradol Injection - IVPUSH 10/08/18 16:17 30 mg ONCE ONE Administration Lorazepam 2 mg 10/08/18 15:15 10/08/18 15:20 Ativan Injection - IVPUSH 10/08/18 15:16 2 mg ONCE ONE Administration Potassium Chloride 40 meq 10/08/18 17:00 10/08/18 17:53 K-Dur - PO 10/08/18 17:01 40 meq ONCE ONE Administration <Kirsten Goldsmith - Last Filed: 10/08/18 19:40> Medical Decision Making - Medical Decision Making The patient is a 48F w/ a history of seizure and pseudoseizure who presents for evaluation s/p seizure x1 yesterday and seizure x2 today, most recently approx 45min [employer] Patient w/ tonic-clonic seizure at time of presentation -Ativan 2mg IV once 10/08/18 16:18 No leukocytosis No anemia 10/08/18 16:38 Hypokalemia to 3.2 -Will replete w/ KCl 40mg PO once Otherwise lytes wnl No ELIZA No LFTs Rx for albuterol and Robitussin Plan for D/C w/ neurology f/u Discharge instructions and return precautions given Patient in agreement and verbalized understanding Toradol 30mg IV once for L knee pain Dispo: home 10/08/18 17:01 <Ed Pompa - Last Filed: 10/08/18 18:12> *DC/Admit/Observation/Transfer - Discharge Dispostion Decision to Admit order: No <Ed Pompa - Last Filed: 10/08/18 18:12> <Kirsten Goldsmith - Last Filed: 10/08/18 19:40> Diagnosis at time of Disposition: Seizure-like activity - Discharge Dispostion Disposition: HOME Condition at time of disposition: Improved - Prescriptions Prescriptions: Albuterol 0.083% Nebulizer Kathleen [Ventolin 0.083% Nebulizer Soln -] 1 amp NEB QID PRN #1 amp PRN Reason: Asthma Guaifenesin [Robitussin] 200 mg PO Q4H PRN #1 bottle PRN Reason: Cough - Referrals Referrals: Bailey Ahn MD [Primary Care Provider] - Nannette Sutton MD [Staff Physician] - - Patient Instructions Printed Discharge Instructions: DI for Seizure Disorder -- Adult Additional Instructions: You were seen in the Emergency Department today for seizure. You were given Ativan to treat your seizure. Please review the handout provided at discharge. A prescription for Albuterol and Robitussin was sent to the pharmacy that you specified. Follow up with your Neurologist. Take as directed. Return to the Emergency Department if you develop fever/chills, recurrent seizures, worsening symptoms, or any new/concerning symptoms. - Post Discharge Activity
--- NOTE | 2018-10-08 15:52 | PDOC ---
Attending Attestation - HPI HPI: 10/08/18 16:28 48 YOF with h/o seizure disorder (well known to [facility] ED for same), HTN, and HLD who was BIBEMS in seizure activity despite en route treatment with a total of 5 mg Versed IV push. The patient presents today s/p seizure activity. The patient reports that she usually usually takes klonopin and topamax for her symptoms. She also reports that her seizures are triggered by poor sleep and by family issues. <Jann Arevalo - Last Filed: 10/08/18 16:28> - Resident Resident Name: Ed Pompa - ED Attending Attestation I have performed the following: I have examined & evaluated the patient, The case was reviewed & discussed with the resident, I agree w/resident's findings & plan - Physicial Exam PE: 10/08/18 15:53 +seizure activity. PERRL, EOMI, downgazing, nl conjunctiva, anicteric; neck supple. lungs clear, RRR, abdomen soft nontender. ARECHIGA x4, generalized tonic clonic activity. No peripheral edema. normal color for ethnicity, WWP. - Medical Decision Making 10/08/18 15:54 See HPI for details Vital signs reviewed, wnl. Prior notes reviewed, including admissions, discharges and consultations. laboratory results and imaging reviewed, basic labs and lytes wnl, notable for mild hypokalemia 3.2, repleted lactic_normal, reassuring and less likely seizure EKG normal sinus rhythm, no interval abnormalities, narrow QRS, ST and T wave segments and morphology normal. Nonspecific T wave abnormalities ED course: had witnessed gen tonic clonic activity, placed on O2 and monitor, IV ativan 2mg x1, with improvement. on reassessment, back to baseline, mentating , ambulatory, no deficits. no indication for CT imaging at this time. also no known trauma/or falls from incident, with known history of sz managed on meds. known precipitating factors such as stress, which she has "family issues" and not elaborating further stress reduction, compliance with medications, adequate sleep and hydration/ intake. Dispo: I discussed the physical exam findings, ancillary test results and final diagnoses with the patient. I answered all of the patient's questions. The patient was satisfied with the care received and felt comfortable with the discharge plan and treatment plan. The patient will return to the Emergency Department with any new, persistent or worsening symptoms. Dr Lesley vences, neurology for sz management 10/08/18 17:31 10/08/18 17:34 <Kirsten Goldsmith - Last Filed: 10/08/18 17:35> Heart Score/ECG Review - ECG Impressions Normal ECG: Yes Comment:: 10/08/18 17:34 EKG normal sinus rhythm, no interval abnormalities, narrow QRS, ST and T wave segments and morphology normal. Nonspecific T wave abnormalities <Kirsten Goldsmith - Last Filed: 10/08/18 17:35>
[2018-10-08] MEDS ORDERED: ACETAMINOPHEN 1000 MG/100 ML VIAL (NON FORMULARY) IVPB ONE (16:05)
[2018-10-08] MEDS ORDERED: ACETAMINOPHEN INJECTION 100 ML IVPB ONE (16:12)
[2018-10-08] MEDS ORDERED: KETOROLAC TROMETHAMINE 30 MG/1 ML VIAL IVPUSH ONE ×2 (16:16→18:12)
[2018-10-08] MEDS ORDERED: KETOROLAC TROMETHAMINE 30 MG/1 ML VIAL ONE ×2 (16:20→18:12)
[2018-10-08 16:30] LABS: HEMATOCRIT 37.4 % (32.4-45.2); HEMOGLOBIN 13.2 GM/dL (10.7-15.3); MCH 29.4 pg (25.7-33.7); MCHC 35.4 g/dl (32.0-36.0); MEAN CELL VOLUME 82.9 fl (80-96); MEAN PLT VOLUME 9.1 fl (7.5-11.1); PLATELET COUNT 230 K/MM3 (134-434); RBC 4.51 M/mm3 (3.60-5.2); RDW 14.4 % (11.6-15.6); WHITE BLOOD COUNT 10.7 K/mm3 (4.0-10.0)
[2018-10-08 16:54] LABS: ALBUMIN 3.8 g/dl (3.4-5.0); ALK PHOS 80 U/L (45-117); ANION GAP 12 MMOL/L (8-16); BILIRUBIN,TOTAL 0.3 mg/dL (0.2-1); BLOOD UREA NITROGEN 12 mg/dL (7-18); CALCIUM 8.7 mg/dL (8.5-10.1); CHLORIDE 106 mmol/L (98-107); CO2 23 mmol/L (21-32); GLUCOSE,RANDOM 97 mg/dL (74-106); POTASSIUM 3.2 mmol/L (3.5-5.1); SGOT/AST 21 U/L (15-37); SGPT/ALT 29 U/L (13-61); SODIUM 141 mmol/L (136-145)
[2018-10-08] MEDS ORDERED: POTASSIUM CHLORIDE TABS 20 MEQ TABLET.ER (FP) PO ONE ×2 (17:00→17:46)
[2018-10-08 17:27] VITALS: BP 107/73; PULSE 80
--- NOTE | 2018-10-09 10:19 | EKG ---
Test Reason : Blood Pressure : / mmHG Vent. Rate : 079 BPM Atrial Rate : 079 BPM P-R Int : 170 ms QRS Dur : 090 ms QT Int : 402 ms P-R-T Axes : 048 031 064 degrees QTc Int : 460 ms NORMAL SINUS RHYTHM NORMAL ECG WHEN COMPARED WITH ECG OF 11-AUG-2018 10:32, NO SIGNIFICANT CHANGE WAS FOUND Confirmed by SHEA SHERIFF MD ([id number]) on 10/09/2018 10:19:25 AM Referred By: Confirmed By:SHEA SHERIFF MD
== END 2018-10-08 18:28 | disposition home or self-care (01) ==
LOC: JER 14:12
PROC: 3E033NZ Introduction of Analgesics, Hypnotics, Sedatives into Peripheral Vein, Percutaneous Approach (ICD-10-PCS; principal; 2018-10-08)
PROC: 3E0333Z Introduction of Anti-inflammatory into Peripheral Vein, Percutaneous Approach (ICD-10-PCS; 2018-10-08)
DX: G40.89 Other seizures (principal); R73.03 Prediabetes; E78.00 Pure hypercholesterolemia, unspecified; F41.9 Anxiety disorder, unspecified; K58.9 Irritable bowel syndrome, unspecified; J45.909 Unspecified asthma, uncomplicated
CPT/HCPCS: 36415; 80053; 83605; 85027; 93005; 93010; 96374; 96375; 99282-25; J0131

== ENCOUNTER 2018-11-26 15:46 | Emergency (ER) | payer OTHER ==
[2018-11-26 15:52] VITALS: BP 149/100; PULSE 87; TEMP 98.5; BMI 38.9
[2018-11-26] MEDS ORDERED: ALBUTEROL SO4 2.5/IPRATROPIUM 0.5 INH SOL 3 ML VIAL.NEB. NEB ONE ×4 (15:53→17:37)
--- NOTE | 2018-11-26 15:53 | PDOC ---
Rapid Medical Evaluation Chief Complaint: Respiratory Medical Evaluation: Allergies Allergy/AdvReac Type Severity Reaction Status Date / Time phenytoin sodium extended Allergy Verified 08/11/18 09:40 [From Dilantin] 11/26/18 15:48 I have performed a brief in-person evaluation of this patient. The patient presents with a chief complaint of: sent from PMD today for R/O pneumonia, cough fevers/ Pertinent physical exam findings: cough moist severe - loud insp and exp grunts. / tachypnea. I have ordered the following: UA/ UCG, CXR , DUoNeb , Influenza test The patient will proceed to the ED for further evaluation. 11/26/18 15:49 Discharge Disposition - Diagnosis Cough - Discharge Dispostion Condition at time of disposition: Stable - Referrals - Patient Instructions - Post Discharge Activity
[2018-11-26 16:21] LABS: BASO % 0.9 % (0-2.0); EOS % 4.6 % (0-4.5); HEMATOCRIT 37.7 % (32.4-45.2); HEMOGLOBIN 13.1 GM/dL (10.7-15.3); LYMPH % 41.6 % (8-40); MCH 29.4 pg (25.7-33.7); MCHC 34.7 g/dl (32.0-36.0); MEAN CELL VOLUME 84.8 fl (80-96); MEAN PLT VOLUME 8.5 fl (7.5-11.1); MONO % 5.5 % (3.8-10.2); NEUT % 47.4 % (42.8-82.8); PLATELET COUNT 207 K/MM3 (134-434); RBC 4.44 M/mm3 (3.60-5.2); RDW 14.2 % (11.6-15.6); WHITE BLOOD COUNT 5.9 K/mm3 (4.0-10.0)
--- NOTE | 2018-11-26 16:29 | PDOC ---
Attending Attestation - HPI HPI: 11/26/18 17:20 The patient is a 48 year old female with a significant PMH of seizures, HTN, HLD , arthritis, and fibromyalgia who presents to the emergency department with cough, wheezing, shortness of breath, and nasal congestion for the past several days. Patient states she is having difficulty breathing secondary to her cough productive of white sputum. Patient has also noticed lower left back pain, which is exacerbated with coughing. The patient denies chest pain, headache and dizziness. Denies fever, chills, nausea, vomit, diarrhea and constipation. Denies dysuria, frequency, urgency and hematuria. Allergies: NKA Past surgical history: None reported. Social history: No reported alcohol, drug or cigarette use. - Physicial Exam PE: 11/26/18 17:39 ADULT PHYSICAL EXAM Constitutional: Awake, alert, oriented. (+) Uncomfortable appearing. ENT: Mucous membranes are moist and intact. Posterior pharynx without exudates or erythema. Uvula midline. Cardiovascular: Regular rate. Regular rhythm. S1, S2 regular. Distal pulses are 2+ and symmetric. Pulmonary/Chest: (+) Tachypneic. (+) Wheezing bilaterally. (+) Conversational dyspnea. (+) Short of breath. No rales or rhonchi. Abdominal: Soft and non-distended. There is no tenderness. No rebound, guarding or rigidity. No organomegaly. No palpable masses. Good bowel sounds. Back: No CVA tenderness. (+) Left paraspinal tenderness when coughing. Musculoskeletal: No edema. No cyanosis. No clubbing. Full range of motion in all extremities. No calf tenderness. Radial/pedal pulses are intact and 2+ bilaterally Skin: Skin is warm and dry. No petechiae. No purpura. Neurological: Alert and oriented to person, place, and time. Cranial nerves II -XII are grossly intact. Psychiatric: Good eye contact. Normal interaction, affect and behavior. <Jewell Fox - Last Filed: 11/26/18 17:20> - Resident Resident Name: Jann Varghese - ED Attending Attestation I have performed the following: I have examined & evaluated the patient, The case was reviewed & discussed with the resident, I agree w/resident's findings & plan, Exceptions are as noted - Medical Decision Making 11/26/18 16:28 I, Dr. Hattie Vazquez, DO, attest that this document has been prepared under my direction and personally reviewed by me in its entirety. I further attest, that it accurately reflects all work, treatment, procedures and medical decision -making performed by me. 11/26/18 18:21 a/p: 48yo female with seizure hx presents for cough/sob/wheezing and pleuritic cp -suspect flu vs viral syndrome vs bronchitis vs pneumonia with RAD -will send labs, flu, cxr -toradol for pain -leg pain, will send for ultrasound -will give nebs, steroids, po hydration -will monitor and reassess 11/26/18 18:30 pt with pseudoseizure activity -no postictal state -will continue to monitor -per signif other at the bedside, shaking was not typical for her seizure disorder 11/26/18 20:47 LE doppler negative cxr clear pt ambulatory with a steady gait breathing improved 11/26/18 22:03 pt feeling better rx sent stable for dc to home <Hattie Vazquez - Last Filed: 11/26/18 22:04> Heart Score/ECG Review - ECG Intrepretation Comment:: 11/26/18 18:34 sinus at 81, nl axis, nl interval, baseline artifact, t wave flattening inferior leads, no acute st changes <Hattie Vazquez - Last Filed: 11/26/18 22:04>
[2018-11-26 16:47] LABS: ALBUMIN 3.6 g/dl (3.4-5.0); ALK PHOS 68 U/L (45-117); ANION GAP 4 MMOL/L (8-16); BILIRUBIN,TOTAL 0.3 mg/dL (0.2-1); BLOOD UREA NITROGEN 8 mg/dL (7-18); CALCIUM 8.3 mg/dL (8.5-10.1); CHLORIDE 112 mmol/L (98-107); CO2 27 mmol/L (21-32); GLUCOSE,RANDOM 93 mg/dL (74-106); POTASSIUM 3.9 mmol/L (3.5-5.1); SGOT/AST 17 U/L (15-37); SGPT/ALT 24 U/L (13-61); SODIUM 143 mmol/L (136-145); TOT PROT 6.7 g/dl (6.4-8.2)
[2018-11-26] MEDS ORDERED: KETOROLAC TROMETHAMINE 15 MG/ML VIAL IVPUSH ONE (17:09)
[2018-11-26] MEDS ORDERED: SODIUM CHLORIDE 0.9% 1000 ML INFUS.BAG IV ONE (17:09)
[2018-11-26] MEDS ORDERED: ONDANSETRON 4 MG/2 ML VIAL IVPUSH ONE (17:10)
[2018-11-26] MEDS ORDERED: KETOROLAC TROMETHAMINE 15 MG/ML VIAL ONE (17:19)
[2018-11-26] MEDS ORDERED: ONDANSETRON 4 MG/2 ML VIAL ONE (17:20)
[2018-11-26] MEDS ORDERED: methylPREDNISolone NA SUCC 125 MG/2 ML VIAL IVPB ONE (17:36)
[2018-11-26] MEDS ORDERED: methylPREDNISolone NA SUCC 125 MG/2 ML VIAL ONE (17:38)
--- NOTE | 2018-11-26 17:38 | PDOC ---
History of Present Illness - General Chief Complaint: Respiratory Stated Complaint: SENT BY PCP Time Seen by Provider: 11/26/18 16:18 - History of Present Illness Initial Comments: Patient is a 48 y/o F w/ PMHx Sz disorder, HTN, HLD, arthritis, fibromyalgia, chronic back pain, p/w 3-4 days cough productive of white sputum, pleuritic pain , congestion, wheezing, SOB, malaise, generalized aches, left-sided back pain. Additionally has had intermittent nausea and vomiting and does endorse CP, however on questioning this seems to be pleuritic pain. Sent to ED by PMD Dr. Ahn for PNA w/u. On presentation is tachypneic, vitals otherwise stable. Basic labs obtained prior to encounter, no leukocytosis, chemistry normal, negative flu swab. 11/26/18 17:32 Past History - Travel Traveled outside of the country in the last 30 days: No Close contact w/someone who was outside of country & ill: No - Past Medical History Allergies/Adverse Reactions: Allergies Allergy/AdvReac Type Severity Reaction Status Date / Time phenytoin sodium extended Allergy Verified 11/26/18 18:10 [From Dilantin] Home Medications: Ambulatory Orders Alprazolam [Xanax] 2 mg PO BID 06/18/18 Gabapentin 600 mg PO HS 08/11/18 Topiramate [Topamax] 100 mg PO BID 08/11/18 Albuterol 0.083% Nebulizer Kathleen [Ventolin 0.083% Nebulizer Soln -] 1 amp NEB QID PRN #1 amp 10/08/18 Albuterol Sulfate Inhaler - [Ventolin HFA Inhaler -] 1 - 2 inh PO QID PRN #1 inhaler 11/26/18 Albuterol Sulfate Inhaler - [Ventolin HFA Inhaler -] 1 puff IH TID #1 inhaler Benzonatate [Tessalon Pearls -] 100 mg PO TID #21 capsule 11/26/18 Benzonatate [Tessalon Pearls -] 100 mg PO TID PRN #15 capsule 11/26/18 Fluticasone Furoate [Flonase Sensimist] 5.9 ml NS DAILY PRN #1 spray.susp Fluticasone Prop 0.05% Nasal [Flonase -] 1 - 2 spray NS DAILY #1 spray.pump Inhaler, Assist Devices [Space Chamber Plus] 1 each MC DAILY #1 spacer 11/26/18 Inhaler, Assist Devices [Space Chamber Plus] 1 each MC QID #1 spacer 11/26/18 Prednisone [Deltasone] 40 mg PO DAILY #8 tablet 11/26/18 predniSONE [Deltasone -] 40 mg PO DAILY #4 tablet 11/26/18 Anemia: No Asthma: Yes (Bronchial asthma) Cancer: No Cardiac Disorders: No CVA: No COPD: No CHF: No DVT: No Dementia: No Diabetes: Yes (prediabetes) GI Disorders: Yes (acid reflux, IBS) Disorders: No HTN: Yes Hypercholesterolemia: Yes Liver Disease: No Psychiatric Problems: (anxeity,PTSD) Seizures: Yes (pseudoseizures) Thyroid Disease: No - Surgical History Abdominal Surgery: No Appendectomy: No Cardiac Surgery: No Cholecystectomy: Yes Lung Surgery: No Neurologic Surgery: No Orthopedic Surgery: No - Immunization History Immunization Up to Date: Yes - Suicide/Smoking/Psychosocial Hx Smoking Status: Yes Smoking History: Current every day smoker Have you smoked in the past 12 months: Yes Number of Cigarettes Smoked Daily: 3 Information on smoking cessation initiated: No 'Breaking Loose' booklet given: 06/18/18 Hx Alcohol Use: No Drug/Substance Use Hx: Yes (marijuana) Substance Use Type: Marijuana Hx Substance Use Treatment: No Review of Systems - Review of Systems Comments:: As per HPI 11/26/18 17:39 *Physical Exam - Vital Signs Last Vital Signs Temp Pulse Resp BP Pulse Ox 98.5 F 87 24 H 149/100 99 11/26/18 15:49 11/26/18 15:49 11/26/18 15:49 11/26/18 15:49 11/26/18 15:49 - Physical Exam Comments: Gen: A&Ox3, very uncomfortable HEENT: NC/AT, PERRLA, EOMI, MMM Neck: Supple, no LAD, no JVD CV: RRR no m/r/g Resp: pronounced diffuse wheezing, basilar rhonchi, tachypneic Abd: +bs, soft, NT, ND Ext: 2+ pulses, wwp, no edema, +L popliteal tenderness MSK: no focal spinal tenderness, +left-sided paraspinal tenderness, no CVA tenderness 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, 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, 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 w/o focal deficit Psych: normal mood, normal affect Skin: warm, dry, normal turgor 11/26/18 17:39 Moderate Sedation - Procedure Monitoring Vital Signs: Procedure Monitoring Vital Signs Temperature 98.5 F 11/26/18 15:49 Pulse Rate 87 11/26/18 15:49 Respiratory Rate 24 H 11/26/18 15:49 Blood Pressure 149/100 11/26/18 15:49 O2 Sat by Pulse Oximetry (%) 99 11/26/18 15:49 ED Treatment Course - LABORATORY CBC & Chemistry Diagram: 11/26/18 16:12 11/26/18 16:12 - ADDITIONAL ORDERS Additional order review: Laboratory Results 11/26/18 16:12 Sodium 143 Potassium 3.9 Chloride 112 H Carbon Dioxide 27 Anion Gap 4 L BUN 8 Creatinine 1.0 Creat Clearance w eGFR 58.69 Random Glucose 93 Calcium 8.3 L Total Bilirubin 0.3 AST 17 ALT 24 Alkaline Phosphatase 68 Total Protein 6.7 Albumin 3.6 11/26/18 16:12 RBC 4.44 MCV 84.8 MCHC 34.7 RDW 14.2 MPV 8.5 Neutrophils % 47.4 Lymphocytes % 41.6 H Monocytes % 5.5 Eosinophils % 4.6 H Basophils % 0.9 - Medications Given in the ED: ED Medications Discontinued Medications Generic Name Dose Route Start Last Admin Trade Name Freq PRN Reason Stop Dose Admin Albuterol/Ipratropium 1 amp 11/26/18 15:53 11/26/18 15:57 Duoneb - NEB 11/26/18 15:54 1 amp ONCE ONE Administration Medical Decision Making - Medical Decision Making Treated w/ duoneb during RME. Giving IV ketorolac, IV Zofran, IV fluid. CBC/CMP normal, flu swab negative, adding on BNP and cardiac profile, obtaining EKG. Awaiting CXR. Ordering duplex US for r/o DVT. 11/26/18 17:52 As documented in progress note, patient underwent non-seizure shaking episode that self-resolved. Giving second dose duoneb, IV solumedrol. 11/26/18 17:56 Troponin and BNP negative. 11/26/18 18:25 EKG showing NSR w/ non-specific t-wave abnormality. 11/26/18 18:37 CXR not officially read, appears clear. 11/26/18 20:04 LE duplex negative. Pt's breathing improved, still in pain. Gave Oxy 10. 11/26/18 20:31 UA negative. Pt will be discharged w/ Rx for prednisone, albuterol w/ spacer, flonase, tessalon perle, instructed to use home percocet prescription for pain control. 11/26/18 22:04 *DC/Admit/Observation/Transfer Diagnosis at time of Disposition: Acute viral syndrome - Discharge Dispostion Disposition: HOME Condition at time of disposition: Stable - Prescriptions Prescriptions: Albuterol Sulfate Inhaler - [Ventolin HFA Inhaler -] 1 - 2 inh PO QID PRN #1 inhaler PRN Reason: Wheezing Albuterol Sulfate Inhaler - [Ventolin HFA Inhaler -] 1 puff IH TID #1 inhaler Benzonatate [Tessalon Pearls -] 100 mg PO TID PRN #15 capsule PRN Reason: Cough Benzonatate [Tessalon Pearls -] 100 mg PO TID #21 capsule Fluticasone Furoate [Flonase Sensimist] 5.9 ml NS DAILY PRN #1 spray.susp PRN Reason: Asthma Fluticasone Prop 0.05% Nasal [Flonase -] 1 - 2 spray NS DAILY #1 spray.pump Inhaler, Assist Devices [Space Chamber Plus] 1 each MC DAILY #1 spacer Inhaler, Assist Devices [Space Chamber Plus] 1 each MC QID #1 spacer Prednisone [Deltasone] 40 mg PO DAILY #8 tablet predniSONE [Deltasone -] 40 mg PO DAILY #4 tablet - Referrals Referrals: Bailey Ahn MD [Staff Physician] - - Patient Instructions Printed Discharge Instructions: DI for Acute Bronchitis Additional Instructions: You presented with a viral respiratory infection causing airway reaction. You were stabilized in the ED. All labs and imaging studies were benign. Medications to help in keeping your airway open and manage cough and congestion were sent to your pharmacy. You may use your home pain prescription to manage pain. Please follow up with Dr. Anh within one week of discharge. If you experience worsening shortness of breath, develop respiratory distress, experience chest pain, seizure, focal weakness or changes in sensation, or any other new or concerning symptoms, please return to the ED immediately. - Post Discharge Activity
[2018-11-26] MEDS ORDERED: LORazepam 2 MG/ML SDV VIAL ONE (17:41)
[2018-11-26 17:53] LABS: N-TERMINAL BNP 119.1 pg/ml (5-125)
[2018-11-26] MEDS ORDERED: ACETAMINOPHEN 325 MG TABLET (FP) PO ONE (20:05)
[2018-11-26] MEDS ORDERED: ACETAMINOPHEN 325 MG TABLET (FP) ONE (20:13)
[2018-11-26] MEDS ORDERED: oxyCODONE HCL 5 MG TABLET PO ONE (20:19)
[2018-11-26] MEDS ORDERED: oxyCODONE HCL 5 MG TABLET ONE (20:23)
[2018-11-26 22:02] LABS: URINE APPEARANCE SLCLOUDY; URINE BILIRUBIN NEGATIVE (<2.0 mg/dL); URINE COLOR YELLOW; URINE GLUCOSE (UA) NEGATIVE (NEGATIVE); URINE KETONE NEGATIVE (NEGATIVE); URINE LEUK ESTERASE NEGATIVE (NEGATIVE); URINE NITRITE NEGATIVE (NEGATIVE); URINE PROTEIN NEGATIVE (NEGATIVE)
--- NOTE | 2018-11-27 11:57 | EKG ---
Test Reason : Blood Pressure : / mmHG Vent. Rate : 081 BPM Atrial Rate : 081 BPM P-R Int : 182 ms QRS Dur : 072 ms QT Int : 388 ms P-R-T Axes : 047 023 009 degrees QTc Int : 450 ms POOR DATA QUALITY, INTERPRETATION MAY BE ADVERSELY AFFECTED NORMAL SINUS RHYTHM NONSPECIFIC T WAVE ABNORMALITY ABNORMAL ECG WHEN COMPARED WITH ECG OF 08-OCT-2018 16:25, NONSPECIFIC T WAVE ABNORMALITY NOW EVIDENT IN INFERIOR LEADS Confirmed by SHARITA MCINTOSH, SHEA ([id number]) on 11/27/2018 11:57:01 AM Referred By: Confirmed By:SHEA SHERIFF MD
== END 2018-11-26 22:30 | disposition home or self-care (01) ==
LOC: JER 15:46
PROC: 3E0F7GC Introduction of Other Therapeutic Substance into Respiratory Tract, Via Natural or Artificial Opening (ICD-10-PCS; principal; 2018-11-26)
PROC: 3E0333Z Introduction of Anti-inflammatory into Peripheral Vein, Percutaneous Approach (ICD-10-PCS; 2018-11-26)
PROC: 3E033GC Introduction of Other Therapeutic Substance into Peripheral Vein, Percutaneous Approach (ICD-10-PCS; 2018-11-26)
DX: B34.9 Viral infection, unspecified (principal); F17.210 Nicotine dependence, cigarettes, uncomplicated; F41.9 Anxiety disorder, unspecified; F43.10 Post-traumatic stress disorder, unspecified; J45.909 Unspecified asthma, uncomplicated; R73.03 Prediabetes; E78.00 Pure hypercholesterolemia, unspecified
CPT/HCPCS: 36415; 71046-TC-FY; 80053; 81003; 82550; 82553; 83880; 84484; 85025; 87804; 93005; 93010; 93970-TC; 99285-25

== ENCOUNTER 2019-03-27 19:00 | Emergency (ER) | payer OTHER ==
[2019-03-27 19:13] VITALS: BMI 35.2
--- NOTE | 2019-03-27 19:22 | PDOC ---
History of Present Illness - General Chief Complaint: Seizure Stated Complaint: EPILEPSY Time Seen by Provider: 03/27/19 19:22 History Source: Patient Exam Limitations: No Limitations - History of Present Illness Initial Comments: 03/27/19 20:00 48 yo F with pmhx of siezure disorder presents s/p seizure acitivty today. She states she was at [facility] to board a plane for [employer] when she missed her flight. She subsequently became very stressed and experienced her typical seizure with facial twitching that generalized. She subsequently missed her second flight and experienced another typical siezure. She was then transported to [facility] and was evaluated there. They wanted to admit her but she had her brother come and pick her up and bring her to [facility] where she is well known. She spoke with Dr Carter partner of her neurologist Dr. Sutton who advised her to come to [facility] and be evaluated. While here in ER she had a witnessed seizure. She also mentions some ongoing chest pain. Pain is intermittent and pressure like in nature exacerbated by deep breath. No alleviating factors. No related to activity and resolves on its own. She is concerned because mother had quadruple bypass surgery. Denies Fever, chills, nausea, or vomiting. Timing/Duration: 4-6 hours Severity: moderate Past History - Travel Traveled outside of the country in the last 30 days: No Close contact w/someone who was outside of country & ill: No - Past Medical History Allergies/Adverse Reactions: Allergies Allergy/AdvReac Type Severity Reaction Status Date / Time phenytoin sodium extended Allergy Verified 03/27/19 19:12 [From Dilantin] Home Medications: Ambulatory Orders Alprazolam [Xanax] 2 mg PO BID 06/18/18 Gabapentin 300 mg PO DAILY 08/11/18 Topiramate [Topamax] 100 mg PO BID 08/11/18 Albuterol 0.083% Nebulizer Kathleen [Ventolin 0.083% Nebulizer Soln -] 1 amp NEB QID PRN #1 amp 10/08/18 Albuterol Sulfate Inhaler - [Ventolin HFA Inhaler -] 1 - 2 inh PO QID PRN #1 inhaler 11/26/18 Albuterol Sulfate Inhaler - [Ventolin HFA Inhaler -] 1 puff IH TID #1 inhaler Fluticasone Furoate [Flonase Sensimist] 5.9 ml NS DAILY PRN #1 spray.susp Fluticasone Prop 0.05% Nasal [Flonase -] 1 - 2 spray NS DAILY #1 spray.pump Inhaler, Assist Devices [Space Chamber Plus] 1 each MC DAILY #1 spacer 11/26/18 Inhaler, Assist Devices [Space Chamber Plus] 1 each MC QID #1 spacer 11/26/18 Amlodipine Besylate [Norvasc -] 10 mg PO DAILY 03/27/19 Clonazepam 1 mg PO BID #2 tablet MDD 2 03/27/19 Hydrochlorothiazide 12.5 mg PO DAILY 03/27/19 Topiramate [Topamax] 100 mg PO BID #14 tab 03/27/19 Topiramate [Topamax] 100 mg PO BID #14 tab 03/27/19 Anemia: No Asthma: Yes (Bronchial asthma) Cancer: No Cardiac Disorders: No CVA: No COPD: No CHF: No DVT: No Dementia: No Diabetes: Yes (prediabetes) GI Disorders: Yes (acid reflux, IBS) Disorders: No HTN: Yes Hypercholesterolemia: Yes Liver Disease: No Psychiatric Problems: (anxeity,PTSD) Seizures: Yes (pseudoseizures) Thyroid Disease: No - Surgical History Abdominal Surgery: No Appendectomy: No Cardiac Surgery: No Cholecystectomy: Yes Lung Surgery: No Neurologic Surgery: No Orthopedic Surgery: No - Immunization History Immunization Up to Date: Yes - Suicide/Smoking/Psychosocial Hx Smoking Status: Yes Smoking History: Unknown if ever smoked Have you smoked in the past 12 months: No Number of Cigarettes Smoked Daily: 3 Information on smoking cessation initiated: No 'Breaking Loose' booklet given: 06/18/18 Hx Alcohol Use: No Drug/Substance Use Hx: No Substance Use Type: Marijuana Hx Substance Use Treatment: No Review of Systems - Review of Systems Able to Perform ROS?: Yes Is the patient limited [place] proficient: No Constitutional: No: Chills, Diaphoresis, Fever HEENTM: No: Recent change in vision Respiratory: No: Cough Cardiac (ROS): No: Chest Pain, Edema ABD/GI: No: Diarrhea, Nausea Neurological: Yes: Seizure Psychiatric: Yes: Anxiety, Frequent Crying, Stressors, Emotional Problems All Other Systems: Reviewed and Negative *Physical Exam - Vital Signs Last Vital Signs Temp Pulse Resp BP Pulse Ox 97.9 F 73 16 160/84 98 03/27/19 19:10 03/27/19 19:10 03/27/19 19:10 03/27/19 19:10 03/27/19 19:10 - Physical Exam General Appearance: Yes: Appropriately Dressed, Moderate Distress HEENT: positive: KADEN, Normal Voice Neck: positive: Trachea midline, Supple Respiratory/Chest: positive: Lungs Clear, Normal Breath Sounds. negative: Respiratory Distress, Accessory Muscle Use Cardiovascular: positive: Regular Rhythm, Regular Rate, S1, S2. negative: Edema , JVD, Murmur Gastrointestinal/Abdominal: positive: Normal Bowel Sounds, Soft Musculoskeletal: negative: CVA Tenderness Neurologic: positive: head butler II-XII NML intact, Fully Oriented, Alert. negative: Facial Droop, Numbness, Sensory Deficit ED Treatment Course - LABORATORY CBC & Chemistry Diagram: 03/27/19 20:40 03/27/19 20:40 Medical Decision Making - Medical Decision Making 03/27/19 20:08 48 yo F with pmhx of siezure disorder presents s/p seizure activity today. Witnessed seizure in ER. Given 2mg Ativan IV push. Basic labs ordered CBC and CMP as well as EKG and cardiac enzymes r/o ischemia. Will contact Dr. Carter for further recommendations. 03/27/19 20:[address] Carter he recommends loading her with Keppra, Give 100mg Topamax , and obtain a utox. * Give her 7 days of her medications for travel. 03/27/19 22:25 * EKG shows NSR with non specific t wave flattening. * first set of troponin (-) will repeat. * in terms of seizure she has been seizure free and feeling well. 03/27/19 23:46 * Second set of troponin negative. * Will discharge home with follow up with PCP and neurology. * Scripts will be sent to pharmacy to cover her for next few days as her medicine went with her luggage to [place]. *DC/Admit/Observation/Transfer Diagnosis at time of Disposition: Seizure - Discharge Dispostion Disposition: HOME Condition at time of disposition: Stable Decision to Admit order: No - Referrals Referrals: Brandon Ahn MD [Primary Care Provider] - - Patient Instructions Printed Discharge Instructions: DI for Seizure Disorder -- Adult Additional Instructions: You have been seen and treated for seizure. Prescription has been sent your pharmacy for 7 days of Topamax, Clonipin, and percocet. Please follow up with your neurologist in one week. Increase your activity as tolerated. Resume regular diet. If you experience worsening of condition or repeated seizure activity please return to ER immediately. - Post Discharge Activity
[2019-03-27] MEDS ORDERED: LORazepam 2 MG/ML SDV VIAL ONE (19:54)
[2019-03-27] MEDS ORDERED: TOPIRAMATE 100 MG TABLET PO SCH (20:13)
[2019-03-27] MEDS ORDERED: levETIRAcetam 500 MG/5 ML INJECTION VIAL IVPB ONE ×2 (20:16→20:36)
--- NOTE | 2019-03-27 20:36 | PDOC ---
Documentation entered by Purnima Johnston SCRIBE, acting as scribe for Ashlee Fong MD. Ashlee Fong MD: This documentation has been prepared by the codiibe, Purnima Johnston SCRIBE, under my direction and personally reviewed by me in its entirety. I confirm that the documentation accurately reflects all work, treatment, procedures, and medical decision making performed by me. Attending Attestation - Resident Resident Name: Andrea Bernardo - ED Attending Attestation I have performed the following: I have examined & evaluated the patient, The case was reviewed & discussed with the resident, I agree w/resident's findings & plan, Exceptions are as noted - HPI HPI: 03/27/19 20:12 The patient is a 48-year-old female with a past medical history significant for seizures/psychogenic seizures (on Topamax and clonazepam), HTN, HLD presents to the emergency department s/p a seizure episode. The patient reports she was scheduled to fly to [place] earlier today. The patient states she was late to the airport and missed her flight. The patient states she was stressed out from the incident that, she had an episode of seizure. The patient reports secondary to the seizure episode, she missed her second flight and reports she seized again. The patient reports her medications were in the luggage, which was sent on the flight. The patient reports about 30 minutes [employer] BUSINESS A[employer]LY[employer], she spoke with Dr. Carter, who referred the patient to the ER for further evaluation. The patient reports an additional complaint of intermittent chest pain. Denies shortness of breath. Denies fever, chills. Allergies: phenytoin sodium (Dilantin) Surgical history: Cholecystectomy PCP: Dr. Ahn Neurologist: Dr. Carter - Physicial Exam PE: 03/27/19 20:22 GENERAL: The patient is in no acute distress. ENT: Ears normal, nares patent, oropharynx clear without exudates. Moist mucous membranes. NECK: Normal range of motion, supple LUNGS: Breath sounds equal, clear to auscultation bilaterally. No wheezes, and no crackles. HEART:Regular rate and rhythm, normal S1 and S2 without murmur, rub or gallop. ABDOMEN: Soft, nontender, normoactive bowel sounds. EXTREMITIES: Normal range of motion, no edema. NEUROLOGICAL: Cranial nerves II through XII grossly intact. Normal speech. No focal neurological deficits. SKIN: Warm, Dry, normal turgor, no rashes or lesions noted. - Medical Decision Making 03/27/19 19:37 Ms Mckeon is a 48 yo F h/o seizures (on Topomax) HTN, HLD, and arthritis who presents to the ED s/p a witnessed seizure. Pt s/p VEEG at [facility] Pt was in her usual state of health, has been under a lot of stress recently Missed two flights to [place] today due to seizures No fevers or chills She currently follows with Dr. Sutton for her seizures Pt takes Topamax 03/27/19 20:23 Pt was being evaluated by Dr Bernarod and was noted to have a partial seizure Ativan 2mg IV ordered Case reviewed with Dr. Carter He recommended Keppra Load, topamax 100mg and writing prescriptions for 1 week ( pt meds are in her luggage in [place]) No need for CT now 03/27/19 21:11 Laboratory Tests 03/27/19 20:40 WBC 8.3 Hgb 13.1 Hct 39.1 Plt Count 195 03/27/19 21:39 Laboratory Tests 03/27/19 03/27/19 20:40 20:40 WBC 8.3 Hgb 13.1 Hct 39.1 Plt Count 195 Creatine Kinase 215 H Troponin I < 0.02 03/27/19 23:52 Laboratory Tests 03/27/19 22:50 Troponin I < 0.02 Will discharge to home Follow up with PMD Return to the Er for any other concerns or complaints *DC/Admit/Observation/Transfer Diagnosis at time of Disposition: Seizure - Discharge Dispostion Disposition: HOME Condition at time of disposition: Stable - Prescriptions Prescriptions: Clonazepam 1 mg PO BID #2 tablet MDD 2 Topiramate [Topamax] 100 mg PO BID #14 tab - Referrals Referrals: Brandon Ahn MD [Primary Care Provider] - - Patient Instructions Printed Discharge Instructions: DI for Seizure Disorder -- Adult Additional Instructions: You have been seen and treated for seizure. Prescription has been sent your pharmacy for 7 days of Topamax, Clonipin, and percocet. Please follow up with your neurologist in one week. Increase your activity as tolerated. Resume regular diet. If you experience worsening of condition or repeated seizure activity please return to ER immediately. - Post Discharge Activity Heart Score/ECG Review - History History: Slightly suspicious - Electrocardiogram EKG: Normal - Age Age: 45-65 - Risk Factors Risk Factors Heart Score: Yes Hx Hypercholesterolemia, Yes Hx Hypertension, Yes Positive family hx of cardiac disease, Yes Hx Obesity Based on the list above the patient has:: >/=3 risk factors or Hx atherosclerotic disease - Troponin Troponin: </= normal limit - Score Heart Score - Total: 3
[2019-03-27] MEDS ORDERED: TOPIRAMATE 25 MG TABLET (FP) ONE (20:39)
[2019-03-27] MEDS ORDERED: morphine CARPU-JECT 2 MG/1 ML DISP.SYRIN IVPUSH ONE (20:55)
[2019-03-27 20:56] LABS: BASO % 0.8 % (0-2.0); EOS % 4.2 % (0-4.5); HEMATOCRIT 39.1 % (32.4-45.2); HEMOGLOBIN 13.1 GM/dL (10.7-15.3); LYMPH % 52.1 % (8-40); MCH 28.1 pg (25.7-33.7); MCHC 33.4 g/dl (32.0-36.0); MEAN CELL VOLUME 84.4 fl (80-96); MEAN PLT VOLUME 8.7 fl (7.5-11.1); MONO % 4.9 % (3.8-10.2); PLATELET COUNT 195 K/MM3 (134-434); RBC 4.64 M/mm3 (3.60-5.2); RDW 13.8 % (11.6-15.6); WHITE BLOOD COUNT 8.3 K/mm3 (4.0-10.0)
[2019-03-27 21:13] LABS: ALBUMIN 3.7 g/dl (3.4-5.0); ALK PHOS 77 U/L (45-117); ANION GAP 7 MMOL/L (8-16); BILIRUBIN,TOTAL 0.2 mg/dL (0.2-1); BLOOD UREA NITROGEN 14 mg/dL (7-18); CALCIUM 8.9 mg/dL (8.5-10.1); CHLORIDE 112 mmol/L (98-107); CO2 24 mmol/L (21-32); CREATININE 0.8 mg/dL (0.55-1.3); GLUCOSE,RANDOM 82 mg/dL (74-106); POTASSIUM 3.7 mmol/L (3.5-5.1); SGOT/AST 12 U/L (15-37); SGPT/ALT 20 U/L (13-61); SODIUM 143 mmol/L (136-145); TOT PROT 6.6 g/dl (6.4-8.2)
[2019-03-27] MEDS ORDERED: MORPHINE SULFATE 2 MG/ML VIAL ONE (21:41)
[2019-03-28 00:22] VITALS: BP 137/91; PULSE 71; TEMP 97.9
--- NOTE | 2019-03-28 12:46 | EKG ---
Test Reason : Blood Pressure : / mmHG Vent. Rate : 064 BPM Atrial Rate : 064 BPM P-R Int : 178 ms QRS Dur : 084 ms QT Int : 424 ms P-R-T Axes : 027 012 085 degrees QTc Int : 437 ms NORMAL SINUS RHYTHM NONSPECIFIC T WAVE ABNORMALITY ABNORMAL ECG WHEN COMPARED WITH ECG OF 26-NOV-2018 18:14, NO SIGNIFICANT CHANGE WAS FOUND Confirmed by ANTONIO PHELAN MD ([id number]) on 03/28/2019 12:46:34 PM Referred By: Confirmed By:ANTONIO PHELAN MD
== END 2019-03-28 00:23 | disposition home or self-care (01) ==
LOC: JER 19:00
PROC: 3E033GC Introduction of Other Therapeutic Substance into Peripheral Vein, Percutaneous Approach (ICD-10-PCS; principal; 2019-03-27)
PROC: 3E033NZ Introduction of Analgesics, Hypnotics, Sedatives into Peripheral Vein, Percutaneous Approach (ICD-10-PCS; 2019-03-27)
PROC: 3E033NZ Introduction of Analgesics, Hypnotics, Sedatives into Peripheral Vein, Percutaneous Approach (ICD-10-PCS; 2019-03-27)
DX: G40.909 Epilepsy, unspecified, not intractable, without status epilepticus (principal); J45.909 Unspecified asthma, uncomplicated; I10 Essential (primary) hypertension; E78.00 Pure hypercholesterolemia, unspecified; R73.03 Prediabetes; F41.9 Anxiety disorder, unspecified; F43.10 Post-traumatic stress disorder, unspecified; Z87.19 Personal history of other diseases of the digestive system
CPT/HCPCS: 36415; 80053; 82550; 82553; 84484; 85025; 93005; 93010; 96374; 96375; 99283-25

== ENCOUNTER 2019-04-22 13:05 | Emergency (ER) | payer OTHER ==
--- NOTE | 2019-04-22 13:15 | PDOC ---
History of Present Illness - General Chief Complaint: Seizure Stated Complaint: SEIZURE - History of Present Illness Initial Comments: The pt is a 49F w/ a history of seizure d/o, pseudoseizures, and chronic back pain who presents for evaluation s/p seizure. She reports increased emotional stress and decreased PO intake over the last several days. She endorses lethargy and mid back pain/spam s/p seizure. She reports that the seizure was typical of her previous seizures. Denies bowel/bladder incontinence. She denies recent illness, fevers/chills, vision changes, chest pain, trouble breathing, dysuria, hematuria, N/V/C/D. Neurology: Dr. Sutton Pt takes Topamax and reports being compliant 04/22/19 14:10 Past History - Past Medical History Allergies/Adverse Reactions: Allergies Allergy/AdvReac Type Severity Reaction Status Date / Time phenytoin sodium extended Allergy Verified 04/22/19 13:26 [From Dilantin] Home Medications: Ambulatory Orders Alprazolam [Xanax] 2 mg PO BID 06/18/18 Gabapentin 300 mg PO DAILY 08/11/18 Albuterol 0.083% Nebulizer Kathleen [Ventolin 0.083% Nebulizer Soln -] 1 amp NEB QID PRN #1 amp 10/08/18 Albuterol Sulfate Inhaler - [Ventolin HFA Inhaler -] 1 - 2 inh PO QID PRN #1 inhaler 11/26/18 Albuterol Sulfate Inhaler - [Ventolin HFA Inhaler -] 1 puff IH TID #1 inhaler Fluticasone Furoate [Flonase Sensimist] 5.9 ml NS DAILY PRN #1 spray.susp Fluticasone Prop 0.05% Nasal [Flonase -] 1 - 2 spray NS DAILY #1 spray.pump Inhaler, Assist Devices [Space Chamber Plus] 1 each MC DAILY #1 spacer 11/26/18 Inhaler, Assist Devices [Space Chamber Plus] 1 each MC QID #1 spacer 11/26/18 Amlodipine Besylate [Norvasc -] 10 mg PO DAILY 03/27/19 Clonazepam 1 mg PO BID #2 tablet MDD 2 03/27/19 Hydrochlorothiazide 12.5 mg PO DAILY 03/27/19 Topiramate [Topamax] 100 mg PO BID #14 tab 03/27/19 Anemia: No Asthma: Yes (Bronchial asthma) Cancer: No Cardiac Disorders: No CVA: No COPD: No CHF: No DVT: No Dementia: No Diabetes: Yes (prediabetes) GI Disorders: Yes (acid reflux, IBS) Disorders: No HTN: Yes Hypercholesterolemia: Yes Liver Disease: No Psychiatric Problems: (anxeity,PTSD) Seizures: Yes (pseudoseizures) Thyroid Disease: No - Surgical History Abdominal Surgery: No Appendectomy: No Cardiac Surgery: No Cholecystectomy: Yes Lung Surgery: No Neurologic Surgery: No Orthopedic Surgery: No - Immunization History Immunization Up to Date: Yes - Suicide/Smoking/Psychosocial Hx Smoking Status: Yes Smoking History: Unknown if ever smoked Have you smoked in the past 12 months: No Number of Cigarettes Smoked Daily: 3 'Breaking Loose' booklet given: 06/18/18 Hx Alcohol Use: No Drug/Substance Use Hx: No Substance Use Type: Marijuana Hx Substance Use Treatment: No Review of Systems - Review of Systems Able to Perform ROS?: Yes Comments:: GENERAL/CONSTITUTIONAL: No fever or chills. No weakness HEAD, EYES, EARS, NOSE AND THROAT: No change in vision. No ear pain or discharge. No sore throat CARDIOVASCULAR: No chest pain or shortness of breath RESPIRATORY: Denies cough, hemoptysis GASTROINTESTINAL: No nausea, vomiting, diarrhea or constipation GENITOURINARY: No dysuria, frequency, or change in urination MUSCULOSKELETAL: No joint or muscle swelling or pain. +acute on chronic back pain SKIN: No rash NEUROLOGIC: No headache, vertigo, or acute change in strength/sensation ENDOCRINE: No increased thirst. No abnormal weight change HEMATOLOGIC/LYMPHATIC: No anemia, easy bleeding, or history of blood clots ALLERGIC/IMMUNOLOGIC: No hives or skin allergy 04/22/19 13:15 Is the patient limited Lithuanian proficient: No *Physical Exam - Vital Signs 04/22/19 13:15 - Physical Exam Comments: GENERAL: Awake, alert, and oriented to person/place/time, in no acute distres HEAD: No signs of trauma, normocephalic, atraumatic EYES: PERRLA, EOMI, sclera anicteric, conjunctiva clear ENT: Hearing grossly normal, nares patent, oropharynx clear without exudates. No intra-oral trauma. No uvular deviation. Moist mucosa LUNGS: No distress, speaks in full sentences, clear to auscultation bilaterally HEART: Regular rate and rhythm, normal S1 and S2, no murmurs appreciated, peripheral pulses normal and equal bilaterally ABDOMEN: Soft, nontender, normoactive bowel sounds. No guarding, no rebound EXTREMITIES: Normal inspection, Normal range of motion, no edema. No clubbing or cyanosis NEUROLOGICAL: Cranial nerves II through XII grossly intact. Normal speech, normal gait, decreased sensation to light touch left leg relative to right ( reported baseline) SKIN: Warm, Dry 04/22/19 13:15 ED Treatment Course - LABORATORY CBC & Chemistry Diagram: 04/22/19 15:12 04/22/19 15:12 Medical Decision Making - Medical Decision Making The pt is a 49F w/ a history of seizure, pseudoseizure, and chronic back pain who presents for evaluation s/p seizure ED Course CMP, CBC ECG 04/22/19 14:14 Pt noted to be having a seizure with perioral twitching that generalized to a tonic-clonic seizure. Pt was given Ativan 2mg IV once with cessation of seizure- like activity. Pt noted to be verbal s/p seizure 1L LR 04/22/19 14:[address] Sutton. Will not change medications at this time and patient also has a follow up appointment scheduled for this coming Friday. 04/22/19 14:57 No leukocytosis No anemia Lytes wnl No ELIZA LFTs unremarkable UA w/o evidence of UTI Plan for D/C w/ Neuro f/u Pt feels at her baseline. Pt is A&Ox3, ambulating with a stable gait, and non- slurred speech Discharge instructions and return precautions given Pt in agreement and verbalized understanding Dispo:home 04/22/19 17:17 *DC/Admit/Observation/Transfer Diagnosis at time of Disposition: Seizure Back pain Qualifiers: Back pain location: back pain in unspecified location Chronicity: chronic Back pain laterality: bilateral Qualified Code(s): M54.9 - Dorsalgia, unspecified - Discharge Dispostion Disposition: HOME Condition at time of disposition: Improved Decision to Admit order: No - Referrals Referrals: Brandon Ahn MD [Primary Care Provider] - Nannette Sutton MD [Staff Physician] - - Patient Instructions Printed Discharge Instructions: DI for Seizure Disorder -- Adult Additional Instructions: You were seen in the Emergency Department for evaluation of seizure. Your labs were unremarkable. Review the handout provided at discharge and maintain your follow up with your Neurologist. Return to the Emergency Department if you develop fevers/chills, further seizures, chest pain, trouble breathing, inability to tolerate food, changes in strength/sensation, worsening symptoms, or any new/concerning symptoms. - Post Discharge Activity
[2019-04-22 13:26] VITALS: BMI 45.4
[2019-04-22] MEDS ORDERED: CYCLOBENZAPRINE HCL 10 MG TABLET (FP) PO ONE (13:57)
[2019-04-22] MEDS ORDERED: CYCLOBENZAPRINE HCL 10 MG TABLET (FP) ONE (14:10)
[2019-04-22] MEDS ORDERED: LACTATED RINGERS SOLUTION 1000 ML INFUS.BAG IV ONE (14:15)
[2019-04-22] MEDS ORDERED: LORazepam 2 MG/ML SDV VIAL ONE (14:28)
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
[2019-04-22] MEDS ORDERED: GABAPENTIN 300 MG CAPSULE (FP) PO ONE (15:34)
[2019-04-22 15:44] LABS: BASO % 0.7 % (0-2.0); HEMATOCRIT 37.6 % (32.4-45.2); HEMOGLOBIN 12.7 GM/dL (10.7-15.3); LYMPH % 45.3 % (8-40); MCH 28.3 pg (25.7-33.7); MCHC 33.7 g/dl (32.0-36.0); MEAN PLT VOLUME 8.7 fl (7.5-11.1); MONO % 4.3 % (3.8-10.2); NEUT % 47.7 % (42.8-82.8); PLATELET COUNT 197 K/MM3 (134-434); RBC 4.47 M/mm3 (3.60-5.2); RDW 14.1 % (11.6-15.6); WHITE BLOOD COUNT 5.6 K/mm3 (4.0-10.0)
[2019-04-22 15:53] LABS: ALBUMIN 3.5 g/dl (3.4-5.0); BILIRUBIN,TOTAL 0.5 mg/dL (0.2-1); BLOOD UREA NITROGEN 8.6 mg/dL (7-18); CALCIUM 8.8 mg/dL (8.5-10.1); CREATININE 0.9 mg/dL (0.55-1.3); POTASSIUM 3.9 mmol/L (3.5-5.1); TOT PROT 6.3 g/dl (6.4-8.2)
[2019-04-22 16:32] LABS: PH,URINE 7.5 (5.0-8.0); URINE APPEARANCE CLEAR; URINE BILIRUBIN NEGATIVE (NEGATIVE); URINE COLOR YELLOW; URINE GLUCOSE (UA) NEGATIVE (NEGATIVE); URINE KETONE NEGATIVE (NEGATIVE); URINE LEUK ESTERASE NEGATIVE (NEGATIVE); URINE NITRITE NEGATIVE (NEGATIVE); URINE PROTEIN NEGATIVE (NEGATIVE); URINE UROBILINOGEN 0.2 mg/dL (0.2-1.0)
[2019-04-22 17:23] VITALS: BP 126/97; PULSE 74; TEMP 98.8
== END 2019-04-22 17:25 | disposition home or self-care (01) ==
LOC: JER 13:05
PROC: 3E033NZ Introduction of Analgesics, Hypnotics, Sedatives into Peripheral Vein, Percutaneous Approach (ICD-10-PCS; principal; 2019-04-22)
DX: G40.909 Epilepsy, unspecified, not intractable, without status epilepticus (principal); M54.9 Dorsalgia, unspecified; G89.29 Other chronic pain
CPT/HCPCS: 36415; 80053; 81003; 85025; 99283-25

== ENCOUNTER 2019-05-29 11:27 | Emergency (ER) | payer OTHER | END 2019-05-29 12:08 | disposition left against medical advice (07) | LOC: JER 11:27 ==

== ENCOUNTER 2019-08-14 14:22 | Emergency (ER) | payer OTHER ==
[2019-08-14] MEDS ORDERED: LORazepam 2 MG/ML SDV VIAL ONE (14:24)
[2019-08-14] MEDS ORDERED: MIDAZOLAM HCL 2 MG/2 ML SINGLE DOSE VIAL ONE (14:28)
[2019-08-14] MEDS ORDERED: MIDAZOLAM HCL 5 MG/1 ML Single Dose Vial IVPUSH ONE (14:31)
[2019-08-14 14:34] VITALS: BMI 54.8
--- NOTE | 2019-08-14 14:39 | PDOC ---
History of Present Illness - General Chief Complaint: Seizure Stated Complaint: SEIZURE Time Seen by Provider: 08/14/19 14:37 Past History - Past Medical History Allergies/Adverse Reactions: Allergies Allergy/AdvReac Type Severity Reaction Status Date / Time phenytoin sodium extended Allergy Verified 04/22/19 13:26 [From Dilantin] Home Medications: Ambulatory Orders Alprazolam [Xanax] 2 mg PO BID 06/18/18 Gabapentin 300 mg PO DAILY 08/11/18 Albuterol 0.083% Nebulizer Kathleen [Ventolin 0.083% Nebulizer Soln -] 1 amp NEB QID PRN #1 amp 10/08/18 Albuterol Sulfate Inhaler - [Ventolin HFA Inhaler -] 1 - 2 inh PO QID PRN #1 inhaler 11/26/18 Albuterol Sulfate Inhaler - [Ventolin HFA Inhaler -] 1 puff IH TID #1 inhaler Fluticasone Furoate [Flonase Sensimist] 5.9 ml NS DAILY PRN #1 spray.susp Fluticasone Prop 0.05% Nasal [Flonase -] 1 - 2 spray NS DAILY #1 spray.pump Inhaler, Assist Devices [Space Chamber Plus] 1 each MC DAILY #1 spacer 11/26/18 Inhaler, Assist Devices [Space Chamber Plus] 1 each MC QID #1 spacer 11/26/18 Amlodipine Besylate [Norvasc -] 10 mg PO DAILY 03/27/19 Clonazepam 1 mg PO BID #2 tablet MDD 2 03/27/19 Hydrochlorothiazide 12.5 mg PO DAILY 03/27/19 Topiramate [Topamax] 100 mg PO BID #14 tab 03/27/19 Clonazepam [Klonopin] 1 mg PO DAILY PRN #4 tablet MDD 1 08/14/19 Anemia: No Asthma: Yes (Bronchial asthma) Cancer: No Cardiac Disorders: No CVA: No COPD: No CHF: No DVT: No Dementia: No Diabetes: Yes (prediabetes) GI Disorders: Yes (acid reflux, IBS) Disorders: No HTN: Yes Hypercholesterolemia: Yes Liver Disease: No Psychiatric Problems: (anxeity,PTSD) Seizures: Yes (pseudoseizures) Thyroid Disease: No - Surgical History Abdominal Surgery: No Appendectomy: No Cardiac Surgery: No Cholecystectomy: Yes Lung Surgery: No Neurologic Surgery: No Orthopedic Surgery: No - Immunization History Immunization Up to Date: Yes - Psycho Social/Smoking Cessation Hx Smoking Status: Yes Smoking History: Never smoked Have you smoked in the past 12 months: Yes Number of Cigarettes Smoked Daily: 12 'Breaking Loose' booklet given: 06/18/18 Hx Alcohol Use: No Drug/Substance Use Hx: No Substance Use Type: Marijuana Hx Substance Use Treatment: No *Physical Exam - Vital Signs Last Vital Signs Temp Pulse Resp BP Pulse Ox 97.2 F L 78 20 150/91 100 08/14/19 14:25 08/14/19 14:25 08/14/19 14:25 08/14/19 14:25 08/14/19 14:25 ED Treatment Course - LABORATORY CBC & Chemistry Diagram: 08/14/19 14:36 08/14/19 14:36 Medical Decision Making - Medical Decision Making 08/14/19 15:07 HPI: 49yo F hx seizure d/o and pseudoseizures on Klonopin and Topamax, HTN, RA, and chronic back pain 2/2 herniated disc BIBA for witnessed seizure-like activity this afternoon. Per EMS, pt had witnessed tonic clonic activity and was given 5mg Versed en route. Upon arrival to ED, pt was still exhibiting rhythmic movements and pelvic thrusting, but held arm still during IV placement. Versed and Ativan given with resolution of seizure-like activity. No tongue biting or incontinence. No confusion or post-ictal state. Pt states she has "not been right" since May 15 when . Endorses multiple seizures per week, 1x per day for this past week, only sometimes goes to ED. Last ED visit Friday to [facility]. Pt is seen by Neurologist Dr Sutton, psychiatrist Dr Mathis, and therapist Jonathan. Next neuro appt on Friday. Pt states she ran out of Klonopin on Friday but has been taking her Topamax. Seizure today like every other seizure, endorses headache, weakness, and chronic back pain, all exactly the same as prior seizures. Denies head injury, fall, trauma, urinary or stool incontinence, tongue-biting, confusion. When asked, endorses 3 days of intermittent SOB and L-sided/sternal pressure type chest pain at rest with associated L arm tingling. No hx of CAD. Endorses depression and not eating much for months. States she thinks about dying because she misses her and wants to be with her, but denies suicidal plans or intentions, thoughts of hurting self, or hx of suicide attempts or self-harm. States can see psychiatrist and/or therapist at any time with a call. Denies fever, chills, dizziness, focal weakness, vision changes, cough, palpitations, leg swelling, abdominal pain, blood in stool, diarrhea, constipation, nausea, vomiting, dysuria, hematuria, confusion. PCP - Jimy Allergies - Phenytoin ROS: Constitutional: Positive for fatigue, generalized weakness. Negative for chills , fever, diaphoresis. HENT: Negative for sore throat, rhinorrhea, congestion. Eyes: Negative for visual disturbance. Respiratory: Positive for shortness of breath. Negative for cough, and wheezing. Cardiovascular: Positive for chest pain. Negative for palpitations, and leg swelling. Gastrointestinal: Negative for abdominal pain, blood in stool, constipation, diarrhea, nausea, and vomiting. Genitourinary: Negative for dysuria, flank pain, and hematuria. Musculoskeletal: Positive for back pain (chronic). Negative for myalgias, and neck pain. Skin: Negative for rash. Neurological: Positive for seizure and headache. Negative for light-headedness, dizziness, vertigo, syncope, weakness, numbness. Psychiatric/Behavioral: Negative for behavioral problems and confusion. PE after seizure-like activity resolved: Gen: Alert, NAD, comfortable-appearing. HEENT: PERRL, EOMI, MMM, NCAT. No conjunctival pallor. Sclera are non-icteric. CV: Regular rate and rhythm. No murmurs, rubs, or gallops. PULM: No resp distress. CTAB, no wheezes, rales, or rhonchi. ABD: soft, NT/ND, no rebound tenderness or guarding, no CVA tenderness. BACK: No TTP of c/t/l-spine. No step-offs or deformities. MSK: No bony deformities. 2+ pulses in all extremities. NEURO: AAOx3. PERRL. No gross CN deficits. Strength and sensation grossly intact throughout. EXTREMITIES: No cyanosis. No clubbing. No edema. No calf tenderness. PSYCH: Normal mood and thought pattern. SKIN: Warm and dry. Normal capillary refill. No rashes. No jaundice. MDM: 49yo F hx seizure d/o and pseudoseizures on Klonopin and Topamax, HTN, RA, and chronic back pain 2/2 herniated disc BIBA for witnessed seizure-like activity this afternoon. Hemodynamically stable, afebrile, neurologically intact. No neurologic deficit or head injury concerning for ICH. No neck stiffness or fever concerning for meningitis/encephalitis. Ddx: pseudo-seizure, seizure, metabolic derangement, anemia, infectious pathology, cardiac pathology (low risk, HEART score 3 (age, HTN, obesity, mother bypass at 56yo), low suspicion based on hx, CP/SOB x3 days) -EKG -CBC,CMP,Lact,Cardiac profile -CXR -Klonopin -Dr Caldwell called - pending call back -Dispo: likely d/c home pending w/u 08/14/19 15:21 Lact 2.4 Eating sandwich and drinking juice. 1L IVF 08/14/19 16:25 Labs reviewed. No concerning findings (lact 2.4). CXR reviewed - no acute pathology EKG reviewed - NSR, 69bpm, normal intervals, normal axis, no TWIs, no ST elevations or depressions Pt feeling better. Comfortable-appearing. Friends at bedside. No seizure-like activity. Request Klonopin rx due to running out. Will dc home with PCP, Neuro, and Psych f/u, and Klonapin rx. Return precautions given. Pt understands all dc instructions and all questions were answered. 08/14/19 17:16 Dr Caldwell called back - informed of presentation, w/u and d/c - agrees with plan , no further recommendations. Discharge - Discharge Information Problems reviewed: Yes Clinical Impression/Diagnosis: Chronic low back pain, Seizure-like activity Condition: Improved Disposition: HOME - Admission No - Additional Discharge Information Prescriptions: Clonazepam [Klonopin] 1 mg PO DAILY PRN #4 tablet MDD 1 PRN Reason: Anxiety - Follow up/Referral Referrals: Brandon Ahn MD [Primary Care Provider] - - Patient Discharge Instructions Patient Printed Discharge Instructions: DI for Seizure Disorder -- Adult Additional Instructions: You have been seen in the Emergency Department for your seizure-like activity. Your EKG, chest X-ray, and labs show no signs concerning for an emergent condition such as a heart attack, abnormal heart rhythm, anemia, or infection at this time. You will need further evaluation. Follow-up with your primary care doctor, your neurologist, your counselor, and your psychiatrist within 1 week. We have sent your Klonopin prescription to your pharmacy - take as directed. Return to the Emergency Department immediately if you experience chest pain, difficulty breathing, dizziness, fainting, seizure, numbness/tingling, weakness , vomiting, thoughts of hurting yourself, or any other new or worsening symptom. - Post Discharge Activity
[2019-08-14 14:45] LABS: HEMATOCRIT 40.4 % (32.4-45.2); MCH 29.2 pg (25.7-33.7); MCHC 34.7 g/dl (32.0-36.0); MEAN CELL VOLUME 84.3 fl (80-96); MEAN PLT VOLUME 8.6 fl (7.5-11.1); PLATELET COUNT 231 K/MM3 (134-434); RBC 4.79 M/mm3 (3.60-5.2); RDW 14.1 % (11.6-15.6); WHITE BLOOD COUNT 9.2 K/mm3 (4.0-10.0)
[2019-08-14 14:54] LABS: INR 0.99 (0.83-1.09); PROTHROMBIN TIME (PATIENT) 11.7 SEC (9.7-13.0)
[2019-08-14 15:03] LABS: ALBUMIN 3.9 g/dl (3.4-5.0); ALK PHOS 75 U/L (45-117); ANION GAP 7 MMOL/L (8-16); BILIRUBIN,TOTAL 0.2 mg/dL (0.2-1); BLOOD UREA NITROGEN 9.8 mg/dL (7-18); CALCIUM 9.3 mg/dL (8.5-10.1); CHLORIDE 109 mmol/L (98-107); CO2 25 mmol/L (21-32); CREATININE 1.1 mg/dL (0.55-1.3); GLUCOSE,RANDOM 82 mg/dL (74-106); POTASSIUM 3.9 mmol/L (3.5-5.1); SGOT/AST 14 U/L (15-37); SGPT/ALT 22 U/L (13-61); SODIUM 142 mmol/L (136-145); TOT PROT 7.3 g/dl (6.4-8.2)
[2019-08-14] MEDS ORDERED: KETOROLAC TROMETHAMINE 15 MG/ML VIAL IVPUSH ONE (15:24)
[2019-08-14] MEDS ORDERED: KETOROLAC TROMETHAMINE 15 MG/ML VIAL ONE (15:32)
[2019-08-14] MEDS ORDERED: clonazePAM 0.5 MG TABLET PO ONE (15:56)
[2019-08-14] MEDS ORDERED: clonazePAM 0.5 MG TABLET ONE (16:05)
[2019-08-14] MEDS ORDERED: SODIUM CHLORIDE 0.9% 500 ML INFUS.BAG IV ONE (16:25)
--- NOTE | 2019-08-14 16:30 | PDOC ---
Documentation entered by Purnima Johnston SCRIBE, acting as scribe for Lise Valenzuela MD. Lise Valenzuela MD: This documentation has been prepared by the scribe, Purnima Johnston SCRIBE, under my direction and personally reviewed by me in its entirety. I confirm that the documentation accurately reflects all work, treatment, procedures, and medical decision making performed by me. 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 The patient reports she is compliant with Topamax. The patient denies any symptoms except feeling sad. The patient states she misses her , who recently . Denies active suicidal ideation. The patient is requesting a clonazepam refill, which she takes to vent seizures. - Physicial Exam PE: 08/14/19 16:15 Agree with resident exam. Patient is alert and oriented and in no acute distress. CV: rrr no m/r/g Pulm: CTA b/l. Neuro; alert and oriented x 3, CN grossly intact. Psych: expresses sadness, denies SI or HI. - Medical Decision Making 08/14/19 16:27 Pt presents to the ED complaining of seizures x 2. History of pseudoseizures as well as seizures. States that she takes klonapin to "prevent seizures", and is out of it until Friday. Movements in the ED were most consistent with pseudo seizures. Patient is well appearing without other complains. Will treat with klonapin and discharge home.
[2019-08-14 16:53] VITALS: BP 140/85; PULSE 72; TEMP 98.1
--- NOTE | 2019-08-15 10:33 | EKG ---
Test Reason : Blood Pressure : / mmHG Vent. Rate : 069 BPM Atrial Rate : 069 BPM P-R Int : 172 ms QRS Dur : 070 ms QT Int : 400 ms P-R-T Axes : 038 040 040 degrees QTc Int : 428 ms NORMAL SINUS RHYTHM NONSPECIFIC T WAVE ABNORMALITY ABNORMAL ECG WHEN COMPARED WITH ECG OF 27-MAR-2019 21:58, NO SIGNIFICANT CHANGE WAS FOUND Confirmed by MD TEMITOPE, HANK ([id number]) on 08/15/2019 10:33:09 AM Referred By: Confirmed By:HANK LINN MD
== END 2019-08-14 16:56 | disposition home or self-care (01) ==
LOC: JER 14:22
PROC: 3E033NZ Introduction of Analgesics, Hypnotics, Sedatives into Peripheral Vein, Percutaneous Approach (ICD-10-PCS; principal; 2019-08-14)
PROC: 3E033NZ Introduction of Analgesics, Hypnotics, Sedatives into Peripheral Vein, Percutaneous Approach (ICD-10-PCS; 2019-08-14)
PROC: 3E0333Z Introduction of Anti-inflammatory into Peripheral Vein, Percutaneous Approach (ICD-10-PCS; 2019-08-14)
DX: F44.5 Conversion disorder with seizures or convulsions (principal); I10 Essential (primary) hypertension; E78.00 Pure hypercholesterolemia, unspecified; F41.9 Anxiety disorder, unspecified; F43.10 Post-traumatic stress disorder, unspecified; R73.03 Prediabetes; J45.909 Unspecified asthma, uncomplicated; Z87.19 Personal history of other diseases of the digestive system; Z90.49 Acquired absence of other specified parts of digestive tract; Z88.8 Allergy status to other drugs, medicaments and biological substances
CPT/HCPCS: 36415; 71045-TC-FY; 80053; 82550; 82553; 83605; 84484; 85027; 85610; 93005; 93010; 96374; 96375; 99284-25

== ENCOUNTER 2019-11-23 23:58 | Emergency (ER) | payer OTHER ==
--- NOTE | 2019-11-24 | PDOC ---
Attending Attestation - Resident Resident Name: JgnidaBear - ED Attending Attestation I have performed the following: I have examined & evaluated the patient, The case was reviewed & discussed with the resident, I agree w/resident's findings & plan - HPI HPI: 11/24/19 00:03 see resident hpi - Physicial Exam PE: 11/24/19 00:04 agree with resident exam - Medical Decision Making 11/24/19 00:04 49-year-old female with history of hypertension, hyperlipidemia and seizure disorder as well as possible history of noncompliance according to friend was at the bedside Patient arrives after having chest pain throughout the day, now with focal facial twitching, possible seizure activity Plan for serial enzymes for chest pain, seizure disorder followed by neurology, patient on multiple medications outpatient as well We will admit for further evaluation
--- NOTE | 2019-11-24 00:16 | PDOC ---
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 Patient was found in the parking lot with seizure like activity. Friend at bedside states that patient was told to go to the hospital today for further evaluation of chest pain. Friend states that patient has not been feeling well generally today. Patient's friend reports a facial droop before her prior seizure that is typical for patient. Past History - Past Medical History Allergies/Adverse Reactions: Allergies Allergy/AdvReac Type Severity Reaction Status Date / Time phenytoin sodium extended Allergy Verified 04/22/19 13:26 [From Dilantin] Home Medications: Ambulatory Orders Alprazolam [Xanax] 2 mg PO BID 06/18/18 Gabapentin 300 mg PO DAILY 08/11/18 Albuterol 0.083% Nebulizer Kathleen [Ventolin 0.083% Nebulizer Soln -] 1 amp NEB QID PRN #1 amp 10/08/18 Albuterol Sulfate Inhaler - [Ventolin HFA Inhaler -] 1 - 2 inh PO QID PRN #1 inhaler 11/26/18 Albuterol Sulfate Inhaler - [Ventolin HFA Inhaler -] 1 puff IH TID #1 inhaler Fluticasone Furoate [Flonase Sensimist] 5.9 ml NS DAILY PRN #1 spray.susp Fluticasone Prop 0.05% Nasal [Flonase -] 1 - 2 spray NS DAILY #1 spray.pump Inhaler, Assist Devices [Space Chamber Plus] 1 each MC DAILY #1 spacer 11/26/18 Inhaler, Assist Devices [Space Chamber Plus] 1 each MC QID #1 spacer 11/26/18 Amlodipine Besylate [Norvasc -] 10 mg PO DAILY 03/27/19 Clonazepam 1 mg PO BID #2 tablet MDD 2 03/27/19 Hydrochlorothiazide 12.5 mg PO DAILY 03/27/19 Topiramate [Topamax] 100 mg PO BID #14 tab 03/27/19 Clonazepam [Klonopin] 1 mg PO DAILY PRN #4 tablet MDD 1 08/14/19 Anemia: No Asthma: Yes (Bronchial asthma) Cancer: No Cardiac Disorders: No CVA: No COPD: No CHF: No DVT: No Dementia: No Diabetes: Yes (prediabetes) GI Disorders: Yes (acid reflux, IBS) Disorders: No HTN: Yes Hypercholesterolemia: Yes Liver Disease: No Psychiatric Problems: (anxeity,PTSD) Seizures: Yes (pseudoseizures) Thyroid Disease: No - Surgical History Abdominal Surgery: No Appendectomy: No Cardiac Surgery: No Cholecystectomy: Yes Lung Surgery: No Neurologic Surgery: No Orthopedic Surgery: No - Immunization History Immunization Up to Date: Yes - Psycho Social/Smoking Cessation Hx Smoking Status: Yes Smoking History: Never smoked Have you smoked in the past 12 months: Yes Number of Cigarettes Smoked Daily: 12 'Breaking Loose' booklet given: 06/18/18 Hx Alcohol Use: No Drug/Substance Use Hx: No Substance Use Type: Marijuana Hx Substance Use Treatment: No Review of Systems - Review of Systems Able to Perform ROS?: Yes (patient non-compliant) *Physical Exam - Physical Exam GENERAL: Awake, alert, and fully oriented, in no acute distress Neuro: Purposeful movements, no post ictal periods, normal speech, normal gait, no focal sensorimotor deficits immediately after 'seizure' HEAD: No signs of trauma, normocephalic, atraumatic EYES: PERRLA, EOMI, sclera anicteric, conjunctiva clear ENT: Auricles normal inspection, hearing grossly normal, nares patent, oropharynx clear without exudates. Moist mucosa NECK: Normal ROM, supple, no lymphadenopathy, JVD, or masses LUNGS: No distress, speaks full sentences, clear to auscultation bilaterally HEART: Regular rate and rhythm, normal S1 and S2, no murmurs, rubs or gallops, peripheral pulses normal and equal bilaterally. ABDOMEN: Soft, nontender, normoactive bowel sounds. No guarding, no rebound. No masses EXTREMITIES: Normal inspection, Normal range of motion, no edema. No clubbing or cyanosis. SKIN: Warm, Dry, normal turgor, no rashes or lesions noted. Medical Decision Making - Medical Decision Making 11/24/19 00:20 Patient is 49F with history of htn, ra, pseudoseizures, seizures here today with pseudoseizure. Patient also referred to hospital for chest pain. After refusing to give ativan for PNES, patient became abusive towards staff. Patient became fully conversant and refused to cooperate further with history and exam. Patient states that she is leaving and refusing further evaluation. Patient is fully alert and oriented, walking with steady gait out of hospital. Discharge - Discharge Information Problems reviewed: Yes Clinical Impression/Diagnosis: Seizure-like activity Condition: Stable Disposition: ELOPED - Follow up/Referral - Patient Discharge Instructions - Post Discharge Activity
[2019-11-24 00:40] VITALS: BP 139/74; PULSE 74; TEMP 98.2; BMI 32.8
== END 2019-11-24 00:45 | disposition left against medical advice (07) ==
LOC: JER 23:58
DX: F44.5 Conversion disorder with seizures or convulsions (principal); G40.909 Epilepsy, unspecified, not intractable, without status epilepticus; I10 Essential (primary) hypertension; J45.998 Other asthma; M06.9 Rheumatoid arthritis, unspecified; K21.9 Gastro-esophageal reflux disease without esophagitis; F43.10 Post-traumatic stress disorder, unspecified; F41.9 Anxiety disorder, unspecified; R73.03 Prediabetes; E78.00 Pure hypercholesterolemia, unspecified
CPT/HCPCS: 99281-25

== ENCOUNTER 2020-06-29 15:21 | Emergency (ER) | payer OTHER ==
[2020-06-29 15:26] VITALS: BP 153/84; PULSE 85; TEMP 98.5; BMI 32.8
[2020-06-29] MEDS ORDERED: LORazepam 2 MG/ML SDV VIAL ONE (15:58)
--- NOTE | 2020-06-29 16:20 | PDOC ---
History of Present Illness - General Chief Complaint: Seizure Stated Complaint: SEIZURES Time Seen by Provider: 06/29/20 15:29 - History of Present Illness Initial Comments: 06/29/20 16:12 53yo F hx seizure d/o and pseudoseizures on Klonopin and Topamax, HTN, RA, and chronic back pain 2/2 herniated disc presents following multiple seizures at home. States she had a few yesterday and 5 today, witnessed by girlfriend, who describes first seeing facial twitching, following by whole body shakes, lasting seconds to minutes. Patient says she gets seizures when stressed, perhaps once per month, and facial twitching is her "aura." States she has been taking topomax consistently with no recent change. Takes Klonopin PRN, and took one this morning. Denies trauma, fevers, chest pain, abdominal pain. ROS otherwise negative. In the ED, patient was witnessed having facial twitching followed by tonic clonic movements. When her am was dropped over her face, she avoided hitting her face and let it drop on her chest. Complains of back pain without red flag symptoms, unchanged from her chronic pain. PMH/PSH: as above Home Medications Medication Instructions Recorded Alprazolam [Xanax] 2 mg PO BID 06/18/18 Gabapentin 300 mg PO DAILY 08/11/18 Albuterol 0.083% Nebulizer Kathleen 1 amp NEB QID PRN #1 amp 10/08/18 [Ventolin 0.083% Nebulizer Soln -] Albuterol Sulfate Inhaler - 1 - 2 inh PO QID PRN #1 inhaler 11/26/18 [Ventolin HFA Inhaler -] Albuterol Sulfate Inhaler - 1 puff IH TID #1 inhaler 11/26/18 [Ventolin HFA Inhaler -] Fluticasone Furoate [Flonase 5.9 ml NS DAILY PRN #1 spray.susp 11/26/18 Sensimist] Fluticasone Prop 0.05% Nasal 1 - 2 spray NS DAILY #1 spray.pump 11/26/18 [Flonase -] Inhaler, Assist Devices [Space 1 each MC DAILY #1 spacer 11/26/18 Chamber Plus] Inhaler, Assist Devices [Space 1 each MC QID #1 spacer 11/26/18 Chamber Plus] Amlodipine Besylate [Norvasc -] 10 mg PO DAILY 03/27/19 Clonazepam 1 mg PO BID #2 tablet MDD 2 03/27/19 Hydrochlorothiazide 12.5 mg PO DAILY 03/27/19 Topiramate [Topamax] 100 mg PO BID #14 tab 03/27/19 Clonazepam [Klonopin] 1 mg PO DAILY PRN #4 tablet MDD 1 08/14/19 Allergies Allergy/AdvReac Type Severity Reaction Status Date / Time phenytoin sodium extended Allergy Verified 06/29/20 15:23 [From Dilantin] ROS GENERAL/CONSTITUTIONAL: No fever or chills. No weakness. HEAD, EYES, EARS, NOSE AND THROAT: No change in vision. No ear pain or discharge. No sore throat. CARDIOVASCULAR: No chest pain or shortness of breath RESPIRATORY: No cough, wheezing, or hemoptysis. GASTROINTESTINAL: No nausea, vomiting, diarrhea or constipation. GENITOURINARY: No dysuria, frequency, or change in urination. MUSCULOSKELETAL: No joint or muscle swelling or pain. back pain. SKIN: No rash NEUROLOGIC: seizures. No headache ENDOCRINE: No increased thirst. No abnormal weight change HEMATOLOGIC/LYMPHATIC: No anemia, easy bleeding, or history of blood clots. ALLERGIC/IMMUNOLOGIC: No hives or skin allergy. PE GENERAL: Awake, alert, and fully oriented, in no acute distress HEAD: No signs of trauma, normocephalic, atraumatic EYES: PERRLA, EOMI, sclera anicteric, conjunctiva clear ENT: Auricles normal inspection, hearing grossly normal, nares patent, oropharynx clear without exudates. Moist mucosa NECK: Normal ROM, supple, no lymphadenopathy, JVD, or masses LUNGS: No distress, speaks full sentences, clear to auscultation bilaterally HEART: Regular rate and rhythm, normal S1 and S2, no murmurs, rubs or gallops, peripheral pulses normal and equal bilaterally. ABDOMEN: Soft, nontender, normoactive bowel sounds. No guarding, no rebound. No masses EXTREMITIES : Normal inspection, Normal range of motion, no edema. No clubbing or cyanosis. NEUROLOGICAL: Cranial nerves II through XII grossly intact. Normal speech, normal gait, no focal sensorimotor deficits SKIN: Warm, Dry, normal turgor, no rashes or lesions noted Vital Signs Temp Pulse Resp BP Pulse Ox 98.5 F 85 18 153/84 100 06/29/20 15:24 06/29/20 15:24 06/29/20 15:24 06/29/20 15:24 06/29/20 15:24 MDM: 50yo F with history of seizures and psuedoseizures. DDx includes seizure, pseudoseizure, infection, electrolyte abnormality, ICH. -CBC, CMP -EKG -2mg ativan IV -50mg tramodol for patient's back pain Called her neurologist who recommended we DC her home. CT not needed. Labs: CBC wnl CMP notable for K >10 with hemolysis, Cl 111, AST 88 EKG: NSR, rate 71, normal axis and intervals, no ischemic or hyperkalemic changes DC home Past History - Medical History Allergies/Adverse Reactions: Allergies Allergy/AdvReac Type Severity Reaction Status Date / Time phenytoin sodium extended Allergy Verified 06/29/20 15:23 [From Dilantin] Home Medications: Ambulatory Orders Alprazolam [Xanax] 2 mg PO BID 06/18/18 Gabapentin 300 mg PO DAILY 08/11/18 Albuterol 0.083% Nebulizer Kathleen [Ventolin 0.083% Nebulizer Soln -] 1 amp NEB QID PRN #1 amp 10/08/18 Albuterol Sulfate Inhaler - [Ventolin HFA Inhaler -] 1 - 2 inh PO QID PRN #1 inhaler 11/26/18 Albuterol Sulfate Inhaler - [Ventolin HFA Inhaler -] 1 puff IH TID #1 inhaler 11/26/18 Fluticasone Furoate [Flonase Sensimist] 5.9 ml NS DAILY PRN #1 spray.susp 11/26/18 Fluticasone Prop 0.05% Nasal [Flonase -] 1 - 2 spray NS DAILY #1 spray.pump 11/26/18 Inhaler, Assist Devices [Space Chamber Plus] 1 each MC DAILY #1 spacer 11/26/18 Inhaler, Assist Devices [Space Chamber Plus] 1 each MC QID #1 spacer 11/26/18 Amlodipine Besylate [Norvasc -] 10 mg PO DAILY 03/27/19 Clonazepam 1 mg PO BID #2 tablet MDD 2 03/27/19 Hydrochlorothiazide 12.5 mg PO DAILY 03/27/19 Topiramate [Topamax] 100 mg PO BID #14 tab 03/27/19 Clonazepam [Klonopin] 1 mg PO DAILY PRN #4 tablet MDD 1 08/14/19 Anemia: No Asthma: Yes (Bronchial asthma) Cancer: No Cardiac Disorders: No CVA: No COPD: No CHF: No DVT: No Dementia: No Diabetes: Yes (prediabetes) GI Disorders: Yes (acid reflux, IBS) Disorders: No HTN: Yes Hypercholesterolemia: Yes Liver Disease: No Psychiatric Problems: (anxeity,PTSD) Seizures: Yes (pseudoseizures) Thyroid Disease: No - Surgical History Abdominal Surgery: No Appendectomy: No Cardiac Surgery: No Cholecystectomy: Yes Lung Surgery: No Neurologic Surgery: No Orthopedic Surgery: No - Reproductive History Is Patient Now?: No - Immunization History Immunization Up to Date: Yes - Psycho-Social/Smoking History Smoking Status: Yes Smoking History: Current some day smoker Have you smoked in the past 12 months: Yes Number of Cigarettes Smoked Daily: 1 Information on smoking cessation initiated: No 'Breaking Loose' booklet given: 06/18/18 - Substance Abuse Hx (Audit-C & DAST Scrn) How often the patient has a drink containing alcohol: Never Score: In Men: 4 or > Positive; In Women: 3 or > Positive: 0 Screen Result (Pos requires Nsg. Audit-10AR): Negative In the last yr the pt used illegal drug/Rx for NonMed reason: No Score: Yes response is considered Positive: 0 Screen Result (Positive result requires Nsg. DAST-10): Negative *Physical Exam - Vital Signs Last Vital Signs Temp Pulse Resp BP Pulse Ox 98.5 F 85 18 153/84 100 06/29/20 15:24 06/29/20 15:24 06/29/20 15:24 06/29/20 15:24 06/29/20 15:24 ED Treatment Course - LABORATORY CBC & Chemistry Diagram: 06/29/20 16:00 06/29/20 16:00 - Medications Given in the ED: ED Medications Discontinued Medications Generic Name Dose Route Start Last Admin Trade Name Freq PRN Reason Stop Dose Admin Lorazepam 2 mg 06/29/20 15:43 06/29/20 16:08 Ativan Injection - IVPUSH 09/03/20 15:44 2 mg ONCE ONE Administration Discharge - Discharge Information Problems reviewed: Yes Clinical Impression/Diagnosis: Seizure, Pseudoseizures Condition: Fair Disposition: HOME - Admission No - Follow up/Referral Referrals: Bailey Ahn MD [Primary Care Provider] - - Patient Discharge Instructions Additional Instructions: You were seen in the ER for seizures. We gave you 2mg of IV ativan, which stopped your seizure activity. We did labs, which did not show any emergent problem. We spoke with your neurologist who stated you should continue your medications and that a CT scan of you head was not needed. Plpease follow up with your primary doctor and neurologist within three days. Please return to the ER for continued or worsening symptoms, fever, or any other reason. - Post Discharge Activity Work/Back to School Note: Back to Work
[2020-06-29 16:40] LABS: BASO % 0.7 % (0-2.0); EOS % 3.1 % (0-4.5); HEMATOCRIT 41.4 % (32.4-45.2); HEMOGLOBIN 13.6 GM/dL (10.7-15.3); LYMPH % 34.4 % (8-40); MCH 28.1 pg (25.7-33.7); MCHC 32.9 g/dl (32.0-36.0); MEAN CELL VOLUME 85.2 fl (80-96); MONO % 4.1 % (3.8-10.2); NEUT % 57.7 % (42.8-82.8); PLATELET COUNT 253 K/MM3 (134-434); RBC 4.85 M/mm3 (3.60-5.2); RDW 15.1 % (11.6-15.6)
[2020-06-29 17:11] LABS: ALBUMIN 3.7 g/dl (3.4-5.0); ALK PHOS 67 U/L (45-117); BILIRUBIN,TOTAL 0.4 mg/dL (0.2-1); BLOOD UREA NITROGEN 10.2 mg/dL (7-18); CALCIUM 8.9 mg/dL (8.5-10.1); CHLORIDE 111 mmol/L (98-107); CO2 22 mmol/L (21-32); GLUCOSE,RANDOM 75 mg/dL (74-106); MAGNESIUM 2.2 mg/dL (1.8-2.4); SODIUM 135 mmol/L (136-145); TOT PROT 8.1 g/dl (6.4-8.2)
[2020-06-29] MEDS ORDERED: traMADol HCL 50 MG TABLET PO ONE (17:25)
--- NOTE | 2020-06-29 17:25 | PDOC ---
Documentation entered by Rodo Pena SCRIBE, acting as scribe for Remberto Meyers MD. Remberto Meyers MD: This documentation has been prepared by the codiibeJean Alexis, SCRIBE, under my direction and personally reviewed by me in its entirety. I confirm that the documentation accurately reflects all work, treatment, procedures, and medical decision making performed by me. Attending Attestation - Resident Resident Name: Td Fernandes - ED Attending Attestation I have performed the following: I have examined & evaluated the patient, The case was reviewed & discussed with the resident, I agree w/resident's findings & plan, Exceptions are as noted - HPI HPI: 06/29/20 16:48 The patient is a 50 year old female with a significant past medical history of seizures and pseudoseizures on Klonopin (last dose this morning) and Topamax, GERD, IBS, HTN, HLD, prediabetes, RA, chronic back pain 2/2 herniated disc, anxiety, and PTSD who presents to the emergency department for evaluation of witnessed seizures at home that began yesterday. She reports a few seizures yesterday and 5 today which caused facial twitches and full body shakes. The patient endorses seizures are triggered by stress and occur approximately once per month. The patient denies chest/abdominal/back pain, cough, and shortness of breath. Denies fever, chills, nausea, vomiting, and/or any GI symptoms. Denies any symptoms. Denies any other symptoms. Allergies: phenytoin sodium extended Surgical Hx: cholecystectomy Social Hx: The patient reports smoking marijuana. PCP: Dr. Ahn - Physicial Exam PE: 07/08/20 13:28 Vitals: Triage Vital signs reviewed General Appearance: No acute distress, well nourished well developed, Head: Atraumatic, Cardiac: Regular rate and rhythym, no murmurs, no rubs, no gallops, Lungs: Clear to auscultation bilateral, good air movement bilaterally, Abdomen: Soft, non distended, normal bowel sounds, non tender to palpation Extremities: Full range of motion to all extremities, no cyanosis, clubbing, or edema Skin: Warm and dry, no rashes or lesions, no rash, no petechiae Neuro: AOX3; cranial Nerves 2-12 grossly intact, strength intact to all extremities, sensation intact to all extremities, gait normal Psych: Normal mood, normal affect - Medical Decision Making 06/29/20 17:25 [place] NAD Hx of siezures vrs psuedo seizures 5 episodes today In ED non epileptic movement/ pseudoseizure noted. Withdrawing from pain. no postictal period no tongue biting D/W neurology DR. Sutton. Hx and exam c/w pseudo seizure. No indication for imaging or change in medication. Will follow up next week. Safe for outpatient followup Discharge - Discharge Information Problems reviewed: Yes Clinical Impression/Diagnosis: Seizure, Pseudoseizures Condition: Fair Disposition: HOME - Follow up/Referral Referrals: Bailey Ahn MD [Primary Care Provider] - - Patient Discharge Instructions Additional Instructions: You were seen in the ER for seizures. We gave you 2mg of IV ativan, which stopped your seizure activity. We did labs, which did not show any emergent problem. We spoke with your neurologist who stated you should continue your medications and that a CT scan of you head was not needed. Plpease follow up with your primary doctor and neurologist within three days. Please return to the ER for continued or worsening symptoms, fever, or any other reason. - Post Discharge Activity Work/Back to School Note: Back to Work
[2020-06-29] MEDS ORDERED: traMADol HCL 50 MG TABLET ONE (17:46)
[2020-06-29 17:48] LABS: ANION GAP 2 MMOL/L (8-16); SGOT/AST 88 U/L (15-37); SGPT/ALT 35 U/L (13-61)
[2020-06-29 17:58] LABS: POTASSIUM > 10.0 mmol/L (3.5-5.1)
--- NOTE | 2020-06-30 10:54 | EKG ---
Test Reason : Blood Pressure : / mmHG Vent. Rate : 071 BPM Atrial Rate : 071 BPM P-R Int : 164 ms QRS Dur : 080 ms QT Int : 398 ms P-R-T Axes : 034 007 051 degrees QTc Int : 432 ms NORMAL SINUS RHYTHM NONSPECIFIC T WAVE ABNORMALITY ABNORMAL ECG WHEN COMPARED WITH ECG OF 14-AUG-2019 15:11, NO SIGNIFICANT CHANGE WAS FOUND Confirmed by IRAIDA PATEL MD ([id number]) on 06/30/2020 10:53:59 AM Referred By: Confirmed By:IRAIDA PATEL MD
== END 2020-06-29 17:45 | disposition home or self-care (01) ==
LOC: JER 15:21
PROC: 3E033NZ Introduction of Analgesics, Hypnotics, Sedatives into Peripheral Vein, Percutaneous Approach (ICD-10-PCS; principal; 2020-06-29)
PROC: 3E033GC Introduction of Other Therapeutic Substance into Peripheral Vein, Percutaneous Approach (ICD-10-PCS; 2020-06-29)
DX: F44.5 Conversion disorder with seizures or convulsions (principal)
CPT/HCPCS: 36415; 80053; 83735; 85025; 93005; 93010; 99285-25

== ENCOUNTER 2020-08-08 13:18 | Emergency (ER) | payer OTHER ==
[2020-08-08 13:47] VITALS: BMI 39.1
--- OUTSIDE RECORDS SUMMARY | 2020-08-08 14:11 | XMS ---
:1970 Author Organization [facility] Care Team Providers Name Role Phone [facility], [facility] Unavailable Unavailable Bowen Liz Unavailable [phone] ED STAFF PHYSICIAN, STAFF Unavailable Unavailable ED STAFF PHYSICIANULICES Unavailable Unavailable Tank Fabian MD Unavailable Unavailable Jackeline Fabian MD Unavailable Unavailable Jackeline Fabian MD Unavailable Unavailable Jackeline Fabian MD Unavailable Unavailable Jackeline Fabian MD Unavailable Unavailable Jackeline Fabian MD Unavailable Unavailable Jackeline Fabian MD Unavailable Unavailable Re-disclosure Warning The records that you are about to access may contain information from federally- assisted alcohol or drug abuse programs. If such information is present, then the following federally mandated warning applies: This information has been disclosed to you from records protected by federal confidentiality rules (42 CFR part 2). The federal rules prohibit you from making any further disclosure of this information unless further disclosure is expressly permitted by the written consent of the person to whom it pertains or as otherwise permitted by 42 CFR part 2. A general authorization for the release of medical or other information is NOT sufficient for this purpose. The Federal rules restrict any use of the information to criminally investigate or prosecute any alcohol or drug abuse patient.The records that you are about to access may contain highly sensitive health information, the redisclosure of which is protected by Article 27-F of the [facility] Public Health law. If you continue you may haveaccess to information: Regarding HIV / AIDS; Provided by facilities licensed or operated by the [facility] Office of Mental Health; or Provided by the [facility] Office for People With Developmental Disabilities. If such information is present, then the following [facility] mandated warning applies: This information has been disclosed to you from confidential records which are protected by state law. State law prohibits you from making any further disclosure of this information without the specific written consent of the person to whom it pertains, or as otherwise permitted by law. Any unauthorized further disclosure in violation of state law may result in a fine or senior living sentence or both. A general authorization for the release of medical or other information is NOT sufficient authorization for further disclosure. Encounters Encounter Providers Location Date Indications Data Source(s ) Outpatient Attender: [id number] 12/14/2019 I ([facility] 12:23:01 PM Care [facility]) EST Patient admitted. Emergency Attender: [facility] ED STAFF H 11/26/2019 09:40:00 AM [facility] PHYSICIANAttender: STAFF ED EST - 11/26/2019 [facility] STAFF PHYSICIANAdmitter: 06:55:00 PM [facility] Patient discharged. Individual Attender: [facility] 08/09/2019 YINKA Vizcaino ( Psychotherapy ([address] [facility] 12:50:00 PM EDT - [facility]) 08/09/2019 Medical 12:50:00 PM EDT Center) Emergency Attender: 08/09/2019 [facility] 12:19:00 PM EDT - [facility] Gabe HERNANDEZdmitter: 08/09/2019 [facility] 04:30:00 PM EDT aGbe MCINTOSH Patient discharged. Individual Attender: [facility] 07/19/2019 YINKA Vizcaino ( Psychotherapy ([address] [facility] 03:32:00 PM EDT - [facility] Min) 07/19/2019 Medical 03:32:00 PM EDT [place]) 01/29/2019 [facility] 12:00:00 AM EDT - Medical Center 10/05/2017 12:00:00 AM EST Insurance Providers Payer name Policy type Policy ID Covered Covered libertarian's Policy P david / Coverage libertarian ID relationship to [place] Inf ormation type lutz MEDICARE [id number] SP [id number] 6 MEDICARE [id number] SP [id number] A M [id number] 01 [id number] M [id number] 01 [id number] A MEDICAID [id number] SP [id number] MEDICARE [id number] PT [id number] A MEDICAID [id number] PT [id number] MEDICARE [id number] PT [id number] 6 W [id number] 01 [id number] Problems, Conditions, and Diagnoses Code Display Name Description Problem Type Effective Data Sour ce(s) Dates I10 Essential ESSENTIAL Diagnosis 11/26/2019 [facility] (primary) (PRIMARY) 09:40:00 AM Medical Cent[facility] hypertension HYPERTENSION EST J45.909 Unspecified UNSPECIFIED Diagnosis 11/26/2019 [facility] asthma, ASTHMA, 09:40:00 AM Medical Cente r uncomplicated UNCOMPLICATED EST R56.9 Unspecified UNSPECIFIED Diagnosis 11/26/2019 [facility] convulsions CONVULSIONS 09:40:[address] EST Surgeries/Procedures Procedure Description Date Indications Data Source(s) Individual Psychotherapy 08/09/2019 [facility] TG[facility] ([facility] (45 Min) 12:00:00 AM EDT [facility] - 08/09/2019 Center) 12:00:00 AM EDT Individual Psychotherapy 07/19/2019 NEX TGEN ([facility] (30 Min) 12:00:00 AM EDT [facility] - 07/19/2019 Center) 12:00:00 AM EDT Results ID Date Data Source [id number] 11/26/2019 11:00:00 AM EST [facility] 0500 Name Value Range Interpretation Description Data Sup porting Code Source(s) Document(s ) Leukocytes 4.4-11.0 <content [facility] [#/volume] in styleCode="Bold [facility] Blood by ">White Blood Medical Automated count Cell Count Center </content>6.97 KCUMM<content styleCode="Ital ics"> (4.4-11.0 KCUMM)</content > Hemoglobin 12.3-16. <content [facility] [Mass/volume] in 0 styleCode="Bold [facility] Blood ">Hemoglobin Medical </content>14.0 Center G/DL<content styleCode="Ital ics"> (12.3-16.0 G/DL)</content> Erythrocytes 4.0-5.1 <content [facility] [#/volume] in styleCode="Bold [facility] Blood by ">Red Blood Medical Automated count Cell Count Center </content>4.94 MCUMM<content styleCode="Ital ics"> (4.0-5.1 MCUMM)</content > Erythrocyte mean 32.0-37. <content [facility] corpuscular 0 styleCode="Bold [facility] hemoglobin ">Mean Corpus. Medical concentration Hgb Center [Mass/volume] by Concentration Automated count (MCHC) </content>35.4 G/DL<content styleCode="Ital ics"> (32.0-37.0 G/DL)</content> Erythrocyte mean 26.0-34. <content [facility] corpuscular 0 styleCode="Bold [facility] hemoglobin ">Mean Medical [Entitic mass] Corposcular Center by Automated Hemoglobin count </content>28.3 PG<content styleCode="Ital ics"> (26.0-34.0 PG)</content> Hematocrit 36.0-46. <content [facility] [Volume 0 styleCode="Bold [facility] Fraction] of ">Hematocrit Medical Blood by </content>39.6 Center Automated count %<content styleCode="Ital ics"> (36.0-46.0 %)</content> Erythrocyte mean 80.0-100 <content [facility] corpuscular .0 styleCode="Bold [facility] volume [Entitic ">Mean Medical volume] by Corpuscular Center Automated count Volume </content>80.2 FL<content styleCode="Ital ics"> (80.0-100.0 FL)</content> Erythrocyte 11.5-14. <content [facility] distribution 5 styleCode="Bold [facility] width [Ratio] by ">Red Cell Medical Automated count Distribution Center Width </content>13.0 %<content styleCode="Ital ics"> (11.5-14.5 %)</content> Platelets 130-400 <content [facility] [#/volume] in styleCode="Bold [facility] Blood by ">Platelet Medical Automated count Count Center </content>224 KCUMM<content styleCode="Ital ics"> (130-400 KCUMM)</content > UNK 0 <content [facility] styleCode="Bold Gwen ">Nucleated Red Medical Blood Cell Center </content>0.0 /100<content styleCode="Ital ics"> (0 /100)</content> UNK 0.0 <content [facility] styleCode="Bold Gwen ">Nucleated Red Medical Blood Cell Center Count </content>0.00 KCUMM<content styleCode="Ital ics"> (0.0 KCUMM)</content > Platelet mean 8.0-11.0 <content [facility] volume [Entitic styleCode="Bold Gwen volume] in Blood ">Mean Platelet Medical by Automated Volume Center count </content>10.9 FL<content styleCode="Ital ics"> (8.0-11.0 FL)</content> ID Date Data Source [id number] 11/26/2019 11:00:00 AM [facility] -0500 Name Value Range Interpretation Description Data Sup porting Code Source(s) Document(s ) UNK NEGATIVE <content [facility] Gwen styleCode="Bold Medical ">Acetone Center </content>NEGAT ALLEGRA <content styleCode="Ital ics"> (NEGATIVE )</content> Lipase 23-300 <content [facility] [Enzymatic styleCode="Bold Medical activity/v ">Lipase Center olume] in </content>34 Serum or IU/L<content Plasma styleCode="Ital ics"> (23-300 IU/L)</content> ID Date Data Source [id number] 11/26/2019 11:00:00 AM EST [facility] -0500 Name Value Range Interpretation Description Data Sup porting Code Source(s) Document(s ) Troponin < 0.034 <content [facility] I.cardiac styleCode="Bold Gwen [Mass/volume ">Troponin I Medical ] in Serum </content>0.025 Center or Plasma NG/ML<content styleCode="Ital ics"> (< 0.034 NG/ML)</content > Procedure Social History Code Duration Value Status Description Data Source(s ) Smoking 11/26/2019 Occasional Smoker completed Occasional Smoker [facility] 10:15:00 AM EST Medical C enter Smoking 11/26/2019 Occasional Smoker completed Occasional Smoker [facility] 10:12:00 AM EST Medical C enter Smoking 11/26/2019 Occasional Smoker completed Occasional Smoker [facility] 10:02:00 AM EST Medical C enter Vital Signs ID Date Data Source UNK Name Value Range Interpretation Code Description Data Source(s) Body temperature 37.832123 37.455523 [facility] Respiratory rate 18 /min 18 /min [facility] Oxygen saturation 99 % 99 % [facility] blood [facility] Center by Pulse oximetry Heart rate 68 /min 68 /min [facility] Diastolic blood 71 mm[Hg] 71 mm[Hg] [facility] pressure Medical Center Systolic blood 139 mm[Hg] 139 mm[Hg] [facility] pressure Medical Center Body weight 94.454888 kg 94.532004 kg [facility] Measured Medical Center Body temperature 37.760730 37.233259 Kristi [facility] Respiratory rate 17 /min 17 /min [facility] Oxygen saturation 98 % 98 % [facility] Center by Pulse oximetry Heart rate 86 /min 86 /min [facility] Body height 170.253799 170.878134 cm [facility] Diastolic blood 74 mm[Hg] 74 mm[Hg] [facility] pressure Medical Center Systolic blood 112 mm[Hg] 112 mm[Hg] [facility] pressure Medical Center Body mass index 32.7 kg/m2 32.7 kg/m2 [facility] (BMI) [Ratio] [facility]
--- NOTE | 2020-08-08 14:13 | PDOC ---
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 According to sister who is at bedside pt has been having multiple episodes of shaking episodes where both her arms and legs are shaking and pt is hyperventilating. According to sister this is consisent with pt normal seizure. According to pt sister pt is usually able to go back to baseline right after event. Pt also explains she is having on and off chest pain that is going on for the past 1 month. Pt explains chest pain is sharp worse with deep inspiration. Pt has a history of pseudoseizures according to chart. According to pt, pt has been taking topamax everyday for her seizures and she still has been getting seizures everyday for the last few days. Pt denies abdominal pain, dysuria, urinary frequency, headache, weakness. PMH: pseudoseizures, HTN, RA Meds: topamax, klonipin, xanax, percocet Allergies: phenytoin Social: pack a week; denies alcohol; smokes marijuana for seizures PCP: Dr. Ahn Neuro: Dr. Sutton 08/08/20 15:08 08/08/20 16:30 Past History - Medical History Allergies/Adverse Reactions: Allergies Allergy/AdvReac Type Severity Reaction Status Date / Time phenytoin sodium extended Allergy Verified 08/08/20 14:36 [From Dilantin] Home Medications: Ambulatory Orders Alprazolam [Xanax] 2 mg PO BID 06/18/18 Gabapentin 300 mg PO DAILY 08/11/18 Albuterol 0.083% Nebulizer Kathleen [Ventolin 0.083% Nebulizer Soln -] 1 amp NEB QID PRN #1 amp 10/08/18 Albuterol Sulfate Inhaler - [Ventolin HFA Inhaler -] 1 - 2 inh PO QID PRN #1 inhaler 11/26/18 Albuterol Sulfate Inhaler - [Ventolin HFA Inhaler -] 1 puff IH TID #1 inhaler 11/26/18 Fluticasone Furoate [Flonase Sensimist] 5.9 ml NS DAILY PRN #1 spray.susp 11/26/18 Fluticasone Prop 0.05% Nasal [Flonase -] 1 - 2 spray NS DAILY #1 spray.pump 11/26/18 Inhaler, Assist Devices [Space Chamber Plus] 1 each MC DAILY #1 spacer 11/26/18 Inhaler, Assist Devices [Space Chamber Plus] 1 each MC QID #1 spacer 11/26/18 Amlodipine Besylate [Norvasc -] 10 mg PO DAILY 03/27/19 Clonazepam 1 mg PO BID #2 tablet MDD 2 03/27/19 Hydrochlorothiazide 12.5 mg PO DAILY 03/27/19 Topiramate [Topamax] 100 mg PO BID #14 tab 03/27/19 Clonazepam [Klonopin] 1 mg PO DAILY PRN #4 tablet MDD 1 08/14/19 Anemia: No Asthma: Yes (Bronchial asthma) Cancer: No Cardiac Disorders: No CVA: No COPD: No CHF: No DVT: No Dementia: No Diabetes: Yes (prediabetes) GI Disorders: Yes (acid reflux, IBS) Disorders: No HTN: Yes Hypercholesterolemia: Yes Liver Disease: No Psychiatric Problems: (anxeity,PTSD) Seizures: Yes (pseudoseizures) Thyroid Disease: No - Surgical History Abdominal Surgery: No Appendectomy: No Cardiac Surgery: No Cholecystectomy: Yes Lung Surgery: No Neurologic Surgery: No Orthopedic Surgery: No - Reproductive History Is Patient Now?: No - Immunization History Immunization Up to Date: Yes - Psycho-Social/Smoking History Smoking Status: Yes Smoking History: Unknown if ever smoked Have you smoked in the past 12 months: Yes Number of Cigarettes Smoked Daily: 1 'Breaking Loose' booklet given: 06/18/18 - Substance Abuse Hx (Audit-C & DAST Scrn) How often the patient has a drink containing alcohol: Never Score: In Men: 4 or > Positive; In Women: 3 or > Positive: 0 Screen Result (Pos requires Nsg. Audit-10AR): Negative In the last yr the pt used illegal drug/Rx for NonMed reason: No Score: Yes response is considered Positive: 0 Screen Result (Positive result requires Nsg. DAST-10): Negative Review of Systems - Review of Systems Comments:: 08/08/20 15:05 GENERAL/CONSTITUTIONAL: No fever or chills. No weakness. HEAD, EYES, EARS, NOSE AND THROAT: No change in vision. No ear pain or discharge. No sore throat. CARDIOVASCULAR: Chest pain and sob RESPIRATORY: No cough, wheezing, or hemoptysis. GASTROINTESTINAL: No nausea, vomiting, diarrhea or constipation. GENITOURINARY: No dysuria, frequency, or change in urination. MUSCULOSKELETAL: No joint or muscle swelling or pain. No neck or back pain. SKIN: No rash NEUROLOGIC: No headache, vertigo, loss of consciousness, dec strength and sensation in left leg ENDOCRINE: No increased thirst. No abnormal weight change HEMATOLOGIC/LYMPHATIC: No anemia, easy bleeding, or history of blood clots. ALLERGIC/IMMUNOLOGIC: No hives or skin allergy. *Physical Exam - Vital Signs Last Vital Signs Temp Pulse Resp BP Pulse Ox 99.3 F 76 20 152/93 99 08/08/20 13:43 08/08/20 13:47 08/08/20 13:43 08/08/20 13:43 08/08/20 13:47 - Physical Exam 08/08/20 15:04 GENERAL: Awake, alert, and fully oriented, in no acute distress HEAD: No signs of trauma, normocephalic, atraumatic EYES: PERRLA, EOMI, sclera anicteric, conjunctiva clear ENT: Auricles normal inspection, hearing grossly normal, nares patent, oropharynx clear without exudates. Moist mucosa NECK: Normal ROM, supple, no lymphadenopathy, JVD, or masses LUNGS: No distress, speaks full sentences, clear to auscultation bilaterally HEART: Regular rate and rhythm, normal S1 and S2, no murmurs, rubs or gallops, peripheral pulses normal and equal bilaterally. ABDOMEN: Soft, nontender, normoactive bowel sounds. No guarding, no rebound. No masses EXTREMITIES : Normal inspection, Normal range of motion, no edema. No clubbing or cyanosis. NEUROLOGICAL: Cranial nerves II through XII intact. Normal speech, 5/5 muscle strength in bilateral upper ext. 4/5 muscle strength in right lower ext. 3/5 in left lower ext. Pt has dec sensation in left lower ext. During seizures pt makes purposeful movements like flexing head and moving arm. Pt does not have postictal state post seizures. SKIN: Warm, Dry, normal turgor, no rashes or lesions noted Heart Score/ECG Review - ECG Impressions Comment:: 08/08/20 15:12 Poor EKG Regular rate and rhythm at 70 bpm Normal axis IN interval 202, QRS 68 QT interval 383/[address] segment changes No acute ischemia ED Treatment Course - LABORATORY CBC & Chemistry Diagram: 08/08/20 14:00 08/08/20 14:00 Medical Decision Making - Medical Decision Making 08/08/20 14:45 50yo f with pmh pseudoseizures htn presents to ED for seizures. Pt sister saying she has had multiple seizures for the past two hours. PT asking for ativan. Pt has history of pseudoseizures. Pt has not taken morning topiramate. Will call neurologist Dr. Sutton and give topiramate. 08/08/20 14:[address] Sutton associate who explained she has known pseudoseizures and s he should come in for video EEG monitoring. He said to not change medication on her and discharge home with follow up with Dr. Sutton. 08/08/20 15:03 Explained to pt possible pseudo seizure pt understood and heard that she may have pseudo seizures and knows that she is supposed to get video EEG. PT understands fully about condition and is willing to go home after pain medication for back. Pt has scheduled appointment with Neurologist next Friday. Pt will call today to make a sooner appointment. Pt was asked if any refills needed to be made on prescription and pt denied refills. 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 This is most likely due to pseudogenic seizures. At the ED we did labs and gave you your normal toprimax that you take at home. We also did labs which were all within normal limits. We talked to your neurologist who said do not change your medication. To keep taking your medications as is. He also states to see him in his office for a video EEG within the next few days. Please call your neurologist to schedule an appointment. You also had some lower back pain consistent with your herniated disc so we gave you tylenol and toradol which is an NSAID. Please do not take your perecocet within the next 6 hours. If you have any of the following please return: - seizures lasting greater than 5 minutes with confusion after event - hitting your head - short of breath or worsening chest pain IF you have any emergent symptoms please call for medical help right away. - Post Discharge Activity
[2020-08-08] MEDS ORDERED: TOPIRAMATE 100 MG TABLET PO ONE (14:36)
[2020-08-08] MEDS ORDERED: TOPIRAMATE 25 MG TABLET ONE (14:42)
[2020-08-08] MEDS ORDERED: ACETAMINOPHEN 1000 MG/100 ML VIAL (NON FORMULARY) IVPB ONE (15:02)
[2020-08-08 15:15] LABS: BASO % 0.5 % (0-2.0); EOS % 2.2 % (0-4.5); HEMATOCRIT 41.5 % (32.4-45.2); LYMPH % 38.6 % (8-40); MCH 28.5 pg (25.7-33.7); MCHC 33.6 g/dl (32.0-36.0); MEAN CELL VOLUME 84.8 fl (80-96); MONO % 5.5 % (3.8-10.2); NEUT % 53.2 % (42.8-82.8); PLATELET COUNT 238 K/MM3 (134-434); RDW 14.2 % (11.6-15.6); WHITE BLOOD COUNT 7.2 K/mm3 (4.0-10.0)
[2020-08-08] MEDS ORDERED: ACETAMINOPHEN INJECTION 100 ML IVPB ONE (15:18)
[2020-08-08 15:30] LABS: ALK PHOS 68 U/L (45-117); ANION GAP 9 MMOL/L (8-16); BILIRUBIN,TOTAL 0.2 mg/dL (0.2-1); BLOOD UREA NITROGEN 15.6 mg/dL (7-18); CALCIUM 9.2 mg/dL (8.5-10.1); CHLORIDE 112 mmol/L (98-107); CO2 20 mmol/L (21-32); CREATININE 0.9 mg/dL (0.55-1.3); GLUCOSE,RANDOM 93 mg/dL (74-106); MAGNESIUM 2.2 mg/dL (1.8-2.4); SGOT/AST 15 U/L (15-37); SGPT/ALT 23 U/L (13-61); SODIUM 141 mmol/L (136-145); TOT PROT 7.4 g/dl (6.4-8.2)
[2020-08-08] MEDS ORDERED: KETOROLAC TROMETHAMINE 15 MG/ML VIAL IVPUSH ONE (16:05)
[2020-08-08] MEDS ORDERED: KETOROLAC TROMETHAMINE 30 MG/1 ML VIAL ONE (16:27)
[2020-08-08 16:52] VITALS: BP 169/95; PULSE 64; TEMP 97.9
--- NOTE | 2020-08-09 09:52 | EKG ---
Test Reason : Blood Pressure : / mmHG Vent. Rate : 069 BPM Atrial Rate : 069 BPM P-R Int : 202 ms QRS Dur : 068 ms QT Int : 382 ms P-R-T Axes : 049 -01 045 degrees QTc Int : 409 ms NORMAL SINUS RHYTHM POSSIBLE ANTERIOR INFARCT , AGE UNDETERMINED ABNORMAL ECG WHEN COMPARED WITH ECG OF 29-JUN-2020 16:23, NONSPECIFIC T WAVE ABNORMALITY, IMPROVED IN LATERAL LEADS Confirmed by MD Andrew, Jann ([id number]) on 08/09/2020 9:52:01 AM Referred By: Confirmed By:Jann Morales MD
== END 2020-08-08 16:54 | disposition home or self-care (01) ==
LOC: JER 13:18
PROC: 3E0333Z Introduction of Anti-inflammatory into Peripheral Vein, Percutaneous Approach (ICD-10-PCS; principal; 2020-08-08)
PROC: 3E033GC Introduction of Other Therapeutic Substance into Peripheral Vein, Percutaneous Approach (ICD-10-PCS; 2020-08-08)
DX: F44.5 Conversion disorder with seizures or convulsions (principal)
CPT/HCPCS: 36415; 71045-TC-FY; 80053; 83735; 84484; 84703; 85025; 93005; 93010; 99285-25; J0131

== ENCOUNTER 2020-09-12 11:05 | Observation (INO) | payer OTHER ==
[2020-09-12 11:26] VITALS: BMI 33.6
[2020-09-12] MEDS ORDERED: ACETAMINOPHEN 1000 MG/100 ML VIAL (NON FORMULARY) IVPB ONE (12:01)
[2020-09-12] MEDS ORDERED: ONDANSETRON 4 MG/2 ML VIAL IVPUSH ONE (12:02)
[2020-09-12] MEDS ORDERED: ACETAMINOPHEN INJECTION 100 ML IVPB ONE (12:05)
[2020-09-12 12:21] LABS: BASO % 0.9 % (0-2.0); EOS % 1.9 % (0-4.5); HEMATOCRIT 42.6 % (32.4-45.2); HEMOGLOBIN 14.4 GM/dL (10.7-15.3); LYMPH % 47.4 % (8-40); MCH 28.6 pg (25.7-33.7); MCHC 33.8 g/dl (32.0-36.0); MEAN CELL VOLUME 84.6 fl (80-96); MEAN PLT VOLUME 9.1 fl (7.5-11.1); MONO % 4.4 % (3.8-10.2); NEUT % 45.4 % (42.8-82.8); PLATELET COUNT 221 K/MM3 (134-434); RBC 5.03 M/mm3 (3.60-5.2); RDW 13.8 % (11.6-15.6)
[2020-09-12 12:24] LABS: ARTERIAL BLD GAS O2 SATURATION 99.4 mmHg (95-98); ARTERIAL BLOOD GAS BASE EXCESS -4.5 mmol/L (-2-2); ARTERIAL BLOOD GAS PO2 228.4 mmHg (80-100); ARTERIAL BLOOD GAS pH 7.331 (7.350-7.450)
[2020-09-12 12:44] LABS: CHLORIDE 113 mmol/L (98-107); POTASSIUM 3.9 mmol/L (3.5-5.1); SODIUM 142 mmol/L (136-145)
[2020-09-12 12:48] LABS: CALCIUM 9.1 mg/dL (8.5-10.1)
[2020-09-12 12:49] LABS: ANION GAP 6 MMOL/L (8-16); BLOOD UREA NITROGEN 11.8 mg/dL (7-18); CO2 23 mmol/L (21-32); GLUCOSE,RANDOM 77 mg/dL (74-106)
[2020-09-12 12:52] LABS: CREATININE 1.1 mg/dL (0.55-1.3); PHOSPHOROUS 2.7 mg/dL (2.5-4.9); SGOT/AST 18 U/L (15-37); SGPT/ALT 20 U/L (13-61)
[2020-09-12 12:53] LABS: BILIRUBIN,TOTAL 0.4 mg/dL (0.2-1); TOT PROT 7.7 g/dl (6.4-8.2)
[2020-09-12 12:54] LABS: ALK PHOS 72 U/L (45-117)
[2020-09-12] MEDS ORDERED: LACTATED RINGERS SOLUTION 1000 ML INFUS.BAG IV ONE ×2 (13:29→14:50)
[2020-09-12] MEDS ORDERED: METOCLOPRAMIDE HCL INJECTION 10 MG/2 ML VIAL IVPB ONE (13:48)
[2020-09-12] MEDS ORDERED: METOCLOPRAMIDE HCL INJECTION 10 MG/2 ML VIAL ONE (13:50)
[2020-09-12] MEDS ORDERED: KETOROLAC TROMETHAMINE 15 MG/ML VIAL IVPUSH ONE (14:49)
[2020-09-12] MEDS ORDERED: KETOROLAC TROMETHAMINE 15 MG/ML VIAL ONE (15:07)
[2020-09-12 17:00] LABS: ARTERIAL BLD GAS O2 SATURATION 99.7 mmHg (95-98); ARTERIAL BLOOD GAS BASE EXCESS -4.3 mmol/L (-2-2); ARTERIAL BLOOD GAS PO2 338.4 mmHg (80-100); ARTERIAL BLOOD GAS pH 7.326 (7.350-7.450)
[2020-09-12 17:01] LABS: ALLENS TEST POSITIVE; PT'S TEMP 98.6
[2020-09-12] MEDS ORDERED: PATIENT'S OWN MEDICATION (NON-FORMULARY) (Oxycodone Hcl/Acetaminophen [Oxycodone-Acetamino PO PRN (18:57)
[2020-09-12] MEDS ORDERED: oxyCODONE HCL 5 MG TABLET PO PRN (19:01)
[2020-09-12] MEDS ORDERED: ACETAMINOPHEN 325 MG TABLET (FP) PO PRN (19:01)
[2020-09-12] MEDS: GABAPENTIN 300 MG CAPSULE PO SCH (22:06)
[2020-09-12] MEDS: clonazePAM 0.5 MG TABLET PO SCH (22:06)
[2020-09-12] MEDS: oxyCODONE HCL 5 MG TABLET PO PRN (22:07)
[2020-09-12] MEDS: ACETAMINOPHEN 325 MG TABLET (FP) PO PRN (22:08)
[2020-09-12] MEDS: TOPIRAMATE 100 MG TABLET PO SCH (22:09)
[2020-09-13] MEDS: oxyCODONE HCL 5 MG TABLET PO PRN ×3 (05:50→22:15)
[2020-09-13] MEDS: ACETAMINOPHEN 325 MG TABLET (FP) PO PRN (05:50)
[2020-09-13] MEDS ORDERED: LORazepam 2 MG/ML SDV VIAL ONE ×3 (06:04→16:04)
[2020-09-13] MEDS ORDERED: LORazepam 2 MG/ML SDV VIAL IVPUSH ONE ×3 (07:15→16:24)
[2020-09-13 08:29] LABS: BASO % 0.5 % (0-2.0); EOS % 3.4 % (0-4.5); HEMATOCRIT 38.9 % (32.4-45.2); HEMOGLOBIN 12.9 GM/dL (10.7-15.3); LYMPH % 47.7 % (8-40); MCH 28.2 pg (25.7-33.7); MCHC 33.1 g/dl (32.0-36.0); MEAN CELL VOLUME 85.1 fl (80-96); MEAN PLT VOLUME 9.2 fl (7.5-11.1); MONO % 4.7 % (3.8-10.2); NEUT % 43.7 % (42.8-82.8); PLATELET COUNT 186 K/MM3 (134-434); RBC 4.57 M/mm3 (3.60-5.2); RDW 14.3 % (11.6-15.6); WHITE BLOOD COUNT 6.2 K/mm3 (4.0-10.0)
[2020-09-13 08:49] LABS: POTASSIUM 4.1 mmol/L (3.5-5.1)
[2020-09-13 08:59] LABS: CALCIUM 8.7 mg/dL (8.5-10.1)
[2020-09-13 09:00] LABS: ALBUMIN 3.4 g/dl (3.4-5.0); BLOOD UREA NITROGEN 14.4 mg/dL (7-18)
[2020-09-13 09:04] LABS: BILIRUBIN,TOTAL 0.5 mg/dL (0.2-1); TOT PROT 6.2 g/dl (6.4-8.2)
[2020-09-13] MEDS: TOPIRAMATE 100 MG TABLET PO SCH ×2 (09:50→22:05)
[2020-09-13] MEDS: HYDROCHLOROTHIAZIDE 12.5 MG CAPSULE (FP) PO SCH (09:50)
[2020-09-13] MEDS: amLODIPine BESYLATE 10 MG TABLET (FP) PO SCH (09:50)
[2020-09-13] MEDS: clonazePAM 0.5 MG TABLET PO SCH ×2 (09:51→22:05)
[2020-09-13] MEDS: GABAPENTIN 300 MG CAPSULE PO SCH ×3 (09:51→22:06)
[2020-09-13] MEDS ORDERED: ACETAMINOPHEN 325 MG TABLET (FP) PO ONE (12:15)
[2020-09-13] MEDS ORDERED: KETOROLAC TROMETHAMINE 15 MG/ML VIAL IVPUSH PRN (15:34)
[2020-09-13] MEDS ORDERED: levETIRAcetam 500 MG/5 ML INJECTION VIAL IVPB ONE ×3 (16:00→20:30)
[2020-09-13] MEDS ORDERED: LORazepam 2 MG/ML SDV VIAL IM ONE (16:02)
[2020-09-13] MEDS ORDERED: levETIRAcetam 500 MG/5 ML INJECTION VIAL IVPB SCH (22:00)
[2020-09-13] MEDS: levETIRAcetam 500 MG/5 ML INJECTION VIAL IVPB SCH (22:05)
[2020-09-14 08:29] VITALS: BP 143/79; PULSE 79; TEMP 98.4
[2020-09-14] MEDS ORDERED: PT OWN MED DRAWER 7, Y5N ONE ×3 (09:42→11:19)
[2020-09-14] MEDS: GABAPENTIN 300 MG CAPSULE PO SCH (09:48)
[2020-09-14] MEDS: TOPIRAMATE 100 MG TABLET PO SCH ×2 (09:49→09:58)
[2020-09-14] MEDS: HYDROCHLOROTHIAZIDE 12.5 MG CAPSULE (FP) PO SCH ×2 (09:49→09:57)
[2020-09-14] MEDS: clonazePAM 0.5 MG TABLET PO SCH (09:49)
[2020-09-14] MEDS: amLODIPine BESYLATE 10 MG TABLET (FP) PO SCH ×2 (09:49→09:57)
[2020-09-14] MEDS: oxyCODONE HCL 5 MG TABLET PO PRN (09:50)
[2020-09-14] MEDS: levETIRAcetam 500 MG/5 ML INJECTION VIAL IVPB SCH (11:33)
== END 2020-09-14 12:00 | disposition home or self-care (01) ==
LOC: JER 11:05 → UNDOADMIN 17:38 → JERBED 17:38 → J4S 21:24
PROVIDERS: ADMIT Internal Medicine; ATTEND Internal Medicine
PROC: 3E033GC Introduction of Other Therapeutic Substance into Peripheral Vein, Percutaneous Approach (ICD-10-PCS; principal; 2020-09-12)
PROC: 3E033NZ Introduction of Analgesics, Hypnotics, Sedatives into Peripheral Vein, Percutaneous Approach (ICD-10-PCS; 2020-09-12)
PROC: 3E0337Z Introduction of Electrolytic and Water Balance Substance into Peripheral Vein, Percutaneous Approach (ICD-10-PCS; 2020-09-12)
DX: T58.91XA Toxic effect of carbon monoxide from unspecified source, accidental (unintentional), initial encounter (principal); I10 Essential (primary) hypertension; M06.9 Rheumatoid arthritis, unspecified; G89.29 Other chronic pain; M54.9 Dorsalgia, unspecified; K21.9 Gastro-esophageal reflux disease without esophagitis; J45.909 Unspecified asthma, uncomplicated; F41.9 Anxiety disorder, unspecified; R56.9 Unspecified convulsions
CPT/HCPCS: 36415; 36600; 71045-TC-FY; 80053; 82375; 82550; 82553; 82803; 83050; 83605; 83735; 84100; 84484; 84703; 85025; 93005; 93010; 96361; 96374; 96375; 97116-GP; 97161-GP; 99285-25; C9803; G0378; J0131; U0003

== ENCOUNTER 2021-03-14 13:07 | Emergency (ER) | payer OTHER ==
[2021-03-14 13:21] VITALS: BP 116/83; PULSE 70; TEMP 99; BMI 37.5
[2021-03-14 14:33] LABS: BASO % 0.9 % (0-2.0); EOS % 3.8 % (0-4.5); HEMATOCRIT 37.6 % (32.4-45.2); HEMOGLOBIN 12.9 GM/dL (10.7-15.3); LYMPH % 48.9 % (8-40); MCH 29.2 pg (25.7-33.7); MCHC 34.2 g/dl (32.0-36.0); MEAN CELL VOLUME 85.4 fl (80-96); MEAN PLT VOLUME 8.8 fl (7.5-11.1); MONO % 4.5 % (3.8-10.2); NEUT % 41.9 % (42.8-82.8); PLATELET COUNT 199 K/MM3 (134-434); RDW 14.2 % (11.6-15.6); WHITE BLOOD COUNT 5.6 K/mm3 (4.0-10.0)
[2021-03-14 14:59] LABS: ALBUMIN 3.6 g/dl (3.4-5.0); BLOOD UREA NITROGEN 11.3 mg/dL (7-18); CALCIUM 8.8 mg/dL (8.5-10.1)
[2021-03-14 15:02] LABS: CREATININE 0.8 mg/dL (0.55-1.3)
[2021-03-14 15:04] LABS: BILIRUBIN,TOTAL 0.4 mg/dL (0.2-1); TOT PROT 6.5 g/dl (6.4-8.2)
[2021-03-14] MEDS ORDERED: ACETAMINOPHEN 325 MG TABLET (FP) PO ONE (15:07)
== END 2021-03-14 15:35 | disposition left against medical advice (07) ==
LOC: JER 13:07
DX: R56.9 Unspecified convulsions (principal)
CPT/HCPCS: 36415; 80053; 82962; 85025; 99283-25

== ENCOUNTER 2021-04-06 14:28 | Emergency (ER) | payer OTHER ==
[2021-04-06 14:50] VITALS: BMI 32.8
[2021-04-06] MEDS ORDERED: ACETAMINOPHEN 1000 MG/100 ML VIAL (NON FORMULARY) IVPB ONE (16:00)
[2021-04-06] MEDS ORDERED: ACETAMINOPHEN INJECTION 100 ML IVPB ONE (16:18)
[2021-04-06 16:25] LABS: BASO % 0.4 % (0-2.0); EOS % 2.4 % (0-4.5); HEMATOCRIT 36.4 % (32.4-45.2); HEMOGLOBIN 12.4 GM/dL (10.7-15.3); LYMPH % 42.1 % (8-40); MCH 28.7 pg (25.7-33.7); MEAN CELL VOLUME 84.3 fl (80-96); MEAN PLT VOLUME 7.9 fl (7.5-11.1); MONO % 4.6 % (3.8-10.2); NEUT % 50.5 % (42.8-82.8); PLATELET COUNT 332 K/MM3 (134-434); RBC 4.32 M/mm3 (3.60-5.2); WHITE BLOOD COUNT 8.4 K/mm3 (4.0-10.0)
[2021-04-06 16:37] LABS: CHLORIDE 112 mmol/L (98-107); SODIUM 146 mmol/L (136-145)
[2021-04-06 16:39] LABS: ANION GAP 7 MMOL/L (8-16); CO2 27 mmol/L (21-32); GLUCOSE,RANDOM 86 mg/dL (74-106)
[2021-04-06 16:40] LABS: ALBUMIN 3.6 g/dl (3.4-5.0); BLOOD UREA NITROGEN 14.4 mg/dL (7-18)
[2021-04-06 16:43] LABS: CREATININE 0.8 mg/dL (0.55-1.3); SGOT/AST 21 U/L (15-37); SGPT/ALT 66 U/L (13-61)
[2021-04-06 16:44] LABS: BILIRUBIN,TOTAL 0.2 mg/dL (0.2-1); TOT PROT 6.8 g/dl (6.4-8.2)
[2021-04-06 16:46] LABS: ALK PHOS 83 U/L (45-117)
[2021-04-06] MEDS ORDERED: KETOROLAC TROMETHAMINE 15 MG/ML VIAL IVPUSH ONE (17:46)
[2021-04-06] MEDS ORDERED: KETOROLAC TROMETHAMINE 15 MG/ML VIAL ONE (17:49)
[2021-04-06 18:21] VITALS: BP 125/72; PULSE 75; TEMP 98.1
== END 2021-04-06 18:31 | disposition home or self-care (01) ==
LOC: JER 14:28
PROC: 3E033NZ Introduction of Analgesics, Hypnotics, Sedatives into Peripheral Vein, Percutaneous Approach (ICD-10-PCS; principal; 2021-04-06)
PROC: 3E0333Z Introduction of Anti-inflammatory into Peripheral Vein, Percutaneous Approach (ICD-10-PCS; 2021-04-06)
DX: R56.9 Unspecified convulsions (principal); R07.81 Pleurodynia
CPT/HCPCS: 36415; 71046-TC-FY; 80053; 84484; 85025; 93005; 93010; 99284-25; J0131

== ENCOUNTER 2021-04-14 10:01 | Emergency (ER) | payer OTHER ==
[2021-04-14 10:10] VITALS: BP 108/72; PULSE 80; TEMP 98.3; BMI 36.0
[2021-04-14] MEDS ORDERED: levETIRAcetam 500 MG/5 ML INJECTION VIAL IVPB ONE ×2 (11:34→12:00)
[2021-04-14 11:45] LABS: BLOOD UREA NITROGEN 13.7 mg/dL (7-18); CALCIUM 9.6 mg/dL (8.5-10.1)
[2021-04-14 11:49] LABS: CREATININE 0.8 mg/dL (0.55-1.3)
[2021-04-14 11:50] LABS: BILIRUBIN,TOTAL 0.3 mg/dL (0.2-1); TOT PROT 7.3 g/dl (6.4-8.2)
[2021-04-14 12:01] LABS: BASO % 0.7 % (0-2.0); EOS % 1.9 % (0-4.5); HEMATOCRIT 39.4 % (32.4-45.2); HEMOGLOBIN 13.1 GM/dL (10.7-15.3); LYMPH % 47.2 % (8-40); MCH 28.1 pg (25.7-33.7); MCHC 33.4 g/dl (32.0-36.0); MEAN CELL VOLUME 84.2 fl (80-96); MEAN PLT VOLUME 8.5 fl (7.5-11.1); MONO % 4.6 % (3.8-10.2); NEUT % 45.6 % (42.8-82.8); PLATELET COUNT 267 10^3/uL (134-434); RBC 4.68 M/mm3 (3.60-5.2); RDW 14.5 % (11.6-15.6); WHITE BLOOD COUNT 5.7 K/mm3 (4.0-10.0)
== END 2021-04-14 13:30 | disposition left against medical advice (07) ==
LOC: JER 10:01
PROC: 3E033NZ Introduction of Analgesics, Hypnotics, Sedatives into Peripheral Vein, Percutaneous Approach (ICD-10-PCS; principal; 2021-04-14)
DX: R56.9 Unspecified convulsions (principal); R07.9 Chest pain, unspecified
CPT/HCPCS: 36415; 71045-TC-FY; 80053; 80201; 84484; 85025; 93005; 93010; 99285-25

== ENCOUNTER 2021-09-26 10:22 | Inpatient (IN) | payer OTHER ==
[2021-09-26 10:34] VITALS: BMI 33.6
[2021-09-26] MEDS ORDERED: CLINDAMYCIN 600MG PREMIX IVPB 600 MG/50 ML BAG IVPB ONE ×3 (11:00→17:49)
[2021-09-26] MEDS ORDERED: IBUPROFEN 400 MG TABLET (FP) PO ONE ×2 (11:00→11:14)
[2021-09-26 11:41] LABS: BASO % 0.7 % (0-2.0); EOS % 0.6 % (0-4.5); HEMATOCRIT 38.9 % (32.4-45.2); HEMOGLOBIN 13.5 GM/dL (10.7-15.3); LYMPH % 26.9 % (8-40); MCH 28.8 pg (25.7-33.7); MCHC 34.8 g/dl (32.0-36.0); MEAN CELL VOLUME 82.9 fl (80-96); MEAN PLT VOLUME 9.2 fl (7.5-11.1); MONO % 7.5 % (3.8-10.2); NEUT % 64.3 % (42.8-82.8); PLATELET COUNT 223 10^3/uL (134-434); RBC 4.69 M/mm3 (3.60-5.2); RDW 14.5 % (11.6-15.6); WHITE BLOOD COUNT 9.3 K/mm3 (4.0-10.0)
[2021-09-26 12:02] LABS: ALBUMIN 3.7 g/dl (3.4-5.0)
[2021-09-26 12:05] LABS: CREATININE 1.3 mg/dL (0.55-1.3)
[2021-09-26 12:06] LABS: BILIRUBIN,TOTAL 0.7 mg/dL (0.2-1); TOT PROT 7.8 g/dl (6.4-8.2)
[2021-09-26] MEDS ORDERED: ACETAMINOPHEN 1000 MG/100 ML VIAL IVPB ONE (15:00)
[2021-09-26] MEDS ORDERED: ACETAMINOPHEN INJECTION 100 ML IVPB ONE (15:10)
[2021-09-26] MEDS ORDERED: ACETAMINOPHEN 325 MG TABLET (FP) PO PRN (17:34)
[2021-09-26] MEDS: CLINDAMYCIN 600MG PREMIX IVPB 600 MG/50 ML BAG IVPB SCH (17:56)
[2021-09-26] MEDS ORDERED: LORazepam 2 MG/ML SDV VIAL IVPUSH ONE ×2 (22:24→22:55)
[2021-09-26] MEDS ORDERED: morphine SULFATE 4 MG/ML VIAL IVPUSH ONE (22:56)
[2021-09-26] MEDS ORDERED: morphine SULFATE 4 MG/ML VIAL ONE (22:59)
[2021-09-27 00:49] LABS: BASO % 0.4 % (0-2.0); EOS % 2.1 % (0-4.5); HEMATOCRIT 36.6 % (32.4-45.2); HEMOGLOBIN 12.4 GM/dL (10.7-15.3); LYMPH % 36.1 % (8-40); MCH 28.3 pg (25.7-33.7); MEAN CELL VOLUME 83.2 fl (80-96); MEAN PLT VOLUME 8.8 fl (7.5-11.1); MONO % 8.3 % (3.8-10.2); NEUT % 53.1 % (42.8-82.8); PLATELET COUNT 182 10^3/uL (134-434); RBC 4.39 M/mm3 (3.60-5.2); RDW 14.1 % (11.6-15.6); WHITE BLOOD COUNT 6.8 K/mm3 (4.0-10.0)
[2021-09-27 01:11] LABS: ALBUMIN 3.4 g/dl (3.4-5.0); BLOOD UREA NITROGEN 22.4 mg/dL (7-18); CALCIUM 8.8 mg/dL (8.5-10.1); MAGNESIUM 2.4 mg/dL (1.8-2.4)
[2021-09-27 01:14] LABS: CREATININE 1.5 mg/dL (0.55-1.3); PHOSPHOROUS 4.9 mg/dL (2.5-4.9)
[2021-09-27 01:16] LABS: BILIRUBIN,TOTAL 0.4 mg/dL (0.2-1)
[2021-09-27] MEDS: CLINDAMYCIN 600MG PREMIX IVPB 600 MG/50 ML BAG IVPB SCH ×3 (01:55→18:33)
[2021-09-27] MEDS: GABAPENTIN 300 MG CAPSULE PO SCH ×3 (01:55→21:08)
[2021-09-27] MEDS: TOPIRAMATE 100 MG TABLET PO SCH ×3 (01:55→21:09)
[2021-09-27] MEDS ORDERED: ALPRAZolam 1 MG TABLET PO PRN (02:25)
[2021-09-27] MEDS: morphine SULFATE 4 MG/ML VIAL IVPUSH PRN ×5 (02:52→21:25)
[2021-09-27] MEDS: LORazepam 2 MG/ML SDV VIAL IVPUSH PRN (08:15)
[2021-09-27] MEDS ORDERED: PT OWN MED DRAWER 7, Y5N ONE ×2 (09:38→18:19)
[2021-09-27] MEDS: amLODIPine BESYLATE 10 MG TABLET (FP) PO SCH (09:53)
[2021-09-27] MEDS: HYDROCHLOROTHIAZIDE 25 MG TABLET (FP) PO SCH (09:53)
[2021-09-27] MEDS: PANTOPRAZOLE 40 MG TABLET PO SCH (09:53)
[2021-09-27] MEDS: levETIRAcetam 500 MG/5 ML INJECTION VIAL IVPB SCH ×2 (09:54→21:07)
[2021-09-27] MEDS ORDERED: HYDROCHLOROTHIAZIDE 12.5 MG CAPSULE (FP) PO SCH (10:00)
[2021-09-27] MEDS: ACETAMINOPHEN 1000 MG/100 ML VIAL IVPB PRN ×2 (10:00→20:28)
[2021-09-27] MEDS ORDERED: oxyCODONE HCL 5 MG TABLET PO PRN ×3 (12:38→16:25)
[2021-09-27] MEDS ORDERED: PIPERACILLIN/TAZOB 3.375 GM 3.375 GM in DEXTROSE 5%-WATER - 50 ML IVPB SCH ×2 (12:45→13:00)
[2021-09-27] MEDS ORDERED: ACETAMINOPHEN 325 MG TABLET (FP) PO PRN ×2 (12:57→13:04)
[2021-09-27] MEDS ORDERED: VANCOMYCIN 1 GM in D5W (PRE-DOCKED) 1,000 MG/250 ML IVPB SCH ×2 (13:00→13:15)
[2021-09-27] MEDS ORDERED: DEXTROSE 5%-WATER - 50 ML IVPB ONE ×2 (14:39)
[2021-09-27] MEDS ORDERED: PIPERACILLIN/TAZOBACTAM 3.375 GM VIAL IVPB ONE ×2 (14:39)
[2021-09-27] MEDS: VILAZODONE HYDROCHLORIDE 40 MG TABLET PO SCH (18:20)
[2021-09-27] MEDS: LACTATED RINGERS SOLUTION 1,000 ML/1,000 ML INFUS.BAG IV SCH (18:32)
[2021-09-28] MEDS: CLINDAMYCIN 600MG PREMIX IVPB 600 MG/50 ML BAG IVPB SCH ×3 (01:03→17:15)
[2021-09-28] MEDS: LACTATED RINGERS SOLUTION 1,000 ML/1,000 ML INFUS.BAG IV SCH ×3 (04:59→19:59)
[2021-09-28] MEDS: morphine SULFATE 4 MG/ML VIAL IVPUSH PRN ×4 (08:05→23:07)
[2021-09-28] MEDS: LORazepam 2 MG/ML SDV VIAL IVPUSH PRN ×2 (09:22→22:15)
[2021-09-28] MEDS ORDERED: cefTRIAXone SODIUM 1 GM VIAL ONE (09:36)
[2021-09-28] MEDS ORDERED: DEXTROSE 5%-WATER - 50 ML IVPB ONE (09:37)
[2021-09-28] MEDS ORDERED: PT OWN MED DRAWER 7, Y5N ONE ×2 (09:38→22:13)
[2021-09-28] MEDS: PANTOPRAZOLE 40 MG TABLET PO SCH (09:45)
[2021-09-28] MEDS: amLODIPine BESYLATE 10 MG TABLET (FP) PO SCH (09:45)
[2021-09-28] MEDS: levETIRAcetam 500 MG/5 ML INJECTION VIAL IVPB SCH ×2 (09:46→21:19)
[2021-09-28] MEDS: HYDROCHLOROTHIAZIDE 25 MG TABLET (FP) PO SCH (09:46)
[2021-09-28] MEDS: GABAPENTIN 300 MG CAPSULE PO SCH ×3 (09:46→21:19)
[2021-09-28] MEDS: VILAZODONE HYDROCHLORIDE 40 MG TABLET PO SCH (09:47)
[2021-09-28] MEDS: TOPIRAMATE 100 MG TABLET PO SCH ×2 (09:47→21:52)
[2021-09-28] MEDS ORDERED: CEFTRIAXONE 1 GM in DEXTROSE 5%-WATER - 50 ML IVPB SCH (10:00)
[2021-09-28 10:12] LABS: BASO % 0.8 % (0-2.0); EOS % 4.1 % (0-4.5); HEMATOCRIT 35.9 % (32.4-45.2); HEMOGLOBIN 12.3 GM/dL (10.7-15.3); LYMPH % 36.3 % (8-40); MCH 28.8 pg (25.7-33.7); MCHC 34.3 g/dl (32.0-36.0); MEAN PLT VOLUME 8.5 fl (7.5-11.1); MONO % 6.8 % (3.8-10.2); PLATELET COUNT 199 10^3/uL (134-434); RBC 4.27 M/mm3 (3.60-5.2); RDW 14.2 % (11.6-15.6)
[2021-09-28 10:42] LABS: CALCIUM 8.9 mg/dL (8.5-10.1)
[2021-09-28 10:43] LABS: ALBUMIN 3.5 g/dl (3.4-5.0); BLOOD UREA NITROGEN 17.3 mg/dL (7-18)
[2021-09-28 10:46] LABS: CREATININE 0.7 mg/dL (0.55-1.3)
[2021-09-28 10:47] LABS: TOT PROT 6.8 g/dl (6.4-8.2)
[2021-09-28 10:48] LABS: BILIRUBIN,TOTAL 0.2 mg/dL (0.2-1)
[2021-09-28] MEDS ORDERED: ONDANSETRON 4 MG/2 ML VIAL IVPUSH PRN (19:46)
[2021-09-28] MEDS: FAMOTIDINE 20 MG TABLET PO SCH (19:59)
[2021-09-29] MEDS: CLINDAMYCIN 600MG PREMIX IVPB 600 MG/50 ML BAG IVPB SCH (01:36)
[2021-09-29] MEDS ORDERED: CEFUROXIME AXETIL 500 MG TABLET PO SCH (06:00)
[2021-09-29] MEDS: CLINDAMYCIN HCL 150 MG CAPSULE (FP) PO SCH ×2 (06:06→14:37)
[2021-09-29] MEDS: LACTATED RINGERS SOLUTION 1,000 ML/1,000 ML INFUS.BAG IV SCH (06:52)
[2021-09-29] MEDS: LORazepam 2 MG/ML SDV VIAL IVPUSH PRN ×2 (08:47→13:21)
[2021-09-29] MEDS ORDERED: PT OWN MED DRAWER 7, Y5N ONE (09:58)
[2021-09-29] MEDS ORDERED: LACTOBACILLUS ACIDOPHILUS 1 TABLET PO SCH (10:00)
[2021-09-29] MEDS: HYDROCHLOROTHIAZIDE 25 MG TABLET (FP) PO SCH (10:04)
[2021-09-29] MEDS: GABAPENTIN 300 MG CAPSULE PO SCH (10:04)
[2021-09-29] MEDS: TOPIRAMATE 100 MG TABLET PO SCH (10:04)
[2021-09-29] MEDS: levETIRAcetam 500 MG/5 ML INJECTION VIAL IVPB SCH (10:04)
[2021-09-29] MEDS: VILAZODONE HYDROCHLORIDE 40 MG TABLET PO SCH (10:04)
[2021-09-29] MEDS: amLODIPine BESYLATE 10 MG TABLET (FP) PO SCH (10:05)
[2021-09-29] MEDS: PANTOPRAZOLE 40 MG TABLET PO SCH (10:06)
[2021-09-29] MEDS: FAMOTIDINE 20 MG TABLET PO SCH (10:06)
[2021-09-29] MEDS ORDERED: ACETAMINOPHEN 1000 MG/100 ML VIAL IVPB ONE (10:45)
[2021-09-29] MEDS ORDERED: LORazepam 2 MG/ML SDV VIAL IM PRN (13:27)
[2021-09-29 14:33] VITALS: BP 141/94; PULSE 74; TEMP 98.1
== END 2021-09-29 17:03 | disposition home or self-care (01) | DRG 603 ==
LOC: JERFT 10:22 → JERBED 14:53 → J6S 21:07 → OBSVTOIN 09-27 13:25
PROVIDERS: ADMIT Internal Medicine; ATTEND Internal Medicine
PROC: 0X970ZZ Drainage of Left Upper Extremity, Open Approach (ICD-10-PCS; principal; 2021-09-26)
DX: L03.012 Cellulitis of left finger (principal); N17.9 Acute kidney failure, unspecified; G47.33 Obstructive sleep apnea (adult) (pediatric); K21.9 Gastro-esophageal reflux disease without esophagitis; G40.909 Epilepsy, unspecified, not intractable, without status epilepticus; I11.0 Hypertensive heart disease with heart failure; I50.9 Heart failure, unspecified; R73.03 Prediabetes; F32.A Depression, unspecified; F41.9 Anxiety disorder, unspecified
CPT/HCPCS: 36415; 73140-TC-LT-FY; 80053; 82550; 83036; 83605; 83735; 84100; 85025; 94660; 99285-25; C9803; G0378; J0131; U0003; U0005

== ENCOUNTER 2021-10-30 13:36 | Emergency (ER) | payer OTHER ==
[2021-10-30 14:11] VITALS: BP 120/81; PULSE 91; TEMP 98.2; BMI 32.8
[2021-10-30] MEDS ORDERED: levETIRAcetam 500 MG/5 ML INJECTION VIAL IVPB ONE ×2 (15:00→15:03)
[2021-10-30] MEDS ORDERED: KETOROLAC TROMETHAMINE 15 MG/ML VIAL IM ONE (15:05)
[2021-10-30] MEDS ORDERED: KETOROLAC TROMETHAMINE 15 MG/ML VIAL ONE (15:22)
[2021-10-30 15:27] LABS: HEMATOCRIT 36.7 % (32.4-45.2); HEMOGLOBIN 12.3 GM/dL (10.7-15.3); RBC 4.42 M/mm3 (3.60-5.2)
[2021-10-30 15:28] LABS: EOS % 0.5 % (0-4.5); LYMPH % 38.3 % (8-40); MCH 27.8 pg (25.7-33.7); MCHC 33.5 g/dl (32.0-36.0); MEAN CELL VOLUME 82.9 fl (80-96); MEAN PLT VOLUME 8.2 fl (7.5-11.1); MONO % 10.4 % (3.8-10.2); NEUT % 49.8 % (42.8-82.8); PLATELET COUNT 185 10^3/uL (134-434); RDW 14.5 % (11.6-15.6)
[2021-10-30 15:51] LABS: CHLORIDE 114 mmol/L (98-107); SODIUM 142 mmol/L (136-145)
[2021-10-30 15:54] LABS: CALCIUM 8.4 mg/dL (8.5-10.1)
[2021-10-30 15:55] LABS: ALBUMIN 3.1 g/dl (3.4-5.0); ANION GAP 7 MMOL/L (8-16); BLOOD UREA NITROGEN 9.7 mg/dL (7-18); CO2 21 mmol/L (21-32); GLUCOSE,RANDOM 87 mg/dL (74-106)
[2021-10-30 15:58] LABS: CREATININE 0.9 mg/dL (0.55-1.3); SGOT/AST 27 U/L (15-37); SGPT/ALT 16 U/L (13-61)
[2021-10-30 16:00] LABS: ALK PHOS 60 U/L (45-117); BILIRUBIN,TOTAL 0.2 mg/dL (0.2-1); TOT PROT 6.5 g/dl (6.4-8.2)
[2021-10-30 16:45] LABS: EPI CELLS >36 /uL (0-25.1); HYALINE CASTS 7 /uL (0-3.1); PH,URINE 6.5 (5.0-8.0); URINE APPEARANCE CLOUDY; URINE BACTERIA 548 /uL (0-1359); URINE BILIRUBIN NEGATIVE (NEGATIVE); URINE COLOR YELLOW; URINE GLUCOSE (UA) NEGATIVE (NEGATIVE); URINE KETONE TRACE (NEGATIVE); URINE LEUK ESTERASE 1+ (NEGATIVE); URINE NITRITE NEGATIVE (NEGATIVE); URINE PROTEIN TRACE (NEGATIVE); URINE UROBILINOGEN 0.2 mg/dL (0.2-1.0); URINE WBC 49 /uL (0-25.8)
[2021-10-30 23:13] LABS: URINE RBC 20.5 /uL (0-23.9)
== END 2021-10-30 17:00 | disposition home or self-care (01) ==
LOC: JER 13:36
PROC: 3E0233Z Introduction of Anti-inflammatory into Muscle, Percutaneous Approach (ICD-10-PCS; principal; 2021-10-30)
PROC: 3E033NZ Introduction of Analgesics, Hypnotics, Sedatives into Peripheral Vein, Percutaneous Approach (ICD-10-PCS; 2021-10-30)
DX: R56.9 Unspecified convulsions (principal)
CPT/HCPCS: 36415; 80053; 81003; 82550; 82553; 84484; 85025; 99284-25